=== PATIENT | male | born 1935 | race Caucasian/White ===

== ENCOUNTER → 2016-10-05 | Outpatient (CLI) | payer MEDICARE ==
[~2016-10-05] MED LIST: ALTA1CAP2 PO; ASPI1TAB PO; ATEN50TA2 PO; COLA100C PO; HYDR25TAB PO; WARF-23 PO; ZOCO20TA PO
[2016-10-05 11:05] LABS: INR 2.42
== END ==
LOC: M LAB 10:22
PROVIDERS: ATTEND Family Medicine
DX: Z51.81 Encounter for therapeutic drug level monitoring (principal); Z79.01 Long term (current) use of anticoagulants

== ENCOUNTER → 2016-11-02 | Outpatient (CLI) | payer MEDICARE ==
[2016-11-02 11:02] LABS: INR 2.28
== END ==
LOC: M LAB 10:14
PROVIDERS: ATTEND Family Medicine
DX: Z79.01 Long term (current) use of anticoagulants (principal)

== ENCOUNTER → 2016-11-30 | Outpatient (CLI) | payer MEDICARE ==
[2016-11-30 10:39] LABS: ANION GAP 9 MEQ/L (8-16); BLOOD UREA NITROGEN 21 MG/DL (7-18); CALCIUM LEVEL 8.7 MG/DL (8.8-10.2); CARBON DIOXIDE LEVEL 32 MEQ/L (21-32); CHLORIDE LEVEL 99 MEQ/L (98-107); CREATININE FOR GFR 1.17 MG/DL (0.70-1.30); GLOMERULAR FILTRATION RATE > 60.0 (>35); GLUCOSE, FASTING 212 MG/DL (83-110); POTASSIUM SERUM 4.1 MEQ/L (3.5-5.1); SODIUM LEVEL 140 MEQ/L (136-145)
[2016-11-30 10:48] LABS: INR 2.81
== END ==
LOC: M LAB 09:53
PROVIDERS: ATTEND Family Medicine
DX: Z79.01 Long term (current) use of anticoagulants (principal); Z79.899 Other long term (current) drug therapy

== ENCOUNTER → 2016-12-28 | Outpatient (CLI) | payer MEDICARE ==
[~2016-12-28] MED LIST changes: -COLA100C PO; +COLA100C3 PO
[2016-12-28 11:44] LABS: INR 2.37
== END ==
LOC: M LAB 10:32
PROVIDERS: ATTEND Family Medicine
DX: Z79.01 Long term (current) use of anticoagulants (principal)

== ENCOUNTER → 2017-01-25 | Outpatient (CLI) | payer MEDICARE ==
[2017-01-25 10:38] LABS: INR 2.04
== END ==
LOC: M LAB 10:11
PROVIDERS: ATTEND Family Medicine
DX: Z79.01 Long term (current) use of anticoagulants (principal)

== ENCOUNTER → 2017-02-16 | Outpatient (CLI) | payer MEDICARE ==
[2017-02-16 10:58] LABS: INR 2.1
== END ==
LOC: M LAB 10:05
PROVIDERS: ATTEND Family Medicine
DX: Z79.01 Long term (current) use of anticoagulants (principal)

== ENCOUNTER → 2017-03-16 | Outpatient (CLI) | payer MEDICARE ==
[2017-03-16 10:50] LABS: INR 2.04
[2017-03-16 11:13] LABS: ANION GAP 6 MEQ/L (8-16); BLOOD UREA NITROGEN 24 MG/DL (7-18); CALCIUM LEVEL 8.5 MG/DL (8.8-10.2); CARBON DIOXIDE LEVEL 30 MEQ/L (21-32); CHLORIDE LEVEL 102 MEQ/L (98-107); CREATININE FOR GFR 1.07 MG/DL (0.70-1.30); GLOMERULAR FILTRATION RATE > 60.0 (>35); GLUCOSE, FASTING 146 MG/DL (83-110); POTASSIUM SERUM 4.3 MEQ/L (3.5-5.1); SODIUM LEVEL 138 MEQ/L (136-145)
== END ==
LOC: M LAB 09:59
PROVIDERS: ATTEND Family Medicine
DX: Z79.01 Long term (current) use of anticoagulants (principal); R73.9 Hyperglycemia, unspecified

== ENCOUNTER → 2017-04-12 | Outpatient (CLI) | payer MEDICARE ==
[~2017-04-12] MED LIST changes: -COLA100C3 PO; +COLA100C5 PO
[2017-04-12 11:29] LABS: INR 2.54
== END ==
LOC: M LAB 10:15
PROVIDERS: ATTEND Family Medicine
DX: Z79.01 Long term (current) use of anticoagulants (principal)

== ENCOUNTER → 2017-05-12 | Outpatient (CLI) | payer MEDICARE ==
[2017-05-12 10:57] LABS: INR 4.55
== END ==
LOC: M LAB 10:06
PROVIDERS: ATTEND Family Medicine
DX: Z79.01 Long term (current) use of anticoagulants (principal)

== ENCOUNTER → 2017-05-24 | Outpatient (CLI) | payer MEDICARE ==
[2017-05-24 10:59] LABS: INR 2.71
== END ==
LOC: M LAB 09:36
PROVIDERS: ATTEND Family Medicine
DX: Z79.01 Long term (current) use of anticoagulants (principal)

== ENCOUNTER → 2017-06-07 | Outpatient (CLI) | payer MEDICARE ==
[2017-06-07 10:45] LABS: INR 2.17
[2017-06-07 11:05] LABS: ANION GAP 5 MEQ/L (8-16); BLOOD UREA NITROGEN 20 MG/DL (7-18); CARBON DIOXIDE LEVEL 33 MEQ/L (21-32); CHLORIDE LEVEL 99 MEQ/L (98-107); CREATININE FOR GFR 1.16 MG/DL (0.70-1.30); GLOMERULAR FILTRATION RATE > 60.0 (>35); GLUCOSE, FASTING 143 MG/DL (83-110); SODIUM LEVEL 137 MEQ/L (136-145)
== END ==
LOC: M LAB 09:53
PROVIDERS: ATTEND Family Medicine
DX: Z79.01 Long term (current) use of anticoagulants (principal); E11.9 Type 2 diabetes mellitus without complications

== ENCOUNTER → 2017-06-21 | Outpatient (CLI) | payer MEDICARE ==
[2017-06-21 11:01] LABS: INR 2.49
== END ==
LOC: M LAB 10:18
PROVIDERS: ATTEND Family Medicine
DX: Z79.01 Long term (current) use of anticoagulants (principal)

== ENCOUNTER → 2017-07-12 | Outpatient (CLI) | payer MEDICARE ==
[~2017-07-12] MED LIST changes: +ASPI81TAEC PO; +FLOM5CAP PO; +FURO20TA2 PO; +LASI20TA PO; +METF-699 PO; +PATIENT COMMENT; +RAMI25CA PO; +SIMV20TA2 PO
[2017-07-12 10:59] LABS: INR 2.61
== END ==
LOC: M LAB 10:05
PROVIDERS: ATTEND Family Medicine
DX: Z79.01 Long term (current) use of anticoagulants (principal)

== ENCOUNTER 2017-08-02 18:57 | Inpatient (IN) | payer MEDICARE ==
[~2017-08-02] VITALS: Ht 177.8 cm; Wt 95.4 kg
[~2017-08-02 18:57] MED LIST changes: -ASPI81TAEC PO; -FLOM5CAP PO; -FURO20TA2 PO; -LASI20TA PO; -METF-699 PO; -PATIENT COMMENT; -RAMI25CA PO; -SIMV20TA2 PO
[2017-08-02] MEDS ORDERED: NS 500 ML IV ONE (19:45)
[2017-08-02 19:54] LABS: VENOUS BASE EXCESS -1.3 (-2.0-2.0); VENOUS PARTIAL PRESSURE CO2 41.1 mmHg (38.0-50.0); VENOUS PARTIAL PRESSURE O2 31.9 mmHg (30.0-50.0); VENOUS STANDARD HCO3 22.3 MEQ/L
[2017-08-02] MEDS ORDERED: FLOM5CAP PO ×2 (20:02→22:39)
[2017-08-02] MEDS ORDERED: LASI20TA PO (20:02)
--- NOTE | 2017-08-02 20:03 | REP ---
Clinical: Trauma. Fall. Comparison: None. Findings: Age-related atrophy and microvascular ischemic changes are appreciated. The ventricles and sulci are symmetric. De La Cruz-white differentiation is maintained. There is no evidence for acute intracranial hemorrhage, mass/mass effect, pathology or infarction. No extra-axial fluid collection. Calvarium is intact. Chronic-appearing mucoceles in the right maxillary sinus identified. Impression: Age related atrophy and microvascular ischemic changes. No acute intracranial hemorrhage, infarction, or mass/mass effect. Signed by Evaristo Devine MD 08/02/2017 07:54 P
--- NOTE | 2017-08-02 20:05 | REP ---
Clinical: Trauma. Fall. Technique: Axial noncontrast images from the skull base to the thoracic inlet with coronal and sagittal re-formations. Findings: Advanced multilevel degenerative disc osteophyte complexes are appreciated including osteophytosis, endplate sclerosis and disc space narrowing along with hypertrophic facet changes. No acute fracture / compression injury or subluxation. Spinous processes are intact. Paravertebral soft tissues are within normal limits. Impression: Advanced multilevel degenerative changes. No acute fracture / compression injury or subluxation. Signed by Evaristo Devine MD 08/02/2017 07:57 P
--- NOTE | 2017-08-02 20:11 | REP ---
Clinical: Trauma. Fall. Technique: Axial noncontrast images through the maxillofacial region to include in the mandible with coronal and sagittal re-formations. Findings: Mild scalp swelling overlies the right frontal bone and right periorbital region. A subtle nondisplaced left nasal bone fracture cannot be excluded. The nasal septum is relatively midline. The remainder of the osseous structures are intact and without further acute fracture or dislocation identified including bilateral orbits, temporomandibular joints and zygomatic arches. Sinuses demonstrate mucoperiosteal thickening to the maxillary sinuses with chronic-appearing mucoceles (right greater than left). No air-fluid levels are identified to suggest occult injury. The bilateral orbits including globes and intraconal contents appear symmetric and normal. Impression: Mild right sided scalp and periorbital soft tissue swelling. Cannot exclude subtle nondisplaced left nasal bone fracture. No further acute trauma/injury identified. Chronic sinus disease. Signed by Evaristo Devine MD 08/02/2017 08:03 P
[2017-08-02 20:13] LABS: MEAN CORPUSCULAR HEMOGLOBIN 25.7 pg (27.0-33.0); MEAN CORPUSCULAR HGB CONC 31.4 g/dl (32.0-36.5); PLATELET COUNT, AUTOMATED 394 10^3/uL (150-450); RED CELL DISTRIBUTION WIDTH 16.6 % (11.5-14.5); WHITE BLOOD COUNT 16.3 10^3/uL (4.0-10.0)
[2017-08-02 20:16] LABS: ADD MANUAL DIFFER YES; DIFF SLIDE NUMBER 353; POSITIVE MORPH POS FLAG
[2017-08-02 20:29] LABS: INR 11.33
[2017-08-02] MEDS ORDERED: PHYTONADIONE 5 MG TAB PO ONE (20:45)
[2017-08-02 20:46] LABS: ALBUMIN 2.9 GM/DL (3.2-5.2); ALBUMIN/GLOBULIN RATIO 0.62 (1.00-1.93); ALKALINE PHOSPHATASE 68 U/L (45-117); ALT/SGPT 108 U/L (12-78); ANION GAP 13 MEQ/L (8-16); AST/SGOT 110 U/L (7-37); BILIRUBIN,DIRECT 0.2 MG/DL (0.0-0.2); BILIRUBIN,TOTAL 0.8 MG/DL (0.2-1.0); BLOOD UREA NITROGEN 90 MG/DL (7-18); CALCIUM LEVEL 9.4 MG/DL (8.8-10.2); CARBON DIOXIDE LEVEL 25 MEQ/L (21-32); CHLORIDE LEVEL 110 MEQ/L (98-107); CREATININE FOR GFR 2.08 MG/DL (0.70-1.30); GLOMERULAR FILTRATION RATE 32.8 (>35); GLUCOSE, FASTING 184 MG/DL (83-110); POTASSIUM SERUM 4.2 MEQ/L (3.5-5.1); SODIUM LEVEL 148 MEQ/L (136-145); TOTAL PROTEIN 7.6 GM/DL (6.4-8.2)
[2017-08-02 20:48] LABS: BASOPHILS 1 % (0-4)
[2017-08-02 20:49] LABS: ANISOCYTOSIS 1+
[2017-08-02 21:12] LABS: OSMOLALITY SERUM 349 MOSM/KG (280-301)
[2017-08-02] MEDS ORDERED: NS 1,000 ML IV ONE (21:30)
[2017-08-02] MEDS ORDERED: PATIENT COMMENT (22:39)
[2017-08-02] MEDS ORDERED: WARF-23 PO (22:39)
[2017-08-02] MEDS ORDERED: RAMI25CA PO (22:39)
[2017-08-02] MEDS ORDERED: SIMV20TA2 PO (22:39)
[2017-08-02] MEDS ORDERED: ATEN50TA2 PO (22:39)
[2017-08-02] MEDS ORDERED: COLA100C5 PO (22:39)
[2017-08-02] MEDS ORDERED: FURO20TA2 PO (22:39)
[2017-08-02] MEDS ORDERED: ASPI81TAEC PO (22:39)
[2017-08-02] MEDS ORDERED: METF-699 PO (22:40)
[2017-08-02] MEDS ORDERED: OXAZEPAM 15 MG CAP PO PRN (23:30)
[2017-08-03] VITALS (7 sets, daily range): BP systolic 92–140; BP diastolic 51–65
[2017-08-03] MEDS ORDERED: EUCERIN 120GM CREAM TOP PRN
[2017-08-03 00:51] LABS: METHADONE URINE NEGATIVE (NEGATIVE)
--- NOTE | 2017-08-03 01:11 | HPEPDOC ---
General Date of Admission Aug 02, 2017 at 23:51 Primary Care Physician: Casey Saini M.D. Chief Complaint The patient is a 81-year-old male admitted with a reason for visit of Supratheraputic Inr. Source: Patient Exam Limitations: No limitations, Hard of hearing Timing/Duration: Day(s) (four days ago) Severity: Moderate Associated Symptoms: Malaise, Dizziness, Mechanical fall History of Present Illness 81-year-old male with past medical history of atrial fibrillation, diabetes, heart failure, chronic and excessive alcohol use, hyperlipidemia who presents to the emergency department complaining of generalized weakness and a mechanical fall that occurred today, patient states that 4 days ago he acutely became very weak to the point where he sat on the floor in his apartment and was too weak to get up for about 3-4 days. He states that when he tried to get out today he became very lightheaded and fell, he states he his his head on his carpet and sustained a rug burn to his face, denied LOC. He states out for the past 60 years he has been drinking 4 scotches per night and occasionally some glasses of wine, he states he has not had any alcohol in about a week. He states he can stop drinking and not have tremors or feel poorly. He denies associated chest pain, dealings of his heart racing, shortness of breath or cough. He denies being sick recently which includes no fever, nausea vomiting or diarrhea, denies blood in urine or stool and denies pain with urination. Denies recent sick contact or travel outside the country. He lives at home in an apartment complex by himself and he stated that his neighbors found him yesterday when they came to check on him because they have not seen him in a few days, they called EMS and they found him on the floor unable to get up due to weakness. He states this weakness is new. He states his appetite has been good but he hasn't been unable to eat due to being on the floor in his apartment for the past few days. He does state that his lost about 20 pounds in the past year unintentionally. He denies any change in vision or headache. He does not smoke or use drugs, there are been no new changes in his medications and he takes is prescribed meds religiously. Home Medications Scheduled Aspirin (Aspirin EC) 81 Mg Tabec, 81 MG PO DAILY, (Reported) Atenolol (Atenolol) 50 Mg Tab, 50 MG PO DAILY, (Reported) Docusate Sodium (Colace) 100 Mg Cap, 100 MG PO DAILY, (Reported) Furosemide (Furosemide) 20 Mg Tab, 40 MG PO DAILY, (Reported) Metformin Hydrochloride (Metformin HCl ER) 500 Mg Tab, 500 MG PO DAILY, ( Reported) Ramipril (Ramipril) 2.5 Mg Cap, 2.5 MG PO DAILY, (Reported) Simvastatin (Simvastatin) 20 Mg Tab, 20 MG PO QHS, (Reported) Tamsulosin Hydrochloride (Flomax) 0.4 Mg Cap, 1 CAP PO QHS, (Reported) once daily 1/2 hour following the same meal each day Warfarin Sod (Warfarin Sodium) 5 Mg Tab, 2.5 MG PO ASDIRECTED, (Reported) TAKES ON TUESDAY, TUESDAY AND TUESDAY AT [facility] Warfarin Sod (Warfarin Sodium) 5 Mg Tab, 5 MG PO ASDIRECTED, (Reported) TAKES AT TUESDAY, TUESDAY, TUESDAY AND TUESDAY AT [facility] Miscellaneous Medications [Patient Comment] , (Reported) PATIENT STATES THAT HE DID NOT TAKE ANY MEDICATION TODAY Allergies Coded Allergies: Lisinopril (Unverified Allergy, Unknown, ITCHING, 12/26/12) Past Medical History Medical History as per [facility] Family History Significant Family History: No pertinent family hx Social History * Smoker: Denies Alcohol: heavy Drugs: denies Recent Travel/Sick Contacts: Denies: Recent travel, Recent sick contacts lives at home by himself, apparently has a brother near by Review of Symptoms Constitutional: Reports: Malaise, Weakness, Fatigue, Weight Loss (I), Lethargy , Denies: Chills, Fever, Night Sweats Eyes: Denies: Pain, Vision change ENT: Denies: Head Aches Skin: Reports: Bruising (b/l knees), Denies: Rash, Lesions, Jaundice, Breakdown Pulmonary: Denies: Dyspnea, Cough, Pleuritic Chest Pain Cardiovascular: Reports: Lt Headedness, Denies: Chest Pain, Palpitations, Orthopnea, Paroxysmal Noc. Dyspnea, Edema Gastrointestinal: Denies: Nausea, Vomiting, Abdominal Pain, Diarrhea, Constipation, Hematochezia Genitourinary: Denies: Dysuria Hematologic: Reports: Bruising, Petecchia, Denies: Bleeding Excessively, Purpura Endocrine: Denies: Polydipsia Musculoskeletal: Denies: Neck Pain Neurological: Reports: Weakness, Denies: Numbness, Incoordination, Change in speech, Confusion, Seizures Psych: Reports: Mood Normal Physical Examination General Exam: Positive: Alert, Cooperative, Mild Distress Eye Exam: Positive: PERRLA, Conjunctiva & lids normal, EOMI, Negative: Sclera icteric, Ptosis ENT Exam: Positive: Atraumatic, Mucous membr. moist/pink, Pharynx Normal, Tongue Midline, Nares Patent, Negative: Pharyngeal Edema Neck Exam: Positive: Supple Chest Exam: Positive: Clear to auscultation, Normal air movement, Negative: Rales, Rhonchi, Wheezing, Diminished Heart Exam: Positive: Rate Normal, Normal S1, Normal S2, Negative: Tachycardic, Bradycardic, Murmurs, Rubs Telemetry: Positive: No significant arrhythmia Abdomen Exam: Positive: Normal bowel sounds, Soft, Negative: Tenderness, Hepatospenomegaly Extremity Exam: Positive: Normal pulses, Other (b/l knee bruising from fall), Negative: Clubbing, Cyanosis, Edema, Tenderness, Swelling Neuro Exam: Positive: Normal Speech, Sensation Intact Psych Exam: Positive: Oriented x 3 Vital Signs Vital Signs Date Time Temp Pulse Resp B/P (MAP) Pulse Ox O2 Delivery O2 Flow Rate FiO2 08/02/17 23:26 98 94 08/02/17 23:15 103/57 (72) 08/02/17 19:49 96.9 14 Laboratory Data Labs 24H Laboratory Tests 2 08/02/17 19:06: Bedside Glucose (Misc Panel) 174H 08/02/17 19:42: Nucleated Red Blood Cells % (auto) 0.0, Neutrophils 87H, Lymphocytes (Manual) 7L , Monocytes (Manual) 4, Basophils (Manual) 1, Atypical Lymphocytes 1, Platelet Estimate NORMAL, Anisocytosis 1+, Prothrombin Time 95.7H, Prothromb Time International Ratio 11.33*H, Activated Partial Thromboplast Time 80.8H, Blood Gas Bicarbonate Standard 22.3, Venous Blood pH 7.379, Venous Blood Partial Pressure CO2 41.1, Venous Blood Partial Pressure O2 31.9, Venous Blood Total Carbon Dioxide 25.0, Venous Blood HCO3 23.7, Venous Blood Oxygen Saturation 54.0L, Venous Blood Base Excess -1.3, Anion Gap 13, Glomerular Filtration Rate 32.8L, Osmolality 349H, Lactic Acid Level 3.1*H, Calcium Level 9.4, Aspartate Amino Transf (AST/SGOT) 110H, Alanine Aminotransferase (ALT/SGPT) 108H, Alkaline Phosphatase 68, Total Bilirubin 0.8, Direct Bilirubin 0.2, Ammonia 40H , Total Creatine Kinase 1263H, Creatine Kinase MB 11.4H, Creatine Kinase MB Relative Index 0.90, Troponin I 0.05, Total Protein 7.6, Albumin 2.9L, Albumin/ Globulin Ratio 0.62L, Thyroid Stimulating Hormone (TSH) 0.841, Salicylates Level < 1.7L, Acetaminophen Level < 2.0L, Ethyl Alcohol Level < 0.003 08/03/17 00:03: Urine Appearance HAZY, Urine Color YELLOW, Urine pH 5.0, Urine Specific [place] 1.017, Urine Protein NEGATIVE, Urine Glucose (UA) NEGATIVE, Urine Ketones TRACEH , Urine Urobilinogen 0.2, Urine Bilirubin NEGATIVE, Urine Leukocyte Esterase NEGATIVE, Urine Blood 1+H, Urine Nitrite NEGATIVE, Urine WBC (Auto) 1, Urine RBC (Auto) 2, Urine Hyaline Casts (Auto) 0, Urine Bacteria (Auto) NEGATIVE, Urine Squamous Epithelial Cells 0, Urine Sperm (Auto) CBC/BMP Laboratory Tests 08/02/17 19:42 Red Blood Count 5.33, Mean Corpuscular Volume 82.0, Mean Corpuscular Hemoglobin 25.7 L, Mean Corpuscular Hemoglobin Concent 31.4 L, Red Cell Distribution Width 16.6 H Microbiology Microbiology 08/02/17 Blood Culture, Received Pending 08/02/17 Blood Culture, Received Pending 08/03/17 Urine Culture, Received Pending Problems (1) Supratherapeutic INR Status: Acute Response to Treatment: Stable Problem Text: INR 11.3 will recheck INR in AM hold home coumidin for now pt received 10 of Vitamin K in ED c/w home atenolol for a. fib (2) Fall Status: Acute Response to Treatment: Stable Problem Text: head CT negative for intracranial bleed will obtain CT of left knee to r/o hematoma continue to monitor knee admit to PCU, EKG in ED showed a. fib rate in 60's, no signs of ischemia C-spine CT negative for fracture maxillofacial CT possible nasal bone fracture first set of troponin neg., can trend (3) Rhabdomyolysis Status: Acute Response to Treatment: Stable (4) Diabetes Status: Chronic Response to Treatment: Stable Problem Text: hold home metformin, pt has MIKE sliding scale coverage (5) Acute kidney injury Status: Acute Response to Treatment: Stable Problem Text: Elevated creatine, unsure baseline since this is his first admission begin IV fluid NS @100 in light of HF history hold home lasix (6) Atrial fibrillation Status: Chronic Response to Treatment: Stable Problem Text: EKG in ED showed a. fib rate 60's c/w home atenolol hold home coumidin in light of supratherupeutic INR, recheck INR in AM (7) CHF (congestive heart failure) Status: Chronic Response to Treatment: Stable Problem Text: hold home lasix for now., patient will be receiving IV fluid hydration no echo on file patient states he follows with Dr. Vasques (8) Alcohol abuse Status: Chronic Response to Treatment: Stable Problem Text: Is not tremulous on exam states he has not had drink in over a week CIWA protocol folic, thiamine and MV serax if withdrawing (9) DVT prophylaxis Status: Acute Response to Treatment: Stable Problem Text: scd teds Plan / VTE VTE Prophylaxis Ordered?: Yes GME ATTESTATION GME ATTESTATION My faculty preceptor for this patient encounter was physically present during the encounter and was fully available. All aspects of the patient interview, examination, medical decision making process, and medical care plan development were reviewed and approved by the faculty preceptor. The faculty preceptor is aware and concurs with the plan as stated in the body of this note and will attest to such by his/her cosignature. ATTENDING NOTE I have seen and examined the patient as did the resident I have reviewed the case and discussed the plan with her I concur with her findings on Hx and PE and agree with her A&P with the following Additions/Exceptions; I first saw patient 08/02/17 Patient With Very High INR of 11.3 M/P require >2mn until normalization and therefore D/C MIKE- Fluids, Caution though patient with CHF Increased CPK- M/P 2/2 to Prolonged time on Floor, Fluids with caution as above ETOH- No ingestion for 1 week as per patient, Nevertheless would continue CIWA scoring MVI/Folic Acid and Thiamine MELY CALVO DO Aug 03, 2017 01:11 LEN DRISCOLL MD Aug 03, 2017 05:14
--- NOTE | 2017-08-03 02:00 | REPUSA ---
Indication: Pain. Technique: Axial CT scan images without contrast. Reformatted coronal and sagittal images. Findings: There are tricompartmental changes of degenerative joint disease. Findings are demonstrated by joint space narrowing, osteophyte formation and subchondral sclerosis. No fracture or dislocation is seen. No lytic or blastic lesion is appreciated. There is mild suprapatellar knee joint effusion. There is no evidence radiopaque foreign body. Impression: No acute bone pathology.
[2017-08-03] MEDS ORDERED: DEXTROSE 50% 50 ML SYRINGE IV PRN (02:15)
[2017-08-03] MEDS ORDERED: GLUCAGON FOR INJ 1 MG VIAL (J1610) SC PRN (02:15)
[2017-08-03] MEDS ORDERED: GLUCOSE 4 GM CHEW TABLET PO PRN (02:15)
[2017-08-03] MEDS: NS 1,000 ML IV SCH ×3 (02:54→23:16)
[2017-08-03 06:55] LABS: MEAN CORPUSCULAR HEMOGLOBIN 25.5 pg (27.0-33.0); MEAN CORPUSCULAR VOLUME 82.2 fl (80.0-96.0); PLATELET COUNT, AUTOMATED 351 10^3/uL (150-450); RED CELL DISTRIBUTION WIDTH 16.7 % (11.5-14.5); WHITE BLOOD COUNT 13.8 10^3/uL (4.0-10.0)
[2017-08-03 07:02] LABS: ADD MANUAL DIFFER YES; DIFF SLIDE NUMBER 98; POSITIVE MORPH POS FLAG
[2017-08-03 07:17] LABS: INR 10.23
[2017-08-03 07:18] LABS: ALBUMIN 2.5 GM/DL (3.2-5.2); CALCIUM LEVEL 8.7 MG/DL (8.8-10.2); CREATININE FOR GFR 1.73 MG/DL (0.70-1.30); GLOMERULAR FILTRATION RATE 40.6 (>35); PHOSPHORUS LEVEL 3.9 MG/DL (2.5-4.9); POTASSIUM SERUM 3.9 MEQ/L (3.5-5.1)
[2017-08-03 08:04] LABS: POIKILOCYTOSIS 1+
[2017-08-03] MEDS: FOLIC ACID 1 MG TAB PO SCH (08:59)
[2017-08-03] MEDS: HumaLOG INSULIN (NovoLOG) PER UNIT SC SCH ×4 (08:59→20:21)
--- NOTE | 2017-08-03 08:59 | REP ---
Clinical: Trauma. Fall. Altered mental status . Comparison: None . Findings: The mediastinum and cardiac silhouette are stable and within normal limits for portable technique. The lung may are clear without acute consolidation, effusion, or pneumothorax. Skeletal structures are intact. Impression: No acute cardiopulmonary process appreciated. Signed by Evaristo Devine MD 08/03/2017 08:50 A
[2017-08-03] MEDS ORDERED: THIAMINE 100 MG TAB PO SCH (09:00)
[2017-08-03] MEDS ORDERED: ASPIRIN 81 MG ENTERIC TAB PO SCH (09:00)
[2017-08-03] MEDS: THIAMINE 100 MG TAB PO SCH (09:00)
[2017-08-03] MEDS: NYSTATIN 100,000 UNITS/GM TOPICAL PWD 15 GM TOP SCH ×2 (09:00→20:19)
[2017-08-03] MEDS: ATENOLOL 50 MG TAB PO SCH (09:00)
[2017-08-03] MEDS: MULTIVITAMINS/MINERALS THERAP 1 TAB PO SCH (09:00)
[2017-08-03 12:38] LABS: MEAN CORPUSCULAR HEMOGLOBIN 25.8 pg (27.0-33.0); MEAN CORPUSCULAR HGB CONC 31.3 g/dl (32.0-36.5); MEAN CORPUSCULAR VOLUME 82.5 fl (80.0-96.0); PLATELET COUNT, AUTOMATED 366 10^3/uL (150-450); RED CELL DISTRIBUTION WIDTH 16.8 % (11.5-14.5); WHITE BLOOD COUNT 12.7 10^3/uL (4.0-10.0)
--- NOTE | 2017-08-03 12:45 | IPNPDOC ---
Subjective Date Seen The patient was seen on 08/03/17. Subjective Chief Complaint/HPI The patient is a 81-year-old male admitted with a reason for visit of Supratheraputic Inr. Events since last encounter feels well. Shakey with getting up to commode per nursing PVR = 500 cc per straight cath this am - has some trouble emptying his bladder at home at baseline Constitutional: Denies: Chills, Fever Pulmonary: Denies: Dyspnea, Cough Cardiovascular: Denies: Chest Pain, Palpitations, Orthopnea Gastrointestinal: Denies: Nausea, Vomiting, Abdominal Pain, Diarrhea, Constipation Genitourinary: Reports: Retention Objective Physical Examination General Exam: Positive: Alert, Cooperative, No Acute Distress Eye Exam: Positive: PERRLA, Conjunctiva & lids normal, EOMI ENT Exam: Positive: Mucous membr. moist/pink, Other ENT (left anterior scalp eccymosis no swelling) Neck Exam: Positive: Supple Chest Exam: Positive: Clear to auscultation, Normal air movement, Negative: Rales, Rhonchi, Wheezing, Diminished Heart Exam: Positive: Rate Normal, Normal S1, Normal S2, Negative: Tachycardic, Bradycardic, Murmurs, Rubs Telemetry: Positive: No significant arrhythmia Abdomen Exam: Positive: Normal bowel sounds, Soft, Negative: Tenderness, Hepatospenomegaly Extremity Exam: Positive: Other (b/l knee bruising from fall), Negative: Clubbing, Cyanosis, Edema, Tenderness, Swelling Neuro Exam: Positive: Normal Speech Psych Exam: Positive: Oriented x 3 Assessment /Plan Problems (1) Supratherapeutic INR Status: Acute Response to Treatment: Stable Problem Text: 08/03 - INR = 10.23 Give additional Vitamin K 5 mg Await guiac - if positive, will give FFP INR 11.3 will recheck INR in AM hold home coumidin for now pt received 10 of Vitamin K in ED c/w home atenolol for a. fib (2) Anemia Status: Acute Problem Text: Baseline Hgb approx. 13.7 on admission. Hgb now 11.6 Guiacs pending (3) Fall Status: Acute Response to Treatment: Stable Problem Text: head CT negative for intracranial bleed CT knees negative for bony abnormality C-spine CT negative for fracture maxillofacial CT possible nasal bone fracture (4) Acute kidney injury Status: Acute Response to Treatment: Stable Problem Text: 08/03 - Improving with IVF Cre = 1.73 today (Baseline - 1.16 05/2017) (5) Rhabdomyolysis Status: Acute Response to Treatment: Stable Problem Text: repeat CPK today - Continue IVF (6) Diabetes Status: Chronic Response to Treatment: Stable Problem Text: hold home metformin, pt has MIKE sliding scale coverage (7) Atrial fibrillation Status: Chronic Response to Treatment: Stable Problem Text: Rate controlled on Atenolol HD Coumadin on hold for high INR (8) CHF (congestive heart failure) Status: Chronic Response to Treatment: Stable Problem Text: 08/03 - remains compensated with Diuretics on hold patient states he follows with Dr. Vasques (9) Alcohol abuse Status: Chronic Response to Treatment: Stable Problem Text: Is not tremulous on exam states he has not had drink in over a week CIWA protocol folic, thiamine and MV serax if withdrawing (10) DVT prophylaxis Status: Acute Response to Treatment: Stable Problem Text: scd teds (11) Urinary retention Status: Chronic Problem Text: PVR = 500 place tovar Recently started on Flomax this fall per PCP restart this and monitor PVR Plan/VTE VTE Prophylaxis Ordered?: Yes (INR high - Coumadin on hold) Plan Therapy: PT, OT VS, I&O, 24H, Fishbone Vital Signs/I&O Vital Signs Date Time Temp Pulse Resp B/P (MAP) Pulse Ox O2 Delivery O2 Flow Rate FiO2 08/03/17 11:50 98.0 94 18 120/56 (77) 97 Room Air I&O- Last 24 Hours up to 6 AM 08/04/17 06:00 Intake Total 360 ml Output Total 550 ml Balance -190 ml Laboratory Data 24H LABS Laboratory Tests 2 08/02/17 19:06: Bedside Glucose (Misc Panel) 174H 08/02/17 19:42: Nucleated Red Blood Cells % (auto) 0.0, Neutrophils 87H, Lymphocytes (Manual) 7L , Monocytes (Manual) 4, Basophils (Manual) 1, Atypical Lymphocytes 1, Platelet Estimate NORMAL, Anisocytosis 1+, Prothrombin Time 95.7H, Prothromb Time International Ratio 11.33*H, Activated Partial Thromboplast Time 80.8H, Blood Gas Bicarbonate Standard 22.3, Venous Blood pH 7.379, Venous Blood Partial Pressure CO2 41.1, Venous Blood Partial Pressure O2 31.9, Venous Blood Total Carbon Dioxide 25.0, Venous Blood HCO3 23.7, Venous Blood Oxygen Saturation 54.0L, Venous Blood Base Excess -1.3, Anion Gap 13, Glomerular Filtration Rate 32.8L, Osmolality 349H, Lactic Acid Level 3.1*H, Calcium Level 9.4, Aspartate Amino Transf (AST/SGOT) 110H, Alanine Aminotransferase (ALT/SGPT) 108H, Alkaline Phosphatase 68, Total Bilirubin 0.8, Direct Bilirubin 0.2, Ammonia 40H , Total Creatine Kinase 1263H, Creatine Kinase MB 11.4H, Creatine Kinase MB Relative Index 0.90, Troponin I 0.05, Total Protein 7.6, Albumin 2.9L, Albumin/ Globulin Ratio 0.62L, Thyroid Stimulating Hormone (TSH) 0.841, Salicylates Level < 1.7L, Acetaminophen Level < 2.0L, Ethyl Alcohol Level < 0.003 08/03/17 00:03: Urine Appearance HAZY, Urine Color YELLOW, Urine pH 5.0, Urine Specific [place] 1.017, Urine Protein NEGATIVE, Urine Glucose (UA) NEGATIVE, Urine Ketones TRACEH , Urine Urobilinogen 0.2, Urine Bilirubin NEGATIVE, Urine Leukocyte Esterase NEGATIVE, Urine Blood 1+H, Urine Nitrite NEGATIVE, Urine WBC (Auto) 1, Urine RBC (Auto) 2, Urine Hyaline Casts (Auto) 0, Urine Bacteria (Auto) NEGATIVE, Urine Squamous Epithelial Cells 0, Urine Sperm (Auto) , Urine Amphetamines Screen NEGATIVE, Urine Benzodiazepines Screen NEGATIVE, Urine Opiates Screen NEGATIVE, Urine Methadone Screen NEGATIVE, Urine Barbiturates Screen NEGATIVE, Urine Phencyclidine Screen NEGATIVE, Urine Cocaine Metabolite Screen NEGATIVE, Urine Cannabinoids Screen NEGATIVE 08/03/17 02:11: Troponin I 0.05, Lactic Acid Followup at 4 Hours 1.6 08/03/17 06:46: Nucleated Red Blood Cells % (auto) 0.0, Neutrophils 75, Lymphocytes (Manual) 13L , Monocytes (Manual) 9H, Atypical Lymphocytes 3, Platelet Estimate NORMAL, Poikilocytosis 1+, Prothrombin Time 88.1H, Prothromb Time International Ratio 10.23*H, Blood Urea Nitrogen 87H, Creatinine 1.73H, Sodium Level 151H, Potassium Level 3.9, Chloride Level 116H, Carbon Dioxide Level 29, Anion Gap 6L , Glomerular Filtration Rate 40.6, Calcium Level 8.7L, Phosphorus Level 3.9, Troponin I 0.04, Albumin 2.5L CBC/BMP Laboratory Tests 08/02/17 19:42 Red Blood Count 5.33, Mean Corpuscular Volume 82.0, Mean Corpuscular Hemoglobin 25.7 L, Mean Corpuscular Hemoglobin Concent 31.4 L, Red Cell Distribution Width 16.6 H 08/03/17 06:46 Red Blood Count 4.55, Mean Corpuscular Volume 82.2, Mean Corpuscular Hemoglobin 25.5 L, Mean Corpuscular Hemoglobin Concent 31.0 L, Red Cell Distribution Width 16.7 H, Anion Gap 6 L Microbiology Microbiology 08/02/17 Blood Culture, Received Pending 08/02/17 Blood Culture, Received Pending 08/03/17 Urine Culture, Received Pending CLAUDIA ADAM PA-C Aug 03, 2017 12:45
[2017-08-03] MEDS: TAMSULOSIN 0.4 MG CAP PO SCH (12:59)
[2017-08-03] MEDS ORDERED: PHYTONADIONE 10MG/ML INJECTION (J3430) SC ONE (13:00)
--- NOTE | 2017-08-03 14:18 | IPN ---
DATE: 08/03/2017 Sean was seen in progressive care unit (PCU). This note supplements the note already generated by Melanie Capellan. Contrary to what was entered into the admission history and physical, there are several baseline renal functions available through [facility]. His baseline creatinine is 1.1, it was 1.7 today. His balance problem could be alcohol related neuropathy or cerebellar degeneration. I am going to get an MRI scan of the brain. I will also check a B12, folate and we will get physical therapy involved to work on balance problems and ambulation. He might need rehabilitation before discharge.
--- NOTE | 2017-08-03 16:59 | REP ---
MR BRAIN WITHOUT CONTRAST: HISTORY: Balance difficulty. COMPARISON: CT 08/02/2017. Scattered punctate areas of increased signal intensity on T2 weighted images are present in the periventricular and subcortical white matter. This represents small vessel ischemic disease. There is no intraparenchymal hemorrhage, infarct, mass, or midline shift. The ventricular system and cortical sulci as well as subarachnoid space and the posterior fossa are dilated consistent with mild volume loss. There is no extracerebral collection. Mucosal thickening is present in the maxillary sinuses. A retention cyst is present in the right maxillary sinus. IMPRESSION: 1. Minimal small vessel ischemic disease. 2. Mild volume loss. Signed by Nestor Nam MD 08/03/2017 05:11 P
[2017-08-04] VITALS (10 sets, daily range): BP systolic 90–115; BP diastolic 46–70
[2017-08-04 05:35] LABS: MEAN CORPUSCULAR HEMOGLOBIN 25.6 pg (27.0-33.0); MEAN CORPUSCULAR HGB CONC 30.4 g/dl (32.0-36.5); MEAN CORPUSCULAR VOLUME 84.4 fl (80.0-96.0); PLATELET COUNT, AUTOMATED 320 10^3/uL (150-450); RED CELL DISTRIBUTION WIDTH 16.8 % (11.5-14.5); WHITE BLOOD COUNT 11.2 10^3/uL (4.0-10.0)
[2017-08-04 05:38] LABS: ADD MANUAL DIFFER YES; DIFF SLIDE NUMBER 56; POSITIVE MORPH POS FLAG
[2017-08-04 05:53] LABS: CREATININE FOR GFR 1.24 MG/DL (0.70-1.30); GLOMERULAR FILTRATION RATE 59.6 (>35)
[2017-08-04 05:54] LABS: CALCIUM LEVEL 8.2 MG/DL (8.8-10.2); POTASSIUM SERUM 4.2 MEQ/L (3.5-5.1)
[2017-08-04 06:10] LABS: EOSINOPHILS 3 % (0-5)
[2017-08-04 06:11] LABS: PLATELET CLUMPS SMALL AMT
[2017-08-04 06:12] LABS: ANISOCYTOSIS 1+
[2017-08-04] MEDS: NS 1,000 ML IV SCH (08:02)
[2017-08-04] MEDS: HumaLOG INSULIN (NovoLOG) PER UNIT SC SCH ×4 (08:02→20:19)
[2017-08-04] MEDS: THIAMINE 100 MG TAB PO SCH (08:03)
[2017-08-04] MEDS: TAMSULOSIN 0.4 MG CAP PO SCH (08:03)
[2017-08-04] MEDS: FOLIC ACID 1 MG TAB PO SCH (08:03)
[2017-08-04] MEDS: NYSTATIN 100,000 UNITS/GM TOPICAL PWD 15 GM TOP SCH ×2 (08:03→20:42)
[2017-08-04] MEDS: MULTIVITAMINS/MINERALS THERAP 1 TAB PO SCH (08:03)
[2017-08-04] MEDS: ATENOLOL 50 MG TAB PO SCH (08:03)
[2017-08-04 10:24] LABS: INR 5.11
[2017-08-04 11:32] LABS: FOLATE 7.1 NG/ML (>5.4)
--- NOTE | 2017-08-04 13:43 | ECGEPIP ---
Stationary ECG Study [facility] - ED Test Date: 2017-08-02 Pat Name: SKY BERNAL Department: Room: [place] [address] Gender: M [employer] Internship: rn : 1935 Requested By: Sanaz Barron Order Number: [id number] Reading MD: Sae Medrano Measurements Intervals [place] Rate: 88 P: OR: 0 QRS: -70 QRSD: 159 T: 135 QT: 396 QTc: 481 Interpretive Statements ATRIAL FIBRILLATION WITH ABERRANT CONDUCTION OR VENTRICULAR PREMATURE COMPLEXES LEFT AXIS DEVIATION RIGHT BUNDLE BRANCH BLOCK NSTTW ABNORMALITIES NO PRIORS FOR COMPARISON Electronically Signed On 08-04-2017 13:43:30 EST by Sae Medrano
[2017-08-04] MEDS: NS 0.45% 1,000 ML IV SCH (14:51)
--- NOTE | 2017-08-04 16:58 | IPNPDOC ---
Subjective Date Seen The patient was seen on 08/04/17. Subjective Chief Complaint/HPI The patient is a 81-year-old male admitted with a reason for visit of Supratheraputic Inr. Events since last encounter Patient states that he is doing good today. He denies having any bleeding. Constitutional: Denies: Chills, Fever Pulmonary: Denies: Dyspnea Cardiovascular: Denies: Chest Pain Objective Physical Examination General Exam: Positive: Alert, No Acute Distress Chest Exam: Positive: Clear to auscultation, Normal air movement, Negative: Rales, Rhonchi, Wheezing Heart Exam: Positive: Irregular Rhythm Telemetry: Positive: Atrial fibrillation Abdomen Exam: Positive: Normal bowel sounds, Soft, Negative: Tenderness, Hepatospenomegaly Extremity Exam: Negative: Swelling Assessment /Plan Problems (1) Supratherapeutic INR Status: Acute Response to Treatment: Stable Problem Text: 08/04: INR of 5.11 today. We will continue to monitor, continue to hold Coumadin, repeat INR tomorrow. Patient will be transferred to [facility] 08/03 - INR = 10.23 Give additional Vitamin K 5 mg Await guiac - if positive, will give FFP INR 11.3 will recheck INR in AM hold home coumidin for now pt received 10 of Vitamin K in ED c/w home atenolol for a. fib (2) Anemia Status: Acute Problem Text: 08/04: Hemoglobin down to 10.0, we will continue to monitor Baseline Hgb approx. 13.7 on admission. Hgb now 11.6 Guiacs pending (3) Fall Status: Acute Response to Treatment: Stable Problem Text: 08/04: Physical therapy has not yet seen patient due to elevated INR head CT negative for intracranial bleed CT knees negative for bony abnormality C-spine CT negative for fracture maxillofacial CT possible nasal bone fracture (4) Acute kidney injury Status: Acute Response to Treatment: Stable Problem Text: 08/04: Improving, creatinine 1.24 today 08/03 - Improving with IVF Cre = 1.73 today (Baseline - 1.16 05/2017) (5) Rhabdomyolysis Status: Acute Response to Treatment: Stable Problem Text: 08/04: IV fluids switched to one half normal saline secondary to hypernatremia. 08/03: repeat CPK today - Continue IVF (6) Hypernatremia Problem Text: 08/04: Likely secondary to administration of normal saline, patient will be switched to one half normal saline. (7) Diabetes Status: Chronic Response to Treatment: Stable Problem Text: hold home metformin, pt has MIKE sliding scale coverage (8) Atrial fibrillation Status: Chronic Response to Treatment: Stable Problem Text: Rate controlled on Atenolol HD Coumadin on hold for high INR (9) CHF (congestive heart failure) Status: Chronic Response to Treatment: Stable Problem Text: 08/03 - remains compensated with Diuretics on hold patient states he follows with Dr. Vasques (10) Alcohol abuse Status: Chronic Response to Treatment: Stable Problem Text: Is not tremulous on exam states he has not had drink in over a week CIWA protocol folic, thiamine and MV serax if withdrawing (11) DVT prophylaxis Status: Acute Response to Treatment: Stable Problem Text: scd teds (12) Urinary retention Status: Chronic Problem Text: PVR = 500 place tovar Recently started on Flomax this fall per PCP restart this and monitor PVR Plan/VTE VTE Prophylaxis Ordered?: Yes (INR high - Coumadin on hold) Plan Therapy: PT, OT Disposition Anticipate discharge early next week (Tuesday) VS, I&O, 24H, [facility] Vital Signs/I&O Vital Signs Date Time Temp Pulse Resp B/P (MAP) Pulse Ox O2 Delivery O2 Flow Rate FiO2 08/04/17 12:29 Room Air 08/04/17 12:19 98.0 62 36 98/46 (63) 92 I&O- Last 24 Hours up to 6 AM 08/05/17 06:00 Intake Total 2500 ml Output Total 650 ml Balance 1850 ml Laboratory Data 24H LABS Laboratory Tests 2 08/03/17 17:04: Bedside Glucose (Misc Panel) 134H 08/03/17 20:21: Bedside Glucose (Misc Panel) 188H 08/04/17 05:08: Nucleated Red Blood Cells % (auto) 0.0, Neutrophils 67, Lymphocytes (Manual) 19 , Monocytes (Manual) 10H, Eosinophils (Manual) 3, Atypical Lymphocytes 1, Platelet Estimate NORMAL, Clumped Platelets SMALL AMT, Anisocytosis 1+, Anion Gap 3L, Glomerular Filtration Rate 59.6, Blood Urea Nitrogen 66H, Creatinine 1.24, Sodium Level 153H, Potassium Level 4.2, Chloride Level 120H, Carbon Dioxide Level 30, Calcium Level 8.2L, Vitamin B12 Level 664, Folate 7.1 08/04/17 09:44: Prothrombin Time 50.1H, Prothromb Time International Ratio 5.11*H 08/04/17 11:49: Bedside Glucose (Misc Panel) 162H CBC/BMP Laboratory Tests 08/04/17 05:08 Red Blood Count 3.90 L, Mean Corpuscular Volume 84.4, Mean Corpuscular Hemoglobin 25.6 L, Mean Corpuscular Hemoglobin Concent 30.4 L, Red Cell Distribution Width 16.8 H, Calcium Level 8.2 L Microbiology Microbiology 08/02/17 Blood Culture - Preliminary, Resulted No growth after 24 hours . All specim... 08/02/17 Blood Culture - Preliminary, Resulted No growth after 24 hours . All specim... 08/03/17 Urine Culture - Final, Complete GME ATTESTATION GME ATTESTATION My faculty preceptor for this patient encounter was physically present during the encounter and was fully available. All aspects of the patient interview, examination, medical decision making process, and medical care plan development were reviewed and approved by the faculty preceptor. The faculty preceptor is aware and concurs with the plan as stated in the body of this note and will attest to such by his/her cosignature. VASHTI NICHOLS DO Aug 04, 2017 16:58
[2017-08-05 03:33] VITALS: BP 96/56
[2017-08-05 05:27] LABS: BASO % 0.2 % (0.0-1.0); EOS # 0.4 10^3/uL (0.0-0.50); IMMATURE GRANULOCYTE % 2.6 % (0-0); LYMPH # 2.2 10^3/uL (1.5-4.5); LYMPH % 18.1 % (24.0-44.0); MEAN CORPUSCULAR HEMOGLOBIN 26.1 pg (27.0-33.0); MEAN CORPUSCULAR HGB CONC 30.4 g/dl (32.0-36.5); MEAN CORPUSCULAR VOLUME 85.8 fl (80.0-96.0); MONO # 1.6 10^3/uL (0.0-0.8); MONO % 13.2 % (0.0-5.0); NEUTROPHILS # 7.8 10^3/uL (1.8-7.7); NEUTROPHILS % 62.9 % (36.0-66.0); PLATELET COUNT, AUTOMATED 286 10^3/uL (150-450); RED CELL DISTRIBUTION WIDTH 17.2 % (11.5-14.5); WHITE BLOOD COUNT 12.4 10^3/uL (4.0-10.0)
[2017-08-05 05:37] LABS: INR 2.56
[2017-08-05 05:46] LABS: ANION GAP 3 MEQ/L (8-16); BLOOD UREA NITROGEN 42 MG/DL (7-18); CALCIUM LEVEL 8.4 MG/DL (8.8-10.2); CARBON DIOXIDE LEVEL 31 MEQ/L (21-32); CHLORIDE LEVEL 117 MEQ/L (98-107); CREATININE FOR GFR 1.06 MG/DL (0.70-1.30); GLOMERULAR FILTRATION RATE > 60.0 (>35); GLUCOSE, FASTING 122 MG/DL (83-110); POTASSIUM SERUM 4.4 MEQ/L (3.5-5.1); SODIUM LEVEL 151 MEQ/L (136-145)
[2017-08-05] MEDS: NS 0.45% 1,000 ML IV SCH (06:18)
[2017-08-05] MEDS: HumaLOG INSULIN (NovoLOG) PER UNIT SC SCH (07:58)
[2017-08-05 08:00] VITALS: BP 98/52
[2017-08-05] MEDS: TAMSULOSIN 0.4 MG CAP PO SCH (08:00)
[2017-08-05] MEDS: FOLIC ACID 1 MG TAB PO SCH (08:00)
[2017-08-05] MEDS: ATENOLOL 50 MG TAB PO SCH (08:00)
[2017-08-05] MEDS: THIAMINE 100 MG TAB PO SCH (08:00)
[2017-08-05] MEDS: MULTIVITAMINS/MINERALS THERAP 1 TAB PO SCH (08:00)
[2017-08-05] MEDS: NYSTATIN 100,000 UNITS/GM TOPICAL PWD 15 GM TOP SCH ×2 (08:00→20:19)
--- NOTE | 2017-08-05 09:32 | IPN ---
DATE: 08/05/2017 Sean is seen in progressive care unit (PCU). He expresses no complaints. He has had no active bleeding. His hemoglobin has been drifting down, but he has not shown any active bleeding. We have ordered stool for occult blood and it still has not been done yet. His excess anticoagulation was reversed with warfarin. INR is now down to therapeutic range. 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 PHYSICAL EXAMINATION: 196/52. Pulse 68. Respiratory rate 18. 92% oxygen saturation. General Appearance: He is just waking up and expresses no complaints. Lungs: Clear. Heart: Regular rate and rhythm. Abdomen: Soft. Nontender. No peripheral edema. Nonfocal neurologic exam. Decreased reflexes in his legs. Decreased sensation to touch in his feet. LABS: White count 12.4, hemoglobin 9.2 and platelets 286. INR is 2.5. Sodium 151, potassium 4.4, BUN 42, creatinine 1.0, glucose 122. IMPRESSION: 1. Excessive anticoagulation/supratherapeutic INR. His prothrombin time is drifting down. I am going to restart his warfarin today. Daily INRs have been ordered. There is no sign of active bleeding, so I think we can safely restart his warfarin. 2. Anemia. He is receiving IV fluids. We are going to discontinue those at this point. 3. Hypernatremia. He was receiving normal saline for a while and I changed it to 1/2 normal yesterday. His sodium is coming down. Will push water today. 4. Diabetes. Blood sugars have been under good control and he has required only scant amounts of insulin coverage for more than 6-8 units a day so I am stopping the fingersticks and coverage. 5. Leukocytosis. Cultures have been negative. Followup CBC is ordered. 6. Acute kidney injury. Creatinine has returned to baseline. 7. Alcohol abuse. He is on thiamine. Concern this is leading to frequent falls. I think he probably needs short term rehabilitation. 8. Benign prostatic hypertrophy (BPH). Continues current dose of Flomax. Suggest physical medicine and rehabilitation evaluation.
[2017-08-05 11:45] VITALS: BP 116/73
[2017-08-05 14:00] VITALS: BP 106/55
[2017-08-05] MEDS: WARFARIN SOD 2 MG TAB PO SCH (17:45)
[2017-08-05 20:20] VITALS: BP 113/58
[2017-08-05 21:30] VITALS: BP 113/58
[2017-08-06 05:36] VITALS: BP 112/60
[2017-08-06 05:53] LABS: BASO % 0.5 % (0.0-1.0); EOS # 0.2 10^3/uL (0.0-0.50); EOS % 2.8 % (0.0-3.0); IMMATURE GRANULOCYTE % 2.6 % (0-0); LYMPH # 1.5 10^3/uL (1.5-4.5); LYMPH % 17.7 % (24.0-44.0); MEAN CORPUSCULAR HEMOGLOBIN 25.8 pg (27.0-33.0); MEAN CORPUSCULAR HGB CONC 30.4 g/dl (32.0-36.5); MEAN CORPUSCULAR VOLUME 84.7 fl (80.0-96.0); MONO # 1.3 10^3/uL (0.0-0.8); NEUTROPHILS # 5.2 10^3/uL (1.8-7.7); NEUTROPHILS % 61.4 % (36.0-66.0); PLATELET COUNT, AUTOMATED 322 10^3/uL (150-450); RED CELL DISTRIBUTION WIDTH 17.2 % (11.5-14.5); WHITE BLOOD COUNT 8.5 10^3/uL (4.0-10.0)
[2017-08-06 06:02] LABS: INR 1.69
[2017-08-06 06:06] LABS: ANION GAP 5 MEQ/L (8-16); BLOOD UREA NITROGEN 26 MG/DL (7-18); CALCIUM LEVEL 8.4 MG/DL (8.8-10.2); CARBON DIOXIDE LEVEL 31 MEQ/L (21-32); CHLORIDE LEVEL 113 MEQ/L (98-107); CREATININE FOR GFR 0.89 MG/DL (0.70-1.30); GLOMERULAR FILTRATION RATE > 60.0 (>35); GLUCOSE, FASTING 162 MG/DL (83-110); POTASSIUM SERUM 4.3 MEQ/L (3.5-5.1); SODIUM LEVEL 149 MEQ/L (136-145)
[2017-08-06] MEDS: NYSTATIN 100,000 UNITS/GM TOPICAL PWD 15 GM TOP SCH ×2 (09:00→20:56)
--- NOTE | 2017-08-06 10:12 | IPNPDOC ---
Subjective Date Seen The patient was seen on 08/06/17. Subjective Chief Complaint/HPI The patient is a 81-year-old male admitted with a reason for visit of Supratheraputic Inr. General: Denies: Chills, Fatigue, Malaise ENT: Denies: Head Aches Pulmonary: Denies: Dyspnea, Pleuritic Chest Pain Cardiovascular: Denies: Chest Pain, Palpitations, Orthopnea, Paroxysmal Noc. Dyspnea Gastrointestinal: Denies: Nausea, Vomiting, Abdominal Pain Objective Physical Examination General Exam: Positive: Alert, Cooperative, No Acute Distress Eye Exam: Positive: PERRLA, EOMI Chest Exam: Positive: Clear to auscultation, Normal air movement, Negative: Rales, Rhonchi, Wheezing Heart Exam: Positive: Regular Rhythm (by palpation, rhythm is regular today), Negative: Murmurs Telemetry: Positive: Atrial fibrillation Abdomen Exam: Positive: Normal bowel sounds, Soft, Negative: Tenderness, Hepatospenomegaly Extremity Exam: Negative: Swelling Skin Exam: Positive: Lesion (multiple abrasions on forehead, legs, arms.) Neuro Exam: Negative: Normal Speech (dysarthric) Psych Exam: Positive: Mental status NL Assessment /Plan Problems (1) Supratherapeutic INR Status: Acute Response to Treatment: Stable Problem Text: 08/06: INR 1.69 restarted warfarin yesterday. 08/04: INR of 5.11 today. We will continue to monitor, continue to hold Coumadin , repeat INR tomorrow. Patient will be transferred to [facility] 08/03 - INR = 10.23 Give additional Vitamin K 5 mg Await guiac - if positive, will give FFP INR 11.3 will recheck INR in AM hold home coumidin for now pt received 10 of Vitamin K in ED c/w home atenolol for a. fib (2) Anemia Status: Acute Problem Text: 08/06:Hgb 9.1, minimal change since yesterday. no evidence of bleeding 08/04: Hemoglobin down to 10.0, we will continue to monitor Baseline Hgb approx. 13.7 on admission. Hgb now 11.6 Guiacs pending (3) Fall Status: Acute Response to Treatment: Stable Problem Text: 08/06: will need PT eval and some rehab before consideration for home 08/04: Physical therapy has not yet seen patient due to elevated INR head CT negative for intracranial bleed CT knees negative for bony abnormality C-spine CT negative for fracture maxillofacial CT possible nasal bone fracture (4) Acute kidney injury Status: Acute Response to Treatment: Stable Problem Text: 08/06: creatinine normal since yesterday 08/04: Improving, creatinine 1.24 today 08/03 - Improving with IVF Cre = 1.73 today (Baseline - 1.16 05/2017) (5) Rhabdomyolysis Status: Acute Response to Treatment: Stable Problem Text: 08/04: IV fluids switched to one half normal saline secondary to hypernatremia. 08/03: repeat CPK today - Continue IVF (6) Hypernatremia Problem Text: 08/06: sodium improving a little. encourage water intake, continue 1/2 normal at this point. 08/04: Likely secondary to administration of normal saline, patient will be switched to one half normal saline. (7) Diabetes Status: Chronic Response to Treatment: Stable Problem Text: 08/06: once he is eating normally can resume metformin hold home metformin, pt has MIKE sliding scale coverage (8) Atrial fibrillation Status: Chronic Response to Treatment: Stable Problem Text: 08/06: by radial palpation and auscultation, seems regular today , will check ECG. Rate controlled on Atenolol HD Coumadin on hold for high INR (9) CHF (congestive heart failure) Status: Chronic Response to Treatment: Stable Problem Text: 08/03 - remains compensated with Diuretics on hold patient states he follows with Dr. Grimaldo. (10) Alcohol abuse Status: Chronic Response to Treatment: Stable Problem Text: 08/06: no tremor, not tachy, bp not elevated, no evidence of withdrawal so far. Is not tremulous on exam states he has not had drink in over a week CIWA protocol folic, thiamine and MV serax if withdrawing (11) DVT prophylaxis Status: Acute Response to Treatment: Stable Problem Text: restarted warfarin 08/05 for hx of afib, monitor INR, scd teds (12) Urinary retention Status: Chronic Problem Text: may need urology consult PVR = 500 place tovar Recently started on Flomax this fall per PCP restart this and monitor PVR Plan/VTE VTE Prophylaxis Ordered?: Yes (INR high - Coumadin on hold) Plan Therapy: PT, OT, Home Safety Eval Anticipated Discharge: Other Anticipated D/C (At this point not clear that he will be safe to return home. Will depend on rehab progress.) VS, I&O, 24H, [facility] Vital Signs/I&O Vital Signs Date Time Temp Pulse Resp B/P (MAP) Pulse Ox O2 Delivery O2 Flow Rate FiO2 08/06/17 05:36 98.1 81 18 112/60 (77) 94 Room Air Laboratory Data 24H LABS Laboratory Tests 2 08/05/17 12:21: Bedside Glucose (Misc Panel) 145H 08/05/17 16:47: Bedside Glucose (Misc Panel) 156H 08/05/17 20:15: Bedside Glucose (Misc Panel) 151H 08/06/17 05:34: Immature Granulocyte % (Auto) 2.6H, White Blood Count 8.5, Red Blood Count 3.53L , Hemoglobin 9.1L, Hematocrit 29.9L, Mean Corpuscular Volume 84.7, Mean Corpuscular Hemoglobin 25.8L, Mean Corpuscular Hemoglobin Concent 30.4L, Red Cell Distribution Width 17.2H, Platelet Count 322, Neutrophils (%) (Auto) 61.4, Lymphocytes (%) (Auto) 17.7L, Monocytes (%) (Auto) 15.0H, Eosinophils (%) (Auto ) 2.8, Basophils (%) (Auto) 0.5, Neutrophils # (Auto) 5.2, Lymphocytes # (Auto) 1.5, Monocytes # (Auto) 1.3H, Eosinophils # (Auto) 0.2, Basophils # (Auto) 0.0, Immature Granulocyte # (Auto) 0.2H, Nucleated Red Blood Cells % (auto) 0.4H, Prothrombin Time 20.4H, Prothromb Time International Ratio 1.69, Anion Gap 5L, Glomerular Filtration Rate > 60.0, Blood Urea Nitrogen 26H, Creatinine 0.89, Sodium Level 149H, Potassium Level 4.3, Chloride Level 113H, Carbon Dioxide Level 31, Calcium Level 8.4L CBC/BMP Laboratory Tests 08/06/17 05:34 Red Blood Count 3.53 L, Mean Corpuscular Volume 84.7, Mean Corpuscular Hemoglobin 25.8 L, Mean Corpuscular Hemoglobin Concent 30.4 L, Red Cell Distribution Width 17.2 H, Neutrophils (%) (Auto) 61.4, Lymphocytes (%) (Auto) 17.7 L, Monocytes (%) (Auto) 15.0 H, Eosinophils (%) (Auto) 2.8, Basophils (%) ( Auto) 0.5, Neutrophils # (Auto) 5.2, Lymphocytes # (Auto) 1.5, Monocytes # (Auto ) 1.3 H, Eosinophils # (Auto) 0.2, Basophils # (Auto) 0.0, Calcium Level 8.4 L Microbiology Microbiology 08/02/17 Blood Culture - Preliminary, Resulted No Growth after 72 hours. All specime... 08/02/17 Blood Culture - Preliminary, Resulted No Growth after 72 hours. All specime... 08/03/17 Urine Culture - Final, Complete Jaime Quintero MD Aug 06, 2017 10:11
[2017-08-06] MEDS: THIAMINE 100 MG TAB PO SCH (10:16)
[2017-08-06] MEDS: FOLIC ACID 1 MG TAB PO SCH (10:16)
[2017-08-06] MEDS: MULTIVITAMINS/MINERALS THERAP 1 TAB PO SCH (10:16)
[2017-08-06] MEDS: TAMSULOSIN 0.4 MG CAP PO SCH (10:16)
[2017-08-06 10:19] VITALS: BP 114/65
[2017-08-06] MEDS: ATENOLOL 50 MG TAB PO SCH (10:19)
[2017-08-06 14:00] VITALS: BP 102/56
[2017-08-06] MEDS: WARFARIN SOD 2 MG TAB PO SCH (14:28)
[2017-08-06] MEDS ORDERED: WARFARIN SOD 5 MG TAB PO ONE (17:00)
[2017-08-06 20:30] VITALS: BP 125/68
[2017-08-06 22:00] VITALS: BP 137/68
[2017-08-07 06:00] VITALS: BP 101/55
[2017-08-07 06:57] LABS: BASO % 0.3 % (0.0-1.0); EOS # 0.2 10^3/uL (0.0-0.50); EOS % 2.6 % (0.0-3.0); IMMATURE GRANULOCYTE % 1.3 % (0-0); LYMPH # 1.5 10^3/uL (1.5-4.5); LYMPH % 17.2 % (24.0-44.0); MEAN CORPUSCULAR HEMOGLOBIN 25.7 pg (27.0-33.0); MEAN CORPUSCULAR HGB CONC 30.4 g/dl (32.0-36.5); MEAN CORPUSCULAR VOLUME 84.5 fl (80.0-96.0); MONO # 1.1 10^3/uL (0.0-0.8); MONO % 12.9 % (0.0-5.0); NEUTROPHILS # 5.7 10^3/uL (1.8-7.7); NEUTROPHILS % 65.7 % (36.0-66.0); PLATELET COUNT, AUTOMATED 307 10^3/uL (150-450); RED CELL DISTRIBUTION WIDTH 17.3 % (11.5-14.5); WHITE BLOOD COUNT 8.7 10^3/uL (4.0-10.0)
[2017-08-07 07:08] LABS: INR 1.8
[2017-08-07 07:16] LABS: ANION GAP 3 MEQ/L (8-16); BLOOD UREA NITROGEN 17 MG/DL (7-18); CALCIUM LEVEL 8.7 MG/DL (8.8-10.2); CARBON DIOXIDE LEVEL 32 MEQ/L (21-32); CHLORIDE LEVEL 112 MEQ/L (98-107); CREATININE FOR GFR 0.88 MG/DL (0.70-1.30); GLOMERULAR FILTRATION RATE > 60.0 (>35); GLUCOSE, FASTING 133 MG/DL (83-110); POTASSIUM SERUM 4.1 MEQ/L (3.5-5.1); SODIUM LEVEL 147 MEQ/L (136-145)
[2017-08-07] MEDS: TAMSULOSIN 0.4 MG CAP PO SCH (10:19)
[2017-08-07] MEDS: FOLIC ACID 1 MG TAB PO SCH (10:20)
[2017-08-07] MEDS: THIAMINE 100 MG TAB PO SCH (10:20)
[2017-08-07] MEDS: MULTIVITAMINS/MINERALS THERAP 1 TAB PO SCH (10:20)
--- NOTE | 2017-08-07 11:32 | ECGEPIP ---
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
[2017-08-07] MEDS: NYSTATIN 100,000 UNITS/GM TOPICAL PWD 15 GM TOP SCH ×2 (13:15→20:02)
[2017-08-07 14:00] VITALS: BP 128/58
--- NOTE | 2017-08-07 15:57 | IPNPDOC ---
Subjective Date Seen The patient was seen on 08/07/17. Subjective Chief Complaint/HPI The patient is a 81-year-old male admitted with a reason for visit of Supratheraputic Inr. Constitutional: Denies: Chills ENT: Denies: Head Aches Pulmonary: Denies: Dyspnea, Cough Cardiovascular: Denies: Chest Pain, Orthopnea Gastrointestinal: Denies: Nausea, Vomiting Psych: Reports: Mood Normal Objective Physical Examination General Exam: Positive: Alert, Cooperative, No Acute Distress Eye Exam: Positive: PERRLA, EOMI Chest Exam: Positive: Clear to auscultation, Normal air movement Heart Exam: Positive: Irregular Rhythm Telemetry: Positive: Atrial fibrillation Abdomen Exam: Positive: Normal bowel sounds, Soft Extremity Exam: Negative: Swelling Skin Exam: Positive: Lesion (abrasions on forehead, knees, etc from recent fall.) Neuro Exam: Negative: Normal Speech (dysarthric but somewhat better today.) Psych Exam: Positive: Mental status NL Assessment /Plan Problems (1) Supratherapeutic INR Status: Acute Response to Treatment: Stable Problem Text: 08/07/ 1.8 today. continue warfarin 5mg 08/06: INR 1.69 restarted warfarin yesterday. 08/04: INR of 5.11 today. We will continue to monitor, continue to hold Coumadin , repeat INR tomorrow. Patient will be transferred to [facility] 08/03 - INR = 10.23 Give additional Vitamin K 5 mg Await guiac - if positive, will give FFP INR 11.3 will recheck INR in AM hold home coumidin for now pt received 10 of Vitamin K in ED c/w home atenolol for a. fib (2) Anemia Status: Acute Problem Text: 08/06:Hgb 9.1, minimal change since yesterday. no evidence of bleeding 08/04: Hemoglobin down to 10.0, we will continue to monitor Baseline Hgb approx. 13.7 on admission. Hgb now 11.6 Guiacs pending (3) Fall Status: Acute Response to Treatment: Stable, Improving Problem Text: 08/06: will need PT eval and some rehab before consideration for home 08/04: Physical therapy has not yet seen patient due to elevated INR head CT negative for intracranial bleed CT knees negative for bony abnormality C-spine CT negative for fracture maxillofacial CT possible nasal bone fracture (4) Acute kidney injury Status: Resolved Response to Treatment: Stable Problem Text: 08/06: creatinine normal since yesterday 08/04: Improving, creatinine 1.24 today 08/03 - Improving with IVF Cre = 1.73 today (Baseline - 1.16 05/2017) (5) Rhabdomyolysis Status: Resolved Response to Treatment: Stable Problem Text: 08/04: IV fluids switched to one half normal saline secondary to hypernatremia. 08/03: repeat CPK today - Continue IVF (6) Hypernatremia Status: Acute Response to Treatment: Improving Problem Text: 08/07 continued gradual improvement noted. 08/06: sodium improving a little. encourage water intake, continue 1/2 normal at this point. 08/04: Likely secondary to administration of normal saline, patient will be switched to one half normal saline. (7) Diabetes Status: Chronic Response to Treatment: Stable Problem Text: 08/07 renal function normalized taking po fair. consider resume metformin tomorrow. 08/06: once he is eating normally can resume metformin hold home metformin, pt has MIKE sliding scale coverage (8) Atrial fibrillation Status: Chronic Response to Treatment: Stable Problem Text: 08/06: by radial palpation and auscultation, seems regular today , will check ECG. Rate controlled on Atenolol HD Coumadin on hold for high INR (9) CHF (congestive heart failure) Status: Chronic Response to Treatment: Stable Problem Text: 08/03 - remains compensated with Diuretics on hold patient states he follows with Dr. Grimaldo. (10) Alcohol abuse Status: Chronic Response to Treatment: Stable Problem Text: 08/06: no tremor, not tachy, bp not elevated, no evidence of withdrawal so far. Is not tremulous on exam states he has not had drink in over a week CIWA protocol folic, thiamine and MV serax if withdrawing (11) DVT prophylaxis Status: Acute Response to Treatment: Stable Problem Text: restarted warfarin 08/05 for hx of afib, monitor INR, scd teds (12) Urinary retention Status: Chronic Problem Text: may need urology consult PVR = 500 place tovar Recently started on Flomax this fall per PCP restart this and monitor PVR Plan/VTE VTE Prophylaxis Ordered?: Yes (INR high - Coumadin on hold) Plan Therapy: PT, OT, Home Safety Eval Anticipated Discharge: Other Anticipated D/C VS, I&O, 24H, [facility] Vital Signs/I&O Vital Signs Date Time Temp Pulse Resp B/P (MAP) Pulse Ox O2 Delivery O2 Flow Rate FiO2 08/07/17 14:00 97.6 73 18 128/58 (81) 94 Room Air I&O- Last 24 Hours up to 6 AM 08/08/17 06:00 Intake Total 840 ml Output Total 350 ml Balance 490 ml Laboratory Data 24H LABS Laboratory Tests 2 08/07/17 05:36: Immature Granulocyte % (Auto) 1.3H, White Blood Count 8.7, Red Blood Count 3.54L , Hemoglobin 9.1L, Hematocrit 29.9L, Mean Corpuscular Volume 84.5, Mean Corpuscular Hemoglobin 25.7L, Mean Corpuscular Hemoglobin Concent 30.4L, Red Cell Distribution Width 17.3H, Platelet Count 307, Neutrophils (%) (Auto) 65.7, Lymphocytes (%) (Auto) 17.2L, Monocytes (%) (Auto) 12.9H, Eosinophils (%) (Auto ) 2.6, Basophils (%) (Auto) 0.3, Neutrophils # (Auto) 5.7, Lymphocytes # (Auto) 1.5, Monocytes # (Auto) 1.1H, Eosinophils # (Auto) 0.2, Basophils # (Auto) 0.0, Immature Granulocyte # (Auto) 0.1H, Nucleated Red Blood Cells % (auto) 0.0, Prothrombin Time 21.4H, Prothromb Time International Ratio 1.80, Anion Gap 3L, Glomerular Filtration Rate > 60.0, Blood Urea Nitrogen 17, Creatinine 0.88, Sodium Level 147H, Potassium Level 4.1, Chloride Level 112H, Carbon Dioxide Level 32, Calcium Level 8.7L, Total Creatine Kinase 106 CBC/BMP Laboratory Tests 08/07/17 05:36 Red Blood Count 3.54 L, Mean Corpuscular Volume 84.5, Mean Corpuscular Hemoglobin 25.7 L, Mean Corpuscular Hemoglobin Concent 30.4 L, Red Cell Distribution Width 17.3 H, Neutrophils (%) (Auto) 65.7, Lymphocytes (%) (Auto) 17.2 L, Monocytes (%) (Auto) 12.9 H, Eosinophils (%) (Auto) 2.6, Basophils (%) ( Auto) 0.3, Neutrophils # (Auto) 5.7, Lymphocytes # (Auto) 1.5, Monocytes # (Auto ) 1.1 H, Eosinophils # (Auto) 0.2, Basophils # (Auto) 0.0, Calcium Level 8.7 L Microbiology Microbiology 08/02/17 Blood Culture - Preliminary, Resulted No Growth after 72 hours. All specime... 08/02/17 Blood Culture - Preliminary, Resulted No Growth after 72 hours. All specime... 08/03/17 Urine Culture - Final, Complete Jaime Quintero MD Aug 07, 2017 15:57
[2017-08-07] MEDS ORDERED: WARFARIN SOD 5 MG TAB PO SCH (17:00)
[2017-08-07 22:00] VITALS: BP 125/60
[2017-08-07 22:42] VITALS: BP 125/60
[2017-08-08 06:00] VITALS: BP 144/67
[2017-08-08 06:38] LABS: ANION GAP 4 MEQ/L (8-16); BLOOD UREA NITROGEN 11 MG/DL (7-18); CALCIUM LEVEL 8.4 MG/DL (8.8-10.2); CARBON DIOXIDE LEVEL 33 MEQ/L (21-32); CHLORIDE LEVEL 108 MEQ/L (98-107); CREATININE FOR GFR 0.75 MG/DL (0.70-1.30); GLOMERULAR FILTRATION RATE > 60.0 (>35); GLUCOSE, FASTING 134 MG/DL (83-110); POTASSIUM SERUM 4.2 MEQ/L (3.5-5.1); SODIUM LEVEL 145 MEQ/L (136-145)
[2017-08-08 06:40] LABS: BASO % 0.2 % (0.0-1.0); EOS # 0.2 10^3/uL (0.0-0.50); LYMPH # 1.3 10^3/uL (1.5-4.5); LYMPH % 14.3 % (24.0-44.0); MEAN CORPUSCULAR HEMOGLOBIN 25.9 pg (27.0-33.0); MEAN CORPUSCULAR HGB CONC 30.8 g/dl (32.0-36.5); MONO # 1.2 10^3/uL (0.0-0.8); MONO % 12.7 % (0.0-5.0); NEUTROPHILS # 6.5 10^3/uL (1.8-7.7); NEUTROPHILS % 69.8 % (36.0-66.0); PLATELET COUNT, AUTOMATED 291 10^3/uL (150-450); RED CELL DISTRIBUTION WIDTH 17.6 % (11.5-14.5); WHITE BLOOD COUNT 9.4 10^3/uL (4.0-10.0)
[2017-08-08 06:43] LABS: INR 2.3
--- NOTE | 2017-08-08 07:57 | IPNPDOC ---
Subjective Date Seen The patient was seen on 08/08/17. Subjective Chief Complaint/HPI The patient is a 81-year-old male admitted with a reason for visit of Supratheraputic Inr. Events since last encounter Denies c/o. Constitutional: Denies: Chills, Fever, Night Sweats Pulmonary: Denies: Dyspnea, Cough Cardiovascular: Denies: Chest Pain, Palpitations, Orthopnea, Paroxysmal Noc. Dyspnea, Lt Headedness Gastrointestinal: Denies: Nausea, Vomiting, Abdominal Pain, Diarrhea, Constipation Genitourinary: Denies: Dysuria, Frequency, Incontinence, Retention Objective Physical Examination General Exam: Positive: Alert, Cooperative, No Acute Distress Eye Exam: Positive: PERRLA, EOMI Chest Exam: Positive: Clear to auscultation, Normal air movement Heart Exam: Positive: Irregular Rhythm Telemetry: Positive: Atrial fibrillation Abdomen Exam: Positive: Normal bowel sounds, Soft Extremity Exam: Negative: Swelling Skin Exam: Positive: Lesion (abrasions on forehead, knees, etc from recent fall. foam dressings on and intact) Neuro Exam: Negative: Normal Speech (dysarthric but somewhat better today.) Psych Exam: Positive: Mental status NL Assessment /Plan Problems (1) Supratherapeutic INR Status: Acute Response to Treatment: Stable Problem Text: 08/08/2017: INR 2.13 today. resume at home dosin.5 mg MWF. 5 mg Rest of week 08/07/ 1.8 today. continue warfarin 5mg 08/06: INR 1.69 restarted warfarin yesterday. 08/04: INR of 5.11 today. We will continue to monitor, continue to hold Coumadin , repeat INR tomorrow. Patient will be transferred to [facility] 08/03 - INR = 10.23 Give additional Vitamin K 5 mg Await guiac - if positive, will give FFP INR 11.3 will recheck INR in AM hold home coumidin for now pt received 10 of Vitamin K in ED c/w home atenolol for a. fib (2) Anemia Status: Acute Problem Text: 08/08:Hgb stable; No evidence of bleeding 08/04: Hemoglobin down to 10.0, we will continue to monitor Baseline Hgb approx. 13.7 on admission. Hgb now 11.6 Guiacs pending (3) Fall Status: Acute Response to Treatment: Stable, Improving Problem Text: 08/08: Not safe for discharge as of Tuesday; will await PT note today. (KES) 08/06: will need PT eval and some rehab before consideration for home 08/04: Physical therapy has not yet seen patient due to elevated INR head CT negative for intracranial bleed CT knees negative for bony abnormality C-spine CT negative for fracture maxillofacial CT possible nasal bone fracture (4) Acute kidney injury Status: Resolved Response to Treatment: Stable Problem Text: Cr normal since 08/05 08/04: Improving, creatinine 1.24 today 08/03 - Improving with IVF Cre = 1.73 today (Baseline - 1.16 05/2017) (5) Rhabdomyolysis Status: Resolved Response to Treatment: Stable Problem Text: IVF discontinued 08/04: IV fluids switched to one half normal saline secondary to hypernatremia. 08/03: repeat CPK today - Continue IVF (6) Hypernatremia Status: Resolved Response to Treatment: Improving Problem Text: 08/08: Na normal 08/07 continued gradual improvement noted. 08/06: sodium improving a little. encourage water intake, continue 1/2 normal at this point. 08/04: Likely secondary to administration of normal saline, patient will be switched to one half normal saline. (7) Diabetes Status: Chronic Response to Treatment: Stable Problem Text: 08/07 renal function normalized taking po fair. consider resume metformin tomorrow. 08/06: once he is eating normally can resume metformin hold home metformin, pt has MIKE sliding scale coverage (8) Atrial fibrillation Status: Chronic Response to Treatment: Stable Problem Text: 08/06: by radial palpation and auscultation, seems regular today , will check ECG. Rate controlled on Atenolol HD Coumadin on hold for high INR (9) CHF (congestive heart failure) Status: Chronic Response to Treatment: Stable Problem Text: 08/03 - remains compensated with Diuretics on hold patient states he follows with Dr. Vasques (10) Alcohol abuse Status: Chronic Response to Treatment: Stable Problem Text: 08/06: no tremor, not tachy, bp not elevated, no evidence of withdrawal so far. Is not tremulous on exam states he has not had drink in over a week CIWA protocol folic, thiamine and MV serax if withdrawing (11) DVT prophylaxis Status: Acute Response to Treatment: Stable Problem Text: restarted warfarin 08/05 for hx of afib, monitor INR, scd teds (12) Urinary retention Status: Chronic Problem Text: PVR was 500, so tovar was restarted on 08/07/17. Recently started on Flomax this fall per PCP. Plan/VTE VTE Prophylaxis Ordered?: Yes (INR high - Coumadin on hold) Plan Therapy: PT, OT, Home Safety Eval Anticipated Discharge: Other Anticipated D/C Family Medicine Attending Note: I saw and examined Mr. Hines this morning; I agree with Joseline Spence's note as documented with noted additions. At this point, we are waiting on recommendations from PT in terms of disposition. He will likely need Urology followup as an outpatient for urinary retention. (KES) VS, I&O, 24H, Fishbone Vital Signs/I&O Vital Signs Date Time Temp Pulse Resp B/P (MAP) Pulse Ox O2 Delivery O2 Flow Rate FiO2 08/08/17 06:00 97.5 88 20 144/67 (92) 93 Room Air Laboratory Data 24H LABS Laboratory Tests 2 08/07/17 20:14: Bedside Glucose (Misc Panel) 176H 08/08/17 05:52: Immature Granulocyte % (Auto) 1.0H, White Blood Count 9.4, Red Blood Count 3.44L , Hemoglobin 8.9L, Hematocrit 28.9L, Mean Corpuscular Volume 84.0, Mean Corpuscular Hemoglobin 25.9L, Mean Corpuscular Hemoglobin Concent 30.8L, Red Cell Distribution Width 17.6H, Platelet Count 291, Neutrophils (%) (Auto) 69.8H , Lymphocytes (%) (Auto) 14.3L, Monocytes (%) (Auto) 12.7H, Eosinophils (%) ( Auto) 2.0, Basophils (%) (Auto) 0.2, Neutrophils # (Auto) 6.5, Lymphocytes # ( Auto) 1.3L, Monocytes # (Auto) 1.2H, Eosinophils # (Auto) 0.2, Basophils # (Auto ) 0.0, Immature Granulocyte # (Auto) 0.1H, Nucleated Red Blood Cells % (auto) 0.0, Prothrombin Time 26.2H, Prothromb Time International Ratio 2.30, Anion Gap 4L, Glomerular Filtration Rate > 60.0, Blood Urea Nitrogen 11, Creatinine 0.75, Sodium Level 145, Potassium Level 4.2, Chloride Level 108H, Carbon Dioxide Level 33H, Calcium Level 8.4L CBC/BMP Laboratory Tests 08/08/17 05:52 Red Blood Count 3.44 L, Mean Corpuscular Volume 84.0, Mean Corpuscular Hemoglobin 25.9 L, Mean Corpuscular Hemoglobin Concent 30.8 L, Red Cell Distribution Width 17.6 H, Neutrophils (%) (Auto) 69.8 H, Lymphocytes (%) (Auto ) 14.3 L, Monocytes (%) (Auto) 12.7 H, Eosinophils (%) (Auto) 2.0, Basophils (% ) (Auto) 0.2, Neutrophils # (Auto) 6.5, Lymphocytes # (Auto) 1.3 L, Monocytes # (Auto) 1.2 H, Eosinophils # (Auto) 0.2, Basophils # (Auto) 0.0, Calcium Level 8.4 L Microbiology Microbiology 08/02/17 Blood Culture - Final, Complete NO GROWTH AFTER 5 DAYS 08/02/17 Blood Culture - Final, Complete NO GROWTH AFTER 5 DAYS 08/03/17 Urine Culture - Final, Complete Joseline Spence Aug 08, 2017 07:57 HENRRY LARIOS MD Aug 08, 2017 08:19
[2017-08-08 09:00] VITALS: BP 144/67
[2017-08-08] MEDS: NYSTATIN 100,000 UNITS/GM TOPICAL PWD 15 GM TOP SCH ×2 (09:25→20:21)
[2017-08-08] MEDS: TAMSULOSIN 0.4 MG CAP PO SCH (09:25)
[2017-08-08] MEDS: THIAMINE 100 MG TAB PO SCH (09:25)
[2017-08-08] MEDS: FOLIC ACID 1 MG TAB PO SCH (09:25)
[2017-08-08] MEDS: MULTIVITAMINS/MINERALS THERAP 1 TAB PO SCH (09:25)
--- NOTE | 2017-08-08 14:27 | DSES ---
DATE OF ADMISSION: 08/02/2017 DATE OF DISCHARGE: PRIMARY CARE PROVIDER: Dr. Casey Saini ATTENDING PHYSICIAN: Dr. Leni Marcus HISTORY OF PRESENT ILLNESS: 81-year-old gentleman with a past medical history of atrial fibrillation, diabetes, heart failure, chronic and excessive alcohol use, and hyperlipidemia who presented to [facility] emergency department complaining of generalized weakness and mechanical fall. The patient had progressively had some weakness approximately 45 days prior to his presentation and had fallen at home. He sustained a rug burn to his face, but denies any active loss of consciousness (LOC). The patient admits to four scotches per night with occasional glasses of wine for the last 60+ years. The patient had been without alcohol for approximately one week prior to his presentation. The patient was subsequently admitted. HOSPITAL COURSE: The patient's INR on admission was 11.3. Warfarin was held and the patient was given vitamin K with subsequent reversal of his warfarin. Most recent INR today 2.3. The patient's prior warfarin dosing has been resumed. Labs have remained stable throughout hospitalization. The patient's electrolytes have been stable after IV fluid resuscitation. The patient has required significant amounts of assistance with activity. Physical therapy recommendations continue to pend. On physical exam today, vital signs are stable. He is afebrile. The patient is alert to self and place. He knows the month, is unaware of the year. Responses are vague; however, he was just awoken from a sleep. HEENT: Neck is supple without lymphadenopathy or jugular venous distention (JVD). Cardiovascular: Heart rate and rhythm are regular. Pulmonary: Lungs are clear. Abdomen: Soft. Nontender. DISCHARGE DIAGNOSES: 1. Status post fall. 2. Supratherapeutic INR. 3. Alcoholism. SECONDARY DIAGNOSES: 1. Chronic atrial fibrillation. 2. Diabetes. 3. Congestive heart failure. 4. Hyperlipidemia. PLAN: Will be provided at time of discharge. Patient is in group home facility status at this time with anticipation of group home care upon discharge.
[2017-08-08] MEDS: metFORMIN XR 500MG TAB *GLUCOPHAGE XR PO SCH (17:22)
[2017-08-08] MEDS: WARFARIN SOD 2.5 MG TAB PO SCH (17:22)
[2017-08-09 06:00] VITALS: BP 146/69
[2017-08-09 06:40] LABS: BASO % 0.3 % (0.0-1.0); EOS # 0.2 10^3/uL (0.0-0.50); EOS % 1.9 % (0.0-3.0); IMMATURE GRANULOCYTE % 0.7 % (0-0); LYMPH # 1.4 10^3/uL (1.5-4.5); LYMPH % 14.5 % (24.0-44.0); MEAN CORPUSCULAR HEMOGLOBIN 25.8 pg (27.0-33.0); MEAN CORPUSCULAR VOLUME 83.2 fl (80.0-96.0); MONO # 1.1 10^3/uL (0.0-0.8); MONO % 11.6 % (0.0-5.0); NEUTROPHILS # 6.8 10^3/uL (1.8-7.7); PLATELET COUNT, AUTOMATED 283 10^3/uL (150-450); RED CELL DISTRIBUTION WIDTH 17.7 % (11.5-14.5); WHITE BLOOD COUNT 9.6 10^3/uL (4.0-10.0)
[2017-08-09 06:46] LABS: ANION GAP 2 MEQ/L (8-16); BLOOD UREA NITROGEN 10 MG/DL (7-18); CALCIUM LEVEL 8.6 MG/DL (8.8-10.2); CARBON DIOXIDE LEVEL 35 MEQ/L (21-32); CHLORIDE LEVEL 104 MEQ/L (98-107); CREATININE FOR GFR 0.66 MG/DL (0.70-1.30); GLOMERULAR FILTRATION RATE > 60.0 (>35); GLUCOSE, FASTING 138 MG/DL (83-110); POTASSIUM SERUM 4.2 MEQ/L (3.5-5.1); SODIUM LEVEL 141 MEQ/L (136-145)
[2017-08-09 06:49] LABS: INR 2.74
[2017-08-09 08:30] VITALS: BP 101/60
[2017-08-09] MEDS: FOLIC ACID 1 MG TAB PO SCH (10:22)
[2017-08-09] MEDS: MULTIVITAMINS/MINERALS THERAP 1 TAB PO SCH (10:22)
[2017-08-09] MEDS: THIAMINE 100 MG TAB PO SCH (10:23)
[2017-08-09] MEDS: TAMSULOSIN 0.4 MG CAP PO SCH (10:23)
[2017-08-09] MEDS: NYSTATIN 100,000 UNITS/GM TOPICAL PWD 15 GM TOP SCH ×2 (10:24→21:00)
[2017-08-09 14:23] VITALS: BP 110/60
[2017-08-09] MEDS: WARFARIN SOD 5 MG TAB PO SCH (17:49)
[2017-08-09] MEDS: metFORMIN XR 500MG TAB *GLUCOPHAGE XR PO SCH (17:49)
[2017-08-09 20:25] VITALS: BP 118/64
[2017-08-09 21:00] VITALS: BP 138/74
[2017-08-10 06:00] VITALS: BP 132/63
[2017-08-10 06:27] LABS: INR 2.89
[2017-08-10 09:00] VITALS: BP 142/72
[2017-08-10] MEDS: FOLIC ACID 1 MG TAB PO SCH (09:51)
[2017-08-10] MEDS: NYSTATIN 100,000 UNITS/GM TOPICAL PWD 15 GM TOP SCH ×2 (09:51→20:44)
[2017-08-10] MEDS: MULTIVITAMINS/MINERALS THERAP 1 TAB PO SCH (09:52)
[2017-08-10] MEDS: THIAMINE 100 MG TAB PO SCH (09:52)
[2017-08-10] MEDS: TAMSULOSIN 0.4 MG CAP PO SCH (09:52)
[2017-08-10] MEDS: metFORMIN XR 500MG TAB *GLUCOPHAGE XR PO SCH (17:01)
[2017-08-10] MEDS: WARFARIN SOD 2.5 MG TAB PO SCH (17:01)
[2017-08-10 21:00] VITALS: BP 154/66
[2017-08-11 06:00] VITALS: BP 134/62
[2017-08-11 06:36] LABS: INR 2.69
[2017-08-11] MEDS: FOLIC ACID 1 MG TAB PO SCH (07:58)
[2017-08-11] MEDS: TAMSULOSIN 0.4 MG CAP PO SCH (07:58)
[2017-08-11] MEDS: MULTIVITAMINS/MINERALS THERAP 1 TAB PO SCH (07:58)
[2017-08-11] MEDS: NYSTATIN 100,000 UNITS/GM TOPICAL PWD 15 GM TOP SCH ×2 (07:58→21:00)
[2017-08-11] MEDS: THIAMINE 100 MG TAB PO SCH (07:58)
[2017-08-11 09:00] VITALS: BP 140/72
[2017-08-11] MEDS: WARFARIN SOD 5 MG TAB PO SCH (17:14)
[2017-08-11] MEDS: metFORMIN XR 500MG TAB *GLUCOPHAGE XR PO SCH (17:14)
[2017-08-11 21:00] VITALS: BP 128/64
[2017-08-12 05:12] VITALS: BP 114/55
[2017-08-12] MEDS: TAMSULOSIN 0.4 MG CAP PO SCH (08:16)
[2017-08-12] MEDS: MULTIVITAMINS/MINERALS THERAP 1 TAB PO SCH (08:16)
[2017-08-12] MEDS: THIAMINE 100 MG TAB PO SCH (08:16)
[2017-08-12] MEDS: FOLIC ACID 1 MG TAB PO SCH (08:16)
[2017-08-12] MEDS: NYSTATIN 100,000 UNITS/GM TOPICAL PWD 15 GM TOP SCH ×2 (08:16→20:53)
[2017-08-12 09:00] VITALS: BP 114/55
[2017-08-12] MEDS: WARFARIN SOD 2.5 MG TAB PO SCH (16:53)
[2017-08-12] MEDS: metFORMIN XR 500MG TAB *GLUCOPHAGE XR PO SCH (16:54)
[2017-08-12 21:00] VITALS: BP 109/60
[2017-08-13 04:40] VITALS: BP 146/67
[2017-08-13 06:27] LABS: INR 2.85
[2017-08-13] MEDS: MULTIVITAMINS/MINERALS THERAP 1 TAB PO SCH (08:08)
[2017-08-13] MEDS: THIAMINE 100 MG TAB PO SCH (08:08)
[2017-08-13] MEDS: NYSTATIN 100,000 UNITS/GM TOPICAL PWD 15 GM TOP SCH (08:08)
[2017-08-13] MEDS: FOLIC ACID 1 MG TAB PO SCH (08:08)
[2017-08-13] MEDS: TAMSULOSIN 0.4 MG CAP PO SCH (08:08)
[2017-08-13 09:00] VITALS: BP 146/67
== END 2017-08-13 14:47 | disposition home health service (06) | DRG 813 ==
LOC: M ED 18:57 → M ED INP 23:51 → M PCU 08-03 02:38 → M MSPAV 08-05 11:31
PROVIDERS: ADMIT Internal Medicine; ATTEND Family Medicine
DX: D68.9 Coagulation defect, unspecified (principal); N17.9 Acute kidney failure, unspecified; E87.0 Hyperosmolality and hypernatremia; T45.515A Adverse effect of anticoagulants, initial encounter; I50.9 Heart failure, unspecified; T79.6XXA Traumatic ischemia of muscle, initial encounter; I48.2 Chronic atrial fibrillation; N40.1 Benign prostatic hyperplasia with lower urinary tract symptoms; E11.9 Type 2 diabetes mellitus without complications; E78.5 Hyperlipidemia, unspecified; F10.20 Alcohol dependence, uncomplicated; Z79.82 Long term (current) use of aspirin; Z79.84 Long term (current) use of oral hypoglycemic drugs; Z79.01 Long term (current) use of anticoagulants; Z88.8 Allergy status to other drugs, medicaments and biological substances; W01.0XXA Fall on same level from slipping, tripping and stumbling without subsequent striking against object, initial encounter; Y99.9 Unspecified external cause status

== ENCOUNTER → 2017-08-22 | Outpatient (REF) | payer MEDICARE ==
[~2017-08-22] MED LIST changes: +ASPI81TAEC PO; +FLOM5CAP PO; +FURO20TA2 PO; +LASI20TA PO; +METF-699 PO; +PATIENT COMMENT; +RAMI25CA PO; +SIMV20TA2 PO
[2017-08-22 18:05] LABS: INR 4.43
[2017-08-22 18:47] LABS: ALBUMIN 3.2 GM/DL (3.2-5.2); ALBUMIN/GLOBULIN RATIO 0.71 (1.00-1.93); ALKALINE PHOSPHATASE 97 U/L (45-117); ALT/SGPT 29 U/L (12-78); ANION GAP 6 MEQ/L (8-16); AST/SGOT 20 U/L (7-37); BILIRUBIN,TOTAL 0.7 MG/DL (0.2-1.0); BLOOD UREA NITROGEN 14 MG/DL (7-18); CALCIUM LEVEL 8.5 MG/DL (8.8-10.2); CARBON DIOXIDE LEVEL 32 MEQ/L (21-32); CHLORIDE LEVEL 101 MEQ/L (98-107); CREATININE FOR GFR 0.98 MG/DL (0.70-1.30); GLOMERULAR FILTRATION RATE > 60.0 (>35); GLUCOSE, FASTING 110 MG/DL (83-110); POTASSIUM SERUM 4.1 MEQ/L (3.5-5.1); SODIUM LEVEL 139 MEQ/L (136-145); TOTAL PROTEIN 7.7 GM/DL (6.4-8.2)
[2017-08-22 18:54] LABS: BASO % 0.4 % (0.0-1.0); EOS # 0.1 10^3/uL (0.0-0.50); IMMATURE GRANULOCYTE % 0.4 % (0-0); LYMPH # 1.3 10^3/uL (1.5-4.5); LYMPH % 23.9 % (24.0-44.0); MEAN CORPUSCULAR HEMOGLOBIN 25.9 pg (27.0-33.0); MEAN CORPUSCULAR HGB CONC 30.5 g/dl (32.0-36.5); MONO # 0.8 10^3/uL (0.0-0.8); MONO % 14.3 % (0.0-5.0); NEUTROPHILS # 3.3 10^3/uL (1.8-7.7); PLATELET COUNT, AUTOMATED 323 10^3/uL (150-450); RED CELL DISTRIBUTION WIDTH 18.2 % (11.5-14.5); WHITE BLOOD COUNT 5.6 10^3/uL (4.0-10.0)
== END ==
LOC: M SFHCCLAY 11:15
PROVIDERS: ATTEND Family Medicine
DX: I95.9 Hypotension, unspecified (principal); Z51.81 Encounter for therapeutic drug level monitoring; Z79.01 Long term (current) use of anticoagulants
CPT/HCPCS: 36415; 80053; 85025; 85610; 90662; G0008; G0463

== ENCOUNTER → 2017-09-06 | Outpatient (CLI) | payer MEDICARE ==
[2017-09-06 13:27] LABS: INR 1.57
[2017-09-06 13:32] LABS: BASO % 0.3 % (0.0-1.0); EOS # 0.1 10^3/uL (0.0-0.50); EOS % 0.7 % (0.0-3.0); IMMATURE GRANULOCYTE % 0.4 % (0-0); LYMPH # 1.2 10^3/uL (1.5-4.5); LYMPH % 17.7 % (24.0-44.0); MEAN CORPUSCULAR HEMOGLOBIN 25.3 pg (27.0-33.0); MEAN CORPUSCULAR HGB CONC 31.1 g/dl (32.0-36.5); MEAN CORPUSCULAR VOLUME 81.4 fl (80.0-96.0); MONO # 1.1 10^3/uL (0.0-0.8); MONO % 15.8 % (0.0-5.0); NEUTROPHILS # 4.5 10^3/uL (1.8-7.7); NEUTROPHILS % 65.1 % (36.0-66.0); PLATELET COUNT, AUTOMATED 330 10^3/uL (150-450); WHITE BLOOD COUNT 6.9 10^3/uL (4.0-10.0)
[2017-09-06 13:51] LABS: ANION GAP 8 MEQ/L (8-16); BLOOD UREA NITROGEN 17 MG/DL (7-18); CALCIUM LEVEL 8.1 MG/DL (8.8-10.2); CARBON DIOXIDE LEVEL 26 MEQ/L (21-32); CHLORIDE LEVEL 105 MEQ/L (98-107); CREATININE FOR GFR 0.92 MG/DL (0.70-1.30); GLOMERULAR FILTRATION RATE > 60.0 (>35); GLUCOSE, FASTING 136 MG/DL (83-110); POTASSIUM SERUM 4.6 MEQ/L (3.5-5.1); SODIUM LEVEL 139 MEQ/L (136-145)
== END ==
LOC: M WUC 10:27
PROVIDERS: ATTEND Family Medicine
DX: I48.2 Chronic atrial fibrillation (principal)

== ENCOUNTER → 2017-10-11 | Outpatient (CLI) | payer MEDICARE ==
[2017-10-11 13:15] LABS: INR 4.09; PROTHROMBIN TIME 41.8 SECONDS (12.4-14.5)
== END ==
LOC: M WUC 10:00
DX: Z51.81 Encounter for therapeutic drug level monitoring (principal); Z79.01 Long term (current) use of anticoagulants
CPT/HCPCS: 85610

== ENCOUNTER → 2017-10-13 | Outpatient (CLI) | payer MEDICARE ==
[2017-10-13 13:07] LABS: INR 3.24; PROTHROMBIN TIME 34.6 SECONDS (12.4-14.5)
== END ==
LOC: M WUC 10:41
DX: Z51.81 Encounter for therapeutic drug level monitoring (principal); Z79.01 Long term (current) use of anticoagulants
CPT/HCPCS: 85610

== ENCOUNTER → 2017-10-17 | Outpatient (REF) | payer MEDICARE ==
[2017-10-17 17:34] LABS: BASO % 0.4 % (0.0-1.0); EOS # 0.1 10^3/uL (0.0-0.50); EOS % 1.3 % (0.0-3.0); HEMATOCRIT 35.5 % (42.0-52.0); IMMATURE GRANULOCYTE % 0.3 % (0-0); LYMPH # 1.8 10^3/uL (1.5-4.5); LYMPH % 19.4 % (24.0-44.0); MEAN CORPUSCULAR HEMOGLOBIN 24.2 pg (27.0-33.0); MEAN CORPUSCULAR VOLUME 78.2 fl (80.0-96.0); NEUTROPHILS # 6.1 10^3/uL (1.8-7.7); NEUTROPHILS % 67.6 % (36.0-66.0); PLATELET COUNT, AUTOMATED 355 10^3/uL (150-450); RED BLOOD COUNT 4.54 10^6/uL (4.30-6.10); RED CELL DISTRIBUTION WIDTH 19.9 % (11.5-14.5); WHITE BLOOD COUNT 9.1 10^3/uL (4.0-10.0)
[2017-10-17 17:45] LABS: ALBUMIN 3.1 GM/DL (3.2-5.2); ALBUMIN/GLOBULIN RATIO 0.76 (1.00-1.93); ALKALINE PHOSPHATASE 79 U/L (45-117); ALT/SGPT 16 U/L (12-78); ANION GAP 7 MEQ/L (8-16); AST/SGOT 23 U/L (7-37); BILIRUBIN,TOTAL 0.6 MG/DL (0.2-1.0); BLOOD UREA NITROGEN 14 MG/DL (7-18); CALCIUM LEVEL 8.5 MG/DL (8.8-10.2); CARBON DIOXIDE LEVEL 31 MEQ/L (21-32); CHLORIDE LEVEL 100 MEQ/L (98-107); CREATININE FOR GFR 0.91 MG/DL (0.70-1.30); GLOMERULAR FILTRATION RATE > 60.0 (>35); GLUCOSE, FASTING 135 MG/DL (70-100); POTASSIUM SERUM 4.4 MEQ/L (3.5-5.1); SODIUM LEVEL 138 MEQ/L (136-145); TOTAL PROTEIN 7.2 GM/DL (6.4-8.2)
[2017-10-17 18:13] LABS: PROTHROMBIN TIME 22.4 SECONDS (12.4-14.5)
== END ==
LOC: M SFHCCLAY 14:13
DX: Z51.81 Encounter for therapeutic drug level monitoring (principal); Z79.01 Long term (current) use of anticoagulants; E11.9 Type 2 diabetes mellitus without complications; Z79.84 Long term (current) use of oral hypoglycemic drugs
CPT/HCPCS: 80053

== ENCOUNTER → 2017-10-20 | Outpatient (CLI) | payer MEDICARE ==
[~2017-10-20] MED LIST changes: -ALTA1CAP2 PO; -ASPI1TAB PO; -ASPI81TAEC PO; -ATEN50TA2 PO; -COLA100C5 PO; -FLOM5CAP PO; -FURO20TA2 PO; +GASTROGRAFIN SOLUTION 30ML (Q9963) As Ordered; -HYDR25TAB PO; +ISOVUE-370 76% 100ML VIAL (Q9967) As Ordered; -LASI20TA PO; -METF-699 PO; -PATIENT COMMENT; -RAMI25CA PO; -SIMV20TA2 PO; -WARF-23 PO; -ZOCO20TA PO
== END ==
LOC: M RAD 14:53
DX: K56.600 Partial intestinal obstruction, unspecified as to cause (principal)
CPT/HCPCS: Q9963

== ENCOUNTER → 2017-10-25 | Outpatient (CLI) | payer MEDICARE | LOC: M WUC 11:47 | DX: Z79.01 Long term (current) use of anticoagulants (principal) | CPT/HCPCS: 85610 ==

== ENCOUNTER 2017-11-02 08:48 | Day surgery (SDC) | payer MEDICARE ==
[2017-11-02] MEDS: NS 1,000 ML IV (09:00)
[2017-11-02] MEDS ORDERED: PROPOFOL 200 MG/20 ML VIAL As Ordered ×2 (09:15→09:54)
[2017-11-02] MEDS ORDERED: LIDOCAINE 2% INJ 100 MG/5 ML SDV (FOR ANES.) As Ordered (09:15)
== END 2017-11-02 11:15 | disposition home or self-care (01) ==
LOC: M OPP 08:48
DX: Z09 Encounter for follow-up examination after completed treatment for conditions other than malignant neoplasm (principal); R93.3 Abnormal findings on diagnostic imaging of other parts of digestive tract; K56.690 Other partial intestinal obstruction; R19.03 Right lower quadrant abdominal swelling, mass and lump; R10.31 Right lower quadrant pain; R63.4 Abnormal weight loss; R14.0 Abdominal distension (gaseous); R11.0 Nausea; R19.7 Diarrhea, unspecified; D12.2 Benign neoplasm of ascending colon; D12.5 Benign neoplasm of sigmoid colon; K63.89 Other specified diseases of intestine; K64.8 Other hemorrhoids; K57.30 Diverticulosis of large intestine without perforation or abscess without bleeding; I48.91 Unspecified atrial fibrillation; I10 Essential (primary) hypertension; E78.5 Hyperlipidemia, unspecified; R60.0 Localized edema; E11.9 Type 2 diabetes mellitus without complications; K57.32 Diverticulitis of large intestine without perforation or abscess without bleeding; M19.90 Unspecified osteoarthritis, unspecified site; N40.1 Benign prostatic hyperplasia with lower urinary tract symptoms; F17.210 Nicotine dependence, cigarettes, uncomplicated; Z88.8 Allergy status to other drugs, medicaments and biological substances; Z79.82 Long term (current) use of aspirin; Z79.899 Other long term (current) drug therapy; Z79.01 Long term (current) use of anticoagulants; Z79.84 Long term (current) use of oral hypoglycemic drugs
CPT/HCPCS: 45385

== ENCOUNTER → 2017-11-08 | Outpatient (CLI) | payer MEDICARE ==
[2017-11-08 13:39] LABS: INR 1.45
== END ==
LOC: M WUC 10:21
DX: Z79.01 Long term (current) use of anticoagulants (principal)
CPT/HCPCS: 85610

== ENCOUNTER → 2017-11-15 | Outpatient (CLI) | payer MEDICARE ==
[~2017-11-15] MED LIST changes: -GASTROGRAFIN SOLUTION 30ML (Q9963) As Ordered; +GLUCAGON FOR INJ 1 MG VIAL (J1610) As Ordered; +VoLumen 0.1% SUSPENSION 450ML BOTTLE As Ordered
== END ==
LOC: M RAD 11:51
DX: K56.690 Other partial intestinal obstruction (principal); R19.03 Right lower quadrant abdominal swelling, mass and lump
CPT/HCPCS: Q9967

== ENCOUNTER → 2017-11-30 | Outpatient (CLI) | payer MEDICARE ==
[~2017-11-30] MED LIST changes: -GLUCAGON FOR INJ 1 MG VIAL (J1610) As Ordered; -ISOVUE-370 76% 100ML VIAL (Q9967) As Ordered; +LIDOCAINE 1% MDV 20ML VIAL As Ordered; -VoLumen 0.1% SUSPENSION 450ML BOTTLE As Ordered
== END ==
LOC: M RADPRO 11:58
DX: K43.6 Other and unspecified ventral hernia with obstruction, without gangrene (principal); I10 Essential (primary) hypertension; E11.9 Type 2 diabetes mellitus without complications; M17.0 Bilateral primary osteoarthritis of knee; I48.91 Unspecified atrial fibrillation; Z79.82 Long term (current) use of aspirin; Z79.84 Long term (current) use of oral hypoglycemic drugs; Z79.899 Other long term (current) drug therapy; Z88.8 Allergy status to other drugs, medicaments and biological substances; Z87.891 Personal history of nicotine dependence
CPT/HCPCS: 76705

== ENCOUNTER → 2017-12-06 | Outpatient (CLI) | payer MEDICARE ==
[2017-12-06 12:51] LABS: INR 1.26; PROTHROMBIN TIME 16.1 SECONDS (12.4-14.5)
== END ==
LOC: M WUC 09:42
DX: Z79.01 Long term (current) use of anticoagulants (principal)
CPT/HCPCS: 85610

== ENCOUNTER → 2017-12-07 | Outpatient (REF) | payer MEDICARE ==
[2017-12-07 17:12] LABS: ALBUMIN 3.3 GM/DL (3.2-5.2); ALKALINE PHOSPHATASE 80 U/L (45-117); ALT/SGPT 11 U/L (12-78); ANION GAP 6 MEQ/L (8-16); AST/SGOT 10 U/L (7-37); BILIRUBIN,TOTAL 0.8 MG/DL (0.2-1.0); BLOOD UREA NITROGEN 16 MG/DL (7-18); CALCIUM LEVEL 8.8 MG/DL (8.8-10.2); CARBON DIOXIDE LEVEL 26 MEQ/L (21-32); CHLORIDE LEVEL 107 MEQ/L (98-107); CREATININE FOR GFR 0.73 MG/DL (0.70-1.30); GLOMERULAR FILTRATION RATE > 60.0 (>35); GLUCOSE, FASTING 92 MG/DL (70-100); POTASSIUM SERUM 4.4 MEQ/L (3.5-5.1); SODIUM LEVEL 139 MEQ/L (136-145); TOTAL PROTEIN 7.4 GM/DL (6.4-8.2)
[2017-12-07 18:15] LABS: BASO % 0.4 % (0.0-1.0); EOS # 0.1 10^3/uL (0.0-0.50); EOS % 1.3 % (0.0-3.0); HEMATOCRIT 33.1 % (42.0-52.0); HEMOGLOBIN 10.3 g/dl (14.0-18.0); IMMATURE GRANULOCYTE % 0.2 % (0-3.0); LYMPH # 1.9 10^3/uL (1.5-4.5); LYMPH % 21.2 % (24.0-44.0); MEAN CORPUSCULAR HEMOGLOBIN 25.4 pg (27.0-33.0); MEAN CORPUSCULAR HGB CONC 31.1 g/dl (32.0-36.5); MEAN CORPUSCULAR VOLUME 81.5 fl (80.0-96.0); MONO # 1.2 10^3/uL (0.0-0.8); MONO % 12.7 % (0.0-5.0); NEUTROPHILS # 5.8 10^3/uL (1.8-7.7); NEUTROPHILS % 64.2 % (36.0-66.0); PLATELET COUNT, AUTOMATED 341 10^3/uL (150-450); RED BLOOD COUNT 4.06 10^6/uL (4.30-6.10); RED CELL DISTRIBUTION WIDTH 21.2 % (11.5-14.5)
== END ==
LOC: M SFHCCLAY 12:10
DX: Z51.81 Encounter for therapeutic drug level monitoring (principal); Z79.01 Long term (current) use of anticoagulants; I10 Essential (primary) hypertension
CPT/HCPCS: 80053

== ENCOUNTER 2017-12-13 05:56 | Inpatient (IN) | payer MEDICARE ==
[2017-12-13] MEDS: HEPARIN SOD (PORCINE) 5000 UNITS/ML VIAL SQ (06:15)
[2017-12-13] MEDS ORDERED: ROCURONIUM BROMIDE 50 MG/5 ML VIAL As Ordered ×2 (06:35→08:44)
[2017-12-13] MEDS ORDERED: LIDOCAINE 2% INJ 100 MG/5 ML SDV (FOR ANES.) As Ordered (06:35)
[2017-12-13] MEDS ORDERED: PROPOFOL 200 MG/20 ML VIAL As Ordered ×2 (06:35→10:49)
[2017-12-13 06:40] LABS: INR 1.16
[2017-12-13] MEDS ORDERED: fentaNYL 100 MCG/2 ML INJECTION (J3010) As Ordered (06:55)
[2017-12-13] MEDS: LR 1,000 ML IV ×4 (06:55→22:44)
[2017-12-13] MEDS ORDERED: MIDAZOLAM INJ 2 MG/2 ML VIAL (J2250) As Ordered (06:56)
[2017-12-13] MEDS: ALVIMOPAN 12 MG CAPSULE (ENTEREG) PO ×2 (07:09→22:44)
[2017-12-13 07:26] LABS: BEDSIDE GLUCOSE 93 MG/DL (83-110)
[2017-12-13] MEDS: ERTAPENEM SODIUM 1 GM in NS 50 ML IV (08:06)
[2017-12-13] MEDS: ATENOLOL 50 MG TAB PO (09:00)
[2017-12-13] MEDS: SENOKOT S TAB PO ×2 (09:00→21:04)
[2017-12-13] MEDS ORDERED: LABETALOL HCL 100 MG/20 ML VIAL As Ordered (09:06)
[2017-12-13] MEDS ORDERED: NEOSTIGMINE 10 MG/10 ML VIAL (J2710) As Ordered (10:21)
[2017-12-13] MEDS ORDERED: GLYCOPYRROLATE INJ 0.2 MG/ML 2 ML VIAL As Ordered ×2 (10:22→13:19)
[2017-12-13] MEDS ORDERED: ONDANSETRON 4MG/2ML VIAL (J2405) As Ordered (10:22)
[2017-12-13] MEDS: BUPIVACAINE LIPOSOME/PF 1.3% 20 ML VIAL (13.3MG/ML)(EXPAREL) As Ordered (10:47)
[2017-12-13] MEDS: BUPIVACAINE HCL 0.25% 30 ML VIAL As Ordered (11:09)
[2017-12-13] MEDS: LIDOCAINE 1% SDV INJ 30 ML VIAL As Ordered (11:09)
[2017-12-13] MEDS ORDERED: ACETAMINOPHEN TAB 650MG DOSE (2X325MG) PO (11:45)
[2017-12-13] MEDS ORDERED: METOCLOPRAMIDE INJ 10MG/2ML VIAL (J2765) IV (12:00)
[2017-12-13] MEDS ORDERED: MEPERIDINE INJ 25 MG/ML VIAL (J2175) IV (12:00)
[2017-12-13] MEDS ORDERED: ONDANSETRON 4MG/2ML VIAL (J2405) IV (12:00)
[2017-12-13] MEDS: PERCOCET 5MG/325MG TAB PO (12:19)
[2017-12-13] MEDS: fentaNYL 100 MCG/2 ML INJECTION (J3010) IV ×2 (12:19→12:38)
[2017-12-13] MEDS: HEPARIN SOD (PORCINE) 5000 UNITS/ML VIAL SC ×2 (14:00→21:05)
[2017-12-13] MEDS: PIPERACILLIN/TAZOBACTAM SOD 3.375 GM in APPROPRIATE DILUENT 1 EA IV (18:35)
[2017-12-13] MEDS: TAMSULOSIN 0.4 MG CAP PO (21:04)
[2017-12-13] MEDS: SIMVASTATIN 20 MG TAB PO (21:04)
[2017-12-13] MEDS: ASPIRIN 81 MG ENTERIC TAB PO (21:04)
[2017-12-13 21:06] LABS: BEDSIDE GLUCOSE 86 MG/DL (83-110)
[2017-12-13] MEDS: NORCO, ANEXSIA 5/325MG TABLET (HYDROcodone/ACETAMINOPHEN) PO (23:26)
[2017-12-14] MEDS: PIPERACILLIN/TAZOBACTAM SOD 3.375 GM in APPROPRIATE DILUENT 1 EA IV ×3 (02:25→18:04)
[2017-12-14] MEDS: KETOROLAC 30 MG/ML VIAL (J1885) IV (02:26)
[2017-12-14] MEDS: NS 1,000 ML IV ×2 (05:41→07:45)
[2017-12-14] MEDS: HEPARIN SOD (PORCINE) 5000 UNITS/ML VIAL SC ×5 (05:42→22:00)
[2017-12-14] MEDS: NORCO, ANEXSIA 5/325MG TABLET (HYDROcodone/ACETAMINOPHEN) PO (05:43)
[2017-12-14 05:44] LABS: HEMOGLOBIN 10.1 g/dl (14.0-18.0); MEAN CORPUSCULAR HEMOGLOBIN 25.8 pg (27.0-33.0); MEAN CORPUSCULAR HGB CONC 31.6 g/dl (32.0-36.5); MEAN CORPUSCULAR VOLUME 81.8 fl (80.0-96.0); PLATELET COUNT, AUTOMATED 305 10^3/uL (150-450); RED BLOOD COUNT 3.91 10^6/uL (4.30-6.10); RED CELL DISTRIBUTION WIDTH 20.1 % (11.5-14.5); WHITE BLOOD COUNT 14.7 10^3/uL (4.0-10.0)
[2017-12-14 05:46] LABS: ADD MANUAL DIFFER YES; DIFF SLIDE NUMBER 68; POSITIVE MORPH POS FLAG
[2017-12-14 06:03] LABS: ANION GAP 8 MEQ/L (8-16); BLOOD UREA NITROGEN 26 MG/DL (7-18); CALCIUM LEVEL 7.7 MG/DL (8.8-10.2); CARBON DIOXIDE LEVEL 24 MEQ/L (21-32); CHLORIDE LEVEL 109 MEQ/L (98-107); CREATININE FOR GFR 1.33 MG/DL (0.70-1.30); GLOMERULAR FILTRATION RATE 54.8 (>35); GLUCOSE, FASTING 97 MG/DL (70-100); POTASSIUM SERUM 4.4 MEQ/L (3.5-5.1); SODIUM LEVEL 141 MEQ/L (136-145)
[2017-12-14 06:09] LABS: LACTIC ACID SEPSIS PROTOCOL 2.3 MMOL/L (0.4-2.0)
[2017-12-14 06:33] LABS: ANISOCYTOSIS 2+; BANDS 19 % (< 11); LYMPHOCYTES 11 % (16-52); MICROCYTOSIS 1+; MONOCYTES 2 % (0-8); NEUTROPHILS 68 % (35-75); PLATELET ESTIMATE NORMAL (NORMAL)
[2017-12-14 06:34] LABS: OVALOCYTES 1+
[2017-12-14 06:55] LABS: BEDSIDE GLUCOSE 98 MG/DL (83-110)
[2017-12-14 08:31] LABS: CPK CREATINE PHOSPHOKINASE 55 U/L (39-308); TROPONIN I 0.02 NG/ML (< 0.10)
[2017-12-14 08:32] LABS: CK-MB VALUE MASS < 1.0 NG/ML (<3.6); MB/CK RELATIVE INDEX 1.81 (< OR =4)
[2017-12-14] MEDS: LR 1,000 ML IV ×3 (08:34→20:34)
[2017-12-14] MEDS ORDERED: PHENYLEPHRINE INJ 10MG/ML VIAL (J2370) As Ordered (09:54)
[2017-12-14] MEDS: PHENYLEPHRINE HCL INJ 50 MG in D5W 500 ML IV ×2 (10:10→12:45)
[2017-12-14] MEDS: ATENOLOL 50 MG TAB PO (10:12)
[2017-12-14] MEDS ORDERED: PILL CRUSHER/CUTTER 1 EACH XX (10:30)
[2017-12-14] MEDS: PANTOPRAZOLE 40MG INJ (PROTONIX) (C9113) IV (13:16)
[2017-12-14] MEDS: ASPIRIN 81 MG ENTERIC TAB PO (13:16)
[2017-12-14] MEDS: SENOKOT S TAB PO ×2 (13:16→20:34)
[2017-12-14] MEDS: ALVIMOPAN 12 MG CAPSULE (ENTEREG) PO ×2 (13:17→20:34)
[2017-12-14] MEDS: GASTROGRAFIN SOLUTION 30ML PO ×2 (13:18→14:04)
[2017-12-14] MEDS: SODIUM CHLORIDE 0.9% INJ 10 ML SYR IV ×2 (14:05→22:00)
[2017-12-14] MEDS: NOREPINEPHRINE BITARTRATE 8 MG in D5W 492 ML IV (14:05)
[2017-12-14 14:28] LABS: HEMATOCRIT 30.8 % (42.0-52.0); HEMOGLOBIN 9.5 g/dl (14.0-18.0); MEAN CORPUSCULAR HEMOGLOBIN 25.5 pg (27.0-33.0); MEAN CORPUSCULAR HGB CONC 30.8 g/dl (32.0-36.5); MEAN CORPUSCULAR VOLUME 82.6 fl (80.0-96.0); PLATELET COUNT, AUTOMATED 327 10^3/uL (150-450); RED BLOOD COUNT 3.73 10^6/uL (4.30-6.10); RED CELL DISTRIBUTION WIDTH 20.4 % (11.5-14.5); WHITE BLOOD COUNT 18.6 10^3/uL (4.0-10.0)
[2017-12-14 14:32] LABS: ADD MANUAL DIFFER YES; DIFF SLIDE NUMBER 215; POSITIVE MORPH POS FLAG
[2017-12-14 14:51] LABS: BASOPHILS 1 % (0-4); LYMPHOCYTES 8 % (16-52); NEUTROPHILS 91 % (35-75)
[2017-12-14 14:52] LABS: PLATELET ESTIMATE NORMAL (NORMAL)
[2017-12-14 15:11] LABS: ANION GAP 8 MEQ/L (8-16); BLOOD UREA NITROGEN 32 MG/DL (7-18); CALCIUM LEVEL 7.5 MG/DL (8.8-10.2); CARBON DIOXIDE LEVEL 24 MEQ/L (21-32); CHLORIDE LEVEL 109 MEQ/L (98-107); CREATININE FOR GFR 1.38 MG/DL (0.70-1.30); GLOMERULAR FILTRATION RATE 52.5 (>35); GLUCOSE, FASTING 109 MG/DL (70-100); POTASSIUM SERUM 4.6 MEQ/L (3.5-5.1); SODIUM LEVEL 141 MEQ/L (136-145)
[2017-12-14 19:05] LABS: BEDSIDE GLUCOSE 129 MG/DL (83-110)
[2017-12-14] MEDS: SIMVASTATIN 20 MG TAB PO (20:34)
[2017-12-14] MEDS: TAMSULOSIN 0.4 MG CAP PO (20:34)
[2017-12-15 00:24] LABS: BEDSIDE GLUCOSE 120 MG/DL (83-110)
[2017-12-15] MEDS: PIPERACILLIN/TAZOBACTAM SOD 3.375 GM in APPROPRIATE DILUENT 1 EA IV ×3 (02:03→18:08)
[2017-12-15] MEDS: LR 1,000 ML IV ×3 (02:04→21:29)
[2017-12-15] MEDS: NOREPINEPHRINE BITARTRATE 8 MG in D5W 492 ML IV (02:11)
[2017-12-15 05:07] LABS: HEMOGLOBIN 9.2 g/dl (14.0-18.0); MEAN CORPUSCULAR HEMOGLOBIN 26.1 pg (27.0-33.0); MEAN CORPUSCULAR HGB CONC 31.7 g/dl (32.0-36.5); MEAN CORPUSCULAR VOLUME 82.2 fl (80.0-96.0); PLATELET COUNT, AUTOMATED 296 10^3/uL (150-450); RED BLOOD COUNT 3.53 10^6/uL (4.30-6.10); RED CELL DISTRIBUTION WIDTH 20.3 % (11.5-14.5); WHITE BLOOD COUNT 20.4 10^3/uL (4.0-10.0)
[2017-12-15 05:15] LABS: ADD MANUAL DIFFER YES; DIFF SLIDE NUMBER 49; POSITIVE MORPH POS FLAG
[2017-12-15 05:32] LABS: ANISOCYTOSIS 3+; BANDS 6 % (< 11); BASOPHILS 1 % (0-4); LYMPHOCYTES 3 % (16-52); MONOCYTES 2 % (0-8); NEUTROPHILS 88 % (35-75); PLATELET CLUMPS SMALL AMT; PLATELET ESTIMATE NORMAL (NORMAL)
[2017-12-15 05:33] LABS: ANION GAP 5 MEQ/L (8-16); BLOOD UREA NITROGEN 24 MG/DL (7-18); CALCIUM LEVEL 7.5 MG/DL (8.8-10.2); CARBON DIOXIDE LEVEL 27 MEQ/L (21-32); CHLORIDE LEVEL 109 MEQ/L (98-107); CREATININE FOR GFR 0.96 MG/DL (0.70-1.30); GLOMERULAR FILTRATION RATE > 60.0 (>35); GLUCOSE, FASTING 120 MG/DL (70-100); HYPOCHROMASIA 1+; SODIUM LEVEL 141 MEQ/L (136-145)
[2017-12-15] MEDS: SODIUM CHLORIDE 0.9% INJ 10 ML SYR IV ×3 (06:00→21:30)
[2017-12-15] MEDS: HEPARIN SOD (PORCINE) 5000 UNITS/ML VIAL SC ×3 (06:03→21:29)
[2017-12-15] MEDS: PANTOPRAZOLE 40MG INJ (PROTONIX) (C9113) IV (09:10)
[2017-12-15] MEDS: SENOKOT S TAB PO ×2 (09:11→21:29)
[2017-12-15] MEDS: ASPIRIN 81 MG ENTERIC TAB PO (09:11)
[2017-12-15] MEDS: NORCO, ANEXSIA 5/325MG TABLET (HYDROcodone/ACETAMINOPHEN) PO ×2 (09:11→21:47)
[2017-12-15] MEDS: ALVIMOPAN 12 MG CAPSULE (ENTEREG) PO ×2 (09:12→21:29)
[2017-12-15 12:42] LABS: BEDSIDE GLUCOSE 102 MG/DL (83-110)
[2017-12-15 18:42] LABS: BEDSIDE GLUCOSE 76 MG/DL (83-110)
[2017-12-15] MEDS: SIMVASTATIN 20 MG TAB PO (21:29)
[2017-12-15] MEDS: TAMSULOSIN 0.4 MG CAP PO (21:29)
[2017-12-15 21:55] LABS: BEDSIDE GLUCOSE 88 MG/DL (83-110)
[2017-12-15 23:49] LABS: BEDSIDE GLUCOSE 90 MG/DL (83-110)
[2017-12-16] MEDS: PIPERACILLIN/TAZOBACTAM SOD 3.375 GM in APPROPRIATE DILUENT 1 EA IV ×3 (03:04→17:26)
[2017-12-16] MEDS: SODIUM CHLORIDE 0.9% INJ 10 ML SYR IV ×3 (05:29→22:00)
[2017-12-16] MEDS: HEPARIN SOD (PORCINE) 5000 UNITS/ML VIAL SC ×3 (05:30→22:18)
[2017-12-16 05:52] LABS: BASO % 0.1 % (0.0-1.0); EOS % 0.1 % (0.0-3.0); HEMATOCRIT 28.7 % (42.0-52.0); HEMOGLOBIN 9.1 g/dl (13.5-17.5); IMMATURE GRANULOCYTE % 1.3 % (0-3.0); LYMPH # 0.8 10^3/uL (1.5-4.5); LYMPH % 4.5 % (24.0-44.0); MEAN CORPUSCULAR HEMOGLOBIN 26.5 pg (27.0-33.0); MEAN CORPUSCULAR HGB CONC 31.7 g/dl (32.0-36.5); MEAN CORPUSCULAR VOLUME 83.4 fl (80.0-96.0); MONO # 0.5 10^3/uL (0.0-0.8); MONO % 2.9 % (0.0-5.0); NEUTROPHILS # 16.8 10^3/uL (1.8-7.7); NEUTROPHILS % 91.1 % (36.0-66.0); PLATELET COUNT, AUTOMATED 261 10^3/uL (150-450); RED BLOOD COUNT 3.44 10^6/uL (4.30-6.10); RED CELL DISTRIBUTION WIDTH 20.3 % (11.5-14.5); WHITE BLOOD COUNT 18.4 10^3/uL (4.0-10.0)
[2017-12-16 06:10] LABS: ANION GAP 4 MEQ/L (8-16); BLOOD UREA NITROGEN 16 MG/DL (7-18); CALCIUM LEVEL 7.3 MG/DL (8.8-10.2); CARBON DIOXIDE LEVEL 27 MEQ/L (21-32); CHLORIDE LEVEL 112 MEQ/L (98-107); CREATININE FOR GFR 0.59 MG/DL (0.70-1.30); GLOMERULAR FILTRATION RATE > 60.0 (>35); GLUCOSE, FASTING 75 MG/DL (70-100); POTASSIUM SERUM 3.6 MEQ/L (3.5-5.1); SODIUM LEVEL 143 MEQ/L (136-145)
[2017-12-16] MEDS: ASPIRIN 81 MG ENTERIC TAB PO (08:14)
[2017-12-16] MEDS: SENOKOT S TAB PO ×2 (08:14→20:56)
[2017-12-16] MEDS: FUROSEMIDE 20 MG/2 ML VIAL (J1940) IV (08:14)
[2017-12-16] MEDS: ALVIMOPAN 12 MG CAPSULE (ENTEREG) PO ×2 (08:15→20:56)
[2017-12-16 12:00] LABS: BEDSIDE GLUCOSE 102 MG/DL (83-110)
[2017-12-16] MEDS: LR 1,000 ML IV (14:45)
[2017-12-16] MEDS: ONDANSETRON 4MG/2ML VIAL (J2405) IV (15:06)
[2017-12-16] MEDS: WARFARIN SOD 2 MG TAB PO (17:28)
[2017-12-16] MEDS: KETOROLAC 30 MG/ML VIAL (J1885) IV (18:34)
[2017-12-16 18:49] LABS: BEDSIDE GLUCOSE 126 MG/DL (83-110)
[2017-12-16] MEDS: TAMSULOSIN 0.4 MG CAP PO (20:56)
[2017-12-16] MEDS: SIMVASTATIN 20 MG TAB PO (20:56)
[2017-12-17 00:12] LABS: BEDSIDE GLUCOSE 99 MG/DL (83-110)
[2017-12-17] MEDS: PIPERACILLIN/TAZOBACTAM SOD 3.375 GM in APPROPRIATE DILUENT 1 EA IV ×3 (02:15→18:25)
[2017-12-17] MEDS: LR 1,000 ML IV ×2 (02:15→14:44)
[2017-12-17] MEDS: SODIUM CHLORIDE 0.9% INJ 10 ML SYR IV ×3 (05:55→21:03)
[2017-12-17] MEDS: HEPARIN SOD (PORCINE) 5000 UNITS/ML VIAL SC ×3 (05:55→21:03)
[2017-12-17 06:11] LABS: BEDSIDE GLUCOSE 100 MG/DL (83-110)
[2017-12-17 06:13] LABS: BASO % 0.1 % (0.0-1.0); EOS # 0.1 10^3/uL (0.0-0.50); EOS % 0.4 % (0.0-3.0); HEMATOCRIT 29.5 % (42.0-52.0); HEMOGLOBIN 9.2 g/dl (13.5-17.5); IMMATURE GRANULOCYTE % 0.4 % (0-3.0); LYMPH # 0.7 10^3/uL (1.5-4.5); MEAN CORPUSCULAR HGB CONC 31.2 g/dl (32.0-36.5); MEAN CORPUSCULAR VOLUME 83.3 fl (80.0-96.0); MONO # 0.8 10^3/uL (0.0-0.8); MONO % 5.9 % (0.0-5.0); NEUTROPHILS # 12.2 10^3/uL (1.8-7.7); NEUTROPHILS % 88.2 % (36.0-66.0); PLATELET COUNT, AUTOMATED 288 10^3/uL (150-450); RED BLOOD COUNT 3.54 10^6/uL (4.30-6.10); RED CELL DISTRIBUTION WIDTH 20.1 % (11.5-14.5); WHITE BLOOD COUNT 13.8 10^3/uL (4.0-10.0)
[2017-12-17 06:31] LABS: ANION GAP 4 MEQ/L (8-16); BLOOD UREA NITROGEN 17 MG/DL (7-18); CALCIUM LEVEL 8.1 MG/DL (8.8-10.2); CARBON DIOXIDE LEVEL 32 MEQ/L (21-32); CHLORIDE LEVEL 108 MEQ/L (98-107); GLOMERULAR FILTRATION RATE > 60.0 (>35); GLUCOSE, FASTING 101 MG/DL (70-100); POTASSIUM SERUM 3.7 MEQ/L (3.5-5.1); SODIUM LEVEL 144 MEQ/L (136-145)
[2017-12-17 06:33] LABS: INR 1.24; PROTHROMBIN TIME 15.9 SECONDS (12.4-14.5)
[2017-12-17] MEDS: ATENOLOL 50 MG TAB PO (09:00)
[2017-12-17] MEDS: SENOKOT S TAB PO ×2 (09:00→21:03)
[2017-12-17] MEDS: ALVIMOPAN 12 MG CAPSULE (ENTEREG) PO ×2 (09:00→20:13)
[2017-12-17] MEDS: ASPIRIN 81 MG ENTERIC TAB PO (09:00)
[2017-12-17] MEDS: FUROSEMIDE 20 MG/2 ML VIAL (J1940) IV (09:04)
[2017-12-17] MEDS: MIRALAX *UNIT DOSE* 17GM PACKET PO (12:32)
[2017-12-17 15:10] LABS: BEDSIDE GLUCOSE 86 MG/DL (83-110)
[2017-12-17] MEDS: WARFARIN SOD 2 MG TAB PO (17:15)
[2017-12-17 18:45] LABS: BEDSIDE GLUCOSE 81 MG/DL (83-110)
[2017-12-17] MEDS: TAMSULOSIN 0.4 MG CAP PO (20:13)
[2017-12-17] MEDS: SIMVASTATIN 20 MG TAB PO (21:02)
[2017-12-18 00:58] LABS: BEDSIDE GLUCOSE 83 MG/DL (83-110)
[2017-12-18] MEDS: LR 1,000 ML IV (02:23)
[2017-12-18] MEDS: PIPERACILLIN/TAZOBACTAM SOD 3.375 GM in APPROPRIATE DILUENT 1 EA IV ×3 (02:24→18:51)
[2017-12-18] MEDS: HEPARIN SOD (PORCINE) 5000 UNITS/ML VIAL SC ×3 (05:16→20:44)
[2017-12-18] MEDS: SODIUM CHLORIDE 0.9% INJ 10 ML SYR IV ×3 (05:16→20:44)
[2017-12-18 05:32] LABS: BEDSIDE GLUCOSE 76 MG/DL (83-110)
[2017-12-18 05:42] LABS: BASO % 0.1 % (0.0-1.0); EOS # 0.1 10^3/uL (0.0-0.50); EOS % 1.1 % (0.0-3.0); HEMATOCRIT 27.8 % (42.0-52.0); HEMOGLOBIN 8.6 g/dl (13.5-17.5); IMMATURE GRANULOCYTE % 0.4 % (0-3.0); LYMPH # 0.9 10^3/uL (1.5-4.5); LYMPH % 9.9 % (24.0-44.0); MEAN CORPUSCULAR HEMOGLOBIN 25.6 pg (27.0-33.0); MEAN CORPUSCULAR HGB CONC 30.9 g/dl (32.0-36.5); MEAN CORPUSCULAR VOLUME 82.7 fl (80.0-96.0); MONO # 0.7 10^3/uL (0.0-0.8); MONO % 8.1 % (0.0-5.0); NEUTROPHILS # 7.3 10^3/uL (1.8-7.7); NEUTROPHILS % 80.4 % (36.0-66.0); PLATELET COUNT, AUTOMATED 295 10^3/uL (150-450); RED BLOOD COUNT 3.36 10^6/uL (4.30-6.10); RED CELL DISTRIBUTION WIDTH 19.9 % (11.5-14.5); WHITE BLOOD COUNT 9.1 10^3/uL (4.0-10.0)
[2017-12-18 05:54] LABS: ANION GAP 5 MEQ/L (8-16); BLOOD UREA NITROGEN 16 MG/DL (7-18); CALCIUM LEVEL 8.2 MG/DL (8.8-10.2); CARBON DIOXIDE LEVEL 34 MEQ/L (21-32); CHLORIDE LEVEL 106 MEQ/L (98-107); CREATININE FOR GFR 0.63 MG/DL (0.70-1.30); GLOMERULAR FILTRATION RATE > 60.0 (>35); GLUCOSE, FASTING 78 MG/DL (70-100); POTASSIUM SERUM 3.4 MEQ/L (3.5-5.1); SODIUM LEVEL 145 MEQ/L (136-145)
[2017-12-18 05:56] LABS: INR 1.39; PROTHROMBIN TIME 17.4 SECONDS (12.4-14.5)
[2017-12-18] MEDS: ALVIMOPAN 12 MG CAPSULE (ENTEREG) PO (08:47)
[2017-12-18] MEDS: MIRALAX *UNIT DOSE* 17GM PACKET PO (08:47)
[2017-12-18] MEDS: SENOKOT S TAB PO ×2 (08:48→20:43)
[2017-12-18] MEDS: FUROSEMIDE 20 MG/2 ML VIAL (J1940) IV (08:48)
[2017-12-18] MEDS: ASPIRIN 81 MG ENTERIC TAB PO (08:48)
[2017-12-18] MEDS: KCL 20MEQ IN D5/0.45NS 1000ML 1,000 ML IV (11:45)
[2017-12-18] MEDS: FLEET ENEMA PR (14:15)
[2017-12-18] MEDS: ATENOLOL 50 MG TAB PO (14:15)
[2017-12-18] MEDS: WARFARIN SOD 2 MG TAB PO (16:38)
[2017-12-18 16:59] LABS: BEDSIDE GLUCOSE 102 MG/DL (83-110)
[2017-12-18 17:42] LABS: BEDSIDE GLUCOSE 114 MG/DL (83-110)
[2017-12-18] MEDS: TAMSULOSIN 0.4 MG CAP PO (20:43)
[2017-12-18] MEDS: SIMVASTATIN 20 MG TAB PO (20:43)
[2017-12-18 23:56] LABS: BEDSIDE GLUCOSE 130 MG/DL (83-110)
[2017-12-19] MEDS: KCL 20MEQ IN D5/0.45NS 1000ML 1,000 ML IV ×2 (00:07→11:39)
[2017-12-19] MEDS: PIPERACILLIN/TAZOBACTAM SOD 3.375 GM in APPROPRIATE DILUENT 1 EA IV ×3 (02:06→17:45)
[2017-12-19] MEDS: HEPARIN SOD (PORCINE) 5000 UNITS/ML VIAL SC (05:14)
[2017-12-19] MEDS: SODIUM CHLORIDE 0.9% INJ 10 ML SYR IV ×3 (05:14→21:59)
[2017-12-19 05:32] LABS: BASO % 0.3 % (0.0-1.0); EOS # 0.1 10^3/uL (0.0-0.50); EOS % 0.6 % (0.0-3.0); HEMATOCRIT 28.7 % (42.0-52.0); HEMOGLOBIN 8.9 g/dl (13.5-17.5); IMMATURE GRANULOCYTE % 0.5 % (0-3.0); MEAN CORPUSCULAR HEMOGLOBIN 25.6 pg (27.0-33.0); MEAN CORPUSCULAR VOLUME 82.7 fl (80.0-96.0); MONO # 0.8 10^3/uL (0.0-0.8); MONO % 10.7 % (0.0-5.0); NEUTROPHILS # 5.9 10^3/uL (1.8-7.7); NEUTROPHILS % 74.9 % (36.0-66.0); PLATELET COUNT, AUTOMATED 297 10^3/uL (150-450); RED BLOOD COUNT 3.47 10^6/uL (4.30-6.10); RED CELL DISTRIBUTION WIDTH 19.3 % (11.5-14.5); WHITE BLOOD COUNT 7.9 10^3/uL (4.0-10.0)
[2017-12-19 05:49] LABS: INR 1.99; PROTHROMBIN TIME 23.2 SECONDS (12.4-14.5)
[2017-12-19 06:03] LABS: ANION GAP 4 MEQ/L (8-16); BLOOD UREA NITROGEN 13 MG/DL (7-18); CALCIUM LEVEL 8.6 MG/DL (8.8-10.2); CARBON DIOXIDE LEVEL 39 MEQ/L (21-32); CHLORIDE LEVEL 103 MEQ/L (98-107); CREATININE FOR GFR 0.67 MG/DL (0.70-1.30); GLOMERULAR FILTRATION RATE > 60.0 (>35); GLUCOSE, FASTING 140 MG/DL (70-100); SODIUM LEVEL 146 MEQ/L (136-145)
[2017-12-19] MEDS: GASTROGRAFIN SOLUTION 30ML PO ×2 (06:05→06:42)
[2017-12-19] MEDS ORDERED: ISOVUE-370 76% 100ML VIAL (Q9967) As Ordered (07:50)
[2017-12-19] MEDS: ASPIRIN 81 MG ENTERIC TAB PO (09:09)
[2017-12-19] MEDS: ATENOLOL 50 MG TAB PO (09:10)
[2017-12-19] MEDS: MIRALAX *UNIT DOSE* 17GM PACKET PO (09:10)
[2017-12-19] MEDS: SENOKOT S TAB PO ×2 (09:10→21:58)
[2017-12-19] MEDS: FUROSEMIDE 20 MG TAB PO (09:10)
[2017-12-19 13:11] LABS: BEDSIDE GLUCOSE 160 MG/DL (83-110)
[2017-12-19] MEDS: MULTIVITAMIN -ADULT INJECTION 10 ML, CR/CU/SE/MN/ZN INJ 1 ML, POTASSIUM CHLORIDE INJ 40... IV (17:45)
[2017-12-19] MEDS: FAT EMULSION IV 20% 500 ML IV (17:45)
[2017-12-19] MEDS: WARFARIN SOD 2 MG TAB PO (17:45)
[2017-12-19] MEDS: HumaLOG INSULIN (NovoLOG) PER UNIT SC (18:00)
[2017-12-19 19:52] LABS: BEDSIDE GLUCOSE 154 MG/DL (83-110)
[2017-12-19] MEDS: TAMSULOSIN 0.4 MG CAP PO (21:57)
[2017-12-19] MEDS: SIMVASTATIN 20 MG TAB PO (21:57)
[2017-12-20 00:13] LABS: BEDSIDE GLUCOSE 217 MG/DL (83-110)
[2017-12-20] MEDS: HumaLOG INSULIN (NovoLOG) PER UNIT SC ×4 (00:15→17:44)
[2017-12-20] MEDS: PIPERACILLIN/TAZOBACTAM SOD 3.375 GM in APPROPRIATE DILUENT 1 EA IV ×3 (01:25→17:43)
[2017-12-20 06:50] LABS: BASO % 0.1 % (0.0-1.0); EOS # 0.2 10^3/uL (0.0-0.50); HEMATOCRIT 28.7 % (42.0-52.0); HEMOGLOBIN 8.9 g/dl (13.5-17.5); IMMATURE GRANULOCYTE % 0.5 % (0-3.0); LYMPH # 1.1 10^3/uL (1.5-4.5); LYMPH % 15.5 % (24.0-44.0); MEAN CORPUSCULAR HEMOGLOBIN 26.2 pg (27.0-33.0); MEAN CORPUSCULAR VOLUME 84.4 fl (80.0-96.0); MONO % 13.1 % (0.0-5.0); NEUTROPHILS # 5.1 10^3/uL (1.8-7.7); NEUTROPHILS % 68.8 % (36.0-66.0); PLATELET COUNT, AUTOMATED 303 10^3/uL (150-450); RED CELL DISTRIBUTION WIDTH 19.3 % (11.5-14.5); WHITE BLOOD COUNT 7.4 10^3/uL (4.0-10.0)
[2017-12-20] MEDS: SODIUM CHLORIDE 0.9% INJ 10 ML SYR IV ×3 (06:51→21:47)
[2017-12-20 07:01] LABS: INR 1.68; PROTHROMBIN TIME 20.2 SECONDS (12.4-14.5)
[2017-12-20 07:08] LABS: ANION GAP 1 MEQ/L (8-16); BLOOD UREA NITROGEN 11 MG/DL (7-18); CALCIUM LEVEL 8.2 MG/DL (8.8-10.2); CARBON DIOXIDE LEVEL 41 MEQ/L (21-32); CHLORIDE LEVEL 104 MEQ/L (98-107); GLOMERULAR FILTRATION RATE > 60.0 (>35); GLUCOSE, FASTING 159 MG/DL (70-100); POTASSIUM SERUM 3.4 MEQ/L (3.5-5.1); SODIUM LEVEL 146 MEQ/L (136-145)
[2017-12-20 08:47] LABS: BEDSIDE GLUCOSE 147 MG/DL (83-110)
[2017-12-20] MEDS: ASPIRIN 81 MG ENTERIC TAB PO (09:28)
[2017-12-20] MEDS: FUROSEMIDE 20 MG TAB PO (09:28)
[2017-12-20] MEDS: FUROSEMIDE 40 MG/4 ML VIAL (J1940) IV (09:29)
[2017-12-20] MEDS: MIRALAX *UNIT DOSE* 17GM PACKET PO (09:29)
[2017-12-20] MEDS: SENOKOT S TAB PO ×2 (09:29→20:50)
[2017-12-20] MEDS: ATENOLOL 50 MG TAB PO (09:30)
[2017-12-20] MEDS: ALBUTEROL SULFATE 2.5 MG/0.5 ML INH NEB SOLN NEB (09:41)
[2017-12-20 12:07] LABS: BEDSIDE GLUCOSE 221 MG/DL (83-110)
[2017-12-20] MEDS ORDERED: ALBUTEROL SULFATE 2.5 MG/0.5 ML INH NEB SOLN NEB (12:30)
[2017-12-20] MEDS ORDERED: ISOVUE-370 76% 100ML VIAL (Q9967) As Ordered (14:41)
[2017-12-20 17:10] LABS: BEDSIDE GLUCOSE 144 MG/DL (83-110)
[2017-12-20] MEDS: POTASSIUM CHLORIDE INJ 40 MEQ in AMINO AC/ELECTROLYTE/DEX/CALC 2,000 ML IV (17:42)
[2017-12-20] MEDS: FAT EMULSION IV 20% 500 ML IV (17:42)
[2017-12-20] MEDS: WARFARIN SOD 2 MG TAB PO (17:43)
[2017-12-20] MEDS: TAMSULOSIN 0.4 MG CAP PO (20:49)
[2017-12-20] MEDS: SIMVASTATIN 20 MG TAB PO (20:50)
[2017-12-21 00:16] LABS: BEDSIDE GLUCOSE 178 MG/DL (83-110)
[2017-12-21] MEDS: HumaLOG INSULIN (NovoLOG) PER UNIT SC ×4 (00:34→18:17)
[2017-12-21] MEDS: PIPERACILLIN/TAZOBACTAM SOD 3.375 GM in APPROPRIATE DILUENT 1 EA IV ×3 (01:49→18:18)
[2017-12-21] MEDS: SODIUM CHLORIDE 0.9% INJ 10 ML SYR IV ×3 (05:46→22:00)
[2017-12-21 05:49] LABS: BEDSIDE GLUCOSE 173 MG/DL (83-110)
[2017-12-21] MEDS: SENOKOT S TAB PO ×2 (08:43→21:00)
[2017-12-21] MEDS: FUROSEMIDE 20 MG TAB PO (08:43)
[2017-12-21] MEDS: ASPIRIN 81 MG ENTERIC TAB PO (08:43)
[2017-12-21] MEDS: MIRALAX *UNIT DOSE* 17GM PACKET PO (08:43)
[2017-12-21] MEDS: ATENOLOL 50 MG TAB PO (08:44)
[2017-12-21 09:09] LABS: INR 1.38; PROTHROMBIN TIME 17.3 SECONDS (12.4-14.5)
[2017-12-21 09:23] LABS: ALBUMIN 2.3 GM/DL (3.2-5.2); ALBUMIN/GLOBULIN RATIO 0.59 (1.00-1.93); ALKALINE PHOSPHATASE 44 U/L (45-117); ALT/SGPT 10 U/L (12-78); ANION GAP 2 MEQ/L (8-16); AST/SGOT 14 U/L (7-37); BILIRUBIN,TOTAL 0.3 MG/DL (0.2-1.0); BLOOD UREA NITROGEN 12 MG/DL (7-18); C REACTIVE PROTEIN QUANTITATIV 3.93 MG/DL (0.00-0.30); CALCIUM LEVEL 8.2 MG/DL (8.8-10.2); CARBON DIOXIDE LEVEL 43 MEQ/L (21-32); CHLORIDE LEVEL 97 MEQ/L (98-107); CREATININE FOR GFR 0.65 MG/DL (0.70-1.30); GLOMERULAR FILTRATION RATE > 60.0 (>35); GLUCOSE, FASTING 165 MG/DL (70-100); POTASSIUM SERUM 3.6 MEQ/L (3.5-5.1); SODIUM LEVEL 142 MEQ/L (136-145); TOTAL PROTEIN 6.2 GM/DL (6.4-8.2)
[2017-12-21 12:02] LABS: BEDSIDE GLUCOSE 216 MG/DL (83-110)
[2017-12-21] MEDS: FUROSEMIDE 40 MG/4 ML VIAL (J1940) IV (13:22)
[2017-12-21] MEDS: ENOXAPARIN 60 MG/0.6 ML SYR (J1650) SC ×2 (13:23→21:00)
[2017-12-21 16:53] LABS: ABG BASE EXCESS 19.2 (-2.0-2.0); ABG HCO3 45.9 MEQ/L (22.0-26.0); ABG O2 SATURATION 91.1 % (95.0-99.0); ABG PARTIAL PRESSURE O2 61.2 mmHg (75.0-100.0); ABG TOTAL CO2 47.9 MEQ/L (23.0-31.0); ABG pH (ARTERIAL) 7.452 UNITS (7.350-7.450)
[2017-12-21 16:54] LABS: ABG PARTIAL PRESSURE CO2 67.2 mmHg (35.0-45.0)
[2017-12-21 16:56] LABS: BEDSIDE GLUCOSE 167 MG/DL (83-110)
[2017-12-21] MEDS: WARFARIN SOD 2 MG TAB PO (18:17)
[2017-12-21] MEDS: FAT EMULSION IV 20% 500 ML IV (18:18)
[2017-12-21] MEDS: MULTIVITAMIN -ADULT INJECTION 10 ML, CR/CU/SE/MN/ZN INJ 1 ML, POTASSIUM CHLORIDE INJ 40... IV (18:18)
[2017-12-21] MEDS: TAMSULOSIN 0.4 MG CAP PO (21:00)
[2017-12-21] MEDS: SIMVASTATIN 20 MG TAB PO (21:00)
[2017-12-21] MEDS ORDERED: SIMVASTATIN 20 MG TAB As Ordered (22:09)
[2017-12-21] MEDS ORDERED: ENOXAPARIN 60 MG/0.6 ML SYR (J1650) As Ordered (22:09)
[2017-12-21] MEDS ORDERED: SENOKOT S TAB As Ordered (22:09)
[2017-12-21] MEDS ORDERED: TAMSULOSIN 0.4 MG CAP As Ordered (22:09)
[2017-12-22] MEDS: HumaLOG INSULIN (NovoLOG) PER UNIT SC ×3 (00:26→12:34)
[2017-12-22] MEDS: PIPERACILLIN/TAZOBACTAM SOD 3.375 GM in APPROPRIATE DILUENT 1 EA IV ×3 (01:58→17:35)
[2017-12-22] MEDS: SODIUM CHLORIDE 0.9% INJ 10 ML SYR IV ×4 (04:28→21:57)
[2017-12-22 04:54] LABS: INR 1.63; PROTHROMBIN TIME 19.8 SECONDS (12.4-14.5)
[2017-12-22 05:44] LABS: BEDSIDE GLUCOSE 143 MG/DL (83-110)
[2017-12-22] MEDS: ASPIRIN 81 MG ENTERIC TAB PO (08:34)
[2017-12-22] MEDS: MIRALAX *UNIT DOSE* 17GM PACKET PO (08:42)
[2017-12-22] MEDS: SENOKOT S TAB PO ×2 (08:42→21:56)
[2017-12-22] MEDS: ATENOLOL 50 MG TAB PO (08:42)
[2017-12-22] MEDS: ENOXAPARIN 60 MG/0.6 ML SYR (J1650) SC ×2 (08:43→21:56)
[2017-12-22] MEDS: FUROSEMIDE 40 MG TAB PO (11:10)
[2017-12-22 11:57] LABS: BEDSIDE GLUCOSE 228 MG/DL (83-110)
[2017-12-22 12:56] LABS: ANION GAP 0 MEQ/L (8-16); BLOOD UREA NITROGEN 19 MG/DL (7-18); CALCIUM LEVEL 8.4 MG/DL (8.8-10.2); CARBON DIOXIDE LEVEL 44 MEQ/L (21-32); CHLORIDE LEVEL 96 MEQ/L (98-107); CREATININE FOR GFR 0.78 MG/DL (0.70-1.30); GLOMERULAR FILTRATION RATE > 60.0 (>35); GLUCOSE, FASTING 208 MG/DL (70-100); POTASSIUM SERUM 3.7 MEQ/L (3.5-5.1); SODIUM LEVEL 140 MEQ/L (136-145)
[2017-12-22 19:34] LABS: BEDSIDE GLUCOSE 223 MG/DL (83-110)
[2017-12-22] MEDS: SIMVASTATIN 20 MG TAB PO (21:56)
[2017-12-22] MEDS: TAMSULOSIN 0.4 MG CAP PO (21:56)
[2017-12-23 00:34] LABS: BEDSIDE GLUCOSE 137 MG/DL (83-110)
[2017-12-23] MEDS: PIPERACILLIN/TAZOBACTAM SOD 3.375 GM in APPROPRIATE DILUENT 1 EA IV ×3 (02:21→21:49)
[2017-12-23] MEDS: SODIUM CHLORIDE 0.9% INJ 10 ML SYR IV ×6 (02:47→23:55)
[2017-12-23 05:06] LABS: BASO % 0.4 % (0.0-1.0); EOS # 0.3 10^3/uL (0.0-0.50); EOS % 2.8 % (0.0-3.0); HEMATOCRIT 24.6 % (42.0-52.0); HEMOGLOBIN 7.6 g/dl (13.5-17.5); IMMATURE GRANULOCYTE % 0.5 % (0-3.0); LYMPH # 1.6 10^3/uL (1.5-4.5); LYMPH % 15.9 % (24.0-44.0); MEAN CORPUSCULAR HEMOGLOBIN 25.9 pg (27.0-33.0); MEAN CORPUSCULAR HGB CONC 30.9 g/dl (32.0-36.5); MEAN CORPUSCULAR VOLUME 83.7 fl (80.0-96.0); MONO # 1.2 10^3/uL (0.0-0.8); MONO % 11.6 % (0.0-5.0); NEUTROPHILS # 6.9 10^3/uL (1.8-7.7); NEUTROPHILS % 68.8 % (36.0-66.0); PLATELET COUNT, AUTOMATED 324 10^3/uL (150-450); RED BLOOD COUNT 2.94 10^6/uL (4.30-6.10); RED CELL DISTRIBUTION WIDTH 18.7 % (11.5-14.5); RETICULOCYTE # 49.9 10^9/L (17-77); RETICULOCYTE % 1.7 % (0.5-1.5)
[2017-12-23 05:15] LABS: INR 1.58; PROTHROMBIN TIME 19.3 SECONDS (12.4-14.5)
[2017-12-23 05:29] LABS: ALBUMIN 2.1 GM/DL (3.2-5.2); ALBUMIN/GLOBULIN RATIO 0.58 (1.00-1.93); ALKALINE PHOSPHATASE 60 U/L (45-117); ALT/SGPT 10 U/L (12-78); ANION GAP 1 MEQ/L (8-16); AST/SGOT 13 U/L (7-37); BILIRUBIN,TOTAL 0.4 MG/DL (0.2-1.0); BLOOD UREA NITROGEN 21 MG/DL (7-18); CALCIUM LEVEL 8.1 MG/DL (8.8-10.2); CARBON DIOXIDE LEVEL 45 MEQ/L (21-32); CHLORIDE LEVEL 96 MEQ/L (98-107); CREATININE FOR GFR 0.74 MG/DL (0.70-1.30); GLOMERULAR FILTRATION RATE > 60.0 (>35); GLUCOSE, FASTING 122 MG/DL (70-100); POTASSIUM SERUM 4.3 MEQ/L (3.5-5.1); SODIUM LEVEL 142 MEQ/L (136-145); TOTAL PROTEIN 5.7 GM/DL (6.4-8.2)
[2017-12-23 05:31] LABS: NT-PRO BNP 902 PG/ML (<450)
[2017-12-23 05:31] LABS: MAGNESIUM LEVEL 1.5 MG/DL (1.8-2.4)
[2017-12-23] MEDS: MAG SULF 1GM/100ML (MAG RUN) 1 GM in APPROPRIATE DILUENT 1 EA IV ×3 (06:29→09:32)
[2017-12-23] MEDS: ENOXAPARIN 60 MG/0.6 ML SYR (J1650) SC ×2 (08:11→20:49)
[2017-12-23] MEDS: ASPIRIN 81 MG ENTERIC TAB PO (08:12)
[2017-12-23] MEDS: ATENOLOL 50 MG TAB PO (08:12)
[2017-12-23] MEDS: SENOKOT S TAB PO ×3 (08:12→20:48)
[2017-12-23] MEDS: FUROSEMIDE 40 MG TAB PO (08:12)
[2017-12-23] MEDS: MIRALAX *UNIT DOSE* 17GM PACKET PO (08:13)
[2017-12-23 14:44] LABS: CK-MB VALUE MASS < 1.0 NG/ML (<3.6); CPK CREATINE PHOSPHOKINASE 18 U/L (39-308); MB/CK RELATIVE INDEX 5.55 (< OR =4); TROPONIN I < 0.02 NG/ML (< 0.10)
[2017-12-23 18:09] LABS: IMMEDIATE SPIN CROSSMATCH 1 1
[2017-12-23] MEDS: TAMSULOSIN 0.4 MG CAP PO (20:48)
[2017-12-23] MEDS: SIMVASTATIN 20 MG TAB PO (20:48)
[2017-12-23] MEDS: FUROSEMIDE 40 MG/4 ML VIAL (J1940) IV (21:49)
[2017-12-24 00:23] LABS: ALBUMIN 2.3 GM/DL (3.2-5.2); ANION GAP 1 MEQ/L (8-16); BLOOD UREA NITROGEN 23 MG/DL (7-18); CALCIUM LEVEL 8.1 MG/DL (8.8-10.2); CARBON DIOXIDE LEVEL 45 MEQ/L (21-32); CHLORIDE LEVEL 95 MEQ/L (98-107); CREATININE FOR GFR 0.79 MG/DL (0.70-1.30); GLOMERULAR FILTRATION RATE > 60.0 (>35); GLUCOSE, FASTING 129 MG/DL (70-100); PHOSPHORUS LEVEL 3.2 MG/DL (2.5-4.9); POTASSIUM SERUM 4.2 MEQ/L (3.5-5.1); SODIUM LEVEL 141 MEQ/L (136-145)
[2017-12-24] MEDS: PIPERACILLIN/TAZOBACTAM SOD 3.375 GM in APPROPRIATE DILUENT 1 EA IV ×3 (02:02→17:07)
[2017-12-24] MEDS: SODIUM CHLORIDE 0.9% INJ 10 ML SYR IV ×4 (02:32→22:41)
[2017-12-24 07:05] LABS: HEMATOCRIT 24.8 % (42.0-52.0); HEMOGLOBIN 7.7 g/dl (13.5-17.5); MEAN CORPUSCULAR HEMOGLOBIN 26.2 pg (27.0-33.0); MEAN CORPUSCULAR VOLUME 84.4 fl (80.0-96.0); PLATELET COUNT, AUTOMATED 323 10^3/uL (150-450); RED BLOOD COUNT 2.94 10^6/uL (4.30-6.10); RED CELL DISTRIBUTION WIDTH 18.3 % (11.5-14.5); WHITE BLOOD COUNT 10.7 10^3/uL (4.0-10.0)
[2017-12-24 07:33] LABS: ALBUMIN 2.2 GM/DL (3.2-5.2); ALBUMIN/GLOBULIN RATIO 0.58 (1.00-1.93); ALKALINE PHOSPHATASE 59 U/L (45-117); ALT/SGPT 10 U/L (12-78); ANION GAP 1 MEQ/L (8-16); AST/SGOT 13 U/L (7-37); BILIRUBIN,TOTAL 0.6 MG/DL (0.2-1.0); BLOOD UREA NITROGEN 22 MG/DL (7-18); CALCIUM LEVEL 8.2 MG/DL (8.8-10.2); CARBON DIOXIDE LEVEL 44 MEQ/L (21-32); CHLORIDE LEVEL 95 MEQ/L (98-107); GLOMERULAR FILTRATION RATE > 60.0 (>35); GLUCOSE, FASTING 122 MG/DL (70-100); POTASSIUM SERUM 4.3 MEQ/L (3.5-5.1); SODIUM LEVEL 140 MEQ/L (136-145)
[2017-12-24] MEDS: ASPIRIN 81 MG ENTERIC TAB PO (08:23)
[2017-12-24] MEDS: MIRALAX *UNIT DOSE* 17GM PACKET PO (08:23)
[2017-12-24] MEDS: ENOXAPARIN 60 MG/0.6 ML SYR (J1650) SC ×2 (08:23→22:41)
[2017-12-24] MEDS: SENOKOT S TAB PO ×2 (08:23→22:40)
[2017-12-24] MEDS: FUROSEMIDE 40 MG TAB PO (08:23)
[2017-12-24] MEDS: NS 1,000 ML IV (10:19)
[2017-12-24 12:51] LABS: BEDSIDE GLUCOSE 123 MG/DL (83-110)
[2017-12-24 13:55] LABS: IMMEDIATE SPIN CROSSMATCH 1 1
[2017-12-24 16:53] LABS: BEDSIDE GLUCOSE 151 MG/DL (83-110)
[2017-12-24] MEDS: FUROSEMIDE 40 MG/4 ML VIAL (J1940) IV (17:06)
[2017-12-24] MEDS: TAMSULOSIN 0.4 MG CAP PO (22:40)
[2017-12-24] MEDS: SIMVASTATIN 20 MG TAB PO (22:40)
[2017-12-24 23:32] LABS: BEDSIDE GLUCOSE 138 MG/DL (83-110)
[2017-12-25] MEDS: PIPERACILLIN/TAZOBACTAM SOD 3.375 GM in APPROPRIATE DILUENT 1 EA IV ×2 (02:20→10:27)
[2017-12-25] MEDS: SODIUM CHLORIDE 0.9% INJ 10 ML SYR IV ×3 (05:38→21:40)
[2017-12-25 05:52] LABS: HEMATOCRIT 24.1 % (42.0-52.0); HEMOGLOBIN 7.6 g/dl (13.5-17.5); MEAN CORPUSCULAR HEMOGLOBIN 26.1 pg (27.0-33.0); MEAN CORPUSCULAR HGB CONC 31.5 g/dl (32.0-36.5); MEAN CORPUSCULAR VOLUME 82.8 fl (80.0-96.0); PLATELET COUNT, AUTOMATED 338 10^3/uL (150-450); RED BLOOD COUNT 2.91 10^6/uL (4.30-6.10); RED CELL DISTRIBUTION WIDTH 17.6 % (11.5-14.5); WHITE BLOOD COUNT 10.3 10^3/uL (4.0-10.0)
[2017-12-25 06:18] LABS: INR 1.44; PROTHROMBIN TIME 17.9 SECONDS (12.4-14.5)
[2017-12-25 06:19] LABS: PARTIAL THROMBOPLASTIN TIME 47.7 SECONDS (26.8-37.9)
[2017-12-25 06:32] LABS: ALBUMIN 2.2 GM/DL (3.2-5.2); ALBUMIN/GLOBULIN RATIO 0.59 (1.00-1.93); ALKALINE PHOSPHATASE 56 U/L (45-117); ALT/SGPT 10 U/L (12-78); ANION GAP 3 MEQ/L (8-16); AST/SGOT 13 U/L (7-37); BILIRUBIN,TOTAL 0.5 MG/DL (0.2-1.0); BLOOD UREA NITROGEN 23 MG/DL (7-18); CALCIUM LEVEL 8.2 MG/DL (8.8-10.2); CARBON DIOXIDE LEVEL 43 MEQ/L (21-32); CHLORIDE LEVEL 97 MEQ/L (98-107); CREATININE FOR GFR 0.86 MG/DL (0.70-1.30); GLOMERULAR FILTRATION RATE > 60.0 (>35); GLUCOSE, FASTING 110 MG/DL (70-100); NT-PRO BNP 1180 PG/ML (<450); SODIUM LEVEL 143 MEQ/L (136-145); TOTAL PROTEIN 5.9 GM/DL (6.4-8.2)
[2017-12-25] MEDS: ENOXAPARIN 60 MG/0.6 ML SYR (J1650) SC (08:37)
[2017-12-25] MEDS: FUROSEMIDE 40 MG TAB PO (08:38)
[2017-12-25] MEDS: SENOKOT S TAB PO ×2 (08:38→21:39)
[2017-12-25] MEDS: ASPIRIN 81 MG ENTERIC TAB PO (08:38)
[2017-12-25] MEDS: MIRALAX *UNIT DOSE* 17GM PACKET PO ×2 (08:38→08:39)
[2017-12-25] MEDS: NS 1,000 ML IV (10:15)
[2017-12-25 11:48] LABS: BEDSIDE GLUCOSE 145 MG/DL (83-110)
[2017-12-25] MEDS ORDERED: NS 1,000 ML IV (12:26)
[2017-12-25] MEDS: IRON SUCROSE 100 MG in NS 100 ML IV (14:24)
[2017-12-25 15:51] LABS: IMMEDIATE SPIN CROSSMATCH 1 2
[2017-12-25] MEDS: FUROSEMIDE 40 MG/4 ML VIAL (J1940) IV (18:51)
[2017-12-25] MEDS: TAMSULOSIN 0.4 MG CAP PO (21:39)
[2017-12-25] MEDS: SIMVASTATIN 20 MG TAB PO (21:39)
[2017-12-26 05:30] LABS: HEMATOCRIT 26.7 % (42.0-52.0); HEMOGLOBIN 8.5 g/dl (13.5-17.5); MEAN CORPUSCULAR HEMOGLOBIN 26.8 pg (27.0-33.0); MEAN CORPUSCULAR HGB CONC 31.8 g/dl (32.0-36.5); MEAN CORPUSCULAR VOLUME 84.2 fl (80.0-96.0); PLATELET COUNT, AUTOMATED 337 10^3/uL (150-450); RED BLOOD COUNT 3.17 10^6/uL (4.30-6.10); RED CELL DISTRIBUTION WIDTH 17.1 % (11.5-14.5); WHITE BLOOD COUNT 11.5 10^3/uL (4.0-10.0)
[2017-12-26 05:48] LABS: ALBUMIN 2.2 GM/DL (3.2-5.2); ALBUMIN/GLOBULIN RATIO 0.54 (1.00-1.93); ALKALINE PHOSPHATASE 55 U/L (45-117); ALT/SGPT 11 U/L (12-78); AST/SGOT 13 U/L (7-37); BILIRUBIN,TOTAL 0.8 MG/DL (0.2-1.0); BLOOD UREA NITROGEN 24 MG/DL (7-18); CALCIUM LEVEL 8.5 MG/DL (8.8-10.2); CARBON DIOXIDE LEVEL 42 MEQ/L (21-32); CHLORIDE LEVEL 99 MEQ/L (98-107); GLOMERULAR FILTRATION RATE > 60.0 (>35); GLUCOSE, FASTING 103 MG/DL (70-100); MAGNESIUM LEVEL 1.7 MG/DL (1.8-2.4); POTASSIUM SERUM 3.9 MEQ/L (3.5-5.1); SODIUM LEVEL 140 MEQ/L (136-145); TOTAL PROTEIN 6.3 GM/DL (6.4-8.2)
[2017-12-26] MEDS: SODIUM CHLORIDE 0.9% INJ 10 ML SYR IV ×3 (05:49→21:11)
[2017-12-26 05:51] LABS: INR 1.31; PROTHROMBIN TIME 16.6 SECONDS (12.4-14.5)
[2017-12-26 05:52] LABS: PARTIAL THROMBOPLASTIN TIME 39.9 SECONDS (26.8-37.9)
[2017-12-26] MEDS: SENOKOT S TAB PO ×2 (08:37→21:11)
[2017-12-26] MEDS: MIRALAX *UNIT DOSE* 17GM PACKET PO (08:37)
[2017-12-26] MEDS: FUROSEMIDE 40 MG TAB PO (08:37)
[2017-12-26] MEDS ORDERED: IRON SUCROSE 100MG 5ML VIAL (J1756 PER 1MG) IV (09:00)
[2017-12-26] MEDS: NS 1,000 ML IV (10:03)
[2017-12-26] MEDS: IRON SUCROSE 100 MG in NS 100 ML IV (13:34)
[2017-12-26] MEDS: WARFARIN SOD 5 MG TAB PO (16:00)
[2017-12-26] MEDS: SIMVASTATIN 20 MG TAB PO (21:11)
[2017-12-26] MEDS: TAMSULOSIN 0.4 MG CAP PO (21:11)
[2017-12-27] MEDS: SODIUM CHLORIDE 0.9% INJ 10 ML SYR IV ×3 (06:04→21:50)
[2017-12-27 06:23] LABS: HEMATOCRIT 25.4 % (42.0-52.0); HEMOGLOBIN 8.1 g/dl (13.5-17.5); MEAN CORPUSCULAR HEMOGLOBIN 26.9 pg (27.0-33.0); MEAN CORPUSCULAR HGB CONC 31.9 g/dl (32.0-36.5); MEAN CORPUSCULAR VOLUME 84.4 fl (80.0-96.0); PLATELET COUNT, AUTOMATED 335 10^3/uL (150-450); RED BLOOD COUNT 3.01 10^6/uL (4.30-6.10); RED CELL DISTRIBUTION WIDTH 17.4 % (11.5-14.5); WHITE BLOOD COUNT 10.8 10^3/uL (4.0-10.0)
[2017-12-27 06:37] LABS: INR 1.23; PROTHROMBIN TIME 15.7 SECONDS (12.4-14.5)
[2017-12-27 06:38] LABS: PARTIAL THROMBOPLASTIN TIME 40.8 SECONDS (26.8-37.9)
[2017-12-27 06:44] LABS: ALBUMIN 2.2 GM/DL (3.2-5.2); ALBUMIN/GLOBULIN RATIO 0.49 (1.00-1.93); ALKALINE PHOSPHATASE 60 U/L (45-117); ALT/SGPT 14 U/L (12-78); ANION GAP 2 MEQ/L (8-16); AST/SGOT 14 U/L (7-37); BILIRUBIN,TOTAL 0.5 MG/DL (0.2-1.0); BLOOD UREA NITROGEN 20 MG/DL (7-18); CALCIUM LEVEL 8.5 MG/DL (8.8-10.2); CARBON DIOXIDE LEVEL 37 MEQ/L (21-32); CHLORIDE LEVEL 102 MEQ/L (98-107); GLOMERULAR FILTRATION RATE > 60.0 (>35); GLUCOSE, FASTING 106 MG/DL (70-100); MAGNESIUM LEVEL 1.9 MG/DL (1.8-2.4); POTASSIUM SERUM 3.8 MEQ/L (3.5-5.1); SODIUM LEVEL 141 MEQ/L (136-145); TOTAL PROTEIN 6.7 GM/DL (6.4-8.2)
[2017-12-27] MEDS: MIRALAX *UNIT DOSE* 17GM PACKET PO (07:33)
[2017-12-27] MEDS: SENOKOT S TAB PO ×2 (07:53→21:50)
[2017-12-27] MEDS: FUROSEMIDE 40 MG TAB PO (07:53)
[2017-12-27] MEDS: IRON SUCROSE 100 MG in NS 100 ML IV (13:13)
[2017-12-27] MEDS: WARFARIN SOD 5 MG TAB PO (16:14)
[2017-12-27] MEDS: TAMSULOSIN 0.4 MG CAP PO (21:49)
[2017-12-27] MEDS: SIMVASTATIN 20 MG TAB PO (21:50)
[2017-12-28] MEDS: SODIUM CHLORIDE 0.9% INJ 10 ML SYR IV ×2 (06:15→13:34)
[2017-12-28 06:49] LABS: INR 1.45
[2017-12-28 06:50] LABS: PARTIAL THROMBOPLASTIN TIME 48.9 SECONDS (26.8-37.9)
[2017-12-28] MEDS: MIRALAX *UNIT DOSE* 17GM PACKET PO (08:53)
[2017-12-28] MEDS: FUROSEMIDE 40 MG TAB PO (08:53)
[2017-12-28] MEDS: SENOKOT S TAB PO (08:53)
[2017-12-28] MEDS ORDERED: WARFARIN SOD 3 MG TAB PO (17:00)
== END 2017-12-28 15:21 | disposition home health service (06) | DRG 329 ==
LOC: M SDC 05:56 → M ICU 12-14 06:30 → M MSPAV 12-18 17:00 → M ICU 12-14 20:18
PROC: 0DB84ZZ Excision of Small Intestine, Percutaneous Endoscopic Approach (ICD-10-PCS; principal; 2017-12-13 07:30)
PROC: 0WQF4ZZ Repair Abdominal Wall, Percutaneous Endoscopic Approach (ICD-10-PCS; 2017-12-13 07:30)
PROC: 30233N1 Transfusion of Nonautologous Red Blood Cells into Peripheral Vein, Percutaneous Approach (ICD-10-PCS; 2017-12-13 08:06)
DX: K43.1 Incisional hernia with gangrene (principal); K55.021 Focal (segmental) acute infarction of small intestine; A41.9 Sepsis, unspecified organism; I50.31 Acute diastolic (congestive) heart failure; C85.13 Unspecified B-cell lymphoma, intra-abdominal lymph nodes; N17.9 Acute kidney failure, unspecified; E87.2 Acidosis; K56.7 Ileus, unspecified; J90 Pleural effusion, not elsewhere classified; E87.3 Alkalosis; I47.2 Ventricular tachycardia; I48.2 Chronic atrial fibrillation; E11.9 Type 2 diabetes mellitus without complications; R91.8 Other nonspecific abnormal finding of lung field; Z88.8 Allergy status to other drugs, medicaments and biological substances; Z87.891 Personal history of nicotine dependence; Z79.899 Other long term (current) drug therapy

== ENCOUNTER → 2018-03-23 | Outpatient (CLI) | payer MEDICARE ==
[2018-03-23 14:09] LABS: BLOOD UREA NITROGEN 27 MG/DL (7-18)
[2018-03-23 14:09] LABS: CREATININE FOR GFR 1.27 MG/DL (0.70-1.30); GLOMERULAR FILTRATION RATE 57.8 (>35)
== END ==
LOC: M LAB 13:11
DX: C83.30 Diffuse large B-cell lymphoma, unspecified site (principal); S31.103S Unspecified open wound of abdominal wall, right lower quadrant without penetration into peritoneal cavity, sequela; X58.XXXD Exposure to other specified factors, subsequent encounter
CPT/HCPCS: 82565

== ENCOUNTER → 2018-03-27 | Outpatient (CLI) | payer MEDICARE ==
[~2018-03-27] MED LIST changes: +GASTROGRAFIN SOLUTION 30ML (Q9963) As Ordered; +ISOVUE-370 76% 100ML VIAL (Q9967) As Ordered; -LIDOCAINE 1% MDV 20ML VIAL As Ordered
== END ==
LOC: M RAD 14:55
DX: C85.90 Non-Hodgkin lymphoma, unspecified, unspecified site (principal)
CPT/HCPCS: Q9963

== ENCOUNTER → 2018-04-18 | Outpatient (REF) | payer MEDICARE | LOC: M LAB REF 18:46 | DX: C83.30 Diffuse large B-cell lymphoma, unspecified site (principal); S31.103S Unspecified open wound of abdominal wall, right lower quadrant without penetration into peritoneal cavity, sequela; X58.XXXS Exposure to other specified factors, sequela | CPT/HCPCS: 88304 ==

== ENCOUNTER → 2018-05-16 | Outpatient (REF) | payer MEDICARE ==
[2018-05-16 14:00] LABS: INR 1.07
[2018-05-17 11:16] LABS: HEPATITIS B SURFACE ANTIGEN NEGATIVE (NEGATIVE)
[2018-05-17 11:39] LABS: HEPATITIS B CORE ANTIBODY IGM NEGATIVE (NEGATIVE)
[2018-05-18 00:10] LABS: BETA 2 MICROGLOBULIN 3.1 mg/L (0.6-2.4)
== END ==
LOC: M LAB REF 13:32
DX: C83.39 Diffuse large B-cell lymphoma, extranodal and solid organ sites (principal)
CPT/HCPCS: 87340

== ENCOUNTER → 2018-05-30 | Outpatient (CLI) | payer MEDICARE | LOC: M PLARAD 15:48 | DX: C83.39 Diffuse large B-cell lymphoma, extranodal and solid organ sites (principal) | CPT/HCPCS: 78815 ==

== ENCOUNTER 2018-05-31 02:09 | Emergency (ER) | payer MEDICARE | END 2018-05-31 06:33 | disposition home or self-care (01) | LOC: M ED 02:09 | DX: K94.09 Other complications of colostomy (principal); Z85.038 Personal history of other malignant neoplasm of large intestine; Z90.49 Acquired absence of other specified parts of digestive tract; Z79.82 Long term (current) use of aspirin; Z79.899 Other long term (current) drug therapy; Z88.8 Allergy status to other drugs, medicaments and biological substances | CPT/HCPCS: 99283 ==

== ENCOUNTER 2018-06-02 08:32 | Day surgery (SDC) | payer MEDICARE ==
[2018-06-02] MEDS ORDERED: fentaNYL 100 MCG/2 ML INJECTION (J3010) As Ordered (08:59)
[2018-06-02] MEDS ORDERED: MIDAZOLAM INJ 2 MG/2 ML VIAL (J2250) As Ordered (08:59)
[2018-06-02] MEDS ORDERED: LIDOCAINE 2% INJ 100 MG/5 ML SDV (FOR ANES.) As Ordered (09:00)
[2018-06-02] MEDS ORDERED: ONDANSETRON 4MG/2ML VIAL (J2405) As Ordered (09:00)
[2018-06-02] MEDS ORDERED: PROPOFOL 200 MG/20 ML VIAL As Ordered ×3 (09:00)
[2018-06-02 09:13] LABS: BEDSIDE GLUCOSE 117 MG/DL (83-110)
[2018-06-02] MEDS: LR 1,000 ML IV (09:21)
[2018-06-02] MEDS: HEPARIN SOD (PORCINE) 5000 UNITS/ML VIAL As Ordered (10:35)
[2018-06-02] MEDS: LIDOCAINE 1% SDV INJ 30 ML VIAL As Ordered (10:49)
[2018-06-02] MEDS: BUPIVACAINE HCL 0.25% 30 ML VIAL As Ordered (10:49)
[2018-06-02] MEDS ORDERED: GLYCOPYRROLATE INJ 0.2 MG/ML 2 ML VIAL As Ordered (12:40)
[2018-06-02] MEDS ORDERED: ePHEDrine SULFATE 25 MG/5 ML(5MG/ML) SYRINGE As Ordered (12:41)
== END 2018-06-02 12:30 | disposition home or self-care (01) ==
LOC: M SDC 08:32
DX: C83.30 Diffuse large B-cell lymphoma, unspecified site (principal); Z45.2 Encounter for adjustment and management of vascular access device; I48.91 Unspecified atrial fibrillation; I10 Essential (primary) hypertension; E11.9 Type 2 diabetes mellitus without complications; E78.00 Pure hypercholesterolemia, unspecified; F17.210 Nicotine dependence, cigarettes, uncomplicated; Z79.899 Other long term (current) drug therapy; Z79.84 Long term (current) use of oral hypoglycemic drugs; Z88.8 Allergy status to other drugs, medicaments and biological substances
CPT/HCPCS: 36561

== ENCOUNTER 2018-06-21 11:17 | Inpatient (IN) | payer MEDICARE ==
[2018-06-21] MEDS: GASTROGRAFIN SOLUTION 30ML PO ×2 (12:30→13:00)
[2018-06-21 12:42] LABS: BASO # 0.1 10^3/uL (0.0-0.2); BASO % 0.7 % (0.0-1.0); EOS # 0.2 10^3/uL (0.0-0.50); EOS % 1.1 % (0.0-3.0); HEMATOCRIT 40.2 % (42.0-52.0); HEMOGLOBIN 13.9 g/dl (13.5-17.5); IMMATURE GRANULOCYTE % 1.6 % (0-3.0); LYMPH # 1.4 10^3/uL (1.5-4.5); MEAN CORPUSCULAR HEMOGLOBIN 30.3 pg (27.0-33.0); MEAN CORPUSCULAR HGB CONC 34.6 g/dl (32.0-36.5); MEAN CORPUSCULAR VOLUME 87.8 fl (80.0-96.0); MONO # 1.4 10^3/uL (0.0-0.8); MONO % 9.2 % (0.0-5.0); NEUTROPHILS # 11.9 10^3/uL (1.8-7.7); NEUTROPHILS % 78.4 % (36.0-66.0); PLATELET COUNT, AUTOMATED 346 10^3/uL (150-450); RED BLOOD COUNT 4.58 10^6/uL (4.30-6.10); RED CELL DISTRIBUTION WIDTH 15.1 % (11.5-14.5); WHITE BLOOD COUNT 15.2 10^3/uL (4.0-10.0)
[2018-06-21 12:53] LABS: ANION GAP 8 MEQ/L (8-16); BLOOD UREA NITROGEN 27 MG/DL (7-18); CARBON DIOXIDE LEVEL 25 MEQ/L (21-32); CHLORIDE LEVEL 103 MEQ/L (98-107); CREATININE FOR GFR 1.25 MG/DL (0.70-1.30); GLOMERULAR FILTRATION RATE 58.9 (>35); GLUCOSE, FASTING 128 MG/DL (70-100); POTASSIUM SERUM 4.7 MEQ/L (3.5-5.1); SODIUM LEVEL 136 MEQ/L (136-145)
[2018-06-21] MEDS ORDERED: ISOVUE-370 76% 100ML VIAL (Q9967) As Ordered (13:47)
[2018-06-21] MEDS: OCTREOTIDE ACETATE 100 MCG/ML VIAL (J2354) SC ×2 (14:00→22:03)
[2018-06-21] MEDS ORDERED: ONDANSETRON 4MG/2ML VIAL (J2405) IV (14:45)
[2018-06-21] MEDS ORDERED: NORCO, ANEXSIA 5/325MG TABLET (HYDROcodone/ACETAMINOPHEN) PO (14:45)
[2018-06-21] MEDS: ceFAZolin SOD 1 GM in D5W MINI-BAG PLUS 50 ML IV (15:27)
[2018-06-21] MEDS: KCL 20MEQ IN D5/0.45NS 1000ML 1,000 ML IV (15:27)
[2018-06-22] MEDS: ceFAZolin SOD 1 GM in D5W MINI-BAG PLUS 50 ML IV ×3 (00:23→15:07)
[2018-06-22] MEDS: KCL 20MEQ IN D5/0.45NS 1000ML 1,000 ML IV ×3 (00:24→17:27)
[2018-06-22] MEDS: OCTREOTIDE ACETATE 100 MCG/ML VIAL (J2354) SC ×3 (05:46→21:46)
[2018-06-22 07:09] LABS: BASO # 0.1 10^3/uL (0.0-0.2); EOS # 0.4 10^3/uL (0.0-0.50); EOS % 3.3 % (0.0-3.0); HEMATOCRIT 38.6 % (42.0-52.0); HEMOGLOBIN 12.8 g/dl (13.5-17.5); IMMATURE GRANULOCYTE % 1.6 % (0-3.0); LYMPH # 1.1 10^3/uL (1.5-4.5); LYMPH % 9.2 % (24.0-44.0); MEAN CORPUSCULAR HEMOGLOBIN 29.8 pg (27.0-33.0); MEAN CORPUSCULAR HGB CONC 33.2 g/dl (32.0-36.5); MEAN CORPUSCULAR VOLUME 89.8 fl (80.0-96.0); MONO # 1.4 10^3/uL (0.0-0.8); MONO % 11.6 % (0.0-5.0); NEUTROPHILS # 8.8 10^3/uL (1.8-7.7); NEUTROPHILS % 73.3 % (36.0-66.0); PLATELET COUNT, AUTOMATED 330 10^3/uL (150-450); RED CELL DISTRIBUTION WIDTH 15.1 % (11.5-14.5)
[2018-06-22 07:25] LABS: ANION GAP 7 MEQ/L (8-16); BLOOD UREA NITROGEN 17 MG/DL (7-18); CALCIUM LEVEL 8.8 MG/DL (8.8-10.2); CARBON DIOXIDE LEVEL 27 MEQ/L (21-32); CHLORIDE LEVEL 104 MEQ/L (98-107); CREATININE FOR GFR 1.07 MG/DL (0.70-1.30); GLOMERULAR FILTRATION RATE > 60.0 (>35); GLUCOSE, FASTING 145 MG/DL (70-100); POTASSIUM SERUM 4.5 MEQ/L (3.5-5.1); SODIUM LEVEL 138 MEQ/L (136-145)
[2018-06-22] MEDS: ENOXAPARIN 40 MG/0.4 ML SYRINGE (J1650) SC (08:49)
[2018-06-22] MEDS: PANTOPRAZOLE 40MG INJ (PROTONIX) (C9113) IV (08:50)
[2018-06-22] MEDS: ATENOLOL 50 MG TAB PO (08:50)
[2018-06-22] MEDS ORDERED: METOPROLOL TART 50 MG TAB PO (09:00)
[2018-06-23] MEDS: ceFAZolin SOD 1 GM in D5W MINI-BAG PLUS 50 ML IV ×4 (00:15→23:28)
[2018-06-23] MEDS: KCL 20MEQ IN D5/0.45NS 1000ML 1,000 ML IV ×2 (00:15→08:40)
[2018-06-23] MEDS: OCTREOTIDE ACETATE 100 MCG/ML VIAL (J2354) SC ×3 (05:21→21:23)
[2018-06-23 07:01] LABS: BASO # 0.1 10^3/uL (0.0-0.2); BASO % 0.8 % (0.0-1.0); EOS # 0.3 10^3/uL (0.0-0.50); EOS % 2.2 % (0.0-3.0); HEMATOCRIT 39.8 % (42.0-52.0); HEMOGLOBIN 12.9 g/dl (13.5-17.5); IMMATURE GRANULOCYTE % 1.4 % (0-3.0); LYMPH # 1.3 10^3/uL (1.5-4.5); LYMPH % 10.1 % (24.0-44.0); MEAN CORPUSCULAR HEMOGLOBIN 29.5 pg (27.0-33.0); MEAN CORPUSCULAR HGB CONC 32.4 g/dl (32.0-36.5); MEAN CORPUSCULAR VOLUME 91.1 fl (80.0-96.0); MONO # 1.6 10^3/uL (0.0-0.8); MONO % 11.8 % (0.0-5.0); NEUTROPHILS # 9.8 10^3/uL (1.8-7.7); NEUTROPHILS % 73.7 % (36.0-66.0); PLATELET COUNT, AUTOMATED 335 10^3/uL (150-450); RED BLOOD COUNT 4.37 10^6/uL (4.30-6.10); WHITE BLOOD COUNT 13.3 10^3/uL (4.0-10.0)
[2018-06-23 07:14] LABS: ANION GAP 4 MEQ/L (8-16); BLOOD UREA NITROGEN 11 MG/DL (7-18); CALCIUM LEVEL 8.6 MG/DL (8.8-10.2); CARBON DIOXIDE LEVEL 28 MEQ/L (21-32); CHLORIDE LEVEL 107 MEQ/L (98-107); CREATININE FOR GFR 1.05 MG/DL (0.70-1.30); GLOMERULAR FILTRATION RATE > 60.0 (>35); GLUCOSE, FASTING 138 MG/DL (70-100); POTASSIUM SERUM 4.7 MEQ/L (3.5-5.1); SODIUM LEVEL 139 MEQ/L (136-145)
[2018-06-23] MEDS: PANTOPRAZOLE 40MG INJ (PROTONIX) (C9113) IV (08:40)
[2018-06-23] MEDS: ENOXAPARIN 40 MG/0.4 ML SYRINGE (J1650) SC (08:40)
[2018-06-23] MEDS: ATENOLOL 50 MG TAB PO (08:46)
[2018-06-23] MEDS: FLUBLOK(EGG FREE)(QUAD)INFLUENZA VACC 0.5ML SYRINGE (90682)18YRS&OLDER IM (08:48)
[2018-06-24] MEDS: OCTREOTIDE ACETATE 100 MCG/ML VIAL (J2354) SC ×3 (05:09→21:12)
[2018-06-24 07:12] LABS: BASO # 0.1 10^3/uL (0.0-0.2); EOS # 0.2 10^3/uL (0.0-0.50); EOS % 2.2 % (0.0-3.0); HEMATOCRIT 38.7 % (42.0-52.0); HEMOGLOBIN 12.7 g/dl (13.5-17.5); IMMATURE GRANULOCYTE % 1.6 % (0-3.0); LYMPH # 1.3 10^3/uL (1.5-4.5); LYMPH % 12.3 % (24.0-44.0); MEAN CORPUSCULAR HEMOGLOBIN 29.7 pg (27.0-33.0); MEAN CORPUSCULAR HGB CONC 32.8 g/dl (32.0-36.5); MEAN CORPUSCULAR VOLUME 90.6 fl (80.0-96.0); MONO # 1.6 10^3/uL (0.0-0.8); MONO % 15.3 % (0.0-5.0); NEUTROPHILS # 6.9 10^3/uL (1.8-7.7); NEUTROPHILS % 67.6 % (36.0-66.0); PLATELET COUNT, AUTOMATED 320 10^3/uL (150-450); RED BLOOD COUNT 4.27 10^6/uL (4.30-6.10); RED CELL DISTRIBUTION WIDTH 15.2 % (11.5-14.5); WHITE BLOOD COUNT 10.2 10^3/uL (4.0-10.0)
[2018-06-24 07:42] LABS: ANION GAP 7 MEQ/L (8-16); BLOOD UREA NITROGEN 12 MG/DL (7-18); CALCIUM LEVEL 8.8 MG/DL (8.8-10.2); CARBON DIOXIDE LEVEL 26 MEQ/L (21-32); CHLORIDE LEVEL 108 MEQ/L (98-107); GLOMERULAR FILTRATION RATE > 60.0 (>35); GLUCOSE, FASTING 101 MG/DL (70-100); POTASSIUM SERUM 4.2 MEQ/L (3.5-5.1); SODIUM LEVEL 141 MEQ/L (136-145)
[2018-06-24] MEDS: ceFAZolin SOD 1 GM in D5W MINI-BAG PLUS 50 ML IV (09:04)
[2018-06-24] MEDS: ENOXAPARIN 40 MG/0.4 ML SYRINGE (J1650) SC (09:04)
[2018-06-24] MEDS: PANTOPRAZOLE 40MG INJ (PROTONIX) (C9113) IV (09:04)
[2018-06-24] MEDS: ATENOLOL 50 MG TAB PO (09:09)
[2018-06-24] MEDS: METAMUCIL (PSYLLIUM) PACKET PO ×2 (13:30→20:35)
[2018-06-25] MEDS: OCTREOTIDE ACETATE 100 MCG/ML VIAL (J2354) SC ×3 (06:10→20:57)
[2018-06-25 06:40] LABS: BASO # 0.1 10^3/uL (0.0-0.2); BASO % 0.6 % (0.0-1.0); EOS # 0.2 10^3/uL (0.0-0.50); EOS % 1.5 % (0.0-3.0); HEMATOCRIT 38.1 % (42.0-52.0); HEMOGLOBIN 12.8 g/dl (13.5-17.5); IMMATURE GRANULOCYTE % 1.6 % (0-3.0); LYMPH # 1.3 10^3/uL (1.5-4.5); LYMPH % 10.1 % (24.0-44.0); MEAN CORPUSCULAR HEMOGLOBIN 30.5 pg (27.0-33.0); MEAN CORPUSCULAR HGB CONC 33.6 g/dl (32.0-36.5); MEAN CORPUSCULAR VOLUME 90.7 fl (80.0-96.0); MONO # 1.6 10^3/uL (0.0-0.8); MONO % 12.9 % (0.0-5.0); NEUTROPHILS # 9.1 10^3/uL (1.8-7.7); NEUTROPHILS % 73.3 % (36.0-66.0); PLATELET COUNT, AUTOMATED 299 10^3/uL (150-450); RED CELL DISTRIBUTION WIDTH 15.2 % (11.5-14.5); WHITE BLOOD COUNT 12.5 10^3/uL (4.0-10.0)
[2018-06-25 07:05] LABS: ANION GAP 6 MEQ/L (8-16); BLOOD UREA NITROGEN 11 MG/DL (7-18); CALCIUM LEVEL 8.3 MG/DL (8.8-10.2); CARBON DIOXIDE LEVEL 27 MEQ/L (21-32); CHLORIDE LEVEL 107 MEQ/L (98-107); CREATININE FOR GFR 0.99 MG/DL (0.70-1.30); GLOMERULAR FILTRATION RATE > 60.0 (>35); GLUCOSE, FASTING 110 MG/DL (70-100); POTASSIUM SERUM 4.1 MEQ/L (3.5-5.1); SODIUM LEVEL 140 MEQ/L (136-145)
[2018-06-25] MEDS: METAMUCIL (PSYLLIUM) PACKET PO ×2 (09:07→20:56)
[2018-06-25] MEDS: ATENOLOL 50 MG TAB PO (09:07)
[2018-06-25] MEDS: PANTOPRAZOLE 40MG TAB (PROTONIX) PO (09:08)
[2018-06-25] MEDS: ENOXAPARIN 40 MG/0.4 ML SYRINGE (J1650) SC (09:08)
[2018-06-25] MEDS: LOMOTIL 2.5MG/0.025MG TABLET PO ×3 (13:11→23:28)
[2018-06-26] MEDS: LOMOTIL 2.5MG/0.025MG TABLET PO ×4 (05:30→23:25)
[2018-06-26] MEDS: OCTREOTIDE ACETATE 100 MCG/ML VIAL (J2354) SC ×3 (05:31→21:22)
[2018-06-26 07:01] LABS: BASO # 0.1 10^3/uL (0.0-0.2); EOS # 0.2 10^3/uL (0.0-0.50); EOS % 2.1 % (0.0-3.0); HEMATOCRIT 38.1 % (42.0-52.0); HEMOGLOBIN 12.4 g/dl (13.5-17.5); IMMATURE GRANULOCYTE % 1.9 % (0-3.0); LYMPH # 1.2 10^3/uL (1.5-4.5); LYMPH % 11.8 % (24.0-44.0); MEAN CORPUSCULAR HGB CONC 32.5 g/dl (32.0-36.5); MONO # 1.4 10^3/uL (0.0-0.8); MONO % 13.5 % (0.0-5.0); NEUTROPHILS # 7.2 10^3/uL (1.8-7.7); NEUTROPHILS % 69.7 % (36.0-66.0); PLATELET COUNT, AUTOMATED 284 10^3/uL (150-450); RED BLOOD COUNT 4.14 10^6/uL (4.30-6.10); RED CELL DISTRIBUTION WIDTH 15.3 % (11.5-14.5); WHITE BLOOD COUNT 10.3 10^3/uL (4.0-10.0)
[2018-06-26 07:36] LABS: ANION GAP 5 MEQ/L (8-16); BLOOD UREA NITROGEN 13 MG/DL (7-18); CALCIUM LEVEL 8.2 MG/DL (8.8-10.2); CARBON DIOXIDE LEVEL 28 MEQ/L (21-32); CHLORIDE LEVEL 108 MEQ/L (98-107); CREATININE FOR GFR 1.03 MG/DL (0.70-1.30); GLOMERULAR FILTRATION RATE > 60.0 (>35); GLUCOSE, FASTING 108 MG/DL (70-100); POTASSIUM SERUM 4.2 MEQ/L (3.5-5.1); SODIUM LEVEL 141 MEQ/L (136-145)
[2018-06-26] MEDS: METAMUCIL (PSYLLIUM) PACKET PO ×2 (09:00→21:21)
[2018-06-26] MEDS: PANTOPRAZOLE 40MG TAB (PROTONIX) PO (09:01)
[2018-06-26] MEDS: ENOXAPARIN 40 MG/0.4 ML SYRINGE (J1650) SC (09:01)
[2018-06-26] MEDS: ATENOLOL 50 MG TAB PO (09:01)
[2018-06-26] MEDS ORDERED: SLF 3 ML SYR IV (18:45)
[2018-06-26] MEDS: SLF 3 ML SYR IV (21:22)
[2018-06-26] MEDS: DOBUTamine HCL 500,000 MCG in APPROPRIATE DILUENT 1 EA IV (23:26)
[2018-06-27] MEDS: OCTREOTIDE ACETATE 100 MCG/ML VIAL (J2354) SC ×3 (05:28→21:14)
[2018-06-27] MEDS: SLF 3 ML SYR IV ×3 (05:28→21:14)
[2018-06-27] MEDS: LOMOTIL 2.5MG/0.025MG TABLET PO ×3 (05:28→17:23)
[2018-06-27] MEDS: ENOXAPARIN 40 MG/0.4 ML SYRINGE (J1650) SC (08:08)
[2018-06-27] MEDS: METAMUCIL (PSYLLIUM) PACKET PO ×2 (08:08→21:16)
[2018-06-27] MEDS: PANTOPRAZOLE 40MG TAB (PROTONIX) PO (08:08)
[2018-06-28] MEDS: LOMOTIL 2.5MG/0.025MG TABLET PO ×4 (01:51→17:53)
[2018-06-28] MEDS: OCTREOTIDE ACETATE 100 MCG/ML VIAL (J2354) SC ×3 (06:19→21:17)
[2018-06-28] MEDS: SLF 3 ML SYR IV ×3 (06:20→21:18)
[2018-06-28 08:04] LABS: ALBUMIN 3.1 GM/DL (3.2-5.2); ANION GAP 7 MEQ/L (8-16); BLOOD UREA NITROGEN 13 MG/DL (7-18); CALCIUM LEVEL 8.8 MG/DL (8.8-10.2); CARBON DIOXIDE LEVEL 25 MEQ/L (21-32); CHLORIDE LEVEL 108 MEQ/L (98-107); CREATININE FOR GFR 0.87 MG/DL (0.70-1.30); GLOMERULAR FILTRATION RATE > 60.0 (>35); GLUCOSE, FASTING 113 MG/DL (70-100); PHOSPHORUS LEVEL 2.7 MG/DL (2.5-4.9); POTASSIUM SERUM 4.1 MEQ/L (3.5-5.1); SODIUM LEVEL 140 MEQ/L (136-145)
[2018-06-28] MEDS: METAMUCIL (PSYLLIUM) PACKET PO ×2 (08:49→21:18)
[2018-06-28] MEDS: PANTOPRAZOLE 40MG TAB (PROTONIX) PO (08:49)
[2018-06-28] MEDS: ENOXAPARIN 40 MG/0.4 ML SYRINGE (J1650) SC (08:49)
[2018-06-28] MEDS: NORCO, ANEXSIA 5/325MG TABLET (HYDROcodone/ACETAMINOPHEN) PO (18:10)
[2018-06-28] MEDS: APIXABAN 5 MG TAB (ELIQUIS) PO (21:18)
[2018-06-29] MEDS: LOMOTIL 2.5MG/0.025MG TABLET PO ×3 (00:01→12:22)
[2018-06-29] MEDS: OCTREOTIDE ACETATE 100 MCG/ML VIAL (J2354) SC ×2 (06:18→14:16)
[2018-06-29] MEDS: SLF 3 ML SYR IV ×2 (06:18→14:00)
[2018-06-29] MEDS: APIXABAN 5 MG TAB (ELIQUIS) PO (08:42)
[2018-06-29] MEDS: PANTOPRAZOLE 40MG TAB (PROTONIX) PO (08:42)
[2018-06-29] MEDS: METAMUCIL (PSYLLIUM) PACKET PO (08:42)
== END 2018-06-29 16:07 | disposition home health service (06) | DRG 920 ==
LOC: M PCU 06-26 18:23 → M ED 11:17 → M ED INP 14:33 → M MS5PR 16:50
DX: T81.83XA Persistent postprocedural fistula, initial encounter (principal); K63.2 Fistula of intestine; C85.13 Unspecified B-cell lymphoma, intra-abdominal lymph nodes; I50.32 Chronic diastolic (congestive) heart failure; E78.00 Pure hypercholesterolemia, unspecified; E11.9 Type 2 diabetes mellitus without complications; I11.0 Hypertensive heart disease with heart failure; Z87.891 Personal history of nicotine dependence; K59.00 Constipation, unspecified; I48.2 Chronic atrial fibrillation; Z93.3 Colostomy status; Z79.899 Other long term (current) drug therapy; Z79.82 Long term (current) use of aspirin; Z88.8 Allergy status to other drugs, medicaments and biological substances; I44.4 Left anterior fascicular block; I08.0 Rheumatic disorders of both mitral and aortic valves; Y83.8 Other surgical procedures as the cause of abnormal reaction of the patient, or of later complication, without mention of misadventure at the time of the procedure

== ENCOUNTER → 2018-09-14 | Outpatient (REF) | payer MEDICARE ==
[~2018-09-14] MED LIST changes: +ALTA1CAP2 PO; +ASPI1TAB PO; +ASPI1TAB20 PO; +ASPI81TAEC PO; +ATEN50TA2 PO; +COLA100C5 PO; +COUM1TAB17 PO; +COUM2TAB22 PO; +DIPH2.5T14 PO; +DULC5TAB PO; +ELIQ5TAB PO; +FAMO1TAB11 PO; +FAMO1TAB25 PO; +FLOM0.4C39 PO; +FURO20TA2 PO; +FURO40TA2 PO; -GASTROGRAFIN SOLUTION 30ML (Q9963) As Ordered; +HYDR25TAB PO; -ISOVUE-370 76% 100ML VIAL (Q9967) As Ordered; +LASI20TA3 PO; +METF-699 PO; +PATIENT COMMENT; +PRED10PA PO; +PRED20TA PO; +RAMI1CAP22 PO; +SIMV20TA2 PO; +WARF-23 PO; +ZOCO20TA PO
[2018-09-14 10:55] LABS: HEMOGLOBIN A1c 7.2 %
== END ==
LOC: M LAB REF 10:04
PROVIDERS: ATTEND Family Medicine
DX: E11.9 Type 2 diabetes mellitus without complications (principal)

== ENCOUNTER → 2018-10-27 | Outpatient (CLI) | payer MEDICARE ==
[~2018-10-27] MED LIST changes: +GASTROGRAFIN SOLUTION 30ML (Q9963) As Ordered ONE; +ISOVUE-370 76% 100ML VIAL (Q9967) As Ordered ONE
--- NOTE | 2018-10-27 15:05 | REP ---
CT ABDOMEN PELVIS WITH IV AND ORAL CONTRAST: 10/27/2018. Comparison: 06/21/2018, 03/27/2018. 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 Technique: Oral Gastrografin mixture 10 ml in 290 ml flavored water for two doses per our bowel contrast protocol and bolus of 100 ml Isovue 370 scanning through the abdomen and pelvis. Coronal and sagittal reconstructions provided. Findings: CT abdomen lung bases unchanged with some minor curvilinear fibrotic and atelectatic changes posteriorly in the lower lung zones. Heart size mildly prominent with left atrial and ventricular enlargement. No pericardial thickening or effusion. I see a small hiatal hernia as before. Stomach otherwise unremarkable. Liver shows slight prominence of the left hepatic lobe without focal hepatic mass. There is slight lobulated contour to the liver suggesting mild chronic liver disease. I see no splenomegaly or focal splenic lesion. There is no ascites, hepatic mass, cyst or intrahepatic biliary dilatation. Adrenal glands unchanged. Kidneys show function without obstruction, mass or cyst. There is a 3 mm stone lower pole on the left without hydronephrosis. There is no hydroureter or ureteral stone on either side. Atherosclerotic calcifications throughout the aorta without aneurysm or dissection. Small bowel loops are contrast or fluid-filled. The oral contrast does not extend into the terminal ileum. There is a right inguinal hernia again seen with the loops of incarcerated but not strangulated small bowel within. Some of these loops are distended compared to previous studies and no definite contrast reaches the right abdominal wall where the fistulous track has been present. There is only trace amount of the oral contrast seen within the collection bag attached to the abdominal wall. There is scattered stool and gas throughout the colon with mild to moderate distension. There is some diverticulosis of the distal left colon and sigmoid without any definite diverticulitis, colitis, stricture or mass. Anastomotic suture lines in the right mid abdomen and bowel loops subjacent to the right rectus and near the oblique muscle. 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 The was grossly unchanged. No dissection. No periaortic, mesenteric or intra-abdominal pathologic sized adenopathy. Lung window review of all CT slices shows no perforation or abscess. No generalized ascites. Bones show degenerative disc changes throughout lumbar and lower thoracic spine but these all appear stable. No acute compression deformity, destructive lesion. Facet arthropathy throughout lower lumbar spine. Visualized ribs grossly intact. CT pelvis: Sacrum intact. SI joints show some sclerosis iliac greater than sacral side and right greater than left, unchanged. Iliac wings without fracture, focal lesion. There is some mild degenerative changes in the hips without fracture or destructive lesion. Ectatic distal aorta and common iliac arteries as well as left greater than right external iliac artery atherosclerotic calcification throughout all these vessels. There is no ventral hernia. However, there is a right inguinal hernia with small bowel loops within which are incarcerated but not definitely strangulated. Some loops are mildly dilated compared to previous study. On today's study, there is no "bladder ear" there is thickening of the bladder wall adjacent to that previously noted herniated portion of the bladder, prostate enlargement and calcifications noted as on multiple prior studies. No inguinal adenopathy. No pelvic adenopathy. Impression: 1. Fistulous tract to the abdominal wall is again seen with only trace amounts of oral contrast suggested in the collection bag. Anastomotic suture line noted in small bowel loops nearby. 2. Colon without definite stricture, mass, colitis or diverticulitis. There is distal left colonic and sigmoid diverticulosis. This is unchanged. 3. Stable nonobstructing calculus lower pole left kidney and some vascular calcifications of the aorta and branches. 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 4. Nonobstructing 4-5 mm stone lower pole left kidney unchanged. The loops incarcerated but not strangulated. Their caliber somewhat larger than previous studies. No air fluid level or abnormal distension of proximal small bowel loops. 5. No pathologic sized abdominal or pelvic lymphadenopathy. Electronically Signed by Frankie St MD 10/27/2018 05:52 P
== END ==
LOC: M RAD 10:55
PROVIDERS: ATTEND Surgery
DX: C83.30 Diffuse large B-cell lymphoma, unspecified site (principal); K63.2 Fistula of intestine; S31.103D Unspecified open wound of abdominal wall, right lower quadrant without penetration into peritoneal cavity, subsequent encounter; K44.9 Diaphragmatic hernia without obstruction or gangrene; N20.0 Calculus of kidney; K40.90 Unilateral inguinal hernia, without obstruction or gangrene, not specified as recurrent; K57.30 Diverticulosis of large intestine without perforation or abscess without bleeding; I70.0 Atherosclerosis of aorta; Z98.0 Intestinal bypass and anastomosis status; X58.XXXD Exposure to other specified factors, subsequent encounter; Y92.9 Unspecified place or not applicable
CPT/HCPCS: 74177; Q9963; Q9967

== ENCOUNTER → 2018-11-01 | Outpatient (CLI) | payer MEDICARE ==
[~2018-11-01] MED LIST changes: -GASTROGRAFIN SOLUTION 30ML (Q9963) As Ordered ONE; -ISOVUE-370 76% 100ML VIAL (Q9967) As Ordered ONE
[2018-11-01 16:56] LABS: BASO # 0.1 10^3/uL (0.0-0.2); BASO % 0.6 % (0.0-1.0); EOS # 0.2 10^3/uL (0.0-0.50); EOS % 1.6 % (0.0-3.0); HEMOGLOBIN 12.8 g/dl (13.5-17.5); LYMPH # 1.3 10^3/uL (1.5-4.5); LYMPH % 13.8 % (24.0-44.0); MEAN CORPUSCULAR HEMOGLOBIN 30.3 pg (27.0-33.0); MEAN CORPUSCULAR HGB CONC 32.8 g/dl (32.0-36.5); MEAN CORPUSCULAR VOLUME 92.4 fl (80.0-96.0); MONO # 1.1 10^3/uL (0.0-0.8); NEUTROPHILS # 6.6 10^3/uL (1.8-7.7); NEUTROPHILS % 71.2 % (36.0-66.0); PLATELET COUNT, AUTOMATED 262 10^3/uL (150-450); RED BLOOD COUNT 4.22 10^6/uL (4.30-6.10); WHITE BLOOD COUNT 9.3 10^3/uL (4.0-10.0)
[2018-11-01 17:15] LABS: ALBUMIN 3.9 GM/DL (3.2-5.2); ALT/SGPT 15 U/L (12-78); BILIRUBIN,TOTAL 0.8 MG/DL (0.2-1.0); BLOOD UREA NITROGEN 22 MG/DL (7-18); CARBON DIOXIDE LEVEL 30 MEQ/L (21-32); CHLORIDE LEVEL 105 MEQ/L (98-107); CREATININE FOR GFR 1.08 MG/DL (0.70-1.30); GLOMERULAR FILTRATION RATE > 60.0 (>35); GLUCOSE, FASTING 153 MG/DL (70-100); POTASSIUM SERUM 4.2 MEQ/L (3.5-5.1); SODIUM LEVEL 144 MEQ/L (136-145); TOTAL PROTEIN 7.1 GM/DL (6.4-8.2)
== END ==
LOC: M WUC 13:59
PROVIDERS: ATTEND Family Medicine
DX: E11.9 Type 2 diabetes mellitus without complications (principal); C85.80 Other specified types of non-Hodgkin lymphoma, unspecified site

== ENCOUNTER 2018-11-13 06:13 | Inpatient (IN) | payer MEDICARE ==
[~2018-11-13] VITALS: Ht 177.8 cm; Wt 90.7 kg
[~2018-11-13 06:13] MED LIST changes: +ALVIMOPAN 12 MG CAPSULE (ENTEREG) PO ONE; +LIDOCAINE 1% MDV 20ML VIAL SQ PRN
[2018-11-13] MEDS ORDERED: AMPICILLIN SOD/SULBACTAM SOD 3 GM in D5W MINI-BAG PLUS 100 ML IV ONE (07:00)
[2018-11-13] MEDS ORDERED: ALVIMOPAN 12 MG CAPSULE (ENTEREG) PO ONE (07:00)
[2018-11-13] MEDS ORDERED: LR 1,000 ML IV ONE (07:00)
[2018-11-13] MEDS ORDERED: HEPARIN SOD (PORCINE) 5000 UNITS/ML VIAL SQ ONE (07:00)
[2018-11-13] MEDS ORDERED: LIDOCAINE 1% MDV 20ML VIAL As Ordered ONE (07:06)
[2018-11-13] MEDS ORDERED: BUPIVACAINE HCL 0.25% 10 ML VIAL As Ordered ONE ×2 (07:07→09:22)
[2018-11-13] MEDS ORDERED: ROCURONIUM BROMIDE 50 MG/5 ML VIAL As Ordered ONE ×3 (07:16→09:17)
[2018-11-13] MEDS ORDERED: dexameTHASONE 4 MG/ML 1ML VIAL (J1100) As Ordered ONE (07:16)
[2018-11-13] MEDS ORDERED: fentaNYL 250 MCG/5 ML INJECTION (J3010) As Ordered ONE (07:16)
[2018-11-13] MEDS ORDERED: PROPOFOL 200 MG/20 ML VIAL As Ordered ONE (07:16)
[2018-11-13] MEDS ORDERED: LIDOCAINE 2% INJ 100 MG/5 ML SDV (FOR ANES.) As Ordered ONE (07:16)
[2018-11-13] MEDS ORDERED: ONDANSETRON 4MG/2ML VIAL (J2405) As Ordered ONE (07:16)
[2018-11-13] MEDS ORDERED: MIDAZOLAM INJ 2 MG/2 ML VIAL (J2250) As Ordered ONE (07:17)
[2018-11-13] MEDS ORDERED: PHENYLephrine HCL 500 MCG/5 ML (100MCG/ML) SYRINGE (J2370) As Ordered ONE (08:14)
[2018-11-13] MEDS ORDERED: HYDROmorphone HCL 2 MG/ML 1ML VIAL (J1170) As Ordered ONE (08:35)
[2018-11-13] MEDS ORDERED: BUPIVACAINE LIPOSOME/PF 1.3% 20ML VIAL (13.3MG/ML)(EXPAREL)(C9290 PER1MG) As Ordered ONE (09:22)
[2018-11-13] MEDS ORDERED: SUGAMMADEX SODIUM 500 MG/5 ML VIAL (BRIDION) As Ordered ONE (10:18)
[2018-11-13] MEDS ORDERED: NORCO, ANEXSIA 5/325MG TABLET (HYDROcodone/ACETAMINOPHEN) PO PRN ×2 (11:00)
[2018-11-13] MEDS ORDERED: MORPHINE 4 MG/ML 1ML VIAL/SYRINGE (J2270) IV PRN ×2 (11:00)
[2018-11-13] MEDS ORDERED: KETOROLAC 30 MG/ML VIAL (J1885) IV PRN (11:00)
--- NOTE | 2018-11-13 11:09 | POST-OPPD ---
Postoperative Procedure Note Date Of Procedure: Nov 13, 2018 PREOPERATIVE DIAGNOSIS: Small bowel lymphoma, enterocutaneous fistula POSTOPERATIVE DIAGNOSIS: Same FINDINGS: 3 limbs of small bowel adhered to the bottom of the abdominal wall wound on the right lower quadrant area. Full thickness bowel wall defect on all 3 limbs of the small bowel. The first limb is roughly 30-40 cms away that loops back into the abdominal wall. The other 2 limbs continue past the privous anastomosis which appears distended to about 30 cms to the terminal ileum. A short segment of small bowel was removed on the distal bowel. There was a stricture about 10-15 cms away from the fistula on the second bowel also presence of meckels diverticulum. The resected bowel reaches to about 6-8 cms from the terminal ileum insertion. Patient also with known right inguinal hernia. Appears both direct (larger containing part of the bladder wall, and indirect defect (smaller) where the appendix inserts to. The appendix was scarred, mild chronically thickened. An Appendectomy was performed. PROCEDURE: Laparoscopic lysis of adhesion, bowel resection x2 with anastomosis, takedown of enterocutaneous fistula, debridement of right lower quadrant abdominal wall wound SURGEON: Hector Corona MD BRIQUETTE MOLDER: MD Nely Delgado DO ([id number]) ANESTHESIA: General anesthesia SPECIMENS: small bowel containing fistula ESTIMATED BLOOD LOSS: 50 mL DRAINS: none COMPLICATIONS: none, extubated to PACU stable POSTOPERATIVE CONDITION: stable HECTOR CORONA MD Nov 13, 2018 07:43
--- NOTE | 2018-11-13 11:12 | ROOPDOC ---
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 POSTPROCEDURE DIAGNOSES: Same. PROCEDURE: Laparoscopic lysis of adhesion, takedown and small bowel intercutaneous fistula, bowel resection with anastomosis, debridement of abdominal wall wound. SURGEON: Hector Ibanez MD [employer] DR[employer]: Catarino Juarez MD; Nely Cartwright DO (PGY-1) ANESTHESIA: General anesthesia. ESTIMATED BLOOD LOSS: Approximately 50 mLs mL. COMPLICATIONS: none PROCEDURE NOTE: 83 M with known B cell lymphoma involving the small bowel and abdominal wall resulting in an enterocutaneous fistula. He has completed his chemotherapy and has done well with it. His fistula is controlled but persists. With full discussion, we have elected to bring him in today to resect involved portion of the small bowel with the enterocutaneous fistula. OPERATIVE FINDINGS: .3 limbs of small bowel adhered to the bottom of the abdominal wall wound on the right lower quadrant area. Full thickness bowel wall defect on all 3 limbs of the small bowel. The first limb is roughly 30-40 cms away that loops back into the abdominal wall. The other 2 limbs continue past the privous anastomosis which appears distended to about 30 cms to the terminal ileum. A short segment of small bowel was removed on the distal bowel. There was a stricture about 10- 15 cms away from the fistula on the second bowel also presence of meckels diverticulum. The resected bowel reaches to about 6-8 cms from the terminal ileum insertion. Patient also with known right inguinal hernia. Appears both direct (larger containing part of the bladder wall, and indirect defect (smaller) where the appendix inserts to. The appendix was scarred, mild chronically thickened. An Appendectomy was performed. DESCRIPTION OF PROCEDURE: Patient was given Unasyn in 3 g IV for wound prophylaxis. Heparin 5000 units subcutaneously given for DVT prophylaxis and Entereg for prevention of postop ileus. He was brought to the operating room, laid supine on the table. Compression boots placed on both lower extremities for DVT prophylaxis. General endotracheal anesthesia started without any complications. He fully catheter placed for urine output monitoring. Both arms were tucked. The colostomy bag covering his right lower quadrant and torque continues fistula was removed and the skin around the area cleaned. His abdomen was widely prepped and draped in the usual sterile fashion. And Ioban drape placed on the abdomen including right lower quadrant wound site. A timeout was performed verifying patients identity, procedure and other important patient identifier and information prior to the start of the procedure. We started by placing a Veress needle in a controlled fashion over the left upper quadrant area. Intra-abdominal position was confirmed with saline drop technique. CO2 insufflation then started to a pressure of 15 mmHg. Using the same incision a 5 mm Visiport was placed under direct vision of a laparoscope. The rest of the procedure is performed using a 30 5 mm laparoscope. The area underneath the insertion site was inspected for injury; none was found. Diagnostic laparoscopy was performed. The area underneath the right lower quadrant abdominal wound shows three limbs or loops of small bowel adhered flatly to the area. The bowel appears decompressed. The bowels were broadly adhered to the abdominal wall. The bowels itself appear soft and noninflamed. I do not see any undrained abscess collection. There were no free fluid or noticeable peritoneal deposits. The liver appears smooth and contour. There is also some small amount of omental adhesions next to the edge of loops of bowel. The transverse colon as well as the ascending and right colon appears floppy. The patient was initially placed on the slight right lateral decubitus and Trendelenburg position. A 5 mm port was placed under direct visualization over the left lower quadrant area as well as the Aysha-umbilical area. The falciform ligament was slightly taken down to provide better visualization. The omental adhesions at the abdominal wall was lysed using harmonic scalpel. Patient was placed on severe Trendelenburg position to drop them back away from the right lower quadrant area. Another 5 mm port was placed over the suprapubic area. Patient also has a known right inguinal hernia. There is a bigger direct component and a smaller indirect component. The appendix is seen to course through to the indirect hernia opening. I followed the bowel that was adhered to the abdominal wall. There seems to be three limbs of bowel adhered to the wall and one of the limbs does not seem to be continuous with the other. So I presume there would be to bowel loops adhered to one another as well as to the abdominal wall. I started to traced his low-profile back towards the terminal ileum and cecum. Patient also has a known right inguinal hernia. I started working on taking down the appendix permits adhesions to the hernia and pulled it back into the abdominal cavity. Then I proceeded by following the appendix to its attachment to the cecum and started taking apart the lateral attachments of the cecum to the Line of Toldt. I then came back towards where the fistula is located at the abdominal wall I followed one of the libs retrogradely and this seems to be just a few centimeters distal to the previous anastomosis.The bowels then coursed underneath the adhered small bowel towards the pelvis. Then about 20 or 30 cm down this comes back to the third limb that is adhered to the abdominal wall. Then this drops back down again towards the left lower abdomen. The rest of the bowel seems to be free of adhesions and moving freely. I started taking down the bowel with both blunt and sharp a section with the laparoscopic radha as well as with the harmonic scalpel taking the this three limbs of bowel down. I did not separate the adhered bowels to each other but just onto the abdominal wall. There clearly is a wide area for opening on both this limbs that communicates unto the abdominal wall. After I took the adhesions in the bowel down, I followed this towards the terminal ileum and cecum the continued taking the cecum and ascending colon attachments rotating this medially on a lateral to medial approach likewise freeing the mesentery of the small bowel. As the right colon seems to be quite floppy, it didnt take long to rotate the colon medially. At this point I decompressed the abdomen. I made about a 4 cm vertical incision just above the umbilicus and took this through through the layers of the abdominal wall and enter the abdomen. An Mateo wound protector was placed and the loops of bowel were delivered on to this opening. I started with the more proximal bowel involved with the fistula. As I have previoiusly described there was about a 20 cm loop including that of the previous anastomosis going towards the other limb from the distal involved bowel to the fistula. I chose to resect a short segment of the bowel that was involved with the fistula as the bowel itself does not look diseased except for that it is adhered to the other limb of the small intestine and to the abdominal wall. tI then fashioned a [id number] anastomosis was a linear 75 mm DIANE stapler for the anastomosis and the enterotomy closure. The mesenteric defect was repaired with 2-0 vicryl. Bleeding points at the staple line were either cauterized or controlled with 3-0 silks. Points where the staple line cross and at the crotch of the anastomosis were reinforced with 3-0 silks. This was pushed back into the abdomen. Afterwards, I turned my attention to the distal limb of bowel involved with the fistula. I ran the bowel backwards and forwards again through to the terminal ileum and then back to the first anastomosis. There was a portion of bowel about 10-12 cm before the fistula and the previous anastomosis where I saw is a tight stricture on the bowel. Prior to the stricture the bowels are clearly distended with some almost semisolid content. I chose this as my proximal site for the resection. This would include the previous anastomosis, the fistulized bowel. There is about a 15 cm limb of bowel distal to the fistula going into the terminal ileum. I chose to take only about 3-4 cm beyond the fistula as the small bowel appears healthy beyond this portion. Again I arranged the bowel and mesentery to simultaneously resect and created a [id number] anastomosis using a 75 mm DIANE stapler for the resection as well as enterotomy closure. the mesentery was taken down the harmonic scalpel , then the defect created with the resection was close with 2-0 Vicryl. There was some persistent oozing forming a small hematoma along the distal most part of the mesentery which I controlled with separate 2-0 Vicryl placed in a mattress passion. I then inspected the anastomosis for bleeding and reinforced it with 3-0 silks. All the exteriored bowel loops were then returned inside the abdomen. I have decide to perform an appendectomy as this was going through to the right inguinal hernia defect and appears quite scarred and thickened. I have previously told the patient during our discussion that I would wait to repair the hernia after he is fully recovered from this surgery. The appendix was delivered into view. The mesoappendix ligated with the harmonic scalpel to the base. The base was crushed with a straight clamp and ligated with 2-0 vicryl. The wound retractor was removed, the fascial defect that I created was closed using a running suture of 1-0 Vicryl I resume pneumoperitoneum and returned to laparoscopy. I surveyed the abdomen and inspected both anastomosis as well as the appendix stump. Visible left over blood was suctioned. There a small persistent oozing along the staple line at my second anastomosis which I cauterized, otherwise the bowels seemed to be well- aligned and healthy appearing. Survery of the abdomen did not reveal any new findings or inadvertent bleeding or injury. The pneumoperitoneum was released. All ports removed. All incisions closed with skin stapler. Bulky gauze dressings placed for wound coverage. He was then awakened, extubated and brought to the recovery room stable. HECTOR IBANEZ MD Nov 13, 2018 07:44
[2018-11-13] MEDS ORDERED: PERCOCET 5MG/325MG TAB PO PRN (11:45)
[2018-11-13] MEDS ORDERED: MORPHINE 10 MG/ML 1ML VIAL (J2270) IV PRN (11:45)
[2018-11-13] MEDS ORDERED: ONDANSETRON 4MG/2ML VIAL (J2405) IV PRN (11:45)
[2018-11-13] MEDS ORDERED: fentaNYL 100 MCG/2 ML INJECTION (J3010) IV PRN (11:45)
[2018-11-13] MEDS ORDERED: LR 1,000 ML IV SCH (11:45)
[2018-11-13 12:15] VITALS: BP 171/84
[2018-11-13] MEDS: LR 1,000 ML IV SCH ×2 (12:24→21:25)
[2018-11-13 12:45] VITALS: BP 135/69
[2018-11-13 13:15] VITALS: BP 136/66
[2018-11-13 14:00] VITALS: BP 132/77
[2018-11-13 16:00] VITALS: BP 135/71
[2018-11-13 20:00] VITALS: BP 128/70
[2018-11-13] MEDS: FAMOTIDINE 20 MG TAB PO SCH (21:13)
[2018-11-13] MEDS: ALVIMOPAN 12 MG CAPSULE (ENTEREG) PO SCH (21:13)
[2018-11-13] MEDS: ONDANSETRON 4MG/2ML VIAL (J2405) IV PRN (22:12)
[2018-11-14] VITALS: BP 126/69
[2018-11-14] MEDS: ONDANSETRON 4MG/2ML VIAL (J2405) IV PRN (04:14)
[2018-11-14 06:00] VITALS: BP 134/71
[2018-11-14] MEDS: LR 1,000 ML IV SCH ×2 (06:57→16:32)
[2018-11-14] MEDS: ALVIMOPAN 12 MG CAPSULE (ENTEREG) PO SCH ×2 (08:13→20:59)
[2018-11-14] MEDS: TAMSULOSIN 0.4 MG CAP PO SCH (08:13)
[2018-11-14] MEDS: ENOXAPARIN 40 MG/0.4 ML SYRINGE (J1650) SC SCH (08:13)
[2018-11-14 08:18] LABS: HEMATOCRIT 36.2 % (42.0-52.0); HEMOGLOBIN 11.9 g/dl (13.5-17.5); MEAN CORPUSCULAR HEMOGLOBIN 30.4 pg (27.0-33.0); MEAN CORPUSCULAR HGB CONC 32.9 g/dl (32.0-36.5); MEAN CORPUSCULAR VOLUME 92.6 fl (80.0-96.0); PLATELET COUNT, AUTOMATED 222 10^3/uL (150-450); RED BLOOD COUNT 3.91 10^6/uL (4.30-6.10); WHITE BLOOD COUNT 13.6 10^3/uL (4.0-10.0)
[2018-11-14 08:44] LABS: BLOOD UREA NITROGEN 27 MG/DL (7-18); CALCIUM LEVEL 8.1 MG/DL (8.8-10.2); CARBON DIOXIDE LEVEL 34 MEQ/L (21-32); CHLORIDE LEVEL 104 MEQ/L (98-107); CREATININE FOR GFR 1.19 MG/DL (0.70-1.30); GLOMERULAR FILTRATION RATE > 60.0 (>35); GLUCOSE, FASTING 197 MG/DL (70-100); POTASSIUM SERUM 4.2 MEQ/L (3.5-5.1); SODIUM LEVEL 143 MEQ/L (136-145)
--- NOTE | 2018-11-14 08:47 | IPNPDOC ---
Subjective General Date/Time Seen The patient was seen on 11/14/18 at 08:46. Subject Chief Complaint/History The patient is a 83-year-old male admitted with a reason for visit of Lymphoma Of Small Intestines, Intestinal Fistula. Patient is s/p small bowel resectionX2 and anastomsis as well as take down of enterocutaneous fistula on 11/13/18. He reported that he has not been passing flatulence or bowel movement since the procedure. He has some nausea and vomiting. Current Medications Current Medications Current Medications Acetaminophen/ Hydrocodone Bitart ([place], Anexsia 5/325) 1 tab Q4HP PRN PO MODERATE PAIN (PS 5-7); Start 11/13/18 at 11:00 Acetaminophen/ Hydrocodone Bitart ([place], Anexsia 5/325) 2 tab Q6HP PRN PO SEVERE PAIN (PS 8-10); Start 11/13/18 at 11:00 Alvimopan (Entereg) 12 mg BID PO Last administered on 11/14/18at 08:13; Start 11/13/18 at 21:00; Stop 11/20/18 at 09:01 Enoxaparin Sodium (Lovenox) 40 mg DAILY SC Last administered on 11/14/18at 08:13; Start 11/14/18 at 09:00 Famotidine (Pepcid) 20 mg QPM PO Last administered on 11/13/18at 21:13; Start 11/13/18 at 21:00 Fentanyl Citrate (Sublimaze) 25 mcg Q5MP PRN IV MODERATE PAIN (PS 4-7); Start 11/13/18 at 11:45; Stop 11/13/18 at 12:45; Status DC Ketorolac Tromethamine (ToRADol) 15 mg Q6HP PRN IV MILD/MODERATE PAIN (PS 1-7) Last administered on 11/13/18at 22:34; Start 11/13/18 at 11:00; Stop 11/18/18 at 10:59 Lactated Ringer's 1,000 ml @ 50 mls/hr Q20H IV ; Start 11/13/18 at 11:45; Stop 11/13/18 at 12:45; Status DC Lactated Ringer's 1,000 ml @ 100 mls/hr Q10H IV Last administered on 11/14/18at 06:57; Start 11/13/18 at 10:53 Lidocaine HCl (LIDOCAINE 1% MDV 20ml) 0.1 ml ONCE PRN SQ DISCOMFORT BEFORE IV START; Start 11/13/18 at 06:00 Morphine Sulfate (Morphine Sulfate Inj) 2 mg Q2HP PRN IV MODERATE PAIN; Start 11/13/18 at 11:00 Morphine Sulfate (Morphine Sulfate Inj) 2 mg Q5M PRN IV MODERATE/SEVERE PAIN (PS 5-10); Start 11/13/18 at 11:45; Stop 11/13/18 at 12:45; Status DC Morphine Sulfate (Morphine Sulfate Inj) 4 mg Q2HP PRN IV SEVERE PAIN (PS 8-10); Start 11/13/18 at 11:00 Ondansetron HCl (ZOFRAN INJection) 4 mg Q4HP PRN IV NAUSEA OR VOMITING; Start 11/13/18 at 11:45; Stop 11/13/18 at 12:45; Status DC Ondansetron HCl (ZOFRAN INJection) 4 mg Q6HP PRN IV NAUSEA OR VOMITING Last administered on 11/14/18at 04:14; Start 11/13/18 at 11:00 Oxycodone/ Acetaminophen (Percocet 5mg/ 325mg Tablet) 1 tab ASDIRECTED PRN PO MILD/MODERATE PAIN (PS 1-7); Start 11/13/18 at 11:45; Stop 11/13/18 at 12:45; Status DC Tamsulosin HCl (Flomax) 0.4 mg QAM PO Last administered on 11/14/18at 08:13; Start 11/14/18 at 09:00 Allergies Coded Allergies: Lisinopril (Unverified Allergy, Mild, ITCHING, 11/13/18) Objective Physical Examination Examination GENERAL APPEARANCE:[Patient seen, laying in bed, awake, alert, and oriented. Patient appears to be in mild distress and appears uncomfortable having the vomit bag in hand]. SKIN: [Warm and moist]. HEENT: [Normocephalic, atraumatic. [place] palpebral conjunctiva, anicteric sclerae. Lips and mucosa appear moist]. NECK: [Supple, no thyromegaly. No obvious jugular venous distention]. LUNGS: [Clear to auscultation bilaterally. No wheezing appreciated]. HEART: [No chest wall abnormalities. Regular rate and rhythm with no murmurs appreciated]. ABDOMEN: Abdomen is soft, moderately distended. No grimacing with palpation. Right sided open wound about 3cm long with packing. Left sided wound covered with dressing. Mild amount of blood noted in dressing] EXTREMITIES: [No obvious cyanosis noted]. Vital Signs Vital Signs Date Time Temp Pulse Resp B/P (MAP) Pulse Ox O2 Delivery O2 Flow Rate FiO2 11/14/18 06:00 98.4 83 18 134/71 (92) 95 2.0 I&Os I&O- Last 24 Hours up to 6 AM 11/14/18 05:59 Intake Total 3040 ml Output Total 1675 ml Balance 1365 ml Laboratory Data Labs 24H Laboratory Tests 2 11/14/18 08:02: Nucleated Red Blood Cells % (auto) 0.0, Anion Gap 5L, Glomerular Filtration Rate > 60.0, Blood Urea Nitrogen 27H, Creatinine 1.19, Sodium Level 143, Potassium Level 4.2, Chloride Level 104, Carbon Dioxide Level 34H, Calcium Level 8.1L CBC/BMP Laboratory Tests 11/14/18 08:02 Red Blood Count 3.91 L, Mean Corpuscular Volume 92.6, Mean Corpuscular Hemoglobin 30.4, Mean Corpuscular Hemoglobin Concent 32.9, Red Cell Distribution Width 14.0, Calcium Level 8.1 L Impression Ileus expected post-operation of small intestine resection. Specimen pathology pending. Continue NPO diet and IV LR. Zofran PRN and pain control. Continue Entereg. Continue to monitor the patient. May advance diet if tolerated. ATTENDING NOTE: I saw and examined Mr. Hines is a resident at the bedside. He appears to be moderately distended most likely still having significant postoperative ileus. I have made him nothing by mouth. Continue with IV fluids. Mcmahon catheter will be discontinued. Is not totally unexpected. I encouraged him to ambulate to the hallways. Otherwise he is hemodynamically stable and quite comfortable. Expect ileus resolved in next couple days. He is already on Entereg. Plan / VTE VTE Prophylaxis Ordered?: Yes (lovenox SC) Plan / Urinary Catheter Urinary Catheter: D/C TREASURE Holden DO Nov 14, 2018 08:47 TAMRA IBANEZ MD Nov 15, 2018 07:09
[2018-11-14 10:00] VITALS: BP 131/66
[2018-11-14 14:30] VITALS: BP 132/97
[2018-11-14] MEDS: FAMOTIDINE 20 MG TAB PO SCH (20:59)
[2018-11-14 22:00] VITALS: BP 149/67
[2018-11-15] MEDS: LR 1,000 ML IV SCH ×3 (02:19→21:02)
[2018-11-15 06:00] VITALS: BP 123/67
[2018-11-15 06:22] LABS: HEMATOCRIT 30.3 % (42.0-52.0); MEAN CORPUSCULAR HEMOGLOBIN 30.1 pg (27.0-33.0); MEAN CORPUSCULAR VOLUME 94.1 fl (80.0-96.0); PLATELET COUNT, AUTOMATED 188 10^3/uL (150-450); RED BLOOD COUNT 3.22 10^6/uL (4.30-6.10); WHITE BLOOD COUNT 8.6 10^3/uL (4.0-10.0)
[2018-11-15 06:33] LABS: HEMOGLOBIN 9.7 g/dl (13.5-17.5)
[2018-11-15 07:07] LABS: BLOOD UREA NITROGEN 22 MG/DL (7-18); CALCIUM LEVEL 8.1 MG/DL (8.8-10.2); CARBON DIOXIDE LEVEL 34 MEQ/L (21-32); CHLORIDE LEVEL 108 MEQ/L (98-107); CREATININE FOR GFR 1.02 MG/DL (0.70-1.30); GLOMERULAR FILTRATION RATE > 60.0 (>35); GLUCOSE, FASTING 112 MG/DL (70-100); POTASSIUM SERUM 3.8 MEQ/L (3.5-5.1); SODIUM LEVEL 145 MEQ/L (136-145)
[2018-11-15] MEDS: TAMSULOSIN 0.4 MG CAP PO SCH (08:50)
[2018-11-15] MEDS: ENOXAPARIN 40 MG/0.4 ML SYRINGE (J1650) SC SCH (08:51)
[2018-11-15] MEDS: ALVIMOPAN 12 MG CAPSULE (ENTEREG) PO SCH ×2 (08:51→21:02)
[2018-11-15] MEDS ORDERED: MIRALAX *UNIT DOSE* 17GM PACKET PO SCH (09:00)
[2018-11-15 14:00] VITALS: BP 118/64
--- NOTE | 2018-11-15 16:10 | IPNPDOC ---
Subjective General Date/Time Seen The patient was seen on 11/15/18 at 16:05. Subject Chief Complaint/History The patient is a 83-year-old male admitted with a reason for visit of Lymphoma Of Small Intestines, Intestinal Fistula. Patient reported that he has no nausea, fever, chills, or vomiting. He reported that he had a small bowel movement but he did not look at the stool thus is unsure if there's hematochezia or melena. He descried bilateral lower quadrant crampy pain. Patient reported that he is hungry, and feels like he can eat now. Current Medications Current Medications Current Medications Acetaminophen/ Hydrocodone Bitart ([place], Anexsia 5/325) 1 tab Q4HP PRN PO MODERATE PAIN (PS 5-7); Start 11/13/18 at 11:00 Acetaminophen/ Hydrocodone Bitart ([place], Anexsia 5/325) 2 tab Q6HP PRN PO SEVERE PAIN (PS 8-10); Start 11/13/18 at 11:00 Alvimopan (Entereg) 12 mg BID PO Last administered on 11/15/18at 08:51; Start 11/13/18 at 21:00; Stop 11/20/18 at 09:01 Enoxaparin Sodium (Lovenox) 40 mg DAILY SC Last administered on 11/15/18at 08:51; Start 11/14/18 at 09:00 Famotidine (Pepcid) 20 mg QPM PO Last administered on 11/14/18at 20:59; Start 11/13/18 at 21:00 Fentanyl Citrate (Sublimaze) 25 mcg Q5MP PRN IV MODERATE PAIN (PS 4-7); Start 11/13/18 at 11:45; Stop 11/13/18 at 12:45; Status DC Ketorolac Tromethamine (ToRADol) 15 mg Q6HP PRN IV MILD/MODERATE PAIN (PS 1-7) Last administered on 11/13/18at 22:34; Start 11/13/18 at 11:00; Stop 11/18/18 at 10:59 Lactated Ringer's 1,000 ml @ 50 mls/hr Q20H IV ; Start 11/13/18 at 11:45; Stop 11/13/18 at 12:45; Status DC Lactated Ringer's 1,000 ml @ 100 mls/hr Q10H IV Last administered on 11/15/18at 15:01; Start 11/13/18 at 10:53 Lidocaine HCl (LIDOCAINE 1% MDV 20ml) 0.1 ml ONCE PRN SQ DISCOMFORT BEFORE IV START; Start 11/13/18 at 06:00 Morphine Sulfate (Morphine Sulfate Inj) 2 mg Q2HP PRN IV MODERATE PAIN; Start 11/13/18 at 11:00 Morphine Sulfate (Morphine Sulfate Inj) 2 mg Q5M PRN IV MODERATE/SEVERE PAIN (PS 5-10); Start 11/13/18 at 11:45; Stop 11/13/18 at 12:45; Status DC Morphine Sulfate (Morphine Sulfate Inj) 4 mg Q2HP PRN IV SEVERE PAIN (PS 8-10); Start 11/13/18 at 11:00 Ondansetron HCl (ZOFRAN INJection) 4 mg Q4HP PRN IV NAUSEA OR VOMITING; Start 11/13/18 at 11:45; Stop 11/13/18 at 12:45; Status DC Ondansetron HCl (ZOFRAN INJection) 4 mg Q6HP PRN IV NAUSEA OR VOMITING Last administered on 11/14/18at 04:14; Start 11/13/18 at 11:00 Oxycodone/ Acetaminophen (Percocet 5mg/ 325mg Tablet) 1 tab ASDIRECTED PRN PO MILD/MODERATE PAIN (PS 1-7); Start 11/13/18 at 11:45; Stop 11/13/18 at 12:45; Status DC Polyethylene Glycol (Miralax) 1 pkt DAILY PO Last administered on 11/15/18at 08:51; Start 11/15/18 at 09:00 Tamsulosin HCl (Flomax) 0.4 mg QAM PO Last administered on 11/15/18at 08:50; Start 11/14/18 at 09:00 Allergies Coded Allergies: Lisinopril (Unverified Allergy, Mild, ITCHING, 11/13/18) Objective Physical Examination Examination GENERAL APPEARANCE:comfortable. SKIN: Warm and moist. HEENT: Normocephalic, atraumatic. [place] palpebral conjunctiva, anicteric sclerae. Lips and mucosa appear moist. Nasal cannula in place. NECK: Supple. No obvious jugular venous distention. LUNGS: Clear to auscultation bilaterally. No wheezing appreciated. HEART: irregular rhythm, rate 90s, no murmurs. ABDOMEN: Abdomen is soft, mildly distended. No obvious umbilical herniations noted. Patient reported tenderness in right upper quadrant and lower quadrant upon palpation. EXTREMITIES: No cyanosis identified. Radial pulse palpated bilaterally. Vital Signs Vital Signs Date Time Temp Pulse Resp B/P (MAP) Pulse Ox O2 Delivery O2 Flow Rate FiO2 11/15/18 14:00 99.2 78 21 118/64 (82) 96 11/14/18 21:00 2.0 I&Os I&O- Last 24 Hours up to 6 AM 11/15/18 06:00 Intake Total 1200 ml Output Total 450 ml Balance 750 ml Laboratory Data Labs 24H Laboratory Tests 2 11/15/18 06:03: Nucleated Red Blood Cells % (auto) 0.0, Anion Gap 3L, Glomerular Filtration Rate > 60.0, Blood Urea Nitrogen 22H, Creatinine 1.02, Sodium Level 145, Potassium Level 3.8, Chloride Level 108H, Carbon Dioxide Level 34H, Calcium Level 8.1L CBC/BMP Laboratory Tests 11/15/18 06:03 Red Blood Count 3.22 L, Mean Corpuscular Volume 94.1, Mean Corpuscular Hemoglobin 30.1, Mean Corpuscular Hemoglobin Concent 32.0, Red Cell Distribution Width 14.0, Calcium Level 8.1 L Impression Ileus expected post-operation of small intestine resection. 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 Appendix with no pathologic changes. No atypia or malignancy noted. Patient was advanced to clear liquid diet; january d/c IVF if patient is tolerating PO diet well. Zofran PRN and pain control. Continue Entereg. Start Miralax daily. Continue to monitor the patient. ATTENDING NOTE: I evaluated Mr. Hines independent of my residence and at the time that I saw him he is had 2 small movements today. One was after being given a laxative. His abdomen is markedly less distended than yesterday. I will allow him clear liquids and hope of advancing to solid foods by tomorrow. I'll keep him on the Entereg for now. If he's able to tolerate his feedings probably weakened this continued IV fluids by tomorrow. He does have some drop in his hemoglobin and hematocrit which is probably a combination of multiple stop bleeding and dilutional. He's not symptomatic from this and is not a blood transfusion. Continue with Lovenox for DVT prophylaxis Plan / VTE VTE Prophylaxis Ordered?: Yes (lovenox SC) Plan / Urinary Catheter Urinary Catheter: D/C TREASURE Holden DO Nov 15, 2018 16:10 TAMRA IBANEZ MD Nov 16, 2018 07:00
[2018-11-15] MEDS: FAMOTIDINE 20 MG TAB PO SCH (21:02)
[2018-11-15 22:00] VITALS: BP 153/74
[2018-11-16 06:00] VITALS: BP 152/71
[2018-11-16 06:24] LABS: HEMATOCRIT 28.9 % (42.0-52.0); HEMOGLOBIN 9.2 g/dl (13.5-17.5); MEAN CORPUSCULAR HEMOGLOBIN 29.5 pg (27.0-33.0); MEAN CORPUSCULAR HGB CONC 31.8 g/dl (32.0-36.5); MEAN CORPUSCULAR VOLUME 92.6 fl (80.0-96.0); PLATELET COUNT, AUTOMATED 160 10^3/uL (150-450); RED BLOOD COUNT 3.12 10^6/uL (4.30-6.10); WHITE BLOOD COUNT 6.7 10^3/uL (4.0-10.0)
[2018-11-16 06:58] LABS: BLOOD UREA NITROGEN 10 MG/DL (7-18); CALCIUM LEVEL 8.2 MG/DL (8.8-10.2); CARBON DIOXIDE LEVEL 30 MEQ/L (21-32); CHLORIDE LEVEL 108 MEQ/L (98-107); GLOMERULAR FILTRATION RATE > 60.0 (>35); GLUCOSE, FASTING 114 MG/DL (70-100); POTASSIUM SERUM 3.7 MEQ/L (3.5-5.1); SODIUM LEVEL 143 MEQ/L (136-145)
--- NOTE | 2018-11-16 08:14 | IPNPDOC ---
Subjective General Date/Time Seen The patient was seen on 11/16/18 at 08:12. Subject Chief Complaint/History The patient is a 83-year-old male admitted with a reason for visit of Lymphoma Of Small Intestines, Intestinal Fistula. Patient reported that he had 2 bowel movement yesterday, and he was told there's traces of blood in it. He reported tolerating clear liquid diet well. Patient reported that he has been walking around. It was noted that patient had total 6 bowel movements since the procedure. He denies any abdominal pain, chest pain, nausea, vomiting, chest pain, SOB, or palpitation; stating that he has no complaints. Current Medications Current Medications Current Medications Acetaminophen/ Hydrocodone Bitart ([place], Anexsia 5/325) 1 tab Q4HP PRN PO MODERATE PAIN (PS 5-7); Start 11/13/18 at 11:00 Acetaminophen/ Hydrocodone Bitart ([place], Anexsia 5/325) 2 tab Q6HP PRN PO SEVERE PAIN (PS 8-10); Start 11/13/18 at 11:00 Alvimopan (Entereg) 12 mg BID PO Last administered on 11/15/18at 21:02; Start 11/13/18 at 21:00; Stop 11/16/18 at 06:56; Status DC Enoxaparin Sodium (Lovenox) 40 mg DAILY SC Last administered on 11/15/18at 08:51; Start 11/14/18 at 09:00 Famotidine (Pepcid) 20 mg QPM PO Last administered on 11/15/18at 21:02; Start 11/13/18 at 21:00 Fentanyl Citrate (Sublimaze) 25 mcg Q5MP PRN IV MODERATE PAIN (PS 4-7); Start 11/13/18 at 11:45; Stop 11/13/18 at 12:45; Status DC Ketorolac Tromethamine (ToRADol) 15 mg Q6HP PRN IV MILD/MODERATE PAIN (PS 1-7) Last administered on 11/13/18at 22:34; Start 11/13/18 at 11:00; Stop 11/18/18 at 10:59 Lactated Ringer's 1,000 ml @ 50 mls/hr Q20H IV ; Start 11/13/18 at 11:45; Stop 11/13/18 at 12:45; Status DC Lactated Ringer's 1,000 ml @ 100 mls/hr Q10H IV Last administered on 11/15/18at 21:02; Start 11/13/18 at 10:53; Stop 11/16/18 at 06:56; Status DC Lidocaine HCl (LIDOCAINE 1% MDV 20ml) 0.1 ml ONCE PRN SQ DISCOMFORT BEFORE IV START; Start 11/13/18 at 06:00 Morphine Sulfate (Morphine Sulfate Inj) 2 mg Q2HP PRN IV MODERATE PAIN; Start 11/13/18 at 11:00 Morphine Sulfate (Morphine Sulfate Inj) 2 mg Q5M PRN IV MODERATE/SEVERE PAIN (PS 5-10); Start 11/13/18 at 11:45; Stop 11/13/18 at 12:45; Status DC Morphine Sulfate (Morphine Sulfate Inj) 4 mg Q2HP PRN IV SEVERE PAIN (PS 8-10); Start 11/13/18 at 11:00 Ondansetron HCl (ZOFRAN INJection) 4 mg Q4HP PRN IV NAUSEA OR VOMITING; Start 11/13/18 at 11:45; Stop 11/13/18 at 12:45; Status DC Ondansetron HCl (ZOFRAN INJection) 4 mg Q6HP PRN IV NAUSEA OR VOMITING Last administered on 11/14/18at 04:14; Start 11/13/18 at 11:00 Oxycodone/ Acetaminophen (Percocet 5mg/ 325mg Tablet) 1 tab ASDIRECTED PRN PO MILD/MODERATE PAIN (PS 1-7); Start 11/13/18 at 11:45; Stop 11/13/18 at 12:45; Status DC Polyethylene Glycol (Miralax) 1 pkt DAILY PO Last administered on 11/15/18at 08:51; Start 11/15/18 at 09:00; Stop 11/16/18 at 06:56; Status DC Tamsulosin HCl (Flomax) 0.4 mg QAM PO Last administered on 11/15/18at 08:50; Start 11/14/18 at 09:00 Allergies Coded Allergies: Lisinopril (Unverified Allergy, Mild, ITCHING, 11/13/18) Objective Physical Examination Examination GENERAL APPEARANCE:Patient seen, laying in bed, cooperative, awake, alert, and oriented. Comfortable, in no acute distress. SKIN: Warm and moist. HEENT: Normocephalic, atraumatic. [place] palpebral conjunctiva, anicteric sclerae. Lips and mucosa appear moist. NECK: Supple. No obvious jugular venous distention. LUNGS: Clear to auscultation bilaterally. No wheezing appreciated. HEART: Regular rate and rhythm with no murmurs appreciated. ABDOMEN: Abdomen is soft, No obvious umbilical herniations, nondistended. No noticeable guarding. Mild right sided abdominal tenderness during palpation. Open wound in right sided abdomen appears to be clean with no drainage and no obvious signs of infection. Skin and subcutaneous tissue appears to be thickened EXTREMITIES: No obvious cyanosis noted. Vital Signs Vital Signs Date Time Temp Pulse Resp B/P (MAP) Pulse Ox O2 Delivery O2 Flow Rate FiO2 11/16/18 06:00 98.5 67 20 152/71 (98) 96 11/14/18 21:00 2.0 I&Os I&O- Last 24 Hours up to 6 AM 11/16/18 06:00 Intake Total 4760 ml Balance 4760 ml Laboratory Data Labs 24H Laboratory Tests 2 11/16/18 06:06: Nucleated Red Blood Cells % (auto) 0.0, Anion Gap 5L, Glomerular Filtration Rate > 60.0, Blood Urea Nitrogen 10#, Creatinine 0.70, Sodium Level 143, Potassium Level 3.7, Chloride Level 108H, Carbon Dioxide Level 30, Calcium Level 8.2L CBC/BMP Laboratory Tests 11/16/18 06:06 Red Blood Count 3.12 L, Mean Corpuscular Volume 92.6, Mean Corpuscular Hemoglobin 29.5, Mean Corpuscular Hemoglobin Concent 31.8 L, Red Cell Distribution Width 13.9, Calcium Level 8.2 L Impression Ileus expected post-operation of small intestine resection. 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 Appendix with no pathologic changes. No atypia or malignancy noted. Patient tolerating PO clear liquid diet well, advance to regular diet; IVF d/c. Zofran PRN and pain control. Abdomen mildly distended. Hgb appears to be roughly stable at 9.2 compared to 9.7 yesterday, likely secondary to bleeding and hemodilutional effect. Pt denied any lightheadedness, dizziness, or SOB yesterday and denies any any complaints today. Cont Miralax daily and start Senokot BID. Entereg d/c. D/c SCD and encourage ambulation. Continue to monitor the patient. Plan / VTE VTE Prophylaxis Ordered?: Yes (lovenox SC) Plan / Urinary Catheter Urinary Catheter: D/C TREASURE Holden DO Nov 16, 2018 08:14 TAMRA IBANEZ MD Dec 06, 2018 08:51
[2018-11-16] MEDS: TAMSULOSIN 0.4 MG CAP PO SCH (08:19)
[2018-11-16] MEDS: ENOXAPARIN 40 MG/0.4 ML SYRINGE (J1650) SC SCH (08:19)
[2018-11-16] MEDS: SENNA 8.6 MG TAB (SENOKOT) PO SCH ×2 (11:19→20:35)
[2018-11-16 14:00] VITALS: BP 161/67
[2018-11-16] MEDS: FAMOTIDINE 20 MG TAB PO SCH (20:35)
[2018-11-16 22:00] VITALS: BP 139/67
[2018-11-17 06:00] VITALS: BP 156/81
[2018-11-17 06:50] LABS: HEMATOCRIT 31.4 % (42.0-52.0); HEMOGLOBIN 10.1 g/dl (13.5-17.5); MEAN CORPUSCULAR HEMOGLOBIN 29.4 pg (27.0-33.0); MEAN CORPUSCULAR HGB CONC 32.2 g/dl (32.0-36.5); MEAN CORPUSCULAR VOLUME 91.5 fl (80.0-96.0); PLATELET COUNT, AUTOMATED 214 10^3/uL (150-450); RED BLOOD COUNT 3.43 10^6/uL (4.30-6.10); WHITE BLOOD COUNT 6.8 10^3/uL (4.0-10.0)
[2018-11-17 07:15] LABS: BLOOD UREA NITROGEN 10 MG/DL (7-18); CALCIUM LEVEL 8.2 MG/DL (8.8-10.2); CARBON DIOXIDE LEVEL 26 MEQ/L (21-32); CHLORIDE LEVEL 109 MEQ/L (98-107); CREATININE FOR GFR 0.84 MG/DL (0.70-1.30); GLOMERULAR FILTRATION RATE > 60.0 (>35); GLUCOSE, FASTING 133 MG/DL (70-100); POTASSIUM SERUM 3.7 MEQ/L (3.5-5.1); SODIUM LEVEL 143 MEQ/L (136-145)
[2018-11-17] MEDS: SENNA 8.6 MG TAB (SENOKOT) PO SCH (08:15)
[2018-11-17] MEDS: TAMSULOSIN 0.4 MG CAP PO SCH (08:15)
[2018-11-17] MEDS: ENOXAPARIN 40 MG/0.4 ML SYRINGE (J1650) SC SCH (08:15)
[2018-11-17 14:00] VITALS: BP 186/86
--- NOTE | 2018-11-17 15:03 | IPNPDOC ---
Subjective General Date/Time Seen The patient was seen on 11/17/18 at 14:52. Subject Chief Complaint/History The patient is a 83-year-old male admitted with a reason for visit of Lymphoma Of Small Intestines, Intestinal Fistula. Patient is examined at bedside today. He reported that he is tolerating PO regular diet well. He reported that he has been passing gas and has been having watery to soft bowel movement. Denies any nausea, vomiting, fever, chills, or abdominal pain. Current Medications Current Medications Current Medications Acetaminophen/ Hydrocodone Bitart ([place], Anexsia 5/325) 1 tab Q4HP PRN PO MODERATE PAIN (PS 5-7); Start 11/13/18 at 11:00 Acetaminophen/ Hydrocodone Bitart ([place], Anexsia 5/325) 2 tab Q6HP PRN PO SEVERE PAIN (PS 8-10); Start 11/13/18 at 11:00 Alvimopan (Entereg) 12 mg BID PO Last administered on 11/15/18at 21:02; Start 11/13/18 at 21:00; Stop 11/16/18 at 06:56; Status DC Enoxaparin Sodium (Lovenox) 40 mg DAILY SC Last administered on 11/17/18at 08:15; Start 11/14/18 at 09:00 Famotidine (Pepcid) 20 mg QPM PO Last administered on 11/16/18at 20:35; Start 11/13/18 at 21:00 Fentanyl Citrate (Sublimaze) 25 mcg Q5MP PRN IV MODERATE PAIN (PS 4-7); Start 11/13/18 at 11:45; Stop 11/13/18 at 12:45; Status DC Ketorolac Tromethamine (ToRADol) 15 mg Q6HP PRN IV MILD/MODERATE PAIN (PS 1-7) Last administered on 11/13/18at 22:34; Start 11/13/18 at 11:00; Stop 11/18/18 at 10:59 Lactated Ringer's 1,000 ml @ 50 mls/hr Q20H IV ; Start 11/13/18 at 11:45; Stop 11/13/18 at 12:45; Status DC Lactated Ringer's 1,000 ml @ 100 mls/hr Q10H IV Last administered on 11/15/18at 21:02; Start 11/13/18 at 10:53; Stop 11/16/18 at 06:56; Status DC Lidocaine HCl (LIDOCAINE 1% MDV 20ml) 0.1 ml ONCE PRN SQ DISCOMFORT BEFORE IV START; Start 11/13/18 at 06:00; Stop 11/16/18 at 08:46; Status DC Morphine Sulfate (Morphine Sulfate Inj) 2 mg Q2HP PRN IV MODERATE PAIN; Start 11/13/18 at 11:00 Morphine Sulfate (Morphine Sulfate Inj) 2 mg Q5M PRN IV MODERATE/SEVERE PAIN (PS 5-10); Start 11/13/18 at 11:45; Stop 11/13/18 at 12:45; Status DC Morphine Sulfate (Morphine Sulfate Inj) 4 mg Q2HP PRN IV SEVERE PAIN (PS 8-10); Start 11/13/18 at 11:00 Ondansetron HCl (ZOFRAN INJection) 4 mg Q4HP PRN IV NAUSEA OR VOMITING; Start 11/13/18 at 11:45; Stop 11/13/18 at 12:45; Status DC Ondansetron HCl (ZOFRAN INJection) 4 mg Q6HP PRN IV NAUSEA OR VOMITING Last administered on 11/14/18at 04:14; Start 11/13/18 at 11:00 Oxycodone/ Acetaminophen (Percocet 5mg/ 325mg Tablet) 1 tab ASDIRECTED PRN PO MILD/MODERATE PAIN (PS 1-7); Start 11/13/18 at 11:45; Stop 11/13/18 at 12:45; Status DC Polyethylene Glycol (Miralax) 1 pkt DAILY PO Last administered on 11/15/18at 08:51; Start 11/15/18 at 09:00; Stop 11/16/18 at 06:56; Status DC Senna (Senokot) 1 tab BID PO Last administered on 11/17/18 08:15; Start 11/16/18 at 09:00 Tamsulosin HCl (Flomax) 0.4 mg QAM PO Last administered on 11/17/18 08:15; Start 11/14/18 at 09:00 Allergies Coded Allergies: Lisinopril (Unverified Allergy, Mild, ITCHING, 11/13/18) Objective Physical Examination Examination GENERAL APPEARANCE:Patient seen, laying in bed, awake, alert, and oriented. Comfortable, in no acute distress. SKIN: Warm and moist. HEENT: Normocephalic, atraumatic. [place] palpebral conjunctiva, anicteric scl erae. Lips and mucosa appear moist. NECK: Supple. No obvious jugular venous distention. LUNGS: Clear to auscultation bilaterally. No wheezing appreciated. HEART: No chest wall abnormalities. Regular rate and rhythm with no murmurs appreciated. ABDOMEN: Abdomen is soft, mildly distended. No umbilical herniations. No noticeable rebound tenderness. 2-3 cm open wound noted in right abdomen with packing inside, mild amount of fluid noted in packing, no obvious sign of infection. Other incisions are closed, with abhi noted; no obvious signs of infection]. EXTREMITIES: Radial pulse equal bilaterally, no obvious cyanosis. Vital Signs Vital Signs Date Time Temp Pulse Resp B/P (MAP) Pulse Ox O2 Delivery O2 Flow Rate FiO2 11/17/18 06:00 98.9 77 20 156/81 (106) 95 11/14/18 21:00 2.0 I&Os I&O- Last 24 Hours up to 6 AM 11/17/18 06:00 Intake Total 1450 ml Output Total 0 ml Balance 1450 ml Laboratory Data Labs 24H Laboratory Tests 2 11/17/18 06:15: Nucleated Red Blood Cells % (auto) 0.0, Anion Gap 8, Glomerular Filtration Rate > 60.0, Blood Urea Nitrogen 10, Creatinine 0.84, Sodium Level 143, Potassium Level 3.7, Chloride Level 109H, Carbon Dioxide Level 26, Calcium Level 8.2L CBC/BMP Laboratory Tests 11/17/18 06:15 Red Blood Count 3.43 L, Mean Corpuscular Volume 91.5, Mean Corpuscular Hemoglobi n 29.4, Mean Corpuscular Hemoglobin Concent 32.2, Red Cell Distribution Width 13.5, Calcium Level 8.2 L Impression Ileus expected post-operation of small intestine resection. 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 Appendix with no pathologic changes. No atypia or malignancy noted. Patient tolerating PO regular diet well. Zofran PRN and pain control. Abdomen mildly distended, much improved from yesterday. Hg initially dropped likely secondary to bleeding and hemodilutional effect, increasing, at 10.1 compared to 9.2 ye sterday. D/c senokot as patient is having diarrhea. Continue to monitor the patient as patient still has some weakness while walking with walker and has watery diarrhea. Anticipate for discharge tomorrow. Plan / VTE VTE Prophylaxis Ordered?: Yes (lovenox SC) Plan / Urinary Catheter Urinary Catheter: D/C TREASURE Holdne DO Nov 17, 2018 15:03 TAMRA IBANEZ MD Dec 06, 2018 08:54
[2018-11-17] MEDS: FAMOTIDINE 20 MG TAB PO SCH (20:21)
[2018-11-17 22:00] VITALS: BP 160/76
[2018-11-18 06:00] VITALS: BP 160/80
[2018-11-18] MEDS: TAMSULOSIN 0.4 MG CAP PO SCH (08:09)
[2018-11-18] MEDS: ENOXAPARIN 40 MG/0.4 ML SYRINGE (J1650) SC SCH (08:10)
[2018-11-18] MEDS ORDERED: NORCOTAB PO (10:26)
--- NOTE | 2018-12-06 09:00 | DS.PDOC ---
Discharge Summary General Date of Admission Nov 13, 2018 at 06:13 Date of Discharge November 18, 2018 Attending Physician: TAMRA IBANEZ MD Discharge Summary PROCEDURES PERFORMED DURING STAY: Laparoscopic assisted takedown of enterocutaneous fistula, small bowel resection, debridement of abdominal wall wound ADMITTING DIAGNOSES: 1. 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 History of atrial fibrillation not on anticoagulation. DISCHARGE DIAGNOSES: 1. 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 2. 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 History of atrial fibrillation, not on any anticoagulation 4. Postoperative ileus resolved 5. Right lower quadrant abdominal wall wound healing COMPLICATIONS/CHIEF COMPLAINT: Lymphoma Of Small Intestines, Intestinal Fistula. HISTORY OF PRESENT ILLNESS: Patient was brought to the operating room for sushila edown of his enterocutaneous fistula resulting from a large B-cell lymphoma involving his small intestine. He has finished his chemotherapy course without any complications.. HOSPITAL COURSE: Patient was brought to the operating room for an elective taked own of his enterocutaneous fistula. He underwent small bowel resection with anastomosis. The right lower quadrant wound was debridement. He tolerated procedure well. He was admitted to the medical surgical floor. He was started on clear liquids which she initially did not tolerate. His abdomen was distended on the first anus multiple episodes of vomiting. He is then made nothing by mouth. He did not have much abdominal pain postoperatively. The ileus is to have lysed and after a few days he was able to pass flatus spontaneously and even have loose bowel movements. He was then restarted on clear liquids which he now tolerated. This is about postoperative day 3. He was given a dose of MiraLAX [place] move his bowels. He had several bowel movements after. He continued to do well. He is ambulating initially with a walker then by himself. He has advanced to regular diet and subsequently discharged home tolerating regular foods and having bowel movements. He has an open right lower quadrant wound that is being packed with iodoform gauze. A visiting nurse was set up to help with postoperative wound care.. DISCHARGE MEDICATIONS: Please see below. ALLERGIES: Please see below. PHYSICAL EXAMINATION ON DISCHARGE: VITAL SIGNS: Please see below. GENERAL: Comfortable HEENT: [place] palpebral conjunctiva, anicteric sclerae NECK: Supple no jugular venous distention CARDIOVASCULAR EXAMINATION: Regular heart rate and rhythm, no murmurs RESPIRATORY EXAMINATION: Clear breath sounds auscultation bilaterally no wheezing ABDOMINAL EXAMINATION: Round, soft, minimally distended. Episodic port sites and paraumbilical vertical incision site with abhi intact, clean dry and intact. Nontender on palpation EXTREMITIES: No extremity edema SKIN: No skin rashes. Open abdominal wall wound in the right lower quadrant area, clean no purulent drainage NEUROLOGICAL EXAMINATION: Awake, alert, oriented LABORATORY DATA: Please see below. IMAGING: None during this admission PROGNOSIS: Good ACTIVITY: Light activity 2-4 weeks. DIET: Regular is tolerated DISCHARGE PLAN: Patient is to be discharged home. Daily wound packing with iodoform cause until evaluated by me in the outpatient setting. Follow-up with me next week for removal of abhi DISPOSITION: Home Health Service. DISCHARGE INSTRUCTIONS: 1. As above 2. Follow-up next week in the clinic for removal of abhi. ITEMS TO FOLLOWUP ON ON OUTPATIENT: 1. Pathology results. DISCHARGE CONDITION: Stable. TIME SPENT ON DISCHARGE: Greater than 30 minutes. Discharge Medications Scheduled Aspirin (Aspirin) 325 Mg Tab, 325 MG PO DAILY for fever, (Reported) Bisacodyl (Dulcolax) 5 Mg Tab, 5 MG PO DAILY, (Reported) Famotidine (Famotidine) 20 Mg Tab, 20 MG PO QPM, (Reported) Furosemide (Furosemide) 40 Mg Tab, 40 MG PO QAM, (Reported) Metformin Hydrochloride (Metformin HCl ER) 500 Mg Tab, 500 MG PO QPM, (Reported) Tamsulosin Hydrochloride (Flomax) 0.4 Mg Cap, 0.4 MG PO QAM, (Reported) Scheduled PRN Acetaminophen/Hydrocodone ([place], Anexsia 5/325) 1 Tab Tab, 1 TAB PO Q6HP PRN for MODERATE PAIN (PS 5-7) Allergies Coded Allergies: Lisinopril (Unverified Allergy, Mild, ITCHING, 11/13/18) TAMRA IBANEZ MD Dec 06, 2018 09:00
== END 2018-11-18 13:48 | disposition home health service (06) | DRG 330 ==
LOC: M OR 06:13 → M MSPAV 12:21
PROVIDERS: ADMIT Surgery; ATTEND Surgery
PROC: 0DB84ZZ Excision of Small Intestine, Percutaneous Endoscopic Approach (ICD-10-PCS; principal; 2018-11-13 07:30)
PROC: 0WQF4ZZ Repair Abdominal Wall, Percutaneous Endoscopic Approach (ICD-10-PCS; 2018-11-13 07:30)
DX: K63.2 Fistula of intestine (principal); C85.13 Unspecified B-cell lymphoma, intra-abdominal lymph nodes; K91.89 Other postprocedural complications and disorders of digestive system; K56.7 Ileus, unspecified; I48.91 Unspecified atrial fibrillation; Z79.899 Other long term (current) drug therapy; Z88.8 Allergy status to other drugs, medicaments and biological substances

== ENCOUNTER → 2019-01-02 | Outpatient (CLI) | payer MEDICARE ==
[~2019-01-02] MED LIST changes: -ALVIMOPAN 12 MG CAPSULE (ENTEREG) PO ONE; -ASPI1TAB PO; +ASPI81TA26 PO; +HYDR-2541 PO; +HYDR-3715 PO; -HYDR25TAB PO; -LIDOCAINE 1% MDV 20ML VIAL SQ PRN
--- NOTE | 2019-01-02 11:29 | REP ---
PET/CT: HISTORY: Restaging diffuse B-cell lymphoma. Small bowel involvement with a history of enterocutaneous fistula. COMPARISONS: Comparison PET/CT study May 30, 2018. Comparison CT abdomen and pelvis October 27, 2018. TECHNIQUE: 55 minutes following the intravenous injection of a 8.74 a mCi dose of F-18 FDG, three-dimensional PET scintigraphy is acquired from the skull base to the proximal thighs. Triplanar noncontrast CT scanning is acquired through the same anatomic range for attenuation correction, and image registration with scan parameters optimized to minimize radiation exposure to the patient. PET scintigraphy and CT datasets were fused and displayed on a workstation with multiplanar and projection display capability. PET/CT FINDINGS: Today's PET/CT is dramatically improved. The previously noted hypermetabolic foci seen in the right nasolacrimal duct, the inferior lingular segment bronchus of the left upper lobe, and the right testicle are all resolved. Today's study demonstrates normal appearing gastrointestinal mucosal uptake in the colon and small intestine. There is a focal area of deficiency in the right lower quadrant subcutaneous fat which was the area where the previous PET/CT showed a large amount of hypermetabolic and mass effect and infiltration. No definite abdominal wall hypermetabolic uptake is seen here or elsewhere on today's PET/CT. No new [place] hypermetabolic uptake is seen. A right inguinal hernia containing a portion of the urinary bladder is again seen. No abnormal hypermetabolic uptake is seen in the chest or in the head and neck soft tissues. A right-sided [id number] catheter is seen. IMPRESSION: Negative PET scintigraphy. Today's study is dramatically improved from the prior exam. Electronically Signed by Yury Gregorio MD 01/02/2019 01:02 P
== END ==
LOC: M PLARAD 07:37
PROVIDERS: ATTEND Internal Medicine Hematology & Oncology
DX: Z85.72 Personal history of non-Hodgkin lymphomas (principal); K40.90 Unilateral inguinal hernia, without obstruction or gangrene, not specified as recurrent
CPT/HCPCS: 78815; A9552

== ENCOUNTER → 2019-03-14 | Outpatient (REF) | payer MEDICARE ==
[~2019-03-14] MED LIST changes: +ASPI-524 PO; -ASPI1TAB20 PO
[2019-03-14 16:36] LABS: CALCIUM LEVEL 9.1 MG/DL (8.8-10.2); CREATININE FOR GFR 1.49 MG/DL (0.70-1.30); GLOMERULAR FILTRATION RATE 47.9 (>35); POTASSIUM SERUM 4.5 MEQ/L (3.5-5.1)
[2019-03-14 17:07] LABS: BASO # 0.1 10^3/uL (0.0-0.2); BASO % 0.7 % (0.0-1.0); EOS # 0.1 10^3/uL (0.0-0.50); EOS % 0.8 % (0.0-3.0); HEMATOCRIT 40.9 % (42.0-52.0); HEMOGLOBIN 12.6 g/dl (13.5-17.5); LYMPH # 1.6 10^3/uL (1.5-4.5); LYMPH % 21.9 % (24.0-44.0); MEAN CORPUSCULAR HEMOGLOBIN 24.3 pg (27.0-33.0); MEAN CORPUSCULAR HGB CONC 30.8 g/dl (32.0-36.5); MEAN CORPUSCULAR VOLUME 78.8 fl (80.0-96.0); MONO % 13.7 % (0.0-5.0); NEUTROPHILS # 4.4 10^3/uL (1.8-7.7); NEUTROPHILS % 62.3 % (36.0-66.0); PLATELET COUNT, AUTOMATED 385 10^3/uL (150-450); RED BLOOD COUNT 5.19 10^6/uL (4.30-6.10); WHITE BLOOD COUNT 7.1 10^3/uL (4.0-10.0)
== END ==
LOC: M SFHCCLAY 09:57
PROVIDERS: ATTEND Family Medicine
DX: Z01.818 Encounter for other preprocedural examination (principal); I10 Essential (primary) hypertension
CPT/HCPCS: 36415; 80048; 85025; G0463

== ENCOUNTER 2019-03-19 10:14 | Day surgery (SDC) | payer MEDICARE ==
[~2019-03-19] VITALS: Ht 175.3 cm; Wt 93.9 kg
[~2019-03-19 10:14] MED LIST changes: -ASPI-524 PO; +ASPI1TAB20 PO; +BUPIVACAINE HCL 0.25% 30 ML VIAL As Ordered ONE; +LIDOCAINE 1% SDV INJ 30 ML VIAL As Ordered ONE; +LR 1,000 ML IV ONE
[2019-03-19] MEDS ORDERED: LIDOCAINE 2% INJ 100 MG/5 ML SDV (FOR ANES.) As Ordered ONE (11:42)
[2019-03-19] MEDS ORDERED: ROCURONIUM BROMIDE 50 MG/5 ML VIAL As Ordered ONE ×3 (11:42→14:32)
[2019-03-19] MEDS ORDERED: PROPOFOL 200 MG/20 ML VIAL As Ordered ONE (11:42)
[2019-03-19] MEDS ORDERED: KETOROLAC 60 MG/2 ML VIAL (J1885) As Ordered ONE (11:44)
[2019-03-19] MEDS ORDERED: ONDANSETRON 4MG/2ML VIAL (J2405) As Ordered ONE (11:44)
[2019-03-19] MEDS ORDERED: dexameTHASONE 4 MG/ML 1ML VIAL (J1100) As Ordered ONE (11:44)
[2019-03-19] MEDS ORDERED: MIDAZOLAM INJ 2 MG/2 ML VIAL (J2250) As Ordered ONE (11:46)
[2019-03-19] MEDS ORDERED: fentaNYL 250 MCG/5 ML INJECTION (J3010) As Ordered ONE (11:46)
[2019-03-19] MEDS ORDERED: KETAMINE HCL 200 MG/20 ML VIAL As Ordered ONE ×2 (13:25→13:51)
[2019-03-19] MEDS ORDERED: SUGAMMADEX SODIUM 500 MG/5 ML VIAL (BRIDION) As Ordered ONE (14:03)
[2019-03-19] MEDS ORDERED: HYDROmorphone HCL 2 MG/ML 1ML VIAL (J1170) As Ordered ONE (15:01)
[2019-03-19] MEDS ORDERED: fentaNYL 100 MCG/2 ML INJECTION (J3010) IV PRN (16:30)
[2019-03-19] MEDS ORDERED: LR 1,000 ML IV SCH (16:30)
[2019-03-19] MEDS ORDERED: PERCOCET 5MG/325MG TAB PO PRN (16:30)
[2019-03-19] MEDS ORDERED: ONDANSETRON 4MG/2ML VIAL (J2405) IV PRN ×2 (16:30)
[2019-03-19] MEDS ORDERED: NORCO, ANEXSIA 5/325MG TABLET (HYDROcodone/ACETAMINOPHEN) PO PRN ×2 (16:30)
[2019-03-19] MEDS ORDERED: MEPERIDINE INJ 25 MG/ML VIAL (J2175) IV PRN (16:30)
[2019-03-19] MEDS ORDERED: METOCLOPRAMIDE INJ 10MG/2ML VIAL (J2765) IV PRN (16:30)
[2019-03-19 20:40] VITALS: BP 160/69
--- NOTE | 2019-03-20 07:48 | ECGEPIP ---
[facility] Test Date: 2019-03-19 Pat Name: SKY BERNAL Department: Room: - Gender: Male Special Procedures Nurse: LONNIE : [id number] Requested By: TAMRA Mitchell Order Number: [id number] Reading MD: Roma Palmer Measurements Intervals [place] Rate: 58 P: MO: -1 QRS: QRSD: 145 T: 73 QT: 415 QTc: 408 Interpretive Statements ATRIAL FIBRILLATION WITH SLOW VENTRICULAR RESPONSE MARKED LEFT AXIS DEVIATION - LEFT ANTERIOR HEMIBLOCK RIGHT BUNDLE BRANCH BLOCK HR IS FASTER SINCE 06/29/18, OTHERWISE NO CHANGE Electronically Signed on 03-20-2019 7:48:22 EDT by Roma Palmer
--- NOTE | 2019-03-20 15:25 | ROOPDOC ---
[facility] Report Of Operation Report of Operation DATE OF PROCEDURE: 03/19/19 PREPROCEDURE DIAGNOSES: Large right inguinoscrotal hernia. POSTPROCEDURE DIAGNOSES: Large right indirect inguinoscrotal hernia. PROCEDURE: Robotic-assisted laparoscopic repair of right indirect inguinal hernia with mesh (CAPRI). SURGEON: Hector Corona MD LABORER HOISTING: Ella Epstein, [employer] Mrs. Epstein assisted me with placement of the ports, management of the robot arms, instruments, mesh on the field while I was at the surgeon's console and closure of the incisions. ANESTHESIA: General anesthesia. ESTIMATED BLOOD LOSS: Approximately 50 mL. COMPLICATIONS: none REMARKS: 83-year-old male with long-standing history of a large inguinal scrotal hernia which initially was not giving him any discomfort thus he did not consider repair but has started to bother him. 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 This he started to entertain having . the inguinal hernia repaired. He also has associated moderate diastases of his midline abdominal wal l and incisional hernia from the previous surgery at the midline supraumbilical abdominal wall. PROCEDURE NOTE: Patient has a very protuberant, markedly rounded abdomen, thin abdominal wall with fairly large diastases up to 5 cm on the upper abdomen is ab out a 5 x 3 cm incisional hernia above the umbilicus with a wide neck, thin overlying abdominal wall sac and skin. He has a large inguinal ring defect. He did not have any structures within the canal at the time of surgery though it has been documented in several images of his small bowel, bladder and even: Go in the hernia at multiple points without any incarceration. Large redundant sac that is fibrotic and scarred in to surrounding tissues within the spermatic cord, multiple preperitoneal cord lipomas inside the inguinal canal. The sac has been fully detached from the structures of the inguinal canal and the cord lipomas either fully removed or reduced back in the preperitoneal space. A 10 x 15 cm polyester Parietex Progrip was placed in the preperitoneal space following partial closure of the defect at the internal ring. DESCRIPTION OF PROCEDURE: Patient received 2 g of Ancef IV preoperatively for wound prophylaxis. Patient was brought to the operating room, placed supine on the operating table. Compression boots placed in both lower extremities for DVT prophylaxis. General endotracheal anesthesia started. A tovar catheter placed without difficulty. His abdomen and groin/pelvic area then prepped and draped in the usual sterile fashion. We paused for a surgical timeout using both pre-incision safety checklist to verify correct patient, procedure site and additional clinical info rmation prior to beginning the procedure. I began with a small left upper quadrant incision to insert a Veress needle controlled fashion. Proper placement confirmed with saline drop technique. CO2 insufflation started to pressure of 15 mmHg. He has a protuberant dome shaped abdomen that fully inflated uniformly on pneumoperitoneum. Using the same incision a 5 mm optical port was placed under direct vision of the laparoscope. The area underneath the insertion site was inspected for injury and none was fou nd. Recent diagnostic laparoscopy was performed to confirm the presence of the incisional hernia above the umbilicus roughly measuring 5 x 3 cm. There is a wide defect that spans the margin between the rectus muscles exaggerating the already wide diastases at the area. There is no intra-abdominal structures protruding through the hernia. He was then placed on a Trendelenburg position roughly about 15, tilted slightly towards the left side to visualize the internal opening of the right groin hernia. Under direct vision again placed an 8 mm robotic trocar just outside of the hernia defect on the left side, and two 8 mm robotic working trochars on the left and right side of the abdomen. The da Padmini robot to our was then positioned in between the patient's legs and the trochars docked onto the robot. I then unscrubbed and took control of the camera and the laparoscopic instruments at the surgeon's console. A forced bipolar forceps with bipolar cautery on the left arm and A jennifer-cut laparoscopic scissor with unipolar cautery in the right was used. Operative Findings: He has a fairly large opening of his internal inguinal ring consistent with an indirect inguinal hernia roughly about 4 cm in size and the defect. A very redundant sac and multiple cord lipomas removed during dissection. On entry the whole contents of the hernia has been reduced by both general anesthesia pneumoperitoneum. The peritoneum was opened up about 5 cm above the superior edge of the fascial defect of the inguinal hernia starting at the medial umbilical ligament proceeding laterally towards the level of the anterior superior iliac spine. The preperitoneal space is entered in the peritoneum was bluntly dissected away from the back of the abdominal wall starting laterally moving medially ending in the space of Retzius between the bladder and the pubic tubercle. The preperitoneal dissection was extended partly superiorly but mostly inferiorly towards the iliopubic tract laterally and beyond the Gonzalo's ligament and pubic tubercle inferiorly, past the symphysis pubis medially. The lower flap of the peritoneum was adequately mobilized away from the preperitoneal tissue a couple of centimeters beyond the divergence of the vas deferens and testicular vessels.. On approaching the inguinal hernia defect the hernia sac was circumferentially dissected pulled back into the preperitoneal space and carefully dissected off the testicular vessels and vas deferens. He has a large and redundant inguinal hernia sac which has good amount of fibrotic scaring. He also has some moderate amounts of cord lipoma within the canal and surrounding the spermatic cord structures that needed to be dissected out of the inguinal canal. I continued dissecting until the sac was fully detached and the cord lipoma was reduced back to the preperitoneum. After full reduction of the hernia sac the testicular cord and vessels were further parietalized following their usual anatomic course inferiorly after they diverged in course. The internal ring opening is quite wide and creates a dome-shaped curvature that seems to limit the area where the mesh would adhere and may cause the mesh to be sucked into the concavity. I used 9 inch stratafix barbed suture and narrowed the internal ring opening by apposing the muscles making up the lateral almaz of the internal opening to the inguinal ligament until only a small spaces left to accommodate the spermatic cord structures. This is more to create enough surface area for the mesh to adhere to prevent sucking the mesh into the internal ring and inguinal canal. After enough preperitoneal space was dissected and prepared, he checked for adequate hemostasis. The small amount of bleeding was suctioned off. I chose a 10 x 15 cm Parietex ProGrip self fixating mesh. I had my high school assistant principal trim the inferolateral edge to creare a "skirt" around the iliac vessels to avoid folding. This was folded with the center of the mesh marked for positioning. This was then delivered intra-abdominally through one of the trochars. In a controlled fashion this was positioned into the preperitoneal space with the medial side towards the pubic tubercle and the previously marked center of the mesh abutting the inferior epigastric vessels. The mesh was then carefully infolded and positioned in place with adequate overlap around the internal ring to cover the hernia defect. The mesh has adequate coverage for the direct hernia spaces as well as the femoral hernia space. This was carefully pressed onto the abdominal wall and made sure that it was flattened up. After careful placement of the mesh, the peritoneal opening was then closed with a running suture of 2-0V LOC suture. As the hernia sac was long and redundant I incorporated the hernia sac into the closure of the peritoneum. I then surveyed the abdomen and pelvis for any signs of injury. The pieces of the preperitoneal cord lipoma that was removed was retrieved by my high school assistant principal. Once satisfied I scrubbed back in. The instruments were removed. The abdomen was deflated. All ports were removed. The skin incisions were closed with 4-0 Monocryl in subcuticular fashion. The incisions were covered with Dermabond. The port sites were again infiltrated with local anesthesia. An ilioinguinal nerve block was also performed. HECTOR CORONA MD Mar 20, 2019 15:25
== END 2019-03-19 20:55 | disposition home or self-care (01) ==
LOC: M SDC 10:14
PROVIDERS: ATTEND Surgery
DX: K40.90 Unilateral inguinal hernia, without obstruction or gangrene, not specified as recurrent (principal); K21.9 Gastro-esophageal reflux disease without esophagitis; E11.9 Type 2 diabetes mellitus without complications; I50.9 Heart failure, unspecified; E78.00 Pure hypercholesterolemia, unspecified; I10 Essential (primary) hypertension; N40.0 Benign prostatic hyperplasia without lower urinary tract symptoms; Z79.84 Long term (current) use of oral hypoglycemic drugs; Z79.82 Long term (current) use of aspirin; Z79.899 Other long term (current) drug therapy; Z87.891 Personal history of nicotine dependence
CPT/HCPCS: 49650; 93005; C1781; J0690; J1100; J1170; J1885; J2250; J2405; J3010

== ENCOUNTER → 2019-06-19 | Outpatient (CLI) | payer MEDICARE ==
[~2019-06-19] MED LIST changes: -ASPI1TAB20 PO; +ASPI325T57 PO; -BUPIVACAINE HCL 0.25% 30 ML VIAL As Ordered ONE; -LIDOCAINE 1% SDV INJ 30 ML VIAL As Ordered ONE; -LR 1,000 ML IV ONE
[2019-06-19 13:53] LABS: CREATININE FOR GFR 1.59 MG/DL (0.70-1.30); GLOMERULAR FILTRATION RATE 44.5 (>35)
== END ==
LOC: M LAB 12:43
PROVIDERS: ATTEND Surgery
DX: C83.33 Diffuse large B-cell lymphoma, intra-abdominal lymph nodes (principal); K40.90 Unilateral inguinal hernia, without obstruction or gangrene, not specified as recurrent

== ENCOUNTER → 2019-06-21 | Outpatient (CLI) | payer MEDICARE ==
[~2019-06-21] MED LIST changes: +GASTROGRAFIN SOLUTION 30ML (Q9963) As Ordered ONE; +ISOVUE-370 76% 100ML VIAL (Q9967) As Ordered ONE
--- NOTE | 2019-06-21 17:04 | REP ---
CT of the abdomen pelvis for ventral hernia: Comparison is 10/27/2018. The studies performed without and with IV contrast: After IV contrast, multiphase imaging is performed during the portal venous phase of enhancement and during the delayed equilibrium phase of enhancement. There is a spigelian hernia in the abdominal right lower quadrant containing a loop of colon. There is no bowel strangulation or obstruction. The fistulous tract that was present in this location on the prior study is no longer present. There is diastases in the midline anterior abdominal wall with partial herniation of a small bowel loop in the upper abdomen above the umbilicus. There is no bowel strangulation or obstruction. There is a tiny umbilical hernia containing a loop of small bowel. There is no bowel strangulation or obstruction. The visualized lung may are unremarkable. The hepatic parenchyma, gallbladder, pancreas and spleen are unremarkable except for tiny layering gallbladder calculi versus biliary sludge in the gallbladder fundus, unchanged. The adrenals are unremarkable. There is renal cortical scarring bilaterally anteriorly in the lower pole on the right and laterally in the lower pole on the left. This appears to be a change from the prior study. There is a nonobstructive left renal calculus, unchanged. There is no hydronephrosis on the right on the left. There are no renal masses. There is an abdominal aortic aneurysm measuring up to 3.2 cm in diameter. This measured 3.1 cm previously. There is no periaortic hematoma, mass or adenopathy. There are chronic discogenic changes at the anterior and right lateral margins of the L1-2, L2-3 and L3-4 disc spaces, unchanged from the prior study . There was no hypermetabolic uptake in these discogenic changes on the PET scan dated 01/02/2019. If the patient has lumbar symptoms, consider lumbar MRI for further evaluation. Pelvis: There is no adenopathy or ascites. The pelvic bowel loops are unremarkable. The bladder is unremarkable. The prostate is moderately enlarged. There are prostatic of this. There is a right inguinal hernia containing fat but no bowel. On the prior study there was a small bowel loop within this hernia. This has reduced. However, there is a focal fluid collection within the hernia today as an interval change, measuring 2 cm in diameter. This in combination with the dirty fat suggests there may be inflammatory changes within the herniated fat on the study today. There is bowel anastomosis in the right lower quadrant. This appears to be in the distal ileum and is unchanged from the prior study. Impression: There is a spigelian hernia in the abdominal right lower quadrant as described. There is a midline anterior abdominal wall hernia related to rectus abdominus diastases. There is a small umbilical hernia. There is a right inguinal hernia containing fat but no bowel. The fat within this hernia has a dirty appearance and there is a 2 cm fluid collection within the herniated fat as an interval change. These findings suggests there may be inflammation or infection of the herniated fat. There is no bowel strangulation or obstruction. There has been previous small bowel resection in the distal ileum. This is unchanged. There are lumbar paravertebral lucencies at the disc spaces as described, unchanged, likely chronic discogenic changes. If there are lumbar symptoms, consider MRI for follow up. Electronically Signed by Lucius David MD 06/21/2019 04:56 P
== END ==
LOC: M RAD 12:52
PROVIDERS: ATTEND Surgery
DX: K43.9 Ventral hernia without obstruction or gangrene (principal)
CPT/HCPCS: 74178; Q9963; Q9967

== ENCOUNTER 2019-08-29 07:30 | Inpatient (IN) | payer MEDICARE ==
[~2019-08-29] VITALS: Ht 175.3 cm; Wt 98.9 kg
[~2019-08-29 07:30] MED LIST changes: -GASTROGRAFIN SOLUTION 30ML (Q9963) As Ordered ONE; -ISOVUE-370 76% 100ML VIAL (Q9967) As Ordered ONE; -SIMV20TA2 PO; +SIMV20TA22 PO
[2019-09-26] MEDS ORDERED: LIDOCAINE 1% MDV 20ML VIAL SQ PRN (06:00)
[2019-09-26] MEDS ORDERED: ERTAPENEM SODIUM 1 GM in NS MINI-BAG PLUS 50 ML IV ONE (06:00)
[2019-09-26] MEDS ORDERED: LR 1,000 ML IV SCH ×2 (06:00→18:15)
[2019-09-26 08:21] LABS: INR 1.04; PROTHROMBIN TIME 13.3 SECONDS (11.8-14.0)
[2019-09-26] MEDS ORDERED: fentaNYL 100 MCG/2 ML INJECTION (J3010) As Ordered ONE (08:25)
[2019-09-26] MEDS ORDERED: HYDROmorphone HCL 2 MG/ML 1ML VIAL (J1170) As Ordered ONE (08:25)
[2019-09-26] MEDS ORDERED: ACETAMINOPHEN 1000MG 100ML IV BTL (OFIRMEV) (J0131 PER 10MG) As Ordered ONE (08:25)
[2019-09-26] MEDS ORDERED: LIDOCAINE 2% INJ 100 MG/5 ML SDV (FOR ANES.) As Ordered ONE (08:25)
[2019-09-26] MEDS ORDERED: ROCURONIUM BROMIDE 50 MG/5 ML VIAL As Ordered ONE ×4 (08:25→13:25)
[2019-09-26] MEDS ORDERED: propofoL 200 MG/20 ML VIAL As Ordered ONE (08:25)
[2019-09-26] MEDS ORDERED: MIDAZOLAM INJ 2 MG/2 ML VIAL (J2250) As Ordered ONE (08:25)
[2019-09-26] MEDS ORDERED: SUGAMMADEX SODIUM 500 MG/5 ML VIAL (BRIDION) As Ordered ONE (08:25)
[2019-09-26] MEDS ORDERED: ONDANSETRON 4MG/2ML VIAL (J2405) As Ordered ONE (08:25)
[2019-09-26] MEDS ORDERED: dexameTHASONE 4 MG/ML 1ML VIAL (J1100) As Ordered ONE (08:25)
[2019-09-26] MEDS ORDERED: KETOROLAC 60 MG/2 ML VIAL (J1885) As Ordered ONE (08:25)
[2019-09-26] MEDS ORDERED: BUPIVACAINE HCL 0.25% 30 ML VIAL As Ordered ONE (09:31)
[2019-09-26] MEDS ORDERED: LIDOCAINE 1% SDV INJ 30 ML VIAL As Ordered ONE (09:31)
[2019-09-26] MEDS ORDERED: BUPIVACAINE HCL 0.25% 30 ML VIAL ONE (15:38)
[2019-09-26] MEDS ORDERED: MOM 30ML SUSPENSION UDC PO PRN (18:15)
[2019-09-26] MEDS ORDERED: MORPHINE 2 MG/ML 1ML VIAL (J2270) IV PRN (18:15)
[2019-09-26] MEDS ORDERED: fentaNYL 100 MCG/2 ML INJECTION (J3010) IV PRN (18:15)
[2019-09-26] MEDS ORDERED: HYDROMORPHONE HCL 0.5 MG/ 0.5 ML SYRINGE (J1170 PER 1) IV PRN (18:15)
[2019-09-26] MEDS ORDERED: ONDANSETRON 4MG/2ML VIAL (J2405) IV PRN ×2 (18:15)
[2019-09-26] MEDS ORDERED: ACETAMINOPHEN TAB 650MG DOSE (2X325MG) PO SCH (18:15)
[2019-09-26] MEDS ORDERED: oxyCODONE 5MG TAB PO PRN ×3 (18:15)
[2019-09-26] MEDS ORDERED: KETOROLAC 30 MG/ML VIAL (J1885) IV SCH (18:15)
[2019-09-26] MEDS ORDERED: NALOXONE INJ 0.4 MG/1 ML VIAL (J2310) As Ordered ONE (18:54)
[2019-09-26] MEDS ORDERED: NALOXONE INJ 0.4 MG/1 ML VIAL (J2310) IV ONE (19:00)
[2019-09-26 19:45] VITALS: BP 162/90
[2019-09-26] MEDS: LR 1,000 ML IV SCH (19:52)
[2019-09-26 21:00] VITALS: BP 148/67
[2019-09-26] MEDS: SENOKOT S TAB PO SCH (21:23)
[2019-09-26] MEDS: FAMOTIDINE 20 MG TAB PO SCH (21:23)
[2019-09-26] MEDS: HEPARIN SOD (PORCINE) 5000 UNITS/ML VIAL SC SCH (21:23)
[2019-09-26 21:30] VITALS: BP 140/67
[2019-09-26 22:00] VITALS: BP 141/74
[2019-09-26 23:00] VITALS: BP 151/68
[2019-09-27] VITALS (10 sets, daily range): BP systolic 113–168; BP diastolic 65–83; O2SAT 97–99
--- NOTE | 2019-09-27 02:05 | ROOPDOC ---
[facility] Report Of Operation Report of Operation DATE OF PROCEDURE: 09/26/19 PREPROCEDURE DIAGNOSES: Multiple incisional, ventral hernia, diastases of midline abdominal muscles POSTPROCEDURE DIAGNOSES: Same. PROCEDURE: Robotic-assisted laparoscopic repair of multiple incisional hernia including large midline and right lower quadrant incisional hernia, primary umbilical hernia, plication of diastases , myfoascal release with single side posterior component separation (Robotic enhanced totally extrapreperitoneal (eTEP) access, mika-stoppa repair plus right transversus abdominis release, placement of large retromuscular middleweight polypropylene mesh (30x30 cms) for GPRVS (giant prosthetic reinforcement of the visceral sac) . SURGEON: Hector Corona MD INCOME TAX INVESTIGATOR: ANESTHESIA: General Anesthesia. US guided CAPRI block with exparel and 1/4% marcaine ESTIMATED BLOOD LOSS: Approximately 50 mL. COMPLICATIONS: none, patient extubated though slow to come out of anesthesia REMARKS: 83 M with large suparaumbilical incisional hernia (8x5 cms), right semilunar line incisional hernia (6x6 cms), small 2 cm umbilical hernia, wide diastases (up to 9 cms close to the hernia above umbilicus). PROCEDURE NOTE: 30 x 30 cms parietene midweight polypropylene mesh was placed at the retromuscular space following wide retromuscular dissection, myofascial release with right postrerior component separation (transversus abdominis release) DRAINS LEFT 19 Mirza drain placed at the retromuscular space RIGHT 10 flat LILO at the subcutaneous space DESCRIPTION OF PROCEDURE: Patient received Invanz 1 g IV preoperatively for wound prophylaxis. He was given a dose of heparin 5000 units subcutaneously for DVT prophylaxis. He was brought to the operating room, placed supine on the table. Compression boots were placed on both lower extremities for DVT prophylaxis. Gen. endotracheal anesthesia started. After induction of general anesthesia ultrasound-guided bilateral transabdominal preperitoneal plane blocks (CAPRI) using Exparel and 1/4% Marcaine was done by our anesthesia provider. A Mcmahon catheter placed for urine output monitoring. He was repositioned with his umbilicus at the break of the table and the table was flexed. His left arm was tucked. I mapped the location of the semilunar line using the ultrasound and both sides. The abdomen then widely prepped and draped in the usual sterile fashion.We paused for a surgical timeout using both pre-incision safety checklist to verify correct patient, procedure site and additional clinical information prior to beginning the procedure. The left retrorectus plane was entered under direct vision using a 5 mm Kii flex optical port. Pneumoperitoneum was started to pressure of 15 mmHg. Blunt dissection with both the port and the camera was performed to create adequate space for a second port 8 cm below the left upper quadrant port along the same line at the medial margin of the left semilunar line. An 8 mm port was placed under direct vision. Using this 2 ports further retro-muscular dissection was done inferiorly to create enough space for a third port. The previous 5 mm port was converted to an 8 mm robotic port. I probably had a small tear in the posterior sheath as the space was collapsing on me but were able to maintain adequate visualization. The [employer] Padmini robot tower was positioned in place over the patient's right side and the trochars were docked onto the robot. I used a 8 mm 30 laparoscope pointing up towards, a laparoscopic robotic scissors connected to a monopolar cautery in my right hand and a forced bipolar forceps connected to a bipolar cautery on my left hand for most of the procedure. I then scrubbed in to control of the camera and instruments at the surgeon's console. Due to the limited space, I placed a veress needle over the patients RUQ area to release some of the intra-abdominal pneumoperitoneum and create some space fo r me behind the left rectus muscle. I started the upper midline crossover early by incising the posterior rectus sheath at about 1 cm from the linea alba. The preperitoneal fat tissue was brought down and the right posterior sheath was identified and incised to enter the right retrorectus plane. This created enough space for us and I further developed this plane at the midline and right retrorectus sheath approaching the upper midline incisional defect. As we entered the peritoneum through the upper midline incisional defect the omentum that was adhered to the hernia sac was brought down with sharp dissection. There were no bowels adhered to the sac. This allowed me to visualize also the right semilunar line incisional defect which also had only some minimal omental adhesions in a single loop of bowel was easily reduced back in the abdomen. The retrorectus spaces were further developed connecting the left retrorectus space, midline preperitoneal space underneath the linea alba and right retrorectus space by completing the posterior rectus sheath incisions on both sides of the linea alba and blunt dissection bringing down the posterior rectus sheath up to the semilunar line on the right side which was determined by identification of the neurovascular bundles entering the rectus muscle. After this, I continued developing the midline space inferiorly bringing down the flap of bladder. I was trying to conserve the peritoneum/hernia sac at the right semilunar line defect but this was quite adhered to one another with multiple [place] cheese type configuration consistent with an incisional hernia. I then proceeded with transversus abdominous release by opening up the posterior lamella of the internal oblique fascia overlying the transversus abdominis muscle starting at the upper quadrant medial to the semilunar line medial to the entry point of the neurovascular bundles at that side. The muscles over this area is relatively thin and this was incised and pushed upward away from the transversalis fascia. I then developed the lateral flap with easy blunt dissection after entering the correct pre-transversalis plane. As we approached the right lateral abdominal wall defect of this turn sewer to be quite "sticky" and we had a few holes in the posterior sheath. The muscles (t ransversus abdominis) merges with the scar tissue and the obliques appear from the transversus muscles which then proceeds with a cavernous multisepated sac and externally a thin stretched out overlying skin. Initially it was trying to conserve the sac thinking I could use this to patch the holes have already made in dissecting the posterior sac and peritoneum but due to the degree of scarring, I gave up on conserving the sac as this was quite adhered to both the muscle as well as to the present scar tissue. I accepted the posterior sheath defect dividing the posterior sheath/sac from the rim of the right lateral abdominal wall defect and proceeded with the transversus abdominous release below and above this connecting both points lateral to the posterior sheath defect from the lateral most edge of the semilunar line defect. We developed a plane laterally at the space of [place] but this is also adhered to the presence of previous dissection and mesh from his right inguinal hernia repair previously. I developed this further superiorly to the semilunar line. After developing the preperitoneal flap lateral to the lateral hernia I continued on dissection to further develop the preperitoneal/pre-transversalis plane up to about 8 cm beyond the lateral abdominal wall defect and completed the transversus abdominis release superiorly up to the costal margins, slightly above it. After doing so I turned my attention to the right lateral abdominal wall defect. This measures 6 x 6 cm internally. I upsized my left upper quadrant port to a 12 mm port to accommodate a #1 Starlix suture and started closing the abdominal wall defect lateral to medial in a transverse fashion as this seems to come together better this way. I includes all layers of the muscle and initially part of the hernia sac but the skin overlying the hernia sac was so thin that my senior assistant manager pointed out that my suture was passing over the skin. This after releasing this I just included the different layers of the abdominal wall and left the overlying sac and skin intact for later excision dissection. Gradually decreased the abdominal pressure as much as 7 mmHg to allow for closure of the lateral defect and came up to 10 millimeter mercury pressure after closing the right lateral wall defect selected work on closing the posterior sheath. I then turned my attention to the posterior sheath. Using multiple 20V LOC 9 cm length, I initially closed the defect at the right lateral posterior sheath. As he comes to the midline I started closing the midline posterior sheath defect connecting both right and left posterior sheath. This seems to come together without any tension thus I was encouraged that I do not need a separate transversus abdominis release in the left side to close the posterior sheath defect. After closing the midline posterior sheath and connecting the right lateral posterior sheath closure I searched for smaller holes and closed this with mattress sutures of 3-0 Vicryl. Once I was satisfied that the whole of the posterior sheath is adequately close it and turned my attention to the midline anterior fascial defect as well as the diastases. I used a total of 3 0V LOC, nonabsorbable, 18 inch length and started closing and plicating the diastases below the umbilicus and closing the anterior fascial defect at the umbilicus and above it which measures 8 x 5 cm internally as well as plicating the linea alba to deal with the diastases of the rectus muscle above the umbilicus and along the fascial defect. To be able to accomplished this the intra-abdominal pressure is decreased as low as 6 mmHg at one point. After adequately closing the midline came up back to 8 mmHg pressure. I then measured my space at the posterior sheath and initially fashioned a 35 x 30 cm mesh from a 45 x 30 cm x 18 midweight polypropylene mesh curving the edges to accommodate body habitus. His was rolled in place. I scrubbed back in and converted to laparoscopy at this point. The mesh was introduced to the intramuscular space and unfolded making sure it was flat on the posterior sheath and also adequately covering beyond the right lateral hernia. As I was holding the mesh the left lateral portion of the mesh seems to be holding up toward the site gradually trim the mesh at the lateral edge to make it lay flat and in the end I got roughly a 30 x 30 cm mesh coverage. I used 3 syringes of Tisseel fibrin glue spread throughout the surface area of the mesh to keep this flattened. I then introduced a 19 Mirza drain coming out through the left lower quadrant port and laid on top of the mesh and the preperitoneal space was deflated. I then turned my attention to the thin skin at the right lateral abdominal wall hernia defect. This was excised in the partially released is subcutaneous and skin tissue to allow for closure. I left the 10 flat LILO drain coming out below the incision to drinking any possible seroma or hematoma forming at the area. The incision was then closed in layers with 3-0 Vicryl at the subcutaneous space and 4-0 Monocryl to close the skin incision. The drains were secured to the skin. The port site incisions were closed with 4-0 Monocryl in subcuticular fashion. Dermabond dressings were then placed. Patient was slow to wake up and eventually woke up and was strong enough to be extubated and was extubated and brought to the recovery room in stable condition. HECTOR CORONA MD Sep 27, 2019 02:05
[2019-09-27] MEDS: HEPARIN SOD (PORCINE) 5000 UNITS/ML VIAL SC SCH ×3 (05:44→22:12)
[2019-09-27] MEDS: LR 1,000 ML IV SCH ×2 (05:48→22:17)
[2019-09-27 06:37] LABS: BASO % 0.4 % (0.0-1.0); EOS % 0.4 % (0.0-3.0); HEMATOCRIT 41.3 % (42.0-52.0); HEMOGLOBIN 12.5 g/dl (13.5-17.5); LYMPH # 1.3 10^3/uL (1.5-5.0); LYMPH % 17.4 % (24.0-44.0); MEAN CORPUSCULAR HEMOGLOBIN 30.3 pg (27.0-33.0); MEAN CORPUSCULAR HGB CONC 30.3 g/dl (32.0-36.5); MEAN CORPUSCULAR VOLUME 100.2 fl (80.0-96.0); MONO # 1.1 10^3/uL (0.0-0.8); MONO % 14.3 % (0.0-5.0); NEUTROPHILS # 5.2 10^3/uL (1.5-8.5); PLATELET COUNT, AUTOMATED 187 10^3/uL (150-450); RED BLOOD COUNT 4.12 10^6/uL (4.30-6.10); WHITE BLOOD COUNT 7.7 10^3/uL (4.0-10.0)
[2019-09-27 07:00] LABS: CALCIUM LEVEL 7.9 MG/DL (8.8-10.2); CREATININE FOR GFR 1.55 MG/DL (0.70-1.30); GLOMERULAR FILTRATION RATE 45.8 (>35); POTASSIUM SERUM 4.4 MEQ/L (3.5-5.1)
[2019-09-27] MEDS: SENOKOT S TAB PO SCH ×2 (08:35→22:12)
[2019-09-27] MEDS: TAMSULOSIN 0.4 MG CAP PO SCH (08:35)
[2019-09-27] MEDS: ERTAPENEM SODIUM 1 GM in NS MINI-BAG PLUS 50 ML IV SCH (09:04)
[2019-09-27] MEDS: metFORMIN (GLUCOPHAGE) 500 MG TAB PO SCH (13:04)
--- NOTE | 2019-09-27 13:17 | IPNPDOC ---
Subjective General Date/Time Seen The patient was seen on 09/27/19 at 13:12. Subject Chief Complaint/History The patient is a 83-year-old male admitted with a reason for visit of Complex Ventral/Incisional Hernia. Patient seen sitting up on the chair drinking clear liquids. He denies any significant abdominal pain just some achiness throughout the whole of the abdomen he denies any nausea or vomiting. Nurse reports he is not taking any narcotic pain medication so far. He has clear urine coming out of the Mcmahon cath eter. He feels a little bit unsteady getting up on bed. Current Medications Current Medications Current Medications Medications (Trade) Dose Ordered Sig/Stefania Route PRN Reason Start Time Stop Time Status Last Admin Dose Admin Acetaminophen (Tylenol Tab) 650 mg Q6HP PO 09/26/19 18:15 Ertapenem 1 gm/ Sodium Chloride 50 ml @ 100 mls/hr Q24H IV 09/27/19 10:00 09/27/19 09:04 Famotidine (Pepcid) 20 mg QPM PO 09/26/19 21:00 09/26/19 21:23 Fentanyl Citrate (Sublimaze) 25 mcg Q5MP PRN IV PAIN LEVEL 5-10 09/26/19 18:15 09/26/19 19:15 DC Heparin Sodium (Porcine) (Heparin) 5,000 units Q8H SC 09/26/19 22:00 09/27/19 05:44 Hydromorphone HCl (Dilaudid) 0.4 mg Q5MP PRN IV PAIN LEVEL 4-7 09/26/19 18:15 09/26/19 19:15 DC Ketorolac Tromethamine (ToRADol) 30 mg Q6HP IV 09/26/19 18:15 09/29/19 18:14 Lactated Ringer's 1,000 ml @ 50 mls/hr Q20H IV 09/26/19 18:15 09/26/19 19:15 DC 09/26/19 18:02 Lactated Ringer's 1,000 ml @ 60 mls/hr [id number] IV 09/26/19 19:00 09/27/19 05:48 Lactated Ringer's 1,000 ml @ 100 mls/hr Q10H IV 09/26/19 06:00 09/26/19 15:59 DC 09/26/19 08:45 Lidocaine HCl (LIDOCAINE 1% MDV 20ml) 0.1 ml ONCE PRN SQ DISCOMFORT BEFORE IV START 09/26/19 06:00 09/26/19 18:12 DC Magnesium Hydroxide (Milk Of Magnesia) 30 ml DAILYPRN PRN PO CONSTIPATION 09/26/19 18:15 Metformin HCl (Glucophage) 500 mg DAILY PO 09/27/19 09:00 09/27/19 13:04 Morphine Sulfate (Morphine Sulfate Inj) 2 mg Q4H PRN IV SEVERE PAIN (PS 8-10) 09/26/19 18:15 Ondansetron HCl (ZOFRAN INJection) 4 mg Q4HP PRN IV NAUSEA OR VOMITING 09/26/19 18:15 09/26/19 19:15 DC Ondansetron HCl (ZOFRAN INJection) 4 mg Q6HP PRN IV NAUSEA OR VOMITING 09/26/19 18:15 Oxycodone HCl (Roxicodone, Oxyir) 5 mg ASDIRECTED PRN PO PAIN LEVEL 1-4 09/26/19 18:15 09/26/19 19:15 DC Oxycodone HCl (Roxicodone, Oxyir) 5 mg Q6H PRN PO MILD/MODERATE PAIN (PS 1-7) 09/26/19 18:15 Oxycodone HCl (Roxicodone, Oxyir) 10 mg Q6H PRN PO SEVERE PAIN (PS 8-10) 09/26/19 18:15 Senna/Docusate Sodium (Senokot S) 1 tab BID PO 09/26/19 21:00 09/27/19 08:35 Tamsulosin HCl (Flomax) 0.4 mg QAM PO 09/27/19 09:00 09/27/19 08:35 Allergies Coded Allergies: lisinopril (Verified Adverse Reaction, Mild, itching, 09/10/19) Objective Physical Examination Examination GENERAL APPEARANCE: Patient looks very comfortable not in any cardiorespiratory distress. Slightly weak, slow to extend up from the chair, need support and getting up. SKIN: Warm and dry. HEENT: Normocephalic, atraumatic. [place] palpebral conjunctiva, anicteric sclerae. Lips and mucosa appear dry. LUNGS: Clear to auscultation bilaterally. No wheezing appreciated. HEART: Occasional dropped beats rhythm is slightly irregular rate in the 80s. ABDOMEN: Abdomen is very protuberant abdomen, moderately distended in appearance slight hypoactive bowel sounds. He has 3 port sites over in the left side of the abdomen, a short transverse incision at the right lateral semilunar line inc isional hernia. He is to drains a picture muscular drain in the left side which is putting out light pink serosanguineous fluid. A total of 250 ML's drained yesterday. Abdomen is soft, minimal tender on palpation EXTREMITIES: right UE with more prominent edema, minimal bilater LE edema. Vital Signs Vital Signs Date Time Temp Pulse Resp B/P (MAP) Pulse Ox O2 Delivery O2 Flow Rate FiO2 09/27/19 11:39 3.0 09/27/19 10:00 97.8 72 20 129/65 (86) 98 Nasal Cannula I&Os I&O- Last 24 Hours up to 6 AM 09/27/19 06:00 Intake Total 2725 ml Output Total 530 ml Balance 2195 ml Laboratory Data Labs 24H Laboratory Tests 2 09/27/19 06:11: Immature Granulocyte % (Auto) 0.5, Neutrophils (%) (Auto) 67.0H, Lymphocytes (%) (Auto) 17.4L, Monocytes (%) (Auto) 14.3H, Eosinophils (%) (Auto) 0.4, Basophils (%) (Auto) 0.4, Neutrophils # (Auto) 5.2, Lymphocytes # (Auto) 1.3L, Monocytes # (Auto) 1.1H, Eosinophils # (Auto) 0.0, Basophils # (Auto) 0.0, Nucleated Red Blood Cells % (auto) 0.0, Anion Gap 6L, Glomerular Filtration Rate 45.8, Calcium Level 7.9L 09/27/19 11:31: Bedside Glucose (Misc Panel) 143H CBC/BMP Laboratory Tests 09/27/19 06:11 Impression Postop day 1 after intraoperative course performing a robotic-assisted laparoscopic repair of his multiple incisional hernias using eTEPP access, bilateral retro-muscular dissection, [place] repair and unilateral right transversus abdominis release and placement of 30 x 30 cm polypropylene mesh Overall looks to be doing well. He is quite comfortable and is not using any narcotics. He is slow and unsteady in his feet and PHYSICAL therapy to work with him. His Mcmahon catheter can be discontinued. He is heparin for DVT prophylaxis. I will allow him regular diet. He is on some bowel regimen. He still is moderately distended. He is not having any shortness of breath. Incentive spirometer will be given to palpation with deep breathing exercises. He'll be given 1 dose of Invanz today and this will be discontinued. Continue with drain output monitoring. Anticipate the right subcutaneous drain will be able to be discontinued early in his course. The left retro-muscular drain still has more of a bloody drainage and will continue to monitor this for dental nursing chance that he may go home with the drain in place. He would prefer to stay in the hospital over the weekend if he remains weak and still has to drain. Plan / VTE VTE Prophylaxis Ordered?: Yes Plan / Urinary Catheter Urinary Catheter: D/C TAMRA Ramsey MD Sep 27, 2019 13:17
[2019-09-27] MEDS: FAMOTIDINE 20 MG TAB PO SCH (22:12)
[2019-09-28 01:13] VITALS: O2SAT 92
[2019-09-28 02:00] VITALS: BP 148/76
[2019-09-28] MEDS: HEPARIN SOD (PORCINE) 5000 UNITS/ML VIAL SC SCH ×3 (05:29→21:25)
[2019-09-28 06:00] VITALS: BP 145/74
[2019-09-28 06:17] LABS: BASO % 0.4 % (0.0-1.0); EOS # 0.1 10^3/uL (0.0-0.5); EOS % 0.5 % (0.0-3.0); HEMATOCRIT 39.4 % (42.0-52.0); HEMOGLOBIN 12.2 g/dl (13.5-17.5); MEAN CORPUSCULAR HEMOGLOBIN 30.7 pg (27.0-33.0); MONO # 1.3 10^3/uL (0.0-0.8); MONO % 13.7 % (0.0-5.0); NEUTROPHILS # 6.7 10^3/uL (1.5-8.5); PLATELET COUNT, AUTOMATED 190 10^3/uL (150-450); RED BLOOD COUNT 3.98 10^6/uL (4.30-6.10); WHITE BLOOD COUNT 9.1 10^3/uL (4.0-10.0)
[2019-09-28 06:39] LABS: BLOOD UREA NITROGEN 15 MG/DL (7-18); CALCIUM LEVEL 8.2 MG/DL (8.8-10.2); CARBON DIOXIDE LEVEL 27 MEQ/L (21-32); CHLORIDE LEVEL 106 MEQ/L (98-107); CREATININE FOR GFR 1.17 MG/DL (0.70-1.30); GLOMERULAR FILTRATION RATE > 60.0 (>35); GLUCOSE, FASTING 136 MG/DL (70-100); SODIUM LEVEL 140 MEQ/L (136-145)
[2019-09-28] MEDS: metFORMIN (GLUCOPHAGE) 500 MG TAB PO SCH (08:07)
[2019-09-28] MEDS: ERTAPENEM SODIUM 1 GM in NS MINI-BAG PLUS 50 ML IV SCH (08:07)
[2019-09-28] MEDS: TAMSULOSIN 0.4 MG CAP PO SCH (08:07)
[2019-09-28] MEDS: SENOKOT S TAB PO SCH ×2 (08:07→21:25)
--- NOTE | 2019-09-28 08:14 | IPNPDOC ---
Subjective General Date/Time Seen The patient was seen on 09/28/19 at 08:11. Subject Chief Complaint/History The patient is a 83-year-old male admitted with a reason for visit of Complex Ventral/Incisional Hernia. Patient continues to do well, tolerable discomfort. Hes not using any narcotics. Hes working with PT on strengthening. Appetite fair, no nausea Current Medications Current Medications Current Medications Medications (Trade) Dose Ordered Sig/Stefania Route PRN Reason Start Time Stop Time Status Last Admin Dose Admin Acetaminophen (Tylenol Tab) 650 mg Q6HP PO 09/26/19 18:15 Ertapenem 1 gm/ Sodium Chloride 50 ml @ 100 mls/hr Q24H IV 09/27/19 10:00 09/28/19 08:07 Famotidine (Pepcid) 20 mg QPM PO 09/26/19 21:00 09/27/19 22:12 Fentanyl Citrate (Sublimaze) 25 mcg Q5MP PRN IV PAIN LEVEL 5-10 09/26/19 18:15 09/26/19 19:15 DC Heparin Sodium (Porcine) (Heparin) 5,000 units Q8H SC 09/26/19 22:00 09/28/19 05:29 Hydromorphone HCl (Dilaudid) 0.4 mg Q5MP PRN IV PAIN LEVEL 4-7 09/26/19 18:15 09/26/19 19:15 DC Ketorolac Tromethamine (ToRADol) 30 mg Q6HP IV 09/26/19 18:15 09/29/19 18:14 Lactated Ringer's 1,000 ml @ 50 mls/hr Q20H IV 09/26/19 18:15 09/26/19 19:15 DC 09/26/19 18:02 Lactated Ringer's 1,000 ml @ 60 mls/hr [id number] IV 09/26/19 19:00 09/27/19 22:17 Lactated Ringer's 1,000 ml @ 100 mls/hr Q10H IV 09/26/19 06:00 09/26/19 15:59 DC 09/26/19 08:45 Lidocaine HCl (LIDOCAINE 1% MDV 20ml) 0.1 ml ONCE PRN SQ DISCOMFORT BEFORE IV START 09/26/19 06:00 09/26/19 18:12 DC Magnesium Hydroxide (Milk Of Magnesia) 30 ml DAILYPRN PRN PO CONSTIPATION 09/26/19 18:15 Metformin HCl (Glucophage) 500 mg DAILY PO 09/27/19 09:00 09/28/19 08:07 Morphine Sulfate (Morphine Sulfate Inj) 2 mg Q4H PRN IV SEVERE PAIN (PS 8-10) 09/26/19 18:15 Ondansetron HCl (ZOFRAN INJection) 4 mg Q4HP PRN IV NAUSEA OR VOMITING 09/26/19 18:15 09/26/19 19:15 DC Ondansetron HCl (ZOFRAN INJection) 4 mg Q6HP PRN IV NAUSEA OR VOMITING 09/26/19 18:15 Oxycodone HCl (Roxicodone, Oxyir) 5 mg ASDIRECTED PRN PO PAIN LEVEL 1-4 09/26/19 18:15 09/26/19 19:15 DC Oxycodone HCl (Roxicodone, Oxyir) 5 mg Q6H PRN PO MILD/MODERATE PAIN (PS 1-7) 09/26/19 18:15 Oxycodone HCl (Roxicodone, Oxyir) 10 mg Q6H PRN PO SEVERE PAIN (PS 8-10) 09/26/19 18:15 Senna/Docusate Sodium (Senokot S) 1 tab BID PO 09/26/19 21:00 09/28/19 08:07 Tamsulosin HCl (Flomax) 0.4 mg QAM PO 09/27/19 09:00 09/28/19 08:07 Allergies Coded Allergies: lisinopril (Verified Adverse Reaction, Mild, itching, 09/10/19) Objective Physical Examination Examination GENERAL APPEARANCE:seen sleeping on recliner, comfortable.. SKIN: warm and dry. NECK: Supple, no thyromegaly. No obvious jugular venous distention. LUNGS: Clear to auscultation bilaterally. No wheezing appreciated. HEART: No chest wall abnormalities. Regular rate and rhythm with no murmurs ap preciated. ABDOMEN: Abdomen is moderately protuberant, still looks distended but soft. Right LILO has not output, Left Mirza drain (retromuscular drain) now with just light pink serosanguenous fluid. Minimal tender on palpation EXTREMITIES: minimal LE and UE edema, improved. Vital Signs Vital Signs Date Time Temp Pulse Resp B/P (MAP) Pulse Ox O2 Delivery O2 Flow Rate FiO2 09/28/19 06:00 98.3 62 20 145/74 (97) 92 Room Air 09/27/19 11:39 3.0 I&Os I&O- Last 24 Hours up to 6 AM 09/28/19 06:00 Intake Total 3150 ml Output Total 283 ml Balance 2867 ml Laboratory Data Labs 24H Laboratory Tests 2 09/27/19 11:31: Bedside Glucose (Misc Panel) 143H 09/27/19 21:22: Bedside Glucose (Misc Panel) 130H 09/28/19 05:55: Immature Granulocyte % (Auto) 0.4, Neutrophils (%) (Auto) 74.0H, Lymphocytes (%) (Auto) 11.0L, Monocytes (%) (Auto) 13.7H, Eosinophils (%) (Auto) 0.5, Basophils (%) (Auto) 0.4, Neutrophils # (Auto) 6.7, Lymphocytes # (Auto) 1.0L, Monocytes # (Auto) 1.3H, Eosinophils # (Auto) 0.1, Basophils # (Auto) 0.0, Nucleated Red Blood Cells % (auto) 0.0, Anion Gap 7L, Glomerular Filtration Rate > 60.0, Calcium Level 8.2L CBC/BMP Laboratory Tests 09/28/19 05:55 Impression POD2 robotic assisted laparoscopic repair of multiple incisional hernias, hernando stases (eTEP access, mika stoppa plus right TAR) 30 x 30 cms pp mesh continue with PT d/c ivf dvt prophylaxis will d/c right drain,keep left drain d/c abx MOM x 1 today. incentive spirometer resume lasix (home dose) He would like to recuperate here for the weekend as he needs help with the ambul ation and taking care of the drain and has no help at home. Continue to monitor drain output over the weekend. Usually if less than 30 a day output,would be able to d/c him home without the drain Plan / VTE VTE Prophylaxis Ordered?: Yes Plan / Urinary Catheter Urinary Catheter: D/C TAMRA Ramsey MD Sep 28, 2019 08:14
[2019-09-28 14:00] VITALS: BP 153/74
[2019-09-28] MEDS: FAMOTIDINE 20 MG TAB PO SCH (21:25)
[2019-09-28 22:00] VITALS: BP_SYST 149; BP_SYST 156; BP_DIAS 74
[2019-09-29] MEDS: HEPARIN SOD (PORCINE) 5000 UNITS/ML VIAL SC SCH ×3 (05:25→21:29)
[2019-09-29 06:00] VITALS: BP 143/72
[2019-09-29 06:06] LABS: BASO % 0.3 % (0.0-1.0); EOS # 0.1 10^3/uL (0.0-0.5); EOS % 0.9 % (0.0-3.0); HEMOGLOBIN 12.3 g/dl (13.5-17.5); LYMPH # 0.9 10^3/uL (1.5-5.0); LYMPH % 9.2 % (24.0-44.0); MEAN CORPUSCULAR HEMOGLOBIN 31.5 pg (27.0-33.0); MEAN CORPUSCULAR HGB CONC 32.4 g/dl (32.0-36.5); MEAN CORPUSCULAR VOLUME 97.2 fl (80.0-96.0); MONO # 1.3 10^3/uL (0.0-0.8); MONO % 13.1 % (0.0-5.0); NEUTROPHILS # 7.7 10^3/uL (1.5-8.5); NEUTROPHILS % 75.9 % (36.0-66.0); PLATELET COUNT, AUTOMATED 199 10^3/uL (150-450); RED BLOOD COUNT 3.91 10^6/uL (4.30-6.10); WHITE BLOOD COUNT 10.2 10^3/uL (4.0-10.0)
[2019-09-29 06:27] LABS: BLOOD UREA NITROGEN 13 MG/DL (7-18); CARBON DIOXIDE LEVEL 27 MEQ/L (21-32); CHLORIDE LEVEL 108 MEQ/L (98-107); CREATININE FOR GFR 1.11 MG/DL (0.70-1.30); GLOMERULAR FILTRATION RATE > 60.0 (>35); GLUCOSE, FASTING 169 MG/DL (70-100); POTASSIUM SERUM 3.8 MEQ/L (3.5-5.1); SODIUM LEVEL 142 MEQ/L (136-145)
[2019-09-29] MEDS: SENOKOT S TAB PO SCH ×2 (08:08→21:00)
[2019-09-29] MEDS: TAMSULOSIN 0.4 MG CAP PO SCH (08:08)
[2019-09-29] MEDS: FUROSEMIDE 40 MG TAB PO SCH (08:08)
[2019-09-29] MEDS: metFORMIN (GLUCOPHAGE) 500 MG TAB PO SCH (08:08)
[2019-09-29] MEDS ORDERED: MIRALAX *UNIT DOSE* 17GM PACKET PO ONE (09:15)
[2019-09-29 14:00] VITALS: BP 141/72
--- NOTE | 2019-09-29 15:11 | IPN ---
DATE: 09/29/2019 HISTORY: The patient is now postoperative day #3 from a fairly extensive abdominal hernia procedure by Dr. Corona. This was a robotic-assisted laparoscopic repair of multiple hernias with placement of a large piece of extraperitoneal mesh. The patient has one drain in place still. He reports that he is feeling better daily. He had a bowel movement this morning and is now eating better. Vital signs: Show that he has been afebrile since surgery. His pulse is in the 60s and his blood pressure is in the 140s to low 150s today systolic. Room air oxygen saturations are in the 91-96 range. Intake and output shows that he had 1450 in yesterday with 1860 out. 160 mL was from his drains and this morning he had about 20 mL recorded. His urine output has been excellent. PHYSICAL EXAMINATION: The patient is sitting up in a chair at the bedside. He is alert and appears fairly comfortable. Heart exam shows a regular rhythm. He has bilateral breath sounds that are clear. The abdomen is somewhat protuberant. He has some bruising noted. There are a number of trocar sites that are dressed. The drain is in his left mid to lower abdomen and there is a small amount of bloody fluid in the bulb. He does have bowel sounds present throughout his abdomen. Laboratory studies today show a white count of 10, hemoglobin 12, hematocrit 38 and platelet count of 199,000. Differential count showed 76% neutrophils, 9% lymphocytes and 13% monocytes. His chemistry profile was stable from yesterday with BUN of 13, creatinine 1.1 and glucose of 169. IMPRESSION: The patient is doing fairly well now 3 days postoperative from his extensive hernia repair. He did see physical therapy again this morning and they believe he would benefit from having another several inpatient sessions before discharge as he had difficulty doing stairs. He is taking a diet better. He has one drain in place that we will continue to monitor. PLAN: The patient will continue his physical therapy. He was encouraged to be up ambulating with walker. He can take a diet as tolerated. We will see how he progresses over the next several days. [facility]
[2019-09-29] MEDS: FAMOTIDINE 20 MG TAB PO SCH (21:29)
[2019-09-29 22:00] VITALS: BP 137/65
[2019-09-30 06:00] VITALS: BP 155/77
[2019-09-30] MEDS: HEPARIN SOD (PORCINE) 5000 UNITS/ML VIAL SC SCH ×3 (06:05→22:11)
[2019-09-30 06:26] LABS: BASO % 0.4 % (0.0-1.0); EOS # 0.2 10^3/uL (0.0-0.5); EOS % 2.5 % (0.0-3.0); HEMATOCRIT 38.6 % (42.0-52.0); HEMOGLOBIN 12.2 g/dl (13.5-17.5); LYMPH # 1.1 10^3/uL (1.5-5.0); MEAN CORPUSCULAR HEMOGLOBIN 30.7 pg (27.0-33.0); MEAN CORPUSCULAR HGB CONC 31.6 g/dl (32.0-36.5); MEAN CORPUSCULAR VOLUME 97.2 fl (80.0-96.0); MONO # 1.2 10^3/uL (0.0-0.8); MONO % 14.4 % (0.0-5.0); NEUTROPHILS # 5.6 10^3/uL (1.5-8.5); NEUTROPHILS % 69.1 % (36.0-66.0); PLATELET COUNT, AUTOMATED 208 10^3/uL (150-450); RED BLOOD COUNT 3.97 10^6/uL (4.30-6.10); WHITE BLOOD COUNT 8.1 10^3/uL (4.0-10.0)
[2019-09-30 06:42] LABS: BLOOD UREA NITROGEN 12 MG/DL (7-18); CALCIUM LEVEL 8.1 MG/DL (8.8-10.2); CARBON DIOXIDE LEVEL 27 MEQ/L (21-32); CHLORIDE LEVEL 108 MEQ/L (98-107); CREATININE FOR GFR 1.15 MG/DL (0.70-1.30); GLOMERULAR FILTRATION RATE > 60.0 (>35); GLUCOSE, FASTING 136 MG/DL (70-100); POTASSIUM SERUM 3.4 MEQ/L (3.5-5.1); SODIUM LEVEL 142 MEQ/L (136-145)
[2019-09-30] MEDS: metFORMIN (GLUCOPHAGE) 500 MG TAB PO SCH (08:02)
[2019-09-30] MEDS: TAMSULOSIN 0.4 MG CAP PO SCH (08:02)
[2019-09-30] MEDS: FUROSEMIDE 40 MG TAB PO SCH (08:02)
[2019-09-30] MEDS: SENOKOT S TAB PO SCH ×2 (08:03→19:20)
[2019-09-30 14:00] VITALS: BP 150/71
[2019-09-30 22:00] VITALS: BP 125/61
[2019-09-30] MEDS: FAMOTIDINE 20 MG TAB PO SCH (22:11)
[2019-10-01] MEDS: HEPARIN SOD (PORCINE) 5000 UNITS/ML VIAL SC SCH (05:38)
[2019-10-01 05:39] LABS: BASO # 0.1 10^3/uL (0.0-0.2); BASO % 0.5 % (0.0-1.0); EOS # 0.2 10^3/uL (0.0-0.5); EOS % 2.3 % (0.0-3.0); HEMATOCRIT 38.5 % (42.0-52.0); LYMPH # 1.1 10^3/uL (1.5-5.0); LYMPH % 11.7 % (24.0-44.0); MEAN CORPUSCULAR HEMOGLOBIN 30.5 pg (27.0-33.0); MEAN CORPUSCULAR HGB CONC 31.2 g/dl (32.0-36.5); MEAN CORPUSCULAR VOLUME 97.7 fl (80.0-96.0); MONO # 1.2 10^3/uL (0.0-0.8); MONO % 13.1 % (0.0-5.0); NEUTROPHILS # 6.7 10^3/uL (1.5-8.5); NEUTROPHILS % 71.8 % (36.0-66.0); PLATELET COUNT, AUTOMATED 245 10^3/uL (150-450); RED BLOOD COUNT 3.94 10^6/uL (4.30-6.10); WHITE BLOOD COUNT 9.3 10^3/uL (4.0-10.0)
[2019-10-01 05:58] LABS: BLOOD UREA NITROGEN 15 MG/DL (7-18); CALCIUM LEVEL 7.9 MG/DL (8.8-10.2); CARBON DIOXIDE LEVEL 27 MEQ/L (21-32); CHLORIDE LEVEL 109 MEQ/L (98-107); CREATININE FOR GFR 1.18 MG/DL (0.70-1.30); GLOMERULAR FILTRATION RATE > 60.0 (>35); GLUCOSE, FASTING 155 MG/DL (70-100); POTASSIUM SERUM 3.4 MEQ/L (3.5-5.1); SODIUM LEVEL 143 MEQ/L (136-145)
[2019-10-01 06:00] VITALS: BP 145/71
--- NOTE | 2019-10-01 07:37 | IPNPDOC ---
Subjective General Date/Time Seen The patient was seen on 10/01/19 at 07:36. Subject Chief Complaint/History The patient is a 83-year-old male admitted with a reason for visit of Complex Ventral/Incisional Hernia. Current Medications Current Medications Current Medications Medications (Trade) Dose Ordered Sig/Stefania Route PRN Reason Start Time Stop Time Status Last Admin Dose Admin Acetaminophen (Tylenol Tab) 650 mg Q6HP PO 09/26/19 18:15 Ertapenem 1 gm/ Sodium Chloride 50 ml @ 100 mls/hr Q24H IV 09/27/19 10:00 09/28/19 09:25 DC 09/28/19 08:07 Famotidine (Pepcid) 20 mg QPM PO 09/26/19 21:00 09/30/19 22:11 Fentanyl Citrate (Sublimaze) 25 mcg Q5MP PRN IV PAIN LEVEL 5-10 09/26/19 18:15 09/26/19 19:15 DC Furosemide (Lasix) 40 mg QAM PO 09/29/19 09:00 09/30/19 08:02 Heparin Sodium (Porcine) (Heparin) 5,000 units Q8H SC 09/26/19 22:00 10/01/19 05:38 Hydromorphone HCl (Dilaudid) 0.4 mg Q5MP PRN IV PAIN LEVEL 4-7 09/26/19 18:15 09/26/19 19:15 DC Ketorolac Tromethamine (ToRADol) 30 mg Q6HP IV 09/26/19 18:15 09/29/19 08:16 DC Lactated Ringer's 1,000 ml @ 50 mls/hr Q20H IV 09/26/19 18:15 09/26/19 19:15 DC 09/26/19 18:02 Lactated Ringer's 1,000 ml @ 60 mls/hr [id number] IV 09/26/19 19:00 09/28/19 09:25 DC 09/27/19 22:17 Lactated Ringer's 1,000 ml @ 100 mls/hr Q10H IV 09/26/19 06:00 09/26/19 15:59 DC 09/26/19 08:45 Lidocaine HCl (LIDOCAINE 1% MDV 20ml) 0.1 ml ONCE PRN SQ DISCOMFORT BEFORE IV START 09/26/19 06:00 09/26/19 18:12 DC Magnesium Hydroxide (Milk Of Magnesia) 30 ml DAILYPRN PRN PO CONSTIPATION 09/26/19 18:15 Metformin HCl (Glucophage) 500 mg DAILY PO 09/27/19 09:00 09/30/19 08:02 Morphine Sulfate (Morphine Sulfate Inj) 2 mg Q4H PRN IV SEVERE PAIN (PS 8-10) 09/26/19 18:15 09/29/19 08:16 DC Ondansetron HCl (ZOFRAN INJection) 4 mg Q4HP PRN IV NAUSEA OR VOMITING 09/26/19 18:15 09/26/19 19:15 DC Ondansetron HCl (ZOFRAN INJection) 4 mg Q6HP PRN IV NAUSEA OR VOMITING 09/26/19 18:15 Oxycodone HCl (Roxicodone, Oxyir) 5 mg ASDIRECTED PRN PO PAIN LEVEL 1-4 09/26/19 18:15 09/26/19 19:15 DC Oxycodone HCl (Roxicodone, Oxyir) 5 mg Q6H PRN PO MILD/MODERATE PAIN (PS 1-7) 09/26/19 18:15 Oxycodone HCl (Roxicodone, Oxyir) 10 mg Q6H PRN PO SEVERE PAIN (PS 8-10) 09/26/19 18:15 Senna/Docusate Sodium (Senokot S) 1 tab BID PO 09/26/19 21:00 09/29/19 08:08 Tamsulosin HCl (Flomax) 0.4 mg QAM PO 09/27/19 09:00 09/30/19 08:02 Allergies Coded Allergies: lisinopril (Verified Adverse Reaction, Mild, itching, 09/10/19) Objective Physical Examination Examination GENERAL APPEARANCE:[Patient seen, laying in bed, awake, alert, and oriented. Comfortable, in no acute distress]. SKIN: [Warm and moist]. HEENT: [Normocephalic, atraumatic. [place] palpebral conjunctiva, anicteric sclera e. Lips and mucosa appear moist]. NECK: [Supple, no thyromegaly. No obvious jugular venous distention]. LUNGS: [Clear to auscultation bilaterally. No wheezing appreciated]. HEART: [No chest wall abnormalities. Regular rate and rhythm with no murmurs appreciated]. ABDOMEN: Abdomen is , soft, . [No hepatosplenomegaly. No umbilical or groin herniations, nondistended. No noticeable rebound or guarding. No grimacing with palpation. No rebound tenderness. No masses appreciated]. EXTREMITIES: [Extremities have no deformities. No edema identified]. Vital Signs Vital Signs Date Time Temp Pulse Resp B/P (MAP) Pulse Ox O2 Delivery O2 Flow Rate FiO2 10/01/19 06:00 98.4 54 19 145/71 (95) 95 09/29/19 06:00 Room Air 09/27/19 11:39 3.0 I&Os I&O- Last 24 Hours up to 6 AM 10/01/19 06:00 Intake Total 1855 ml Output Total 105 ml Balance 1750 ml Laboratory Data Labs 24H Laboratory Tests 2 09/30/19 11:44: Bedside Glucose (Misc Panel) 119H 09/30/19 16:53: Bedside Glucose (Misc Panel) 128H 09/30/19 21:06: Bedside Glucose (Misc Panel) 137H 10/01/19 05:22: Immature Granulocyte % (Auto) 0.6, Neutrophils (%) (Auto) 71.8H, Lymphocytes (%) (Auto) 11.7L, Monocytes (%) (Auto) 13.1H, Eosinophils (%) (Auto) 2.3, Basophils (%) (Auto) 0.5, Neutrophils # (Auto) 6.7, Lymphocytes # (Auto) 1.1L, Monocytes # (Auto) 1.2H, Eosinophils # (Auto) 0.2, Basophils # (Auto) 0.1, Nucleated Red Blood Cells % (auto) 0.0, Anion Gap 7L, Glomerular Filtration Rate > 60.0, Calcium Level 7.9L CBC/BMP Laboratory Tests 10/01/19 05:22 Impression POD5 robotic assisted laparoscopic repair of multiple incisional hernias, diastases (eTEP access, mika stoppa plus right TAR) 30 x 30 cms pp mesh He's doing very well Hes been cleared by PT with home services D/C LILO drain D/C Home. Plan / VTE VTE Prophylaxis Ordered?: Yes Plan / Urinary Catheter Urinary Catheter: D/C TAMRA Ramsey MD Oct 01, 2019 07:37
[2019-10-01] MEDS ORDERED: POTASSIUM CHLORIDE 10 MEQ SR TABLET PO ONE (07:45)
[2019-10-01] MEDS: metFORMIN (GLUCOPHAGE) 500 MG TAB PO SCH (08:11)
[2019-10-01] MEDS: SENOKOT S TAB PO SCH (08:11)
[2019-10-01] MEDS: FUROSEMIDE 40 MG TAB PO SCH (08:11)
[2019-10-01] MEDS: TAMSULOSIN 0.4 MG CAP PO SCH (08:11)
--- NOTE | 2019-10-01 15:31 | IPN ---
DATE: 09/30/2019 HISTORY: The patient is today postoperative day number four from an extensive laparoscopic abdominal wall reconstruction with mesh for repair of several larger hernias. He has one drain remaining in place in the abdominal wall. Over the last day, he developed multiple bowel movements with initially some solid stool and then some diarrhea but this seems to be stopping according to the patient. Vital signs show that he is afebrile. His pulse is in the 60s to low 70s and his blood pressure is good. Intake and output show that yesterday he had 1400 in with multiple bowel movements and some urine as well. His drain had 70 mL out yesterday and also 70 mL so far today. PHYSICAL EXAMINATION: The patient is lying quietly in the hospital bed watching football. Heart examination shows a regular rhythm and the lungs are clear. The abdomen is soft today. He has active bowel sounds. There is no undue tenderness. His drain has a small amount of old blood in the tubing and minimal fluid in the bulb. LABORATORY STUDIES: Today showed a white count of 8, hemoglobin 12, hematocrit 39 and a platelet count of 208,000. Differential count showed 69% neutrophils, 13% lymphocytes and 14% monocytes. Chemistry profile showed his potassium was slightly low at 3.4 and his glucose was 136. His fingerstick blood sugars have ranged between 119 and 192 over the last 24 hours. IMPRESSION: The patient is making good progress. He was seen by physical therapy today. He had declined stair training today but apparently did well yesterday. They apparently believe he is ready for return home. PLAN: We will plan on the patient being discharged tomorrow. If his drain has little enough out tomorrow, his drain can be removed before his discharge. Dr. Corona will be back tomorrow and can see the patient and see if he agrees with the plan for discharge.
== END 2019-10-01 12:30 | disposition home or self-care (01) | DRG 354 ==
LOC: M OR 09-26 07:39 → M MSPAV 09-26 19:45
PROVIDERS: ADMIT Surgery; ATTEND Surgery
PROC: 0KNK4ZZ Release Right Abdomen Muscle, Percutaneous Endoscopic Approach (ICD-10-PCS; 2019-09-26)
PROC: 0WQF4ZZ Repair Abdominal Wall, Percutaneous Endoscopic Approach (ICD-10-PCS; 2019-09-26)
PROC: 8E0W4CZ Robotic Assisted Procedure of Trunk Region, Percutaneous Endoscopic Approach (ICD-10-PCS; 2019-09-26)
PROC: 0WUF4JZ Supplement Abdominal Wall with Synthetic Substitute, Percutaneous Endoscopic Approach (ICD-10-PCS; principal; 2019-09-26 09:15)
DX: K43.2 Incisional hernia without obstruction or gangrene (principal); I48.20 Chronic atrial fibrillation, unspecified; C85.80 Other specified types of non-Hodgkin lymphoma, unspecified site; I10 Essential (primary) hypertension; E11.9 Type 2 diabetes mellitus without complications; K42.9 Umbilical hernia without obstruction or gangrene; E78.5 Hyperlipidemia, unspecified; Z79.899 Other long term (current) drug therapy; Z79.82 Long term (current) use of aspirin; M17.0 Bilateral primary osteoarthritis of knee

== ENCOUNTER → 2020-02-12 | Outpatient (CLI) | payer MEDICARE ==
[2020-02-12 11:20] LABS: CREATININE FOR GFR 1.57 MG/DL (0.70-1.30)
== END ==
LOC: M LAB 10:13
PROVIDERS: ATTEND Surgery
DX: Z01.818 Encounter for other preprocedural examination (principal); S31.103D Unspecified open wound of abdominal wall, right lower quadrant without penetration into peritoneal cavity, subsequent encounter

== ENCOUNTER → 2020-02-15 | Outpatient (CLI) | payer MEDICARE ==
[~2020-02-15] MED LIST changes: +LIDOCAINE 1% MDV 20ML VIAL As Ordered ONE; +MIDAZOLAM INJ 2MG/2ML VIAL (J2250 PER 1MG) As Ordered ONE; +ceFAZolin 1GM VIAL (J0690 PER 500MG) As Ordered ONE; +diphenhydrAMINE 50MG/ML VIAL (J1200) As Ordered ONE; +fentaNYL 100 MCG/2 ML INJECTION (J3010) As Ordered ONE
[2020-02-15 13:30] VITALS: BP 151/74
--- NOTE | 2020-02-15 22:28 | IRHP ---
[facility] IR Pre-Procedure H & P General Date of Service: February 15, 2020 Procedure: Same Day Surgery Interval History and Physical I have seen the patient and reviewed last H & P performed within 30 days. There is no significant interval change. History of Present Illness Chief Complaint The patient is a 84-year-old male admitted with a reason for visit of B-Cell Lymphoma Intra-Abd Lymphnodes. PRE-PROCEDURE DIAGNOSIS: lymphoma HEART: normal rate. LUNGS: normal breathing at rest. ASA Classification ASA Classification: III-Severe systemic dis. Mallampati Score: II NPO: Yes Problems with prior sedation: No Obstructive Sleep Apnea: No Plan moderate sedation Allergies Coded Allergies: lisinopril (Verified Adverse Reaction, Mild, itching, 09/10/19) Home Medications Scheduled Aspirin (Aspirin), 325 MG PO DAILY, (Reported) Bisacodyl (Dulcolax), 5 MG PO DAILY, (Reported) Famotidine (Famotidine), 20 MG PO QPM, (Reported) Furosemide (Furosemide), 40 MG PO QAM, (Reported) Metformin HCl (Metformin ER Gastric), 500 MG PO QPM, (Reported) Tamsulosin HCl (Flomax), 0.4 MG PO QAM, (Reported) VS, I&O, 24H, Fishbone Vital Signs/I&O Vital Signs Date Time Temp Pulse Resp B/P (MAP) Pulse Ox O2 Delivery O2 Flow Rate FiO2 02/15/20 13:30 83 20 95 Room Air 02/15/20 11:10 2 02/15/20 09:37 98.8 DENNIS CISNEROS MD February 15, 2020 22:28
--- NOTE | 2020-02-15 22:30 | POST-OPPD ---
Postoperative Procedure Note Date Of Procedure: February 15, 2020 Time Of Procedure: 11:00 PREOPERATIVE DIAGNOSIS: lymphoma. completed therapy POSTOPERATIVE DIAGNOSIS: same FINDINGS: right sided port PROCEDURE: port removed SURGEON: Mahad ANESTHESIA: mod sed ESTIMATED BLOOD LOSS: < 5 ml COMPLICATIONS: none POSTOPERATIVE CONDITION: stable DENNIS CISNEROS MD February 15, 2020 22:30
--- NOTE | 2020-02-18 15:45 | REP ---
IR port removal. IR moderate sedation. Clinical information: Lymphoma. Physician: Dr. Tobin. Procedure: The patient was advised of the benefits, risks and alternatives of the procedure and informed consent was obtained. The time-out was performed with verification of the patient's name, MRN, site of procedure and type of procedure to be performed. The patient was positioned in the supine position on the angiographic table. The site was prepped and draped in the usual sterile fashion. Moderate sedation was performed by the physician including the presence of an independent trained observer who assisted and monitored the patient's level of consciousness and physiologic status. Following the administration of fentanyl and Versed, the physician spent 30 minutes of continuous face to face time with the patient. A switchboard and control room operator radiograph reveals a right-sided port. The soft tissues overlying the port pocket were anesthetized with lidocaine. An incision was made over the port using an 15 blade scalpel in the location of the prior incision. The catheter was then freed with blunt dissection and extracted. Pressure was applied to obtain hemostasis. The port was then freed with blunt dissection and subsequently removed. There are no signs of infection. After hemostasis was achieved, the incision was closed with interrupted deep 2-0 Vicryl sutures and subcuticular Monocryl sutures. The site was cleansed and covered with a sterile dressing. A follow-up radiograph demonstrates complete removal of the port. The patient tolerated the procedure well and was returned to PRU in stable condition. EBL: < 5 ml. Complications: None. Conclusion: 1. Successful explant of a right sided port. 2. No signs of infection. Thank you this referral. Electronically Signed by Akosua Tobin MD 02/18/2020 03:44 P
== END ==
LOC: M IRPRO 09:24
PROVIDERS: ATTEND Internal Medicine Hematology & Oncology
DX: Z45.2 Encounter for adjustment and management of vascular access device (principal); C85.16 Unspecified B-cell lymphoma, intrapelvic lymph nodes; Z88.8 Allergy status to other drugs, medicaments and biological substances; Z79.899 Other long term (current) drug therapy; Z79.82 Long term (current) use of aspirin; Z79.84 Long term (current) use of oral hypoglycemic drugs
CPT/HCPCS: 36590; 99152; 99153; J0690; J1644; J2250; J3010

== ENCOUNTER → 2020-02-26 | Outpatient (CLI) | payer MEDICARE ==
[~2020-02-26] MED LIST changes: +ISOVUE-370 76% 100ML VIAL As Ordered ONE; -LIDOCAINE 1% MDV 20ML VIAL As Ordered ONE; -MIDAZOLAM INJ 2MG/2ML VIAL (J2250 PER 1MG) As Ordered ONE; -ceFAZolin 1GM VIAL (J0690 PER 500MG) As Ordered ONE; -diphenhydrAMINE 50MG/ML VIAL (J1200) As Ordered ONE; -fentaNYL 100 MCG/2 ML INJECTION (J3010) As Ordered ONE
--- NOTE | 2020-02-26 12:22 | REP ---
REASON FOR EXAM: Assess abdominal wall abscess. COMPARISON: Multiple, the latest 06/21/2019. CONTRAST: 100 mL Isovue 370. The lung bases are unchanged. The liver, gallbladder, spleen, pancreas, adrenal glands and kidneys are unchanged showing no evidence of acute disease. There is fatty infiltration of the pancreas status quo. The abdominal aorta and paraaortic regions are unchanged. There is stable 3.1 infrarenal abdominal aortic aneurysm with heavy calcific atherosclerotic change seen involving the abdominal aortic puente. The bowel loops and their mesenteries are essentially unchanged. There is no free fluid or free air. There is descending colon diverticulosis status quo. CT PELVIS: The bowel loops and their mesenteries are essentially unchanged. 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 There is no abdominal wall hernia or abnormal rent. Once again, the puente of the urinary bladder are mildly thickened and there is a tiny urinary bladder ear on the right all stable. Bone window technique throughout the exam shows no significant change in the appearance of the osseous structures. There are degenerative changes status quo. IMPRESSION: Chronic changes as described above. There is no evidence of acute intra-abdominal or intrapelvic disease. Electronically Signed by Ryan Humphrey DO 02/26/2020 02:23 P
== END ==
LOC: M RAD 08:49
PROVIDERS: ATTEND Surgery
DX: L02.211 Cutaneous abscess of abdominal wall (principal); Z48.815 Encounter for surgical aftercare following surgery on the digestive system; S31.103D Unspecified open wound of abdominal wall, right lower quadrant without penetration into peritoneal cavity, subsequent encounter
CPT/HCPCS: 74177; Q9967

== ENCOUNTER → 2020-02-29 | Outpatient (REF) | payer MEDICARE ==
[~2020-02-29] MED LIST changes: -ISOVUE-370 76% 100ML VIAL As Ordered ONE
== END ==
LOC: M LAB REF 18:09
PROVIDERS: ATTEND Dermatology
DX: L81.4 Other melanin hyperpigmentation (principal)
CPT/HCPCS: 11102; 17000; 88305; G0463

== ENCOUNTER → 2020-03-04 | Outpatient (REF) | payer MEDICARE ==
[~2020-03-04] MED LIST changes: -METF-699 PO; +METF-817 PO
== END ==
LOC: M LAB REF 08:40
PROVIDERS: ATTEND Surgery
DX: L02.211 Cutaneous abscess of abdominal wall (principal)

== ENCOUNTER → 2020-08-19 | Outpatient (REF) | payer MEDICARE ==
[2020-08-19 17:39] LABS: HEMOGLOBIN A1c 6.6 %
[2020-08-19 19:00] LABS: MAU/CREAT RATIO 824.3 MCG/MG (0.0-30.0)
== END ==
LOC: M SFHCCLAY 13:36
PROVIDERS: ATTEND Family Medicine
DX: E11.9 Type 2 diabetes mellitus without complications (principal)
CPT/HCPCS: 82043; 83036; G0463

== ENCOUNTER → 2021-09-15 | Outpatient (REF) | payer MEDICARE ==
[~2021-09-15] MED LIST changes: +ASPI-569 PO; -ASPI81TAEC PO; +COVI30VI IM; +FAMO10TA50 PO; -FAMO1TAB25 PO
[2021-09-16 12:05] LABS: HEMOGLOBIN A1c 6.9 %
[2021-09-16 12:11] LABS: CALCIUM LEVEL 9.6 MG/DL (8.8-10.2); CREATININE FOR GFR 1.41 MG/DL (0.70-1.30); GLOMERULAR FILTRATION RATE 50.9 (>35); POTASSIUM SERUM 4.9 MEQ/L (3.5-5.1)
== END ==
LOC: M SFHCCLAY 14:04
PROVIDERS: ATTEND Family Medicine
DX: E11.40 Type 2 diabetes mellitus with diabetic neuropathy, unspecified (principal)

== ENCOUNTER → 2022-01-19 | Outpatient (REF) | payer MEDICARE | LOC: M SFHCDERM 17:10 | PROVIDERS: ATTEND Nurse Practitioner Family | DX: L82.1 Other seborrheic keratosis (principal); C44.321 Squamous cell carcinoma of skin of nose ==

== ENCOUNTER 2022-02-08 18:34 | Emergency (ER) | payer MEDICARE ==
[~2022-02-08] VITALS: Ht 175.3 cm; Wt 97.3 kg
[~2022-02-08 18:34] MED LIST changes: +TAMS1CAP17 PO
[2022-02-09 01:23] LABS: BASO # 0.1 10^3/uL (0.0-0.2); BASO % 0.7 % (0.0-1.0); EOS # 0.1 10^3/uL (0.0-0.5); EOS % 0.8 % (0.0-3.0); HEMATOCRIT 47.2 % (42.0-52.0); HEMOGLOBIN 15.4 g/dl (13.5-17.5); LYMPH # 1.9 10^3/uL (1.5-5.0); MEAN CORPUSCULAR HGB CONC 32.6 g/dl (32.0-36.5); MEAN CORPUSCULAR VOLUME 95.2 fl (80.0-96.0); MONO # 0.9 10^3/uL (0.0-0.8); MONO % 10.3 % (2.0-8.0); NEUTROPHILS % 66.9 % (36.0-66.0); PLATELET COUNT, AUTOMATED 244 10^3/uL (150-450); RED BLOOD COUNT 4.96 10^6/uL (4.30-6.10)
[2022-02-09 01:47] LABS: ALBUMIN 4.1 GM/DL (3.2-5.2); BILIRUBIN,DIRECT 0.2 MG/DL (0.0-0.2); CALCIUM LEVEL 9.2 MG/DL (8.8-10.2); CREATININE FOR GFR 1.49 MG/DL (0.70-1.30); FREE T4 1.02 NG/DL (0.76-1.46); GLOMERULAR FILTRATION RATE 47.6 (>35); POTASSIUM SERUM 4.3 MEQ/L (3.5-5.1); THYROID STIMULATING HORMONE 1.24 uIU/ML (0.358-3.740); TOTAL PROTEIN 7.9 GM/DL (6.4-8.2)
[2022-02-09] MEDS ORDERED: NS 500 ML IV ONE (03:05)
[2022-02-09 05:30] VITALS: BP 168/94
== END 2022-02-09 05:30 | disposition home or self-care (01) ==
LOC: M ED 18:34
DX: R55 Syncope and collapse (principal); I48.91 Unspecified atrial fibrillation; I10 Essential (primary) hypertension; M51.9 Unspecified thoracic, thoracolumbar and lumbosacral intervertebral disc disorder; Z85.79 Personal history of other malignant neoplasms of lymphoid, hematopoietic and related tissues; Z90.49 Acquired absence of other specified parts of digestive tract; Z87.891 Personal history of nicotine dependence; Z79.82 Long term (current) use of aspirin; Z79.899 Other long term (current) drug therapy; Z88.8 Allergy status to other drugs, medicaments and biological substances

== ENCOUNTER → 2022-02-10 | Outpatient (REF) | payer MEDICARE ==
[2022-02-10 17:45] LABS: MAU/CREAT RATIO 513.4 MCG/MG (0.0-30.0)
== END ==
LOC: M SFHCCLAY 15:38
PROVIDERS: ATTEND Family Medicine
DX: E11.40 Type 2 diabetes mellitus with diabetic neuropathy, unspecified (principal)

== ENCOUNTER → 2022-03-09 | Outpatient (REF) | payer MEDICARE ==
[2022-03-09 17:16] LABS: CALCIUM LEVEL 9.2 MG/DL (8.8-10.2); CREATININE FOR GFR 1.48 MG/DL (0.70-1.30); POTASSIUM SERUM 4.1 MEQ/L (3.5-5.1)
[2022-03-09 17:42] LABS: HEMOGLOBIN A1c 6.6 %
== END ==
LOC: M SFHCCLAY 13:59
PROVIDERS: ATTEND Family Medicine
DX: I11.9 Hypertensive heart disease without heart failure (principal); E11.9 Type 2 diabetes mellitus without complications

== ENCOUNTER → 2022-04-15 | Outpatient (REF) | payer MEDICARE ==
[~2022-04-15] MED LIST changes: +SIMV-253 PO; -ZOCO20TA PO
== END ==
LOC: M SFHCDERM 17:33
PROVIDERS: ATTEND Dermatology
DX: Z48.02 Encounter for removal of sutures (principal)

== ENCOUNTER → 2022-09-08 | Outpatient (REF) | payer MEDICARE ==
[2022-09-08 19:14] LABS: CHOLESTEROL RISK RATIO 2.92 (<5); HDL CHOLESTEROL 71.5 MG/DL (>40); LDL CHOLESTEROL 98.1 MG/DL (<100)
[2022-09-08 19:26] LABS: HEMOGLOBIN A1c 6.7 % (4.0-6.0)
== END ==
LOC: M SFHCCLAY 14:12
PROVIDERS: ATTEND Nurse Practitioner Family
DX: E11.9 Type 2 diabetes mellitus without complications (principal); I10 Essential (primary) hypertension; N40.1 Benign prostatic hyperplasia with lower urinary tract symptoms

== ENCOUNTER → 2023-01-31 | Outpatient (CLI) | payer MEDICARE ==
[2023-01-31 12:38] LABS: CALCIUM LEVEL 9.2 MG/DL (8.3-10.6); CREATININE FOR GFR 1.39 MG/DL (0.70-1.30); GLOMERULAR FILTRATION RATE 51.5 (>35); MAGNESIUM LEVEL 1.8 MG/DL (1.8-2.4); POTASSIUM SERUM 4.6 MMOL/L (3.5-5.1)
[2023-01-31 12:45] LABS: HEMATOCRIT 43.5 % (42.0-52.0); HEMOGLOBIN 13.8 g/dl (13.5-17.5); MEAN CORPUSCULAR HEMOGLOBIN 29.7 pg (27.0-33.0); MEAN CORPUSCULAR HGB CONC 31.7 g/dl (32.0-36.5); MEAN CORPUSCULAR VOLUME 93.5 fl (80.0-96.0); PLATELET COUNT, AUTOMATED 277 10^3/uL (150-450); RED BLOOD COUNT 4.65 10^6/uL (4.30-6.10); WHITE BLOOD COUNT 9.4 10^3/uL (4.0-10.0)
== END ==
LOC: M WUC 09:58
PROVIDERS: ATTEND Physician Assistant
DX: I48.92 Unspecified atrial flutter (principal)

== ENCOUNTER → 2023-03-09 | Outpatient (CLI) | payer MEDICARE | LOC: M CLY 11:18 | PROVIDERS: ATTEND Nurse Practitioner Family | DX: M25.562 Pain in left knee (principal) ==

== ENCOUNTER → 2023-03-14 | Outpatient (REF) | payer MEDICARE ==
[2023-03-14 11:53] LABS: BASO # 0.1 10^3/uL (0.0-0.2); BASO % 0.9 % (0.0-1.0); EOS # 0.2 10^3/uL (0.0-0.5); HEMOGLOBIN 13.5 g/dl (13.5-17.5); LYMPH # 1.7 10^3/uL (1.5-5.0); LYMPH % 18.4 % (24.0-44.0); MEAN CORPUSCULAR HEMOGLOBIN 29.7 pg (27.0-33.0); MEAN CORPUSCULAR HGB CONC 32.1 g/dl (32.0-36.5); MEAN CORPUSCULAR VOLUME 92.3 fl (80.0-96.0); MONO # 1.1 10^3/uL (0.0-0.8); MONO % 12.3 % (2.0-8.0); NEUTROPHILS # 6.1 10^3/uL (1.5-8.5); NEUTROPHILS % 65.6 % (36.0-66.0); PLATELET COUNT, AUTOMATED 243 10^3/uL (150-450); RED BLOOD COUNT 4.55 10^6/uL (4.30-6.10); WHITE BLOOD COUNT 9.2 10^3/uL (4.0-10.0)
[2023-03-14 12:23] LABS: ALBUMIN 3.6 G/DL (3.2-5.2); BILIRUBIN,TOTAL 0.6 MG/DL (0.3-1.2); CALCIUM LEVEL 9.5 MG/DL (8.3-10.6); CHOLESTEROL RISK RATIO 2.69 (<5); CREATININE FOR GFR 1.41 MG/DL (0.70-1.30); GLOMERULAR FILTRATION RATE 50.6 (>35); HDL CHOLESTEROL 67.6 MG/DL (>40); NON-HDL-C 114.4 MG/DL; POTASSIUM SERUM 4.4 MMOL/L (3.5-5.1)
[2023-03-14 13:02] LABS: HEMOGLOBIN A1c 7.2 % (4.0-6.0)
== END ==
LOC: M SFHCCLAY 08:10
PROVIDERS: ATTEND Nurse Practitioner Family
DX: N40.1 Benign prostatic hyperplasia with lower urinary tract symptoms (principal); E11.9 Type 2 diabetes mellitus without complications; C85.80 Other specified types of non-Hodgkin lymphoma, unspecified site; I48.21 Permanent atrial fibrillation; K21.9 Gastro-esophageal reflux disease without esophagitis; M89.49 Other hypertrophic osteoarthropathy, multiple sites; I10 Essential (primary) hypertension

== ENCOUNTER → 2023-06-01 | Outpatient (CLI) | payer MEDICARE | LOC: M SOG 07:58 | PROVIDERS: ATTEND Orthopaedic Surgery | DX: M25.562 Pain in left knee (principal); M17.12 Unilateral primary osteoarthritis, left knee ==

== ENCOUNTER → 2023-09-08 | Outpatient (REF) | payer MEDICARE ==
[2023-09-08 18:31] LABS: CREATININE, URINE 115.2 MG/DL
[2023-09-08 18:32] LABS: ALBUMIN 3.2 G/DL (3.2-5.2); BILIRUBIN,TOTAL 0.8 MG/DL (0.3-1.2); CALCIUM LEVEL 9.5 MG/DL (8.3-10.6); CHOLESTEROL RISK RATIO 3.11 (<5); CREATININE FOR GFR 1.35 MG/DL (0.70-1.30); GLOMERULAR FILTRATION RATE 53.2 (>35); HDL CHOLESTEROL 65.9 MG/DL (>40); LDL CHOLESTEROL 112.3 MG/DL (<100); MAU/CREAT RATIO 120.6 MCG/MG (0.0-30.0); NON-HDL-C 139.1 MG/DL; POTASSIUM SERUM 4.4 MMOL/L (3.5-5.1); TOTAL PROTEIN 6.8 G/DL (5.7-8.2)
[2023-09-08 18:34] LABS: HEMOGLOBIN A1c 7.3 % (4.0-6.0)
== END ==
LOC: M SFHCCLAY 14:57
PROVIDERS: ATTEND Nurse Practitioner Family
DX: Z00.00 Encounter for general adult medical examination without abnormal findings (principal); N40.1 Benign prostatic hyperplasia with lower urinary tract symptoms; E11.9 Type 2 diabetes mellitus without complications; C85.80 Other specified types of non-Hodgkin lymphoma, unspecified site; I48.21 Permanent atrial fibrillation; K21.9 Gastro-esophageal reflux disease without esophagitis; M89.49 Other hypertrophic osteoarthropathy, multiple sites; I10 Essential (primary) hypertension

== ENCOUNTER → 2024-04-12 | Outpatient (CLI) | payer MEDICARE ==
[~2024-04-12] MED LIST changes: +DIPH1TAB80 PO; -DIPH2.5T14 PO; -RAMI1CAP22 PO; +RAMI2.5C42 PO
== END ==
LOC: M PLAIMG 12:33
PROVIDERS: ATTEND Nurse Practitioner Family
DX: R01.1 Cardiac murmur, unspecified (principal); I08.3 Combined rheumatic disorders of mitral, aortic and tricuspid valves; I27.20 Pulmonary hypertension, unspecified

== ENCOUNTER 2024-08-08 14:20 | Outpatient (RCR) | payer MEDICARE ==
[2018-07-10 11:15] LABS: HEMATOCRIT 40.9 % (37.0-51.0); HEMOGLOBIN 13.3 g/dl (12.0-18.0); MEAN CORPUSCULAR HEMOGLOBIN 30.6 pg (26.0-32.0); MEAN CORPUSCULAR HGB CONC 32.5 g/dl (31.0-36.0); MEAN CORPUSCULAR VOLUME 94.1 fl (80.0-97.0); NEUTROPHILS # 8.2 10^3/uL (2.0-7.8); NEUTROPHILS % 89.9 % (37.0-92.0); RED BLOOD COUNT 4.35 10^6/uL (4.2-6.3); WHITE BLOOD COUNT 9.1 10^3/uL (4.1-10.9)
[2018-07-10 11:54] LABS: ALBUMIN 4.3 GM/DL (3.5-5.2); ALKALINE PHOSPHATASE 78 U/L (44-147); BLOOD UREA NITROGEN 21 MG/DL (6-20); CALCIUM LEVEL 9.9 MG/DL (8.5-10.2); CARBON DIOXIDE LEVEL 27.5 MEQ/L (23-31); CHLORIDE LEVEL 97 MMOL/L (98-107); CREATININE FOR GFR 1.07 MG/DL (0.90-1.30); GLOMERULAR FILTRATION RATE > 60.0 (>35); GLUCOSE, FASTING 168 MG/DL (70-105); POTASSIUM SERUM 3.9 MMOL/L (3.5-5.1); SODIUM LEVEL 135 MMOL/L (136-145); TOTAL PROTEIN 7.5 GM/DL (6.4-8.3)
[2018-07-10 12:11] VITALS: BP 146/74; O2SAT 96
[2018-07-10] MEDS: SODIUM CHLORIDE 0.9% INJ 10 ML SYR IV PRN (13:05)
[2018-07-12] VITALS (7 sets, daily range): BP systolic 112–135; BP diastolic 52–68; TEMP 97.4–97.8; O2SAT 94–99
[2018-07-12 08:53] LABS: HEMATOCRIT 41.4 % (37.0-51.0); LYMPH % 7.2 % (10.0-58.5); MEAN CORPUSCULAR HGB CONC 31.4 g/dl (31.0-36.0); MEAN CORPUSCULAR VOLUME 95.5 fl (80.0-97.0); NEUTROPHILS # 8.6 10^3/uL (2.0-7.8); NEUTROPHILS % 89.1 % (37.0-92.0); RED BLOOD COUNT 4.34 10^6/uL (4.2-6.3); WHITE BLOOD COUNT 9.7 10^3/uL (4.1-10.9)
[2018-07-12 09:04] LABS: ALBUMIN 4.3 GM/DL (3.5-5.2); ALKALINE PHOSPHATASE 69 U/L (44-147); BLOOD UREA NITROGEN 26 MG/DL (6-20); CALCIUM LEVEL 9.5 MG/DL (8.5-10.2); CARBON DIOXIDE LEVEL 30 MEQ/L (23-31); CHLORIDE LEVEL 95 MMOL/L (98-107); CREATININE FOR GFR 1.28 MG/DL (0.90-1.30); GLOMERULAR FILTRATION RATE 57.3 (>35); GLUCOSE, FASTING 139 MG/DL (70-105); SODIUM LEVEL 135 MMOL/L (136-145); TOTAL PROTEIN 7.4 GM/DL (6.4-8.3)
[2018-07-12] MEDS: diphenhydrAMINE 50 MG PO PO SCH (09:45)
[2018-07-12] MEDS: FOSAPREPITANT PERIPHERAL LINE 30 MIN INFUSION (PREMIX) IV ONE (09:45)
[2018-07-12] MEDS: PALONOSETRON 250 MCG IV IV ONE (09:45)
[2018-07-12] MEDS: ACETAMINOPHEN 650 MG PO PO SCH (09:46)
[2018-07-12] MEDS: dexameTHASONE 20 MG IV IV ONE (09:46)
[2018-07-12] MEDS: riTUXimab (SUBSEQUENT INFUSIONS) IV ONE (10:28)
[2018-07-12] MEDS: [UNRECOGNIZED DRUG - REMARK] IV ONE (14:19)
[2018-07-12] MEDS: VINCRISTINE SULFATE IV ONE (14:19)
[2018-08-02 08:10] VITALS: BP 148/76; TEMP 97.4; O2SAT 99
[2018-08-02 08:18] LABS: HEMATOCRIT 39.4 % (37.0-51.0); HEMOGLOBIN 12.6 g/dl (12.0-18.0); LYMPH % 12.5 % (10.0-58.5); MEAN CORPUSCULAR HEMOGLOBIN 30.6 pg (26.0-32.0); MEAN CORPUSCULAR VOLUME 95.7 fl (80.0-97.0); NEUTROPHILS # 7.3 10^3/uL (2.0-7.8); NEUTROPHILS % 79.2 % (37.0-92.0); RED BLOOD COUNT 4.12 10^6/uL (4.2-6.3); WHITE BLOOD COUNT 9.2 10^3/uL (4.1-10.9)
[2018-08-02 08:27] LABS: ALKALINE PHOSPHATASE 85 U/L (44-147); BLOOD UREA NITROGEN 19 MG/DL (6-20); CALCIUM LEVEL 9.6 MG/DL (8.5-10.2); CARBON DIOXIDE LEVEL 30 MEQ/L (23-31); CHLORIDE LEVEL 99 MMOL/L (98-107); CREATININE FOR GFR 1.16 MG/DL (0.90-1.30); GLOMERULAR FILTRATION RATE > 60.0 (>35); GLUCOSE, FASTING 180 MG/DL (70-105); POTASSIUM SERUM 3.5 MMOL/L (3.5-5.1); SODIUM LEVEL 135 MMOL/L (136-145); TOTAL PROTEIN 7.1 GM/DL (6.4-8.3)
[2018-08-02] MEDS: dexameTHASONE 20 MG IV IV ONE (09:25)
[2018-08-02] MEDS: PALONOSETRON 250 MCG IV IV ONE (09:25)
[2018-08-02] MEDS: ACETAMINOPHEN 650 MG PO PO SCH (09:26)
[2018-08-02] MEDS: diphenhydrAMINE 50 MG PO PO SCH (09:26)
[2018-08-02] MEDS: FOSAPREPITANT PERIPHERAL LINE 30 MIN INFUSION (PREMIX) IV ONE (09:43)
[2018-08-02] MEDS: RITUXIMAB IV ONE (10:44)
[2018-08-02] MEDS: NS B BRAUN IV ONE (10:44)
[2018-08-02 11:21] VITALS: BP 138/74
[2018-08-02 11:50] VITALS: BP 125/70
[2018-08-02 12:22] VITALS: BP 118/62
[2018-08-02] MEDS: VINCRISTINE SULFATE IV ONE (13:51)
[2018-08-02] MEDS: NS IV ONE ×2 (13:51→14:12)
[2018-08-02] MEDS: CYCLOPHOSPHAMIDE IV ONE (14:12)
[2018-08-02] MEDS: SODIUM CHLORIDE 0.9% INJ 10 ML SYR IV PRN (15:37)
[2018-08-02] MEDS: PEGFILGRASTIM 6 MG SC ONE (15:38)
[2018-08-23 08:26] LABS: HEMATOCRIT 39.1 % (37.0-51.0); HEMOGLOBIN 12.8 g/dl (12.0-18.0); LYMPH % 11.4 % (10.0-58.5); MEAN CORPUSCULAR HEMOGLOBIN 31.2 pg (26.0-32.0); MEAN CORPUSCULAR HGB CONC 32.7 g/dl (31.0-36.0); MEAN CORPUSCULAR VOLUME 95.4 fl (80.0-97.0); NEUTROPHILS # 8.2 10^3/uL (2.0-7.8); NEUTROPHILS % 83.9 % (37.0-92.0); RED BLOOD COUNT 4.1 10^6/uL (4.2-6.3); WHITE BLOOD COUNT 9.8 10^3/uL (4.1-10.9)
[2018-08-23 08:32] VITALS: BP 161/97; TEMP 98.1; O2SAT 96
[2018-08-23 08:35] LABS: ALBUMIN 4.2 GM/DL (3.5-5.2); ALKALINE PHOSPHATASE 84 U/L (44-147); BLOOD UREA NITROGEN 19 MG/DL (6-20); CALCIUM LEVEL 9.3 MG/DL (8.5-10.2); CARBON DIOXIDE LEVEL 30 MEQ/L (23-31); CHLORIDE LEVEL 99 MMOL/L (98-107); CREATININE FOR GFR 1.15 MG/DL (0.90-1.30); GLOMERULAR FILTRATION RATE > 60.0 (>35); GLUCOSE, FASTING 172 MG/DL (70-105); POTASSIUM SERUM 3.9 MMOL/L (3.5-5.1); SODIUM LEVEL 137 MMOL/L (136-145); TOTAL PROTEIN 7.3 GM/DL (6.4-8.3)
[2018-08-23 09:49] VITALS: BP 158/76; TEMP 98.2; O2SAT 95
[2018-08-23] MEDS: PEGFILGRASTIM 6 MG SC ONE ×2 (10:06→15:52)
[2018-08-23] MEDS: dexameTHASONE 20 MG IV IV ONE (10:22)
[2018-08-23] MEDS: ACETAMINOPHEN 650 MG PO PO SCH (10:22)
[2018-08-23] MEDS: PALONOSETRON 250 MCG IV IV ONE (10:22)
[2018-08-23] MEDS: diphenhydrAMINE 50 MG PO PO SCH (10:22)
[2018-08-23] MEDS: FOSAPREPITANT PERIPHERAL LINE 30 MIN INFUSION IV ONE (10:54)
[2018-08-23] MEDS: RITUXIMAB IV ONE (11:30)
[2018-08-23] MEDS: NS B BRAUN IV ONE (11:30)
[2018-08-23 12:10] LABS: APPEARANCE, URINE CLEAR (CLEAR); BACTERIA, URINE AUTO NEGATIVE (NEGATIVE); BILIRUBIN, URINE AUTO NEGATIVE (NEGATIVE); BLOOD, URINE BLOOD NEGATIVE (NEGATIVE); COLOR, URINE YELLOW (YELLOW); GLUCOSE, URINE (UA) AUTO NEGATIVE (NEGATIVE); KETONE, URINE AUTO NEGATIVE (NEGATIVE); LEUKOCYTE ESTERASE, URINE AUTO NEGATIVE (NEGATIVE); MUCUS, URINE SMALL (NEGATIVE); NITRITE, URINE AUTO NEGATIVE (NEGATIVE); PROTEIN, URINE AUTO 1+ mg/dL (NEGATIVE); RBC, URINE AUTO 3 /HPF (0-3); SPECIFIC GRAVITY URINE AUTO 1.019 (1.002-1.035); SQUAMOUS EPITHELIAL CELL UR AU 0 /HPF (0-6); WBC, URINE AUTO 0 /HPF (0-3)
[2018-08-23 12:12] VITALS: BP 118/68; TEMP 97.9; O2SAT 95
[2018-08-23 12:44] VITALS: BP 113/60; TEMP 98.1; O2SAT 95
[2018-08-23 13:18] VITALS: BP 113/61; TEMP 98.2; O2SAT 98
[2018-08-23] MEDS: VINCRISTINE SULFATE IV ONE (14:32)
[2018-08-23] MEDS: NS IV ONE ×2 (14:32→14:52)
[2018-08-23] MEDS: CYCLOPHOSPHAMIDE IV ONE (14:52)
[2018-09-14 08:47] VITALS: BP 147/78; TEMP 99; O2SAT 98
[2018-09-14 08:52] LABS: HEMATOCRIT 39.1 % (42.0-52.0); HEMOGLOBIN 12.8 g/dl (13.5-17.5); LYMPH % 10.2 % (24.0-44.0); MEAN CORPUSCULAR HEMOGLOBIN 31.1 pg (27.0-33.0); MEAN CORPUSCULAR HGB CONC 32.7 g/dl (32.0-36.5); MEAN CORPUSCULAR VOLUME 94.8 fl (80.0-96.0); NEUTROPHILS # 6.5 10^3/uL (1.8-7.7); RED BLOOD COUNT 4.12 10^6/uL (4.30-6.10); WHITE BLOOD COUNT 7.6 10^3/uL (4.0-10.0)
[2018-09-14 09:19] LABS: ALBUMIN 4.4 GM/DL (3.5-5.2); ALKALINE PHOSPHATASE 79 U/L (44-147); BLOOD UREA NITROGEN 22 MG/DL (6-20); CALCIUM LEVEL 9.5 MG/DL (8.5-10.2); CARBON DIOXIDE LEVEL 26 MEQ/L (23-31); CHLORIDE LEVEL 100 MMOL/L (98-107); CREATININE FOR GFR 1.17 MG/DL (0.90-1.30); GLOMERULAR FILTRATION RATE > 60.0 (>35); GLUCOSE, FASTING 236 MG/DL (70-105); POTASSIUM SERUM 4.1 MMOL/L (3.5-5.1); SODIUM LEVEL 136 MMOL/L (136-145); TOTAL PROTEIN 7.6 GM/DL (6.4-8.3)
[2018-09-14] MEDS: diphenhydrAMINE 50 MG PO PO SCH (10:15)
[2018-09-14] MEDS: ACETAMINOPHEN 650 MG PO PO SCH (10:15)
[2018-09-14] MEDS: PALONOSETRON 250 MCG IV IV ONE (10:15)
[2018-09-14] MEDS: dexameTHASONE 20 MG IV IV ONE (10:16)
[2018-09-14] MEDS: FOSAPREPITANT PERIPHERAL LINE 30 MIN INFUSION IV ONE (10:34)
[2018-09-14 11:45] VITALS: BP 112/60; TEMP 98.6; O2SAT 97
[2018-09-14] MEDS: NS B BRAUN IV ONE (11:45)
[2018-09-14] MEDS: RITUXIMAB IV ONE (11:45)
[2018-09-14 12:18] VITALS: BP 122/62; TEMP 97.6; O2SAT 96
[2018-09-14 12:55] VITALS: BP 117/65; TEMP 97.8; O2SAT 97
[2018-09-14 13:26] VITALS: BP 120/65; TEMP 97.6; O2SAT 97
[2018-09-14] MEDS: NS IV ONE ×2 (14:38→14:58)
[2018-09-14] MEDS: VINCRISTINE SULFATE IV ONE (14:38)
[2018-09-14] MEDS: CYCLOPHOSPHAMIDE IV ONE (14:58)
[2018-09-14] MEDS: SODIUM CHLORIDE 0.9% INJ 10 ML SYR IV PRN (16:03)
[2018-09-14] MEDS: PEGFILGRASTIM 6 MG SC ONE (16:03)
[2018-10-04 08:55] LABS: HEMATOCRIT 38.6 % (42.0-52.0); HEMOGLOBIN 12.6 g/dl (13.5-17.5); LYMPH % 6.3 % (24.0-44.0); MEAN CORPUSCULAR HGB CONC 32.6 g/dl (32.0-36.5); MEAN CORPUSCULAR VOLUME 95.1 fl (80.0-96.0); NEUTROPHILS # 8.7 10^3/uL (1.8-7.7); NEUTROPHILS % 90.2 % (36.0-66.0); RED BLOOD COUNT 4.06 10^6/uL (4.30-6.10); WHITE BLOOD COUNT 9.7 10^3/uL (4.0-10.0)
[2018-10-04 08:57] VITALS: BP 135/74; TEMP 97.9; O2SAT 96
[2018-10-04 09:06] LABS: ALBUMIN 4.2 GM/DL (3.5-5.2); ALKALINE PHOSPHATASE 83 U/L (44-147); BLOOD UREA NITROGEN 19 MG/DL (6-20); CALCIUM LEVEL 9.7 MG/DL (8.5-10.2); CARBON DIOXIDE LEVEL 29 MEQ/L (23-31); CHLORIDE LEVEL 98 MMOL/L (98-107); CREATININE FOR GFR 1.16 MG/DL (0.90-1.30); GLOMERULAR FILTRATION RATE > 60.0 (>35); GLUCOSE, FASTING 237 MG/DL (70-105); POTASSIUM SERUM 3.7 MMOL/L (3.5-5.1); SODIUM LEVEL 136 MMOL/L (136-145); TOTAL PROTEIN 7.2 GM/DL (6.4-8.3)
[2018-10-04] MEDS: diphenhydrAMINE 50 MG PO PO SCH (10:35)
[2018-10-04] MEDS: PALONOSETRON 250 MCG IV IV ONE (10:35)
[2018-10-04] MEDS: ACETAMINOPHEN 650 MG PO PO SCH (10:35)
[2018-10-04] MEDS: dexameTHASONE 20 MG IV IV ONE (10:36)
[2018-10-04] MEDS: FOSAPREPITANT PERIPHERAL LINE 30 MIN INFUSION IV ONE (10:36)
[2018-10-04] MEDS: NS 500 ML IV ONE (10:36)
[2018-10-04] MEDS: NS B BRAUN IV ONE (11:44)
[2018-10-04] MEDS: RITUXIMAB IV ONE (11:44)
[2018-10-04 12:17] VITALS: BP 105/57; TEMP 98; O2SAT 97
[2018-10-04 12:53] VITALS: BP 107/52; TEMP 98.1; O2SAT 94
[2018-10-04 13:26] VITALS: BP 114/64; TEMP 98.1; O2SAT 97
[2018-10-04] MEDS: CYCLOPHOSPHAMIDE IV ONE (14:59)
[2018-10-04] MEDS: NS IV ONE (14:59)
[2018-10-04] MEDS: PEGFILGRASTIM 6 MG SC ONE (16:08)
[2018-10-04] MEDS: SODIUM CHLORIDE 0.9% INJ 10 ML SYR IV PRN (16:08)
[2018-11-08] MEDS: SODIUM CHLORIDE 0.9% INJ 10 ML SYR IV PRN (13:24)
[2018-11-08 13:32] VITALS: BP 149/73; TEMP 98.1; O2SAT 96
[2018-11-08 13:47] LABS: HEMATOCRIT 40.4 % (42.0-52.0); HEMOGLOBIN 13.2 g/dl (13.5-17.5); LYMPH % 19.2 % (24.0-44.0); MEAN CORPUSCULAR HEMOGLOBIN 30.6 pg (27.0-33.0); MEAN CORPUSCULAR HGB CONC 32.7 g/dl (32.0-36.5); MEAN CORPUSCULAR VOLUME 93.8 fl (80.0-96.0); NEUTROPHILS # 4.9 10^3/uL (1.8-7.7); NEUTROPHILS % 69.5 % (36.0-66.0); RED BLOOD COUNT 4.31 10^6/uL (4.30-6.10)
[2018-11-08 14:14] LABS: ALBUMIN 4.3 GM/DL (3.5-5.2); ALKALINE PHOSPHATASE 76 U/L (44-147); BLOOD UREA NITROGEN 21 MG/DL (6-20); CALCIUM LEVEL 9.5 MG/DL (8.5-10.2); CARBON DIOXIDE LEVEL 31 MEQ/L (23-31); CHLORIDE LEVEL 99 MMOL/L (98-107); GLOMERULAR FILTRATION RATE > 60.0 (>35); GLUCOSE, FASTING 174 MG/DL (70-105); POTASSIUM SERUM 3.4 MMOL/L (3.5-5.1); SODIUM LEVEL 137 MMOL/L (136-145); TOTAL PROTEIN 7.3 GM/DL (6.4-8.3)
[2019-01-08] MEDS: SODIUM CHLORIDE 0.9% INJ 10 ML SYR IV PRN (13:07)
[2019-01-08 13:18] VITALS: BP 132/66; TEMP 97.1; O2SAT 98
[2019-01-08 13:33] LABS: HEMOGLOBIN 10.9 g/dl (13.5-17.5); LYMPH % 28.5 % (24.0-44.0); MEAN CORPUSCULAR HEMOGLOBIN 25.6 pg (27.0-33.0); MEAN CORPUSCULAR HGB CONC 32.1 g/dl (32.0-36.5); MEAN CORPUSCULAR VOLUME 79.9 fl (80.0-96.0); NEUTROPHILS # 3.2 10^3/uL (1.8-7.7); NEUTROPHILS % 57.4 % (36.0-66.0); RED BLOOD COUNT 4.25 10^6/uL (4.30-6.10); WHITE BLOOD COUNT 5.6 10^3/uL (4.0-10.0)
[2019-01-08 13:38] LABS: ALKALINE PHOSPHATASE 74 U/L (44-147); BLOOD UREA NITROGEN 20 MG/DL (6-20); CALCIUM LEVEL 9.1 MG/DL (8.5-10.2); CARBON DIOXIDE LEVEL 27 MEQ/L (23-31); CHLORIDE LEVEL 100 MMOL/L (98-107); CREATININE FOR GFR 1.19 MG/DL (0.90-1.30); GLOMERULAR FILTRATION RATE > 60.0 (>35); GLUCOSE, FASTING 178 MG/DL (70-105); POTASSIUM SERUM 3.6 MMOL/L (3.5-5.1); SODIUM LEVEL 137 MMOL/L (135-145)
[2019-02-07] MEDS: SODIUM CHLORIDE 0.9% INJ 10 ML SYR IV PRN (14:12)
[2019-03-09] MEDS: SODIUM CHLORIDE 0.9% INJ 10 ML SYR IV PRN (14:12)
[2019-04-11 13:10] VITALS: BP 165/78; TEMP 96.8; O2SAT 98
[2019-04-11 13:16] LABS: HEMOGLOBIN 12.8 g/dl (13.5-17.5); LYMPH % 24.2 % (24.0-44.0); MEAN CORPUSCULAR HEMOGLOBIN 26.6 pg (27.0-33.0); MEAN CORPUSCULAR HGB CONC 32.8 g/dl (32.0-36.5); MEAN CORPUSCULAR VOLUME 81.1 fl (80.0-96.0); NEUTROPHILS # 4.6 10^3/uL (1.8-7.7); NEUTROPHILS % 63.2 % (36.0-66.0); RED BLOOD COUNT 4.81 10^6/uL (4.30-6.10); WHITE BLOOD COUNT 7.2 10^3/uL (4.0-10.0)
[2019-04-11 13:31] LABS: ALBUMIN 4.3 GM/DL (3.5-5.2); ALKALINE PHOSPHATASE 82 U/L (44-147); BLOOD UREA NITROGEN 26 MG/DL (6-20); CARBON DIOXIDE LEVEL 31 MEQ/L (23-31); CHLORIDE LEVEL 101 MMOL/L (98-107); CREATININE FOR GFR 1.48 MG/DL (0.90-1.30); GLOMERULAR FILTRATION RATE 48.3 (>35); GLUCOSE, FASTING 130 MG/DL (70-105); SODIUM LEVEL 139 MMOL/L (135-145); TOTAL PROTEIN 7.5 GM/DL (6.4-8.3)
[2019-04-11] MEDS: SODIUM CHLORIDE 0.9% INJ 10 ML SYR IV PRN (13:49)
[2019-05-16] MEDS: SODIUM CHLORIDE 0.9% INJ 10 ML SYR IV PRN (13:16)
[2019-07-11 13:16] VITALS: BP 150/73; TEMP 98; O2SAT 97
[2019-07-11 13:25] LABS: LYMPH % 24.6 % (24.0-44.0); MEAN CORPUSCULAR HEMOGLOBIN 31.4 pg (27.0-33.0); MEAN CORPUSCULAR HGB CONC 33.3 g/dl (32.0-36.5); MEAN CORPUSCULAR VOLUME 94.3 fl (80.0-96.0); NEUTROPHILS # 4.6 10^3/uL (1.8-7.7); NEUTROPHILS % 66.3 % (36.0-66.0); RED BLOOD COUNT 4.77 10^6/uL (4.30-6.10)
[2019-07-11] MEDS: SODIUM CHLORIDE 0.9% INJ 10 ML SYR IV PRN (13:30)
[2019-07-11 14:11] LABS: ALBUMIN 4.3 GM/DL (3.5-5.2); ALKALINE PHOSPHATASE 74 U/L (44-147); BLOOD UREA NITROGEN 31 MG/DL (6-20); CARBON DIOXIDE LEVEL 28 MEQ/L (23-31); CHLORIDE LEVEL 104 MMOL/L (98-107); CREATININE FOR GFR 1.41 MG/DL (0.90-1.30); GLOMERULAR FILTRATION RATE 51.1 (>35); GLUCOSE, FASTING 176 MG/DL (70-105); SODIUM LEVEL 143 MMOL/L (135-145); TOTAL PROTEIN 7.5 GM/DL (6.4-8.3)
[2020-02-07 14:51] VITALS: BP 179/94; O2SAT 95
[2020-02-07 15:04] LABS: BASO % 0.6 % (0.0-1.0); EOS # 0.2 10^3/uL (0.0-0.5); EOS % 2.4 % (0.0-3.0); HEMATOCRIT 42.3 % (42.0-52.0); HEMOGLOBIN 14.1 g/dl (13.5-17.5); LYMPH # 1.6 10^3/uL (1.5-5.0); LYMPH % 23.7 % (24.0-44.0); MEAN CORPUSCULAR HEMOGLOBIN 30.9 pg (27.0-33.0); MEAN CORPUSCULAR HGB CONC 33.3 g/dl (32.0-36.5); MEAN CORPUSCULAR VOLUME 92.8 fl (80.0-96.0); MONO # 0.8 10^3/uL (0.0-0.8); MONO % 11.3 % (0.0-5.0); NEUTROPHILS # 4.2 10^3/uL (1.5-8.5); NEUTROPHILS % 61.7 % (36.0-66.0); PLATELET COUNT, AUTOMATED 210 10^3/uL (150-450); RED BLOOD COUNT 4.56 10^6/uL (4.30-6.10); WHITE BLOOD COUNT 6.8 10^3/uL (4.0-10.0)
[2020-02-07 15:33] LABS: ALBUMIN 3.8 GM/DL (3.2-5.2); BILIRUBIN,TOTAL 0.8 MG/DL (0.2-1.0); CREATININE FOR GFR 1.36 MG/DL (0.70-1.30); GLOMERULAR FILTRATION RATE 53.1 (>35); POTASSIUM SERUM 3.8 MEQ/L (3.5-5.1); TOTAL PROTEIN 7.7 GM/DL (6.4-8.2)
[2020-02-07] MEDS: SODIUM CHLORIDE 0.9% INJ 10 ML SYR IV PRN (15:50)
[2020-02-07 16:37] LABS: INR 1.04; PARTIAL THROMBOPLASTIN TIME 26.9 SECONDS (25.0-38.4); PROTHROMBIN TIME 13.3 SECONDS (11.8-14.0)
[2020-08-07 14:04] LABS: BASO # 0.1 10^3/uL (0.0-0.2); BASO % 0.7 % (0.0-1.0); EOS # 0.1 10^3/uL (0.0-0.5); HEMOGLOBIN 15.1 g/dl (13.5-17.5); LYMPH # 1.7 10^3/uL (1.5-5.0); MEAN CORPUSCULAR HEMOGLOBIN 31.5 pg (27.0-33.0); MEAN CORPUSCULAR HGB CONC 32.8 g/dl (32.0-36.5); MEAN CORPUSCULAR VOLUME 95.8 fl (80.0-96.0); MONO # 0.7 10^3/uL (0.0-0.8); MONO % 9.8 % (0.0-5.0); NEUTROPHILS # 4.5 10^3/uL (1.5-8.5); NEUTROPHILS % 63.1 % (36.0-66.0); PLATELET COUNT, AUTOMATED 199 10^3/uL (150-450); WHITE BLOOD COUNT 7.2 10^3/uL (4.0-10.0)
[2020-08-07 14:16] VITALS: BP 189/87; O2SAT 94
[2020-08-07 14:36] LABS: ALBUMIN 3.7 GM/DL (3.2-5.2); BILIRUBIN,TOTAL 0.9 MG/DL (0.2-1.0); CREATININE FOR GFR 1.55 MG/DL (0.70-1.30); GLOMERULAR FILTRATION RATE 45.7 (>35); POTASSIUM SERUM 3.9 MEQ/L (3.5-5.1); TOTAL PROTEIN 7.8 GM/DL (6.4-8.2)
[2021-02-04 13:10] VITALS: BP 139/79; O2SAT 92
[2021-02-04 13:25] LABS: BASO # 0.1 10^3/uL (0.0-0.2); BASO % 0.6 % (0.0-1.0); EOS # 0.2 10^3/uL (0.0-0.5); EOS % 2.3 % (0.0-3.0); HEMATOCRIT 46.2 % (42.0-52.0); LYMPH # 1.9 10^3/uL (1.5-5.0); MEAN CORPUSCULAR HEMOGLOBIN 31.4 pg (27.0-33.0); MEAN CORPUSCULAR HGB CONC 32.5 g/dl (32.0-36.5); MEAN CORPUSCULAR VOLUME 96.7 fl (80.0-96.0); MONO # 0.9 10^3/uL (0.0-0.8); MONO % 10.8 % (2.0-8.0); NEUTROPHILS # 5.2 10^3/uL (1.5-8.5); NEUTROPHILS % 62.9 % (36.0-66.0); PLATELET COUNT, AUTOMATED 203 10^3/uL (150-450); RED BLOOD COUNT 4.78 10^6/uL (4.30-6.10); WHITE BLOOD COUNT 8.3 10^3/uL (4.0-10.0)
[2021-02-04 14:00] LABS: ALBUMIN 3.8 GM/DL (3.2-5.2); BILIRUBIN,TOTAL 0.9 MG/DL (0.2-1.0); CALCIUM LEVEL 9.1 MG/DL (8.8-10.2); CREATININE FOR GFR 1.46 MG/DL (0.70-1.30); GLOMERULAR FILTRATION RATE 48.9 (>35); POTASSIUM SERUM 4.4 MEQ/L (3.5-5.1); TOTAL PROTEIN 8.2 GM/DL (6.4-8.2)
[2021-08-05 13:25] VITALS: BP 167/80; O2SAT 93
[2021-08-05 13:49] LABS: BASO % 0.6 % (0.0-1.0); EOS # 0.1 10^3/uL (0.0-0.5); EOS % 1.2 % (0.0-3.0); HEMATOCRIT 44.2 % (42.0-52.0); HEMOGLOBIN 14.1 g/dl (13.5-17.5); LYMPH # 1.5 10^3/uL (1.5-5.0); LYMPH % 22.1 % (24.0-44.0); MEAN CORPUSCULAR HEMOGLOBIN 31.2 pg (27.0-33.0); MEAN CORPUSCULAR HGB CONC 31.9 g/dl (32.0-36.5); MEAN CORPUSCULAR VOLUME 97.8 fl (80.0-96.0); MONO # 0.8 10^3/uL (0.0-0.8); MONO % 11.3 % (2.0-8.0); NEUTROPHILS # 4.5 10^3/uL (1.5-8.5); NEUTROPHILS % 64.4 % (36.0-66.0); PLATELET COUNT, AUTOMATED 197 10^3/uL (150-450); RED BLOOD COUNT 4.52 10^6/uL (4.30-6.10); WHITE BLOOD COUNT 6.9 10^3/uL (4.0-10.0)
[2021-08-05 14:08] LABS: ALBUMIN 3.8 GM/DL (3.2-5.2); BILIRUBIN,TOTAL 0.9 MG/DL (0.2-1.0); CALCIUM LEVEL 9.8 MG/DL (8.8-10.2); CREATININE FOR GFR 1.44 MG/DL (0.70-1.30); GLOMERULAR FILTRATION RATE 49.6 (>35); POTASSIUM SERUM 4.3 MEQ/L (3.5-5.1); TOTAL PROTEIN 7.4 GM/DL (6.4-8.2)
[2022-02-04 13:13] VITALS: BP 141/64; O2SAT 96
[2022-02-04 13:23] LABS: BASO # 0.1 10^3/uL (0.0-0.2); BASO % 0.6 % (0.0-1.0); EOS # 0.1 10^3/uL (0.0-0.5); EOS % 1.3 % (0.0-3.0); HEMATOCRIT 44.4 % (42.0-52.0); HEMOGLOBIN 14.7 g/dl (13.5-17.5); LYMPH # 1.6 10^3/uL (1.5-5.0); LYMPH % 19.1 % (24.0-44.0); MEAN CORPUSCULAR HEMOGLOBIN 31.5 pg (27.0-33.0); MEAN CORPUSCULAR HGB CONC 33.1 g/dl (32.0-36.5); MEAN CORPUSCULAR VOLUME 95.1 fl (80.0-96.0); MONO # 0.9 10^3/uL (0.0-0.8); MONO % 10.7 % (2.0-8.0); NEUTROPHILS # 5.8 10^3/uL (1.5-8.5); NEUTROPHILS % 67.8 % (36.0-66.0); PLATELET COUNT, AUTOMATED 204 10^3/uL (150-450); RED BLOOD COUNT 4.67 10^6/uL (4.30-6.10); WHITE BLOOD COUNT 8.5 10^3/uL (4.0-10.0)
[2022-02-04 13:54] LABS: ALBUMIN 3.8 GM/DL (3.2-5.2); BILIRUBIN,TOTAL 0.9 MG/DL (0.2-1.0); CALCIUM LEVEL 9.8 MG/DL (8.8-10.2); CREATININE FOR GFR 1.46 MG/DL (0.70-1.30); GLOMERULAR FILTRATION RATE 48.7 (>35); POTASSIUM SERUM 4.4 MEQ/L (3.5-5.1); TOTAL PROTEIN 7.4 GM/DL (6.4-8.2)
[2022-08-05 12:58] LABS: BASO # 0.1 10^3/uL (0.0-0.2); BASO % 0.6 % (0.0-1.0); EOS # 0.1 10^3/uL (0.0-0.5); EOS % 0.9 % (0.0-3.0); HEMOGLOBIN 14.1 g/dl (13.5-17.5); LYMPH # 0.9 10^3/uL (1.5-5.0); LYMPH % 11.5 % (24.0-44.0); MEAN CORPUSCULAR HEMOGLOBIN 30.6 pg (27.0-33.0); MEAN CORPUSCULAR VOLUME 95.4 fl (80.0-96.0); MONO # 0.8 10^3/uL (0.0-0.8); MONO % 10.2 % (2.0-8.0); NEUTROPHILS # 5.9 10^3/uL (1.5-8.5); NEUTROPHILS % 76.2 % (36.0-66.0); PLATELET COUNT, AUTOMATED 211 10^3/uL (150-450); RED BLOOD COUNT 4.61 10^6/uL (4.30-6.10); WHITE BLOOD COUNT 7.8 10^3/uL (4.0-10.0)
[2022-08-05 13:04] VITALS: BP 135/68; O2SAT 93
[2022-08-05 13:29] LABS: ALBUMIN 3.7 G/DL (3.2-5.2); BILIRUBIN,TOTAL 0.9 MG/DL (0.3-1.2); CALCIUM LEVEL 9.9 MG/DL (8.3-10.6); CREATININE FOR GFR 1.29 MG/DL (0.70-1.30); GLOMERULAR FILTRATION RATE 56.2 (>35); POTASSIUM SERUM 4.1 MMOL/L (3.5-5.1); TOTAL PROTEIN 6.8 G/DL (5.7-8.2)
[2023-02-02 13:28] VITALS: BP 185/79; O2SAT 91
[2023-02-02 13:58] VITALS: BP 138/76
[2023-02-02 14:03] LABS: BASO # 0.1 10^3/uL (0.0-0.2); BASO % 0.6 % (0.0-1.0); EOS # 0.2 10^3/uL (0.0-0.5); EOS % 2.1 % (0.0-3.0); HEMATOCRIT 41.4 % (42.0-52.0); HEMOGLOBIN 13.4 g/dl (13.5-17.5); LYMPH # 1.7 10^3/uL (1.5-5.0); MEAN CORPUSCULAR HEMOGLOBIN 30.1 pg (27.0-33.0); MEAN CORPUSCULAR HGB CONC 32.4 g/dl (32.0-36.5); MONO # 0.9 10^3/uL (0.0-0.8); MONO % 10.6 % (2.0-8.0); NEUTROPHILS # 5.3 10^3/uL (1.5-8.5); NEUTROPHILS % 65.1 % (36.0-66.0); PLATELET COUNT, AUTOMATED 243 10^3/uL (150-450); RED BLOOD COUNT 4.45 10^6/uL (4.30-6.10); WHITE BLOOD COUNT 8.2 10^3/uL (4.0-10.0)
[2023-02-02 14:30] LABS: ALBUMIN 3.4 G/DL (3.2-5.2); BILIRUBIN,TOTAL 0.9 MG/DL (0.3-1.2); CREATININE FOR GFR 1.38 MG/DL (0.70-1.30); GLOMERULAR FILTRATION RATE 51.9 (>35); POTASSIUM SERUM 4.4 MMOL/L (3.5-5.1)
[2023-08-18 15:39] VITALS: BP 137/77; O2SAT 92
[2023-08-18 15:53] LABS: BASO # 0.1 10^3/uL (0.0-0.2); BASO % 0.6 % (0.0-1.0); EOS # 0.2 10^3/uL (0.0-0.5); EOS % 1.7 % (0.0-3.0); HEMATOCRIT 42.2 % (42.0-52.0); LYMPH # 1.8 10^3/uL (1.5-5.0); LYMPH % 18.2 % (24.0-44.0); MEAN CORPUSCULAR HEMOGLOBIN 30.5 pg (27.0-33.0); MEAN CORPUSCULAR HGB CONC 33.2 g/dl (32.0-36.5); MEAN CORPUSCULAR VOLUME 91.9 fl (80.0-96.0); MONO # 1.1 10^3/uL (0.0-0.8); MONO % 11.8 % (2.0-8.0); NEUTROPHILS # 6.5 10^3/uL (1.5-8.5); NEUTROPHILS % 67.2 % (36.0-66.0); PLATELET COUNT, AUTOMATED 246 10^3/uL (150-450); RED BLOOD COUNT 4.59 10^6/uL (4.30-6.10); WHITE BLOOD COUNT 9.6 10^3/uL (4.0-10.0)
[2023-08-18 16:15] LABS: ALBUMIN 3.4 G/DL (3.2-5.2); BILIRUBIN,TOTAL 0.8 MG/DL (0.3-1.2); CALCIUM LEVEL 8.7 MG/DL (8.3-10.6); CREATININE FOR GFR 1.32 MG/DL (0.70-1.30); GLOMERULAR FILTRATION RATE 54.6 (>35); POTASSIUM SERUM 4.1 MMOL/L (3.5-5.1); TOTAL PROTEIN 6.6 G/DL (5.7-8.2)
[2024-02-16 15:05] LABS: BASO # 0.1 10^3/uL (0.0-0.2); BASO % 0.7 % (0.0-1.0); EOS # 0.2 10^3/uL (0.0-0.5); EOS % 2.7 % (0.0-3.0); HEMATOCRIT 40.2 % (42.0-52.0); HEMOGLOBIN 12.8 g/dl (13.5-17.5); LYMPH # 1.4 10^3/uL (1.5-5.0); LYMPH % 17.2 % (24.0-44.0); MEAN CORPUSCULAR HGB CONC 31.8 g/dl (32.0-36.5); MONO # 0.9 10^3/uL (0.0-0.8); MONO % 10.9 % (2.0-8.0); NEUTROPHILS # 5.6 10^3/uL (1.5-8.5); PLATELET COUNT, AUTOMATED 243 10^3/uL (150-450); RED BLOOD COUNT 4.42 10^6/uL (4.30-6.10); WHITE BLOOD COUNT 8.2 10^3/uL (4.0-10.0)
[2024-02-16 15:06] VITALS: BP 137/57; O2SAT 94
[2024-02-16 15:38] LABS: ALBUMIN 3.3 G/DL (3.2-5.2); CALCIUM LEVEL 9.1 MG/DL (8.3-10.6); CREATININE FOR GFR 1.44 MG/DL (0.70-1.30); GLOMERULAR FILTRATION RATE 49.3 (>35); TOTAL PROTEIN 6.8 G/DL (5.7-8.2)
[2024-02-16 16:30] LABS: PERCENT SATURATION 8.7 % (19.7-50.0)
[2024-02-16 16:32] LABS: FERRITIN 21.4 NG/ML (10.5-307.3)
[2024-02-16 16:33] LABS: FOLATE 8.45 NG/ML (>5.4)
[~2024-08-08] VITALS: Ht 175.3 cm; Wt 93.4 kg
[~2024-08-08 14:20] MED LIST changes: +METF-1156 PO; -METF-817 PO; +SODIUM CHLORIDE 0.9% INJ 10 ML SYR IV PRN
[2024-08-08 14:42] VITALS: BP 133/72; O2SAT 93
[2024-08-08 14:43] LABS: BASO # 0.1 10^3/uL (0.0-0.2); BASO % 0.8 % (0.0-1.0); EOS # 0.2 10^3/uL (0.0-0.5); EOS % 2.5 % (0.0-3.0); HEMATOCRIT 39.6 % (42.0-52.0); HEMOGLOBIN 12.8 g/dl (13.5-17.5); LYMPH # 2.1 10^3/uL (1.5-5.0); MEAN CORPUSCULAR HEMOGLOBIN 29.9 pg (27.0-33.0); MEAN CORPUSCULAR HGB CONC 32.3 g/dl (32.0-36.5); MEAN CORPUSCULAR VOLUME 92.5 fl (80.0-96.0); MONO % 11.5 % (2.0-8.0); NEUTROPHILS # 5.6 10^3/uL (1.5-8.5); NEUTROPHILS % 61.9 % (36.0-66.0); PLATELET COUNT, AUTOMATED 301 10^3/uL (150-450); RED BLOOD COUNT 4.28 10^6/uL (4.30-6.10); WHITE BLOOD COUNT 9.1 10^3/uL (4.0-10.0)
[2024-08-08 15:17] LABS: ALBUMIN 3.5 G/DL (3.2-5.2); BILIRUBIN,TOTAL 0.8 MG/DL (0.3-1.2); CALCIUM LEVEL 9.7 MG/DL (8.3-10.6); CREATININE FOR GFR 1.41 MG/DL (0.70-1.30); GLOMERULAR FILTRATION RATE 50.5 (>35); POTASSIUM SERUM 4.1 MMOL/L (3.5-5.1); TOTAL PROTEIN 7.8 G/DL (5.7-8.2)
== END 2024-09-22 | disposition expired ==
LOC: M ONCM 14:20
PROVIDERS: ATTEND Specialist
DX: C83.35 Diffuse large B-cell lymphoma, lymph nodes of inguinal region and lower limb (principal); C85.13 Unspecified B-cell lymphoma, intra-abdominal lymph nodes; Z79.899 Other long term (current) drug therapy; D61.810 Antineoplastic chemotherapy induced pancytopenia; Z87.891 Personal history of nicotine dependence
CPT/HCPCS: 36415; 36591; 80053; 81001; 82607; 82728; 82746; 83550; 83615; 84238; 85025; 85027; 85610; 85730; 93005; 96361; 96366; 96367; 96375; 96377; 96411; 96413; 96417; 96523; G0463; J1100; J1453; J1642; J2469; J2505; J9070; J9310; J9312; J9370

== ENCOUNTER 2024-09-12 20:39 | Inpatient (IN) | payer MEDICARE ==
[~2024-09-12] VITALS: Ht 175.3 cm; Wt 87.9 kg
[~2024-09-12 20:39] MED LIST changes: -SODIUM CHLORIDE 0.9% INJ 10 ML SYR IV PRN
[2024-09-12 21:44] LABS: BASO # 0.1 10^3/uL (0.0-0.2); BASO % 0.5 % (0.0-1.0); EOS # 0.1 10^3/uL (0.0-0.5); EOS % 1.2 % (0.0-3.0); HEMATOCRIT 36.2 % (42.0-52.0); HEMOGLOBIN 11.7 g/dl (13.5-17.5); LYMPH # 1.3 10^3/uL (1.5-5.0); LYMPH % 11.7 % (24.0-44.0); MEAN CORPUSCULAR HGB CONC 32.3 g/dl (32.0-36.5); MEAN CORPUSCULAR VOLUME 89.8 fl (80.0-96.0); MONO % 9.5 % (2.0-8.0); NEUTROPHILS # 8.3 10^3/uL (1.5-8.5); NEUTROPHILS % 76.1 % (36.0-66.0); PLATELET COUNT, AUTOMATED 295 10^3/uL (150-450); RED BLOOD COUNT 4.03 10^6/uL (4.30-6.10); WHITE BLOOD COUNT 10.9 10^3/uL (4.0-10.0)
[2024-09-12 21:59] LABS: INR 1.04; PARTIAL THROMBOPLASTIN TIME 26.4 SECONDS (24.8-34.2); PROTHROMBIN TIME 13.9 SECONDS (12.5-14.5)
[2024-09-12 22:09] LABS: ETHYL ALCOHOL (ETHANOL) 0.084 % (0.000-0.010)
[2024-09-12 22:13] LABS: THYROID STIMULATING HORMONE 0.537 uIU/ML (0.55-4.78)
[2024-09-12 22:16] LABS: BLOOD UREA NITROGEN 18 MG/DL (9-23); CALCIUM LEVEL 8.4 MG/DL (8.3-10.6); CARBON DIOXIDE LEVEL 29 MMOL/L (20-31); CHLORIDE LEVEL 102 MMOL/L (98-107); CREATININE FOR GFR 1.16 MG/DL (0.70-1.30); GLOMERULAR FILTRATION RATE > 60.0 (>35); GLUCOSE, FASTING 140 MG/DL (74-106); MAGNESIUM LEVEL 1.7 MG/DL (1.8-2.4); POTASSIUM SERUM 3.7 MMOL/L (3.5-5.1); SODIUM LEVEL 142 MMOL/L (136-145)
[2024-09-12] MEDS ORDERED: ISOVUE-370 76% 100ML VIAL As Ordered ONE (22:45)
[2024-09-13] MEDS: LIDOCAINE 2% MDV 20ML VIAL SC ONE (00:21)
[2024-09-13] MEDS: MAG SULF 1GM/100ML (MAG RUN) 1 GM in IV 1 EA IV ONE ×2 (01:21→05:16)
[2024-09-13] MEDS ORDERED: MOM 30ML SUSPENSION UDC PO PRN (02:30)
[2024-09-13] MEDS ORDERED: LORazepam 2 MG TAB PO PRN (02:30)
[2024-09-13] MEDS ORDERED: ACETAMINOPHEN 325 MG TAB PO PRN (02:30)
[2024-09-13] MEDS ORDERED: DEXTROSE 50% 50ML SYRINGE IV PRN (02:30)
[2024-09-13] MEDS ORDERED: GLUCAGON INJ 1MG VIAL SC PRN (02:30)
[2024-09-13] MEDS ORDERED: GLUCOSE 4 GM CHEW PO PRN (02:30)
[2024-09-13] MEDS: THIAMINE 100 MG TAB PO SCH (03:48)
[2024-09-13] MEDS: LIDOCAINE 5% (LIDODERM) PATCH TD SCH (03:50)
[2024-09-13] MEDS: traMADol 50 MG TAB PO PRN (03:51)
[2024-09-13 04:00] VITALS: BP 153/65; TEMP 98.6; O2SAT 94
[2024-09-13 05:52] LABS: HEMATOCRIT 36.6 % (42.0-52.0); HEMOGLOBIN 11.5 g/dl (13.5-17.5); MEAN CORPUSCULAR HEMOGLOBIN 28.3 pg (27.0-33.0); MEAN CORPUSCULAR HGB CONC 31.4 g/dl (32.0-36.5); MEAN CORPUSCULAR VOLUME 90.1 fl (80.0-96.0); PLATELET COUNT, AUTOMATED 308 10^3/uL (150-450); RED BLOOD COUNT 4.06 10^6/uL (4.30-6.10)
[2024-09-13 06:24] LABS: ALBUMIN 3.1 G/DL (3.2-5.2); ALKALINE PHOSPHATASE 99 U/L (40-129); ALT/SGPT 10 U/L (7.0-40); AST/SGOT 17 U/L (<34); BILIRUBIN,TOTAL 0.6 MG/DL (0.3-1.2); BLOOD UREA NITROGEN 20 MG/DL (9-23); CALCIUM LEVEL 9.1 MG/DL (8.3-10.6); CARBON DIOXIDE LEVEL 30 MMOL/L (20-31); CHLORIDE LEVEL 100 MMOL/L (98-107); CREATININE FOR GFR 1.11 MG/DL (0.70-1.30); GLOMERULAR FILTRATION RATE > 60.0 (>35); GLUCOSE, FASTING 145 MG/DL (74-106); POTASSIUM SERUM 4.1 MMOL/L (3.5-5.1); SODIUM LEVEL 140 MMOL/L (136-145); TOTAL PROTEIN 6.8 G/DL (5.7-8.2)
[2024-09-13] MEDS: HEPARIN SOD (PORCINE) 5000UNITS/ML 1ML VIAL/SYRINGE SQ SCH (08:38)
[2024-09-13] MEDS: FOLIC ACID 1MG TAB PO SCH (08:39)
[2024-09-13] MEDS: MULTIVITAMINS/MINERALS THERAP 1 TAB PO SCH (08:39)
[2024-09-13] MEDS: CYANOCOBALAMIN 1,000MCG/ML 1ML VIAL IM SCH (08:39)
[2024-09-13] MEDS: INSULIN LISPRO (NovoLOG) PER UNIT SC SCH ×2 (08:41→21:00)
[2024-09-13 11:40] VITALS: BP_SYST 157; BP_SYST 160; BP_SYST 163; BP_DIAS 73; BP_DIAS 74
[2024-09-13 12:00] VITALS: BP 156/73; TEMP 98.6; O2SAT 94
[2024-09-13] MEDS ORDERED: HOME MED LIST COMPLETE! XX SCH (12:00)
[2024-09-13 13:14] LABS: FREE T4 1.19 NG/DL (0.89-1.76)
[2024-09-13 20:00] VITALS: BP 154/72; TEMP 98.6; O2SAT 91
[2024-09-13 21:09] VITALS: BP 153/72
[2024-09-14 03:40] VITALS: BP 157/75; TEMP 97.9; TEMP 99.3; O2SAT 93
[2024-09-14 04:00] VITALS: BP 157/75
[2024-09-14] MEDS: ENOXAPARIN 40MG/0.4ML SYRINGE (J1650 PER 10MG) SC SCH (08:46)
[2024-09-14 09:51] VITALS: BP 123/64
[2024-09-14 12:00] VITALS: BP 149/82; TEMP 98.1; O2SAT 94
== END 2024-09-14 14:26 | DRG 312 ==
LOC: M ED 20:39 → EDBD 20:39 → M ED INP 09-13 02:30 → M MSPAV 09-13 03:30
PROVIDERS: ADMIT Student in an Organized Health Care Education/Training Program; ATTEND Student in an Organized Health Care Education/Training Program
DX: R55 Syncope and collapse (principal); C83.30 Diffuse large B-cell lymphoma, unspecified site; E11.9 Type 2 diabetes mellitus without complications; I10 Essential (primary) hypertension; I35.0 Nonrheumatic aortic (valve) stenosis; F10.129 Alcohol abuse with intoxication, unspecified; E78.00 Pure hypercholesterolemia, unspecified; S01.81XA Laceration without foreign body of other part of head, initial encounter; W19.XXXA Unspecified fall, initial encounter; K21.9 Gastro-esophageal reflux disease without esophagitis; E83.42 Hypomagnesemia; N40.0 Benign prostatic hyperplasia without lower urinary tract symptoms; B97.4 Respiratory syncytial virus as the cause of diseases classified elsewhere; I48.91 Unspecified atrial fibrillation; E53.8 Deficiency of other specified B group vitamins; Y92.009 Unspecified place in unspecified non-institutional (private) residence as the place of occurrence of the external cause; Z79.82 Long term (current) use of aspirin; Z79.899 Other long term (current) drug therapy; Z87.891 Personal history of nicotine dependence; R29.6 Repeated falls; Z86.16 Personal history of COVID-19

== ENCOUNTER 2024-09-14 13:59 | Inpatient (IN) | payer MEDICARE ==
[~2024-09-14] VITALS: Ht 175.3 cm; Wt 86.5 kg
[2024-09-14] MEDS ORDERED: DEXTROSE 50% 50ML SYRINGE IV PRN (14:05)
[2024-09-14] MEDS ORDERED: MOM 30ML SUSPENSION UDC PO PRN (14:05)
[2024-09-14] MEDS ORDERED: SIMETHICONE 80MG CHEW TAB PO PRN (14:05)
[2024-09-14] MEDS ORDERED: traMADol 50 MG TAB PO PRN (14:05)
[2024-09-14] MEDS ORDERED: MAALOX 30 ML SUSP *UDC PO PRN (14:05)
[2024-09-14] MEDS ORDERED: GLUCAGON INJ 1MG VIAL SC PRN (14:05)
[2024-09-14] MEDS ORDERED: ONDANSETRON 4MG TAB PO PRN (14:05)
[2024-09-14] MEDS ORDERED: BISACODYL 10MG SUPP PR PRN (14:05)
[2024-09-14] MEDS ORDERED: GLUCOSE 4 GM CHEW PO PRN (14:05)
[2024-09-14 14:45] VITALS: BP 136/69; TEMP 98.6; O2SAT 95
[2024-09-14] MEDS: INSULIN LISPRO (NovoLOG) PER UNIT SC SCH (17:25)
[2024-09-14] MEDS: metFORMIN XR 500MG TAB *GLUCOPHAGE XR PO SCH (18:00)
[2024-09-14 20:48] VITALS: BP 138/70; TEMP 98.4; O2SAT 94
[2024-09-14] MEDS: FAMOTIDINE 20 MG TAB PO SCH (20:49)
[2024-09-14] MEDS: FUROSEMIDE 40 MG TAB PO SCH (20:50)
[2024-09-15 03:43] VITALS: BP 138/65; TEMP 98.1; O2SAT 93
[2024-09-15 06:51] LABS: BASO # 0.1 10^3/uL (0.0-0.2); BASO % 0.7 % (0.0-1.0); EOS # 0.3 10^3/uL (0.0-0.5); EOS % 2.9 % (0.0-3.0); HEMATOCRIT 36.1 % (42.0-52.0); HEMOGLOBIN 11.4 g/dl (13.5-17.5); LYMPH # 1.6 10^3/uL (1.5-5.0); LYMPH % 15.6 % (24.0-44.0); MEAN CORPUSCULAR HEMOGLOBIN 28.6 pg (27.0-33.0); MEAN CORPUSCULAR HGB CONC 31.6 g/dl (32.0-36.5); MEAN CORPUSCULAR VOLUME 90.5 fl (80.0-96.0); MONO # 1.1 10^3/uL (0.0-0.8); MONO % 11.4 % (2.0-8.0); NEUTROPHILS # 6.8 10^3/uL (1.5-8.5); NEUTROPHILS % 68.7 % (36.0-66.0); PLATELET COUNT, AUTOMATED 291 10^3/uL (150-450); RED BLOOD COUNT 3.99 10^6/uL (4.30-6.10)
[2024-09-15 07:08] VITALS: BP 138/66; TEMP 98.2; O2SAT 95
[2024-09-15 07:23] LABS: ALKALINE PHOSPHATASE 93 U/L (40-129); ALT/SGPT 12 U/L (7.0-40); AST/SGOT 16 U/L (<34); BILIRUBIN,TOTAL 1.2 MG/DL (0.3-1.2); BLOOD UREA NITROGEN 18 MG/DL (9-23); CALCIUM LEVEL 8.9 MG/DL (8.3-10.6); CARBON DIOXIDE LEVEL 29 MMOL/L (20-31); CHLORIDE LEVEL 102 MMOL/L (98-107); CREATININE FOR GFR 1.06 MG/DL (0.70-1.30); GLOMERULAR FILTRATION RATE > 60.0 (>35); GLUCOSE, FASTING 143 MG/DL (74-106); POTASSIUM SERUM 4.2 MMOL/L (3.5-5.1); SODIUM LEVEL 138 MMOL/L (136-145); TOTAL PROTEIN 6.6 G/DL (5.7-8.2)
[2024-09-15] MEDS: CYANOCOBALAMIN 500 MCG TAB PO SCH (07:38)
[2024-09-15] MEDS: ASPIRIN 325 MG TAB PO SCH (07:38)
[2024-09-15] MEDS: BISACODYL 5MG TAB PO SCH (07:38)
[2024-09-15] MEDS: MULTIVITAMINS/MINERALS THERAP 1 TAB PO SCH (07:38)
[2024-09-15] MEDS: ENOXAPARIN 30MG/0.3ML SYRINGE (J1650 PER 10MG) SC SCH (07:39)
[2024-09-15] MEDS: FOLIC ACID 1MG TAB PO SCH (07:39)
[2024-09-15] MEDS: LIDOCAINE 5% (LIDODERM) PATCH TD SCH (07:41)
[2024-09-15] MEDS: ACETAMINOPHEN 500 MG TAB PO PRN (07:44)
[2024-09-15 12:00] VITALS: BP 142/66; TEMP 98.1; O2SAT 94
[2024-09-15] MEDS: FUROSEMIDE 40 MG TAB PO SCH (17:09)
[2024-09-15 19:57] VITALS: BP 159/72; TEMP 98.6; O2SAT 95
[2024-09-15] MEDS: traZODone 50 MG TAB PO PRN (19:59)
[2024-09-16 03:50] VITALS: BP 132/70; TEMP 97.9; O2SAT 93
[2024-09-16 12:00] VITALS: BP 117/59; TEMP 98; O2SAT 95
[2024-09-16 20:00] VITALS: BP 149/69; TEMP 99; O2SAT 94
[2024-09-17 04:00] VITALS: BP 134/61; TEMP 98.1; O2SAT 92
[2024-09-17 07:15] LABS: HEMATOCRIT 33.2 % (42.0-52.0); HEMOGLOBIN 10.6 g/dl (13.5-17.5); MEAN CORPUSCULAR HEMOGLOBIN 28.4 pg (27.0-33.0); MEAN CORPUSCULAR HGB CONC 31.9 g/dl (32.0-36.5); PLATELET COUNT, AUTOMATED 324 10^3/uL (150-450); RED BLOOD COUNT 3.73 10^6/uL (4.30-6.10); WHITE BLOOD COUNT 9.3 10^3/uL (4.0-10.0)
[2024-09-17] MEDS ORDERED: LevoFLOXacin 500 MG TABLET PO ONE (10:15)
[2024-09-17 12:00] VITALS: BP 117/56; TEMP 97.5; O2SAT 96
[2024-09-17] MEDS: LevoFLOXacin 750 MG TABLET PO SCH (12:14)
[2024-09-17] MEDS ORDERED: traZODone 50 MG TAB PO PRN (12:55)
[2024-09-17 20:00] VITALS: BP 164/67; TEMP 97.8; O2SAT 93
[2024-09-17] MEDS: traZODone 50 MG TAB PO SCH (20:11)
[2024-09-18 04:00] VITALS: BP 148/68; TEMP 98.2; O2SAT 100
[2024-09-18] MEDS ORDERED: LevoFLOXacin 250 MG TABLET PO SCH (06:00)
[2024-09-18] MEDS: FUROSEMIDE 40 MG TAB PO SCH (10:47)
[2024-09-18 12:00] VITALS: BP 118/58; TEMP 98; O2SAT 95
[2024-09-18 20:00] VITALS: BP 146/65; TEMP 98; O2SAT 96
[2024-09-19 04:00] VITALS: BP 158/69; TEMP 98.6; O2SAT 93
[2024-09-19 12:00] VITALS: BP 153/66; TEMP 99; O2SAT 92
[2024-09-19 20:18] VITALS: BP 128/58; TEMP 98; O2SAT 95
[2024-09-20 04:17] VITALS: BP 126/65; TEMP 97.4; O2SAT 93
[2024-09-20 07:23] LABS: HEMATOCRIT 32.4 % (42.0-52.0); HEMOGLOBIN 10.3 g/dl (13.5-17.5); MEAN CORPUSCULAR HEMOGLOBIN 28.8 pg (27.0-33.0); MEAN CORPUSCULAR HGB CONC 31.8 g/dl (32.0-36.5); MEAN CORPUSCULAR VOLUME 90.5 fl (80.0-96.0); PLATELET COUNT, AUTOMATED 346 10^3/uL (150-450); RED BLOOD COUNT 3.58 10^6/uL (4.30-6.10); WHITE BLOOD COUNT 8.9 10^3/uL (4.0-10.0)
[2024-09-20 10:13] VITALS: BP 121/58
[2024-09-20 11:13] VITALS: BP 117/54; TEMP 97; O2SAT 91
[2024-09-20 12:00] VITALS: BP 140/63; TEMP 97.3; O2SAT 92
[2024-09-20 12:42] LABS: CALCIUM LEVEL 9.2 MG/DL (8.3-10.6); CREATININE FOR GFR 1.42 MG/DL (0.70-1.30); GLOMERULAR FILTRATION RATE 50.1 (>35); POTASSIUM SERUM 4.2 MMOL/L (3.5-5.1)
[2024-09-20 13:48] LABS: MAGNESIUM LEVEL 1.8 MG/DL (1.8-2.4)
[2024-09-20 13:52] VITALS: BP 121/57; TEMP 97.7; O2SAT 91
[2024-09-20] MEDS: NS (Normal Saline) 0.9% 1,000 ML IV ONE (13:52)
[2024-09-20] MEDS ORDERED: OLANZapine 2.5MG TABLET PO PRN (14:40)
== END 2024-09-20 17:59 | disposition still patient (30) | DRG 91 ==
LOC: M PM&R 14:32
PROVIDERS: ADMIT Physical Medicine & Rehabilitation; ATTEND Internal Medicine
DX: R29.6 Repeated falls (principal); U07.1 COVID-19; C83.30 Diffuse large B-cell lymphoma, unspecified site; N39.0 Urinary tract infection, site not specified; R53.81 Other malaise; R00.1 Bradycardia, unspecified; I48.91 Unspecified atrial fibrillation; I10 Essential (primary) hypertension; I35.0 Nonrheumatic aortic (valve) stenosis; E11.9 Type 2 diabetes mellitus without complications; K21.9 Gastro-esophageal reflux disease without esophagitis; N40.0 Benign prostatic hyperplasia without lower urinary tract symptoms; Z74.1 Need for assistance with personal care; Z74.09 Other reduced mobility; S01.81XD Laceration without foreign body of other part of head, subsequent encounter; Z87.891 Personal history of nicotine dependence; Z90.49 Acquired absence of other specified parts of digestive tract; F10.90 Alcohol use, unspecified, uncomplicated; Z79.82 Long term (current) use of aspirin; Z79.84 Long term (current) use of oral hypoglycemic drugs; Z79.899 Other long term (current) drug therapy; Z88.8 Allergy status to other drugs, medicaments and biological substances

== ENCOUNTER 2024-09-20 17:28 | Inpatient (IN) | payer MEDICARE ==
[~2024-09-20] VITALS: Ht 175.3 cm; Wt 83.4 kg
[2024-09-20] MEDS: INSULIN LISPRO (NovoLOG) PER UNIT SC SCH ×2 (17:30→21:00)
[2024-09-20] MEDS ORDERED: DEXTROSE 50% 50ML SYRINGE IV PRN (17:50)
[2024-09-20] MEDS ORDERED: GLUCOSE 4 GM CHEW PO PRN (17:50)
[2024-09-20] MEDS ORDERED: GLUCAGON INJ 1MG VIAL SC PRN (17:50)
[2024-09-20] MEDS ORDERED: HOME MED LIST COMPLETE! XX SCH (18:30)
[2024-09-20 19:00] VITALS: O2SAT 93
[2024-09-20 20:00] VITALS: BP 146/64; TEMP 98.1; O2SAT 97; O2SAT 98
[2024-09-20 21:00] VITALS: O2SAT 98
[2024-09-20] MEDS: NS (Normal Saline) 0.9% 1,000 ML IV SCH (21:25)
[2024-09-20] MEDS: TAMSULOSIN 0.4 MG CAP PO SCH (21:25)
[2024-09-20] MEDS: FAMOTIDINE 20 MG TAB PO SCH (21:25)
[2024-09-20] MEDS: HEPARIN SOD (PORCINE) 5000UNITS/ML 1ML VIAL/SYRINGE SQ SCH (21:25)
[2024-09-20 23:00] VITALS: O2SAT 96
[2024-09-21] VITALS (31 sets, daily range): BP systolic 109–168; BP diastolic 58–81; TEMP 98.2–98.6; O2SAT 87–99
[2024-09-21 05:51] LABS: HEMATOCRIT 31.6 % (42.0-52.0); HEMOGLOBIN 9.8 g/dl (13.5-17.5); MEAN CORPUSCULAR HEMOGLOBIN 28.9 pg (27.0-33.0); MEAN CORPUSCULAR VOLUME 93.2 fl (80.0-96.0); PLATELET COUNT, AUTOMATED 329 10^3/uL (150-450); RED BLOOD COUNT 3.39 10^6/uL (4.30-6.10); WHITE BLOOD COUNT 9.2 10^3/uL (4.0-10.0)
[2024-09-21 06:01] LABS: CALCIUM LEVEL 8.5 MG/DL (8.3-10.6); CREATININE FOR GFR 1.46 MG/DL (0.70-1.30); GLOMERULAR FILTRATION RATE 48.5 (>35); POTASSIUM SERUM 4.3 MMOL/L (3.5-5.1)
[2024-09-21] MEDS: ASPIRIN 325 MG TAB PO SCH (09:25)
[2024-09-21] MEDS: CYANOCOBALAMIN 500 MCG TAB PO SCH (09:25)
[2024-09-21] MEDS: FOLIC ACID 1MG TAB PO SCH (09:25)
[2024-09-21 14:41] LABS: ABG BASE EXCESS -2.9 (-2.0-2.0); ABG HCO3 24.5 MMOL/L (22.0-26.0); ABG O2 SATURATION 96.5 % (95.0-99.0); ABG PARTIAL PRESSURE CO2 55.4 mmHg (35.0-45.0); ABG PARTIAL PRESSURE O2 93.4 mmHg (75.0-100.0); ABG TOTAL CO2 26.2 MMOL/L (23.0-31.0); ABG pH (ARTERIAL) 7.264 UNITS (7.350-7.450)
[2024-09-21] MEDS ORDERED: REMDESIVIR 200 MG in NS 250 ML IV ONE (17:00)
[2024-09-21] MEDS: dexAMETHasone 2 MG TAB PO SCH (17:43)
[2024-09-21 20:32] LABS: ABG BASE EXCESS -0.7 (-2.0-2.0); ABG HCO3 26.1 MMOL/L (22.0-26.0); ABG O2 SATURATION 93.8 % (95.0-99.0); ABG PARTIAL PRESSURE CO2 53.2 mmHg (35.0-45.0); ABG PARTIAL PRESSURE O2 74.2 mmHg (75.0-100.0); ABG STANDARD HCO3 23.8 MMOL/L. (22.0-26.0); ABG TOTAL CO2 27.8 MMOL/L (23.0-31.0); ABG pH (ARTERIAL) 7.309 UNITS (7.350-7.450)
[2024-09-21] MEDS: OLANZapine INTRAMUSCULAR 10MG VIAL IM PRN (22:30)
[2024-09-22] VITALS (14 sets, daily range): BP systolic 154–189; BP diastolic 68–84; TEMP 97.6–97.8; O2SAT 90–98
[2024-09-22] MEDS: hydrOXYzine 10MG/5ML SYRUP PO PRN (01:04)
[2024-09-22] MEDS: HALOPERIDOL LACTATE 5MG/ML VIAL IV ONE (01:34)
[2024-09-22 09:04] LABS: BASO % 0.4 % (0.0-1.0); HEMATOCRIT 36.6 % (42.0-52.0); HEMOGLOBIN 11.3 g/dl (13.5-17.5); LYMPH # 1.8 10^3/uL (1.5-5.0); LYMPH % 17.5 % (24.0-44.0); MEAN CORPUSCULAR HEMOGLOBIN 28.4 pg (27.0-33.0); MEAN CORPUSCULAR HGB CONC 30.9 g/dl (32.0-36.5); MONO # 1.2 10^3/uL (0.0-0.8); MONO % 11.7 % (2.0-8.0); NEUTROPHILS # 7.1 10^3/uL (1.5-8.5); NEUTROPHILS % 69.6 % (36.0-66.0); PLATELET COUNT, AUTOMATED 386 10^3/uL (150-450); RED BLOOD COUNT 3.98 10^6/uL (4.30-6.10); WHITE BLOOD COUNT 10.2 10^3/uL (4.0-10.0)
[2024-09-22 09:31] LABS: CALCIUM LEVEL 9.3 MG/DL (8.3-10.6); CREATININE FOR GFR 1.34 MG/DL (0.70-1.30); GLOMERULAR FILTRATION RATE 53.6 (>35); POTASSIUM SERUM 4.5 MMOL/L (3.5-5.1)
[2024-09-22] MEDS: hydrALAZINE 20MG/ML 1ML VIAL IV STA (09:45)
[2024-09-22] MEDS: NS 0.45% 1,000 ML IV SCH (12:12)
[2024-09-22] MEDS: **hydrALAZINE HCL** 25 MG TAB PO SCH (12:15)
[2024-09-22] MEDS ORDERED: MORPHINE 10MG/0.5ML ORAL CONCENTRATE SOLUTION U/D SL PRN (12:50)
[2024-09-22] MEDS ORDERED: ATROPINE SULFATE 1% OPHTH SOLN 2ML BTL SL PRN (12:50)
[2024-09-22] MEDS: LORazepam 1 MG TAB PO PRN (15:58)
[2024-09-22] MEDS ORDERED: REMDESIVIR 100 MG in NS 100 ML IV SCH (17:00)
[2024-09-22] MEDS: QUEtiapine FUMARATE 12.5 MG HALF-TAB PO SCH (20:06)
== END 2024-09-23 04:20 | disposition expired | DRG 308 ==
LOC: M PCU 18:00
PROVIDERS: ADMIT Internal Medicine; ATTEND Internal Medicine
DX: R00.1 Bradycardia, unspecified (principal); U07.1 COVID-19; J96.02 Acute respiratory failure with hypercapnia; G93.41 Metabolic encephalopathy; E87.0 Hyperosmolality and hypernatremia; J21.0 Acute bronchiolitis due to respiratory syncytial virus; I12.9 Hypertensive chronic kidney disease with stage 1 through stage 4 chronic kidney disease, or unspecified chronic kidney disease; I48.91 Unspecified atrial fibrillation; E11.22 Type 2 diabetes mellitus with diabetic chronic kidney disease; K21.9 Gastro-esophageal reflux disease without esophagitis; N40.0 Benign prostatic hyperplasia without lower urinary tract symptoms; R26.89 Other abnormalities of gait and mobility; F10.20 Alcohol dependence, uncomplicated; I35.0 Nonrheumatic aortic (valve) stenosis; Z66 Do not resuscitate; N18.2 Chronic kidney disease, stage 2 (mild); Z87.891 Personal history of nicotine dependence; Z79.82 Long term (current) use of aspirin; Z79.84 Long term (current) use of oral hypoglycemic drugs; Z88.8 Allergy status to other drugs, medicaments and biological substances; Z79.899 Other long term (current) drug therapy; S01.81XD Laceration without foreign body of other part of head, subsequent encounter; B33.8 Other specified viral diseases; I46.9 Cardiac arrest, cause unspecified